=== PATIENT | female | born 1950 | race Caucasian/White ===

== ENCOUNTER 2018-11-26 14:43 | Inpatient (IN) | payer OTHER ==
[~2018-11-26] VITALS: Ht 162.6 cm; Wt 64.9 kg
[2018-11-26] MEDS ORDERED: DOCUSATE SODIUM 100 MG GELCAP PO PRN (16:45)
[2018-11-26] MEDS ORDERED: ONDANSETRON 4 MG/2 ML VIAL IM/IVP PRN (16:45)
[2018-11-26] MEDS ORDERED: ASCO500T45 PO (17:05)
[2018-11-26] MEDS ORDERED: DOXY100C59 PO (17:05)
[2018-11-26] MEDS ORDERED: ATOR40TA PO (17:05)
[2018-11-26] MEDS ORDERED: FERR-252 PO (17:05)
[2018-11-26] MEDS ORDERED: FURO-570 PO (17:05)
[2018-11-26 17:32] LABS: BASOPHILS % (AUTO) 0.7 % (0.0-2.0); EOSINOPHILS # (AUTO) 0.1 K/uL (0-0.4); HEMATOCRIT 21.1 % (36-48); HEMOGLOBIN 7.2 g/dL (12.0-16.0); LYMPHOCYTES # (AUTO) 1.9 K/uL (2.5-16.5); LYMPHOCYTES % (AUTO) 27.7 % (20.5-51.1); MEAN CORPUSCULAR HEMOGLOBIN 31 pg (27-31); MEAN CORPUSCULAR HGB CONC 34 g/dL (33-37); MEAN CORPUSCULAR VOLUME 89.6 fL (80-94); MONOCYTES # (AUTO) 0.6 K/uL (0.8-1.0); MONOCYTES % (AUTO) 8.3 % (1.7-9.3); NEUTROPHILS # (AUTO) 4.2 K/uL (1.8-7.7); NEUTROPHILS % (AUTO) 62.3 % (42.2-75.2); PLATELET COUNT (AUTO) 259 K/uL (140-450); RED BLOOD CELL COUNT(AUTO) 2.36 MIL/uL (4.20-5.40); RED CELL DISTRIBUTION WIDTH 14.3 % (11.6-13.7); WHITE BLOOD COUNT (AUTO) 6.8 K/uL (4.8-10.8)
[2018-11-26 17:48] LABS: PROTHROMBIN TIME 9.8 secs (10.8-13.4)
[2018-11-26] MEDS ORDERED: VANCOMYCIN PER PHARMACY MC PRN (18:05)
[2018-11-26 18:06] LABS: ALBUMIN 3.1 g/dL (3.4-5.0); ANION GAP 11.2 (8-16); CARBON DIOXIDE 32.4 mmol/L (21-32); CHOL/HDL RATIO 3.1 (1-4.5); CREATININE 1.9 mg/dL (0.6-1.3); FREE T4 (FREE THYROXINE) 1.05 ng/dL (0.76-1.46); PHOSPHORUS 4.6 mg/dL (2.5-4.9); POTASSIUM 4.6 mmol/L (3.5-5.1); THYROID STIMULATING HORMONE 1.51 uIU/mL (0.34-3.74); TOTAL BILIRUBIN 0.5 mg/dL (0.0-1.0)
[2018-11-26] MEDS ORDERED: DEXTROSE 50% 50 ML SYR IVP PRN (18:30)
[2018-11-26] MEDS: NACL 0.9% 1,000 ML IV SCH (18:54)
[2018-11-26 19:58] LABS: APPEARANCE,URINE HAZY (CLEAR); BILIRUBIN,URINE NEGATIVE (NEGATIVE); BLOOD, URINE TRACE-I (NEGATIVE); COLOR,URINE YELLOW (YELLOW); LEUKOCYTE ESTERASE ,URINE TRACE (NEGATIVE); NITRITE, URINE NEGATIVE (NEGATIVE); UGLUCOSE NEGATIVE (NEGATIVE)
[2018-11-26] MEDS: BLOOD GLUCOSE MONITORING 1 DEV DEV FS SCH (19:59)
[2018-11-26 20:00] VITALS: BP 193/59
[2018-11-26 20:01] LABS: RBC,URINE 0-5 /HPF (0-5)
[2018-11-26 20:04] LABS: BARBITURATE, URINE NEG. ng/ml (NEG <=200); BENZODIAZEPINE, URINE NEG. ng/mL (NEG <=200); CANNABINOID, URINE NEG. ng/mL (NEG <=50); COCAINE, URINE NEG. ng/mL (NEG <=300); OPIATE, URINE NEG. ng/mL (NEG <=2000); PHENCYCLIDINE SCREEN,URINE NEG. ng/mL (NEG <=25)
[2018-11-26] MEDS: FERROUS SULFATE 325 MG TABEC PO SCH (20:12)
[2018-11-26] MEDS ORDERED: FERROUS SULFATE 325 MG TABEC PO SCH (21:00)
[2018-11-26] MEDS ORDERED: VANCOMYCIN 1,000 MG in NACL 0.9% 250 ML IV SCH (21:00)
[2018-11-26] MEDS ORDERED: PIPERACILLIN/TAZOBACTAM 3.375 GM in DEXTROSE 5% 50 ML IV SCH (21:00)
[2018-11-26] MEDS ORDERED: ASCORBIC ACID 500 MG TAB PO SCH (21:00)
[2018-11-26] MEDS: hydrALAZINE 20 MG/ML VIAL IVP PRN (21:19)
[2018-11-26 23:43] VITALS: BP 135/71
[2018-11-27] MEDS: BLOOD GLUCOSE MONITORING 1 DEV DEV FS SCH ×4 (06:08→20:57)
[2018-11-27] MEDS: ACETAMINOPHEN 325 MG TAB PO PRN (06:37)
[2018-11-27 07:18] LABS: ANION GAP 12.5 (8-16); CARBON DIOXIDE 28.6 mmol/L (21-32); CREATININE 1.8 mg/dL (0.6-1.3); POTASSIUM 4.1 mmol/L (3.5-5.1)
[2018-11-27 07:23] LABS: BASOPHILS % (AUTO) 0.5 % (0.0-2.0); EOSINOPHILS # (AUTO) 0.1 K/uL (0-0.4); EOSINOPHILS % (AUTO) 0.7 % (0.0-4.0); HEMATOCRIT 24.1 % (36-48); HEMOGLOBIN 8.2 g/dL (12.0-16.0); LYMPHOCYTES # (AUTO) 2.1 K/uL (2.5-16.5); LYMPHOCYTES % (AUTO) 22.6 % (20.5-51.1); MEAN CORPUSCULAR HEMOGLOBIN 31 pg (27-31); MEAN CORPUSCULAR HGB CONC 34 g/dL (33-37); MEAN CORPUSCULAR VOLUME 89.3 fL (80-94); MONOCYTES # (AUTO) 0.8 K/uL (0.8-1.0); MONOCYTES % (AUTO) 8.1 % (1.7-9.3); NEUTROPHILS # (AUTO) 6.3 K/uL (1.8-7.7); NEUTROPHILS % (AUTO) 68.1 % (42.2-75.2); PLATELET COUNT (AUTO) 273 K/uL (140-450); RED BLOOD CELL COUNT(AUTO) 2.69 MIL/uL (4.20-5.40); RED CELL DISTRIBUTION WIDTH 14.2 % (11.6-13.7); WHITE BLOOD COUNT (AUTO) 9.3 K/uL (4.8-10.8)
[2018-11-27 07:28] LABS: PHOSPHORUS 5.1 mg/dL (2.5-4.9)
[2018-11-27 08:00] VITALS: BP 141/55
[2018-11-27 08:25] LABS: T4 (THYROXINE) 6.4 ug/dL (4.5-12.0)
[2018-11-27] MEDS: ATORVASTATIN 20 MG TAB PO SCH (08:37)
[2018-11-27] MEDS: FERROUS SULFATE 325 MG TABEC PO SCH ×2 (08:37→20:56)
[2018-11-27] MEDS: HYDROcodone/APAP 7.5/325 MG 1 TAB PO PRN (08:37)
[2018-11-27] MEDS: ASCORBIC ACID 500 MG TAB PO SCH (08:37)
[2018-11-27] MEDS: FUROSEMIDE 40 MG TAB PO SCH (08:38)
[2018-11-27] MEDS: ASPIRIN 81 MG TAB.CHEW PO SCH (10:11)
[2018-11-27] MEDS: INSULIN LISPRO SLIDING SCALE 100 UNITS/ML VIAL SUBQ PRN ×2 (12:30→20:59)
[2018-11-27] MEDS: NACL 0.9% 1,000 ML IV SCH (14:18)
[2018-11-27 15:08] LABS: FOLIC ACID 12.4 ng/mL (>3.0)
[2018-11-27 20:00] VITALS: BP 196/61
[2018-11-27] MEDS: hydrALAZINE 20 MG/ML VIAL IVP PRN (21:00)
[2018-11-28] VITALS: BP 156/60
[2018-11-28] MEDS: NACL 0.9% 1,000 ML IV SCH ×3 (00:15→17:22)
[2018-11-28] MEDS: ACETAMINOPHEN 325 MG TAB PO PRN (01:57)
[2018-11-28] MEDS: BLOOD GLUCOSE MONITORING 1 DEV DEV FS SCH ×4 (06:53→20:13)
[2018-11-28 07:23] LABS: ANION GAP 11.5 (8-16); CARBON DIOXIDE 28.6 mmol/L (21-32); CREATININE 1.7 mg/dL (0.6-1.3); POTASSIUM 4.1 mmol/L (3.5-5.1)
[2018-11-28 08:00] VITALS: BP 156/49
[2018-11-28] MEDS: VANCOMYCIN 1,000 MG in DEXTROSE 5% 250 ML IV SCH (09:10)
[2018-11-28] MEDS: LACTOBACILLUS RHAMNOSUS GG 1 EACH CAP PO SCH (09:11)
[2018-11-28] MEDS: FUROSEMIDE 40 MG TAB PO SCH (09:11)
[2018-11-28] MEDS: ATORVASTATIN 20 MG TAB PO SCH (09:11)
[2018-11-28] MEDS: ASCORBIC ACID 500 MG TAB PO SCH (09:12)
[2018-11-28] MEDS: ASPIRIN 81 MG TAB.CHEW PO SCH (09:12)
[2018-11-28] MEDS: FERROUS SULFATE 325 MG TABEC PO SCH ×2 (09:12→20:12)
[2018-11-28] MEDS: INSULIN LISPRO SLIDING SCALE 100 UNITS/ML VIAL SUBQ PRN ×3 (12:02→20:16)
[2018-11-28 13:35] LABS: BASOPHILS # (AUTO) 0.1 K/uL (0.00-0.22); BASOPHILS % (AUTO) 0.9 % (0.0-2.0); EOSINOPHILS # (AUTO) 0.1 K/uL (0-0.4); EOSINOPHILS % (AUTO) 1.3 % (0.0-4.0); HEMATOCRIT 23.3 % (36-48); HEMOGLOBIN 7.8 g/dL (12.0-16.0); LYMPHOCYTES # (AUTO) 2.2 K/uL (2.5-16.5); LYMPHOCYTES % (AUTO) 32.1 % (20.5-51.1); MEAN CORPUSCULAR HEMOGLOBIN 31 pg (27-31); MEAN CORPUSCULAR HGB CONC 34 g/dL (33-37); MEAN CORPUSCULAR VOLUME 91.1 fL (80-94); MONOCYTES # (AUTO) 0.6 K/uL (0.8-1.0); MONOCYTES % (AUTO) 7.9 % (1.7-9.3); NEUTROPHILS % (AUTO) 57.8 % (42.2-75.2); PLATELET COUNT (AUTO) 266 K/uL (140-450); RED BLOOD CELL COUNT(AUTO) 2.55 MIL/uL (4.20-5.40); RED CELL DISTRIBUTION WIDTH 14.4 % (11.6-13.7)
[2018-11-28 20:00] VITALS: BP 154/42
[2018-11-29] VITALS: BP 156/53
[2018-11-29] MEDS: NACL 0.9% 1,000 ML IV SCH ×2 (04:05→18:04)
[2018-11-29] MEDS: BLOOD GLUCOSE MONITORING 1 DEV DEV FS SCH ×4 (06:45→20:56)
[2018-11-29 07:42] LABS: BASOPHILS % (AUTO) 0.6 % (0.0-2.0); EOSINOPHILS # (AUTO) 0.1 K/uL (0-0.4); EOSINOPHILS % (AUTO) 1.1 % (0.0-4.0); HEMATOCRIT 21.1 % (36-48); HEMOGLOBIN 7.2 g/dL (12.0-16.0); LYMPHOCYTES # (AUTO) 2.1 K/uL (2.5-16.5); LYMPHOCYTES % (AUTO) 30.4 % (20.5-51.1); MEAN CORPUSCULAR HEMOGLOBIN 31 pg (27-31); MEAN CORPUSCULAR HGB CONC 34 g/dL (33-37); MONOCYTES # (AUTO) 0.6 K/uL (0.8-1.0); MONOCYTES % (AUTO) 9.2 % (1.7-9.3); NEUTROPHILS % (AUTO) 58.7 % (42.2-75.2); PLATELET COUNT (AUTO) 244 K/uL (140-450); RED BLOOD CELL COUNT(AUTO) 2.35 MIL/uL (4.20-5.40); WHITE BLOOD COUNT (AUTO) 6.8 K/uL (4.8-10.8)
[2018-11-29 08:00] VITALS: BP 141/49
[2018-11-29 08:07] LABS: ANION GAP 8.7 (8-16); CARBON DIOXIDE 28.8 mmol/L (21-32); CREATININE 1.5 mg/dL (0.6-1.3); MAGNESIUM 1.8 mg/dL (1.8-2.4); PHOSPHORUS 4.4 mg/dL (2.5-4.9); POTASSIUM 3.5 mmol/L (3.5-5.1)
[2018-11-29] MEDS: ASCORBIC ACID 500 MG TAB PO SCH (09:56)
[2018-11-29] MEDS: ATORVASTATIN 20 MG TAB PO SCH (09:56)
[2018-11-29] MEDS: ASPIRIN 81 MG TAB.CHEW PO SCH (09:56)
[2018-11-29] MEDS: FERROUS SULFATE 325 MG TABEC PO SCH ×2 (09:57→20:54)
[2018-11-29] MEDS: FUROSEMIDE 40 MG TAB PO SCH (09:57)
[2018-11-29] MEDS: LACTOBACILLUS RHAMNOSUS GG 1 EACH CAP PO SCH (09:57)
[2018-11-29] MEDS: INSULIN LANTUS 100 UNITS/ML 10 ML VIAL SUBQ SCH (09:58)
[2018-11-29] MEDS: INSULIN LISPRO SLIDING SCALE 100 UNITS/ML VIAL SUBQ PRN ×2 (12:22→20:58)
[2018-11-29 16:00] VITALS: BP 151/48
[2018-11-29 17:04] LABS: BASOPHILS # (AUTO) 0.1 K/uL (0.00-0.22); BASOPHILS % (AUTO) 0.9 % (0.0-2.0); EOSINOPHILS # (AUTO) 0.1 K/uL (0-0.4); EOSINOPHILS % (AUTO) 1.2 % (0.0-4.0); HEMATOCRIT 21.2 % (36-48); HEMOGLOBIN 7.3 g/dL (12.0-16.0); LYMPHOCYTES # (AUTO) 1.9 K/uL (2.5-16.5); LYMPHOCYTES % (AUTO) 29.8 % (20.5-51.1); MEAN CORPUSCULAR HEMOGLOBIN 31 pg (27-31); MEAN CORPUSCULAR HGB CONC 34 g/dL (33-37); MEAN CORPUSCULAR VOLUME 89.4 fL (80-94); MONOCYTES # (AUTO) 0.7 K/uL (0.8-1.0); MONOCYTES % (AUTO) 10.3 % (1.7-9.3); NEUTROPHILS # (AUTO) 3.7 K/uL (1.8-7.7); NEUTROPHILS % (AUTO) 57.8 % (42.2-75.2); PLATELET COUNT (AUTO) 252 K/uL (140-450); RED BLOOD CELL COUNT(AUTO) 2.37 MIL/uL (4.20-5.40); RED CELL DISTRIBUTION WIDTH 14.1 % (11.6-13.7); WHITE BLOOD COUNT (AUTO) 6.4 K/uL (4.8-10.8)
[2018-11-29] MEDS: VANCOMYCIN 1,000 MG in DEXTROSE 5% 250 ML IV SCH (21:39)
[2018-11-30] VITALS: BP 156/53
[2018-11-30] MEDS: NACL 0.9% 1,000 ML IV SCH ×4 (02:18→20:23)
[2018-11-30] MEDS: BLOOD GLUCOSE MONITORING 1 DEV DEV FS SCH ×4 (06:17→20:23)
[2018-11-30 08:00] VITALS: BP 175/40
[2018-11-30 08:27] LABS: BASOPHILS % (AUTO) 0.6 % (0.0-2.0); EOSINOPHILS # (AUTO) 0.1 K/uL (0-0.4); EOSINOPHILS % (AUTO) 1.4 % (0.0-4.0); LYMPHOCYTES % (AUTO) 29.5 % (20.5-51.1); MEAN CORPUSCULAR HEMOGLOBIN 31 pg (27-31); MEAN CORPUSCULAR HGB CONC 34 g/dL (33-37); MEAN CORPUSCULAR VOLUME 89.6 fL (80-94); MONOCYTES # (AUTO) 0.6 K/uL (0.8-1.0); MONOCYTES % (AUTO) 9.4 % (1.7-9.3); NEUTROPHILS # (AUTO) 4.1 K/uL (1.8-7.7); NEUTROPHILS % (AUTO) 59.1 % (42.2-75.2); PLATELET COUNT (AUTO) 223 K/uL (140-450); RED BLOOD CELL COUNT(AUTO) 2.12 MIL/uL (4.20-5.40); RED CELL DISTRIBUTION WIDTH 14.1 % (11.6-13.7); WHITE BLOOD COUNT (AUTO) 6.9 K/uL (4.8-10.8)
[2018-11-30 08:31] LABS: HEMOGLOBIN 6.5 g/dL (12.0-16.0)
[2018-11-30 08:41] LABS: ANION GAP 11.5 (8-16); CARBON DIOXIDE 25.6 mmol/L (21-32); CREATININE 1.3 mg/dL (0.6-1.3); POTASSIUM 3.1 mmol/L (3.5-5.1)
[2018-11-30 08:44] LABS: MAGNESIUM 1.6 mg/dL (1.8-2.4); PHOSPHORUS 4.1 mg/dL (2.5-4.9)
[2018-11-30] MEDS: ASPIRIN 81 MG TAB.CHEW PO SCH (09:23)
[2018-11-30] MEDS: FERROUS SULFATE 325 MG TABEC PO SCH ×2 (09:24→20:04)
[2018-11-30] MEDS: LACTOBACILLUS RHAMNOSUS GG 1 EACH CAP PO SCH (09:24)
[2018-11-30] MEDS: ASCORBIC ACID 500 MG TAB PO SCH (09:24)
[2018-11-30] MEDS: ATORVASTATIN 20 MG TAB PO SCH (09:24)
[2018-11-30] MEDS: FUROSEMIDE 40 MG TAB PO SCH (09:24)
[2018-11-30] MEDS: INSULIN LANTUS 100 UNITS/ML 10 ML VIAL SUBQ SCH (09:29)
[2018-11-30] MEDS ORDERED: POTASSIUM CHLORIDE 40 MEQ, LIDOCAINE MPF 1% 25 MG in NACL 0.9% 250 ML IV ONE (10:50)
[2018-11-30] MEDS ORDERED: LISINOPRIL 10 MG TAB PO SCH (11:00)
[2018-11-30] MEDS: INSULIN LISPRO SLIDING SCALE 100 UNITS/ML VIAL SUBQ PRN ×2 (11:55→20:26)
[2018-11-30] MEDS ORDERED: BISACODYL 10 MG SUPP RC SCH (12:00)
[2018-11-30] MEDS ORDERED: MAG SULF 2000 MG/WATER PREMIX 50 ML IV SCH (15:00)
[2018-11-30] MEDS ORDERED: MAG SULF 2000 MG/WATER PREMIX 50 ML IV PRN (15:50)
[2018-11-30 16:00] VITALS: BP 175/51
[2018-11-30] MEDS: VANCOMYCIN 750 MG in DEXTROSE 5% 250 ML IV SCH (20:08)
[2018-12-01] VITALS: BP 162/49
[2018-12-01] MEDS ORDERED: ACETAMINOPHEN 325 MG TAB PO SCH (01:00)
[2018-12-01] MEDS ORDERED: FUROSEMIDE 20 MG TAB PO SCH (01:00)
[2018-12-01] MEDS: KCL 20 MEQ/WATER INJ PREMIX 100 ML IV PRN ×2 (02:47→04:30)
[2018-12-01] MEDS: FUROSEMIDE 20 MG TAB PO SCH ×2 (04:21→10:08)
[2018-12-01] MEDS: ACETAMINOPHEN 325 MG TAB PO SCH ×2 (04:21→10:07)
[2018-12-01] MEDS: BLOOD GLUCOSE MONITORING 1 DEV DEV FS SCH ×4 (05:28→21:00)
[2018-12-01] MEDS: HYDROcodone/APAP 7.5/325 MG 1 TAB PO PRN (06:18)
[2018-12-01 08:00] VITALS: BP 172/61
[2018-12-01] MEDS: NACL 0.9% 1,000 ML IV SCH (08:25)
[2018-12-01] MEDS: INSULIN LANTUS 100 UNITS/ML 10 ML VIAL SUBQ SCH (09:00)
[2018-12-01] MEDS: FUROSEMIDE 40 MG TAB PO SCH (10:08)
[2018-12-01] MEDS: ASPIRIN 81 MG TAB.CHEW PO SCH (10:08)
[2018-12-01] MEDS: LACTOBACILLUS RHAMNOSUS GG 1 EACH CAP PO SCH (10:08)
[2018-12-01] MEDS: LISINOPRIL 10 MG TAB PO SCH (10:09)
[2018-12-01] MEDS: ATORVASTATIN 20 MG TAB PO SCH (10:09)
[2018-12-01] MEDS: FERROUS SULFATE 325 MG TABEC PO SCH ×2 (10:09→21:58)
[2018-12-01] MEDS: ASCORBIC ACID 500 MG TAB PO SCH (10:09)
[2018-12-01 10:20] LABS: BASOPHILS # (AUTO) 0.1 K/uL (0.00-0.22); BASOPHILS % (AUTO) 0.6 % (0.0-2.0); EOSINOPHILS # (AUTO) 0.1 K/uL (0-0.4); EOSINOPHILS % (AUTO) 1.4 % (0.0-4.0); HEMATOCRIT 23.5 % (36-48); LYMPHOCYTES # (AUTO) 2.4 K/uL (2.5-16.5); LYMPHOCYTES % (AUTO) 29.8 % (20.5-51.1); MEAN CORPUSCULAR HEMOGLOBIN 31 pg (27-31); MEAN CORPUSCULAR HGB CONC 34 g/dL (33-37); MEAN CORPUSCULAR VOLUME 90.4 fL (80-94); MONOCYTES # (AUTO) 0.8 K/uL (0.8-1.0); MONOCYTES % (AUTO) 9.9 % (1.7-9.3); NEUTROPHILS # (AUTO) 4.7 K/uL (1.8-7.7); NEUTROPHILS % (AUTO) 58.3 % (42.2-75.2); PLATELET COUNT (AUTO) 226 K/uL (140-450); RED CELL DISTRIBUTION WIDTH 14.2 % (11.6-13.7); WHITE BLOOD COUNT (AUTO) 8.1 K/uL (4.8-10.8)
[2018-12-01] MEDS ORDERED: VANCOMYCIN PER PHARMACY MC PRN (10:40)
[2018-12-01 10:43] LABS: ANION GAP 10.3 (8-16); CARBON DIOXIDE 28.3 mmol/L (21-32); CREATININE 1.5 mg/dL (0.6-1.3); POTASSIUM 3.6 mmol/L (3.5-5.1)
[2018-12-01 10:46] LABS: MAGNESIUM 1.9 mg/dL (1.8-2.4); PHOSPHORUS 4.6 mg/dL (2.5-4.9)
[2018-12-01] MEDS: INSULIN LISPRO SLIDING SCALE 100 UNITS/ML VIAL SUBQ PRN ×2 (11:51→22:09)
[2018-12-01 16:00] VITALS: BP 176/56
[2018-12-01] MEDS: hydrALAZINE 20 MG/ML VIAL IVP PRN ×2 (17:07→18:48)
[2018-12-01] MEDS: ACETAMINOPHEN 325 MG TAB PO PRN (21:58)
[2018-12-02] MEDS: VANCOMYCIN 750 MG in DEXTROSE 5% 250 ML IV SCH ×2 (01:00→21:00)
[2018-12-02] MEDS: NACL 0.9% 1,000 ML IV SCH (04:25)
[2018-12-02] MEDS: HYDROcodone/APAP 7.5/325 MG 1 TAB PO PRN ×2 (04:42→23:54)
[2018-12-02 06:19] LABS: ANION GAP 9.2 (8-16); CARBON DIOXIDE 29.3 mmol/L (21-32); CREATININE 1.6 mg/dL (0.6-1.3); POTASSIUM 3.5 mmol/L (3.5-5.1)
[2018-12-02 06:27] LABS: MAGNESIUM 1.9 mg/dL (1.8-2.4); PHOSPHORUS 5.2 mg/dL (2.5-4.9)
[2018-12-02 06:44] LABS: BASOPHILS % (AUTO) 0.6 % (0.0-2.0); EOSINOPHILS # (AUTO) 0.1 K/uL (0-0.4); EOSINOPHILS % (AUTO) 1.8 % (0.0-4.0); HEMOGLOBIN 8.2 g/dL (12.0-16.0); LYMPHOCYTES # (AUTO) 2.3 K/uL (2.5-16.5); LYMPHOCYTES % (AUTO) 32.6 % (20.5-51.1); MEAN CORPUSCULAR HEMOGLOBIN 31 pg (27-31); MEAN CORPUSCULAR HGB CONC 34 g/dL (33-37); MEAN CORPUSCULAR VOLUME 89.9 fL (80-94); MONOCYTES # (AUTO) 0.6 K/uL (0.8-1.0); MONOCYTES % (AUTO) 8.6 % (1.7-9.3); NEUTROPHILS % (AUTO) 56.4 % (42.2-75.2); PLATELET COUNT (AUTO) 221 K/uL (140-450); RED BLOOD CELL COUNT(AUTO) 2.66 MIL/uL (4.20-5.40); RED CELL DISTRIBUTION WIDTH 13.9 % (11.6-13.7); WHITE BLOOD COUNT (AUTO) 7.1 K/uL (4.8-10.8)
[2018-12-02 08:00] VITALS: BP 177/79
[2018-12-02] MEDS: BLOOD GLUCOSE MONITORING 1 DEV DEV FS SCH ×4 (08:03→21:00)
[2018-12-02] MEDS ORDERED: AMLO5TAB6 PO (08:23)
[2018-12-02] MEDS ORDERED: LISI10TA11 PO (08:23)
[2018-12-02] MEDS ORDERED: ASPI81CT95 PO (08:23)
[2018-12-02] MEDS ORDERED: FER325 PO (08:23)
[2018-12-02] MEDS: LACTOBACILLUS RHAMNOSUS GG 1 EACH CAP PO SCH (08:51)
[2018-12-02] MEDS: LISINOPRIL 10 MG TAB PO SCH (08:52)
[2018-12-02] MEDS: ASCORBIC ACID 500 MG TAB PO SCH (08:52)
[2018-12-02] MEDS: ASPIRIN 81 MG TAB.CHEW PO SCH (08:52)
[2018-12-02] MEDS: ATORVASTATIN 20 MG TAB PO SCH (08:53)
[2018-12-02] MEDS: FUROSEMIDE 40 MG TAB PO SCH (08:53)
[2018-12-02] MEDS: FERROUS SULFATE 325 MG TABEC PO SCH ×2 (08:53→21:00)
[2018-12-02] MEDS: INSULIN LANTUS 100 UNITS/ML 10 ML VIAL SUBQ SCH (08:55)
[2018-12-02] MEDS ORDERED: amLODIPine 5 MG TAB PO SCH (09:00)
[2018-12-02] MEDS ORDERED: LACT10CA1 PO (09:01)
[2018-12-02] MEDS ORDERED: VANC1PIG IV (09:01)
[2018-12-02 09:43] VITALS: BP 154/59
[2018-12-02] MEDS: INSULIN LISPRO SLIDING SCALE 100 UNITS/ML VIAL SUBQ PRN ×3 (12:16→23:41)
[2018-12-02 20:00] VITALS: BP 123/52
[2018-12-03] MEDS ORDERED: CALCIUM ACETATE 667 MG TAB PO SCH (08:00)
== END 2018-12-03 01:00 | DRG 73 ==
LOC: MTU 16:01
PROVIDERS: ADMIT Family Medicine; ATTEND Family Medicine
PROC: 30233N1 Transfusion of Nonautologous Red Blood Cells into Peripheral Vein, Percutaneous Approach (ICD-10-PCS; 2018-11-26)
PROC: 02HV33Z Insertion of Infusion Device into Superior Vena Cava, Percutaneous Approach (ICD-10-PCS; principal; 2018-11-27)
PROC: B548ZZA Ultrasonography of Superior Vena Cava, Guidance (ICD-10-PCS; 2018-11-27)
DX: E11.610 Type 2 diabetes mellitus with diabetic neuropathic arthropathy (principal); N17.0 Acute kidney failure with tubular necrosis; M86.8X7 Other osteomyelitis, ankle and foot; E44.1 Mild protein-calorie malnutrition; J90 Pleural effusion, not elsewhere classified; E11.69 Type 2 diabetes mellitus with other specified complication; L03.031 Cellulitis of right toe; E11.51 Type 2 diabetes mellitus with diabetic peripheral angiopathy without gangrene; E11.622 Type 2 diabetes mellitus with other skin ulcer; E78.5 Hyperlipidemia, unspecified; D64.9 Anemia, unspecified; E11.40 Type 2 diabetes mellitus with diabetic neuropathy, unspecified; E83.39 Other disorders of phosphorus metabolism; N18.9 Chronic kidney disease, unspecified; E87.6 Hypokalemia; I12.9 Hypertensive chronic kidney disease with stage 1 through stage 4 chronic kidney disease, or unspecified chronic kidney disease; D63.8 Anemia in other chronic diseases classified elsewhere; M85.80 Other specified disorders of bone density and structure, unspecified site; I70.0 Atherosclerosis of aorta; I36.1 Nonrheumatic tricuspid (valve) insufficiency; Z68.24 Body mass index [BMI] 24.0-24.9, adult; Z86.73 Personal history of transient ischemic attack (TIA), and cerebral infarction without residual deficits; Z88.0 Allergy status to penicillin; Z83.3 Family history of diabetes mellitus; Z82.49 Family history of ischemic heart disease and other diseases of the circulatory system; L97.514 Non-pressure chronic ulcer of other part of right foot with necrosis of bone
CPT/HCPCS: 36415; 70450; 71045; 73630; 80048; 80053; 80202; 80305; 81001; 82150; 82607; 82728; 82746; 82948; 83036; 83540; 83605; 83690; 83735; 84100; 84436; 84439; 84443; 84479; 84484; 85025; 85045; 85610; 85651; 85730; 86140; 86886; 86900; 86901; 86920; 87040; 87070; 87075; 87081; 87086; 87205; 93005; 93925; 97110; 97116; 97161-GP; 97530; C1751; J0360; J1644; J1815; J3370; J3475; J3480; J7030; J7060; P9016; Q0092; Q0163

== ENCOUNTER 2019-05-04 09:56 | Inpatient (IN) | payer OTHER ==
[~2019-05-04] VITALS: Ht 160 cm; Wt 64.9 kg
[~2019-05-04 09:56] MED LIST: AMLO5TAB6 PO; ASCO500T45 PO; ASPI81CT95 PO; ATOR40TA PO; FER325 PO; FURO-570 PO; LACT10CA1 PO; LISI10TA11 PO; VANC1PIG IV
--- NOTE | 2019-05-04 09:56 | NUR ---
Patient BIBA ALS, transferred to bed 5. RN evaluating patient at bedside.
[2019-05-04 10:01] VITALS: BP 147/65
[2019-05-04] MEDS ORDERED: LEVOFLOXACIN 500 MG/D5W PREMIX 100 ML IV ONE (10:05)
--- NOTE | 2019-05-04 10:14 | NUR ---
68 Y/O F C/C SOB AND CHEST PAIN X1 DAY. PT BIBA. PT A/OX4. BROUGHT IN WITH O2 MASK. SPO2 98%. A; PNC. HX; HTN,DM,HIGH CHOLESTEROL. RX; PT DOES NOT RECALL. NO N/V/D. SIDE RAILX1.
--- NOTE | 2019-05-04 10:19 | NUR ---
XRAY AT BEDSIDE
[2019-05-04] MEDS ORDERED: GABA300C PO (10:23)
[2019-05-04] MEDS ORDERED: MULT-1868 PO (10:23)
[2019-05-04] MEDS ORDERED: ASCO500T45 PO (10:23)
[2019-05-04] MEDS ORDERED: DOCU-299 PO (10:23)
[2019-05-04] MEDS ORDERED: AMLO5TAB PO (10:23)
[2019-05-04] MEDS ORDERED: SULF-59 PO (10:23)
[2019-05-04] MEDS ORDERED: [UNRECOGNIZED DRUG - CODE] SUBQ (10:23)
[2019-05-04] MEDS ORDERED: HYDR-5122 PO (10:23)
[2019-05-04] MEDS ORDERED: ATOR40TA PO (10:23)
[2019-05-04] MEDS ORDERED: ACET-2619 PO (10:23)
[2019-05-04] MEDS ORDERED: GLIP5TER PO (10:23)
[2019-05-04 10:52] LABS: BASOPHILS % (AUTO) 0.2 % (0.0-2.0); HEMATOCRIT 23.2 % (36-48); HEMOGLOBIN 7.1 g/dL (12.0-16.0); LYMPHOCYTES # (AUTO) 1.5 K/uL (2.5-16.5); LYMPHOCYTES % (AUTO) 9.3 % (20.5-51.1); MEAN CORPUSCULAR HEMOGLOBIN 30 pg (27-31); MEAN CORPUSCULAR HGB CONC 31 g/dL (33-37); MEAN CORPUSCULAR VOLUME 96.6 fL (80-94); MONOCYTES % (AUTO) 6.4 % (1.7-9.3); NEUTROPHILS # (AUTO) 13.6 K/uL (1.8-7.7); NEUTROPHILS % (AUTO) 84.1 % (42.2-75.2); PLATELET COUNT (AUTO) 321 K/uL (140-450); WHITE BLOOD COUNT (AUTO) 16.2 K/uL (4.8-10.8)
[2019-05-04 11:14] LABS: ANION GAP 17.9 (8-16); CARBON DIOXIDE 17.5 mmol/L (21-32); TOTAL BILIRUBIN 0.3 mg/dL (0.0-1.0)
[2019-05-04 11:22] LABS: POTASSIUM 7.4 mmol/L (3.5-5.1)
[2019-05-04 11:23] LABS: CREATININE 4.5 mg/dL (0.6-1.3)
--- NOTE | 2019-05-04 11:32 | NUR ---
RUDY SUPPLEMENTAL MANAGER CALLED FOR CRITICAL LAB REPORT
--- NOTE | 2019-05-04 13:00 | NUR ---
REPORT GIVEN TO HERIBERTO LOBATO FOR CONTINUITY OF CARE
--- NOTE | 2019-05-04 13:15 | NUR ---
SKINNY CATHERINE SISTER OF PATIENT CELL: [phone]
[2019-05-04] MEDS ORDERED: SODIUM POLYSTYRENE 15 GM/60 ML UDBTL PO ONE ×2 (13:20→15:25)
--- NOTE | 2019-05-04 13:31 | NUR ---
PT RESTING BED. LABS REVEAL ELEVATED K:7.4. KAYEXALATE GIVEN. PT IS TACHYPNEIC/ SLIGHTLY LABORED BREATHING. NC AT 6L, PT O2 SAT 91%. ALL NEEDS MET AT THIS TIME.
[2019-05-04] MEDS ORDERED: HYDROcodone/APAP 5/325 MG 1 TAB TAB PO PRN (14:05)
[2019-05-04] MEDS ORDERED: DOCUSATE SODIUM 100 MG GELCAP PO PRN (14:05)
[2019-05-04] MEDS ORDERED: ONDANSETRON 4 MG/2 ML VIAL IM/IVP PRN (14:05)
[2019-05-04] MEDS ORDERED: MORPHINE SULFATE 2 MG/ML SYR IVP PRN (14:05)
[2019-05-04] MEDS ORDERED: NITROGLYCERIN 0.4 MG TAB SL PRN (14:10)
--- NOTE | 2019-05-04 14:50 | NUR ---
PATIENT ARRIVED ON FLOOR VIA GURNEY, PT ON 4L O2 VIA NC, RESPIRATIONS EVEN AND UNLABORED. PT DENIES PAIN. DX: CHF. ORIENTED PATIENT TO FLOOR, CALL LIGHT, BATHROOM, TV. UPDATED BOARD. MRSA SCREENING DONE. SAFETY PRECAUTIONS IN PLACE, CALL LIGHT WITHIN REACH, WILL CONTINUE TO MONITOR PATIENT.
--- NOTE | 2019-05-04 14:55 | NUR ---
Patient will be admitted to care of DR FRAUSTO. Admited to TELE. Will go to room 128B. Belongings list completed. Report to RADHA LOBATO.
[2019-05-04 15:10] VITALS: BP 154/79
[2019-05-04 15:22] LABS: PROTHROMBIN TIME 9.9 secs (10.8-13.4)
[2019-05-04 15:25] LABS: MAGNESIUM 2.4 mg/dL (1.8-2.4); PHOSPHORUS 4.9 mg/dL (2.5-4.9); THYROID STIMULATING HORMONE 1.79 uIU/mL (0.34-3.74)
[2019-05-04] MEDS ORDERED: CALCIUM CHLORIDE 10% 100 MG/ML SYR IVP SCH (15:30)
[2019-05-04] MEDS: NACL 0.9% 1,000 ML IV SCH (15:30)
[2019-05-04] MEDS: FUROSEMIDE 40 MG/4 ML VIAL IVP SCH (16:18)
--- NOTE | 2019-05-04 16:18 | NUR ---
ORDERED IVP LASIX GIVEN. PATIENT TOLERATED IT. INFORM PATIENT TO CALL FOR REGIONAL TRAINING MANAGER IF SHE VOIDS AND NEED FOR URINE SAMPLE. NO COMPLAINTS AT THIS TIME. SAFETY PRECAUTIONS IN PLACE, CALL LIGHT WITHIN REACH, WILL CONTINUE TO MONITOR PATIENT.
[2019-05-04] MEDS ORDERED: DEXTROSE 50% 50 ML SYR IVP PRN (16:20)
[2019-05-04] MEDS: FERROUS SULFATE 325 MG TABEC PO SCH (16:59)
[2019-05-04] MEDS ORDERED: AZITHROMYCIN 500 MG in DEXTROSE 5% 250 ML IV SCH (17:00)
--- NOTE | 2019-05-04 17:00 | NUR ---
ORDERED MEDICATION GIVEN. PATIENT TOLERATED IT. NO COMPLAINTS AT THIS TIME. SAFETY PRECAUTIONS IN PLACE, CALL LIGHT WITHIN REACH, WILL CONTINUE TO MONITOR PATIENT. Addendum: 05/04/19 at 2004 by Guicho Galvez RN BLOOD SUGAR 72. GAVE PATIENT APPLE JUICE. DINNER WILL BE COMING SOON.
[2019-05-04] MEDS: BLOOD GLUCOSE MONITORING 1 DEV DEV FS SCH ×2 (17:01→21:22)
--- NOTE | 2019-05-04 17:20 | NUR ---
ORDERED MEDICATION GIVEN IVBP. PATIENT TOLERATED IT. NO COMPLAINTS AT THIS TIME. SAFETY PRECAUTIONS IN PLACE, CALL LIGHT WITHIN REACH, WILL CONTINUE TO MONITOR PATIENT.
--- NOTE | 2019-05-04 18:20 | NUR ---
1 UNIT OF PRBC STARTED. PATIENT TOLERATING IT WELL. SISTER LAURY AT BEDSIDE. PATIENT HAS NO COMPLAINTS AT THIS TIME. WILL CONTINUE TO MONITOR PATIENT.
--- NOTE | 2019-05-04 19:15 | NUR ---
REPORT GIVEN TO VASCULAR TECH NURSE AT BEDSIDE FOR CONTINUITY OF CARE. FAMILY AT BEDSIDE, PATIENT STABLE.
[2019-05-04 20:00] VITALS: BP 132/54
[2019-05-04 20:15] LABS: ANION GAP 16.6 (8-16); CARBON DIOXIDE 16.3 mmol/L (21-32); POTASSIUM 5.9 mmol/L (3.5-5.1)
[2019-05-04] MEDS ORDERED: SIMVASTATIN 20 MG TAB PO SCH (21:00)
[2019-05-04] MEDS: ATORVASTATIN 20 MG TAB PO SCH (21:11)
[2019-05-04] MEDS: ACETAMINOPHEN 325 MG TAB PO PRN (21:11)
[2019-05-04] MEDS: GABAPENTIN 100 MG CAP PO SCH (21:11)
[2019-05-04] MEDS ORDERED: ALBUTEROL SULFATE/IPRATROPIU 3 ML SOL IH ONE (21:21)
[2019-05-04] MEDS ORDERED: CLINDAMYCIN 600 MG/4 ML VIAL ONE (21:24)
--- NOTE | 2019-05-04 21:30 | NUR ---
BLOOD TRANSFUSION DONE, IVF RESUMED, MONITORED CLOSELY.
--- NOTE | 2019-05-04 21:30 | NUR ---
RECEIVED PATIENT ON NASAL CANNULA. TITRATED TO 3LPM, PULSE OX SAT 95%. NO SOB NOTED. WILL CONTINUE TO MONITOR.
[2019-05-04] MEDS: CLINDAMYCIN 600 MG in DEXTROSE 5% 50 ML IV SCH (21:44)
--- NOTE | 2019-05-04 22:10 | NUR ---
PT HAD LOOSE STOOL AND VOIDED AT THE SAME TIME, UNABLE TO COLLECT URINE SPECIMEN FOR TEST, CLEANED AND REPOSITIONED BY LISANDRA JONES, MONITORED CLOSELY.
[2019-05-05] VITALS: BP 120/50
--- NOTE | 2019-05-05 02:15 | NUR ---
PT REQUESTING FOR BEDPAN, VOIDED FREELY AND HAD LOOSE STOOL, UNABLE TO COLLECT URINE SPECIMEN, CLEANED AND REPOSITIONED, MONITORED CLOSELY.
[2019-05-05 03:44] LABS: ANION GAP 16.4 (8-16); CARBON DIOXIDE 16.5 mmol/L (21-32); CREATININE 3.8 mg/dL (0.6-1.3); POTASSIUM 4.9 mmol/L (3.5-5.1)
[2019-05-05 04:00] VITALS: BP 135/56
--- NOTE | 2019-05-05 04:00 | NUR ---
PT SLEEPING, OPEN EYES TO NAME, VITAL SIGNS STABLE, DENIES ANY PAIN, NO SOB NOTED, PT WENT BACK TO SLEEP, MONITORED CLOSELY.
[2019-05-05] MEDS ORDERED: CLINDAMYCIN 600 MG/4 ML VIAL ONE (04:21)
[2019-05-05] MEDS: CLINDAMYCIN 600 MG in DEXTROSE 5% 50 ML IV SCH ×3 (04:41→20:45)
--- NOTE | 2019-05-05 05:50 | NUR ---
BLOOD SUGAR CHECKED WITH 95 RESULT, NO COVERAGE NEEDED, MONITORED CLOSELY.
[2019-05-05] MEDS: NACL 0.9% 1,000 ML IV SCH (06:33)
[2019-05-05] MEDS: BLOOD GLUCOSE MONITORING 1 DEV DEV FS SCH ×4 (06:33→20:52)
[2019-05-05] MEDS: ALBUTEROL SULFATE/IPRATROPIU 3 ML SOL IH SCH ×3 (06:49→19:56)
--- NOTE | 2019-05-05 07:25 | NUR ---
PT AWAKE, NO SIGNS OF DISTRESS, REPORT GIVEN TO CHERYLE MURILLO FOR CONTINUITY OF CARE.
--- NOTE | 2019-05-05 07:26 | NUR ---
RECEIVED REPORT FROM FLANGE MACHINE OPERATOR NURSE. PT IS AWAKE AND ORIENTED. PT IS ON NC 3L O2. BREATHING LABORED. LUNG STILL COARSE AND DIMINISHED AT BASE. PT HAS IV ON L AC 22G NS AT 60ML. PT HAS DRESSING ON R FOOT. PER FLANGE MACHINE OPERATOR, PT HAS A DIABETIC ULCER ON THE PLANTAR. REQUESTED WOUND CONSULT. PLAN FOR TODAY: US DOPPLER OF BLE, CARDIO CONSULT, URINE SAMPLE TO BE COLLECTED AND SEND TO LAB; MONITOR LABS.
[2019-05-05 08:00] VITALS: BP 134/51
[2019-05-05 08:07] LABS: FOLIC ACID 13.4 ng/mL (>3.0); T4 (THYROXINE) 6.4 ug/dL (4.5-12.0)
--- NOTE | 2019-05-05 08:37 | NUR ---
PATIENT HAS BEEN SCREENED AND CATEGORIZED MODERATE NUTRITION RISK. PATIENT WILL BE SEEN WITHIN 3-5 DAYS OF ADMISSION. 05/07/19 05/09/[address]
[2019-05-05 09:08] LABS: BASOPHILS % (AUTO) 0.3 % (0.0-2.0); EOSINOPHILS # (AUTO) 0.3 K/uL (0-0.4); EOSINOPHILS % (AUTO) 1.9 % (0.0-4.0); HEMATOCRIT 25.2 % (36-48); HEMOGLOBIN 8.2 g/dL (12.0-16.0); LYMPHOCYTES # (AUTO) 0.8 K/uL (2.5-16.5); MEAN CORPUSCULAR HEMOGLOBIN 30 pg (27-31); MEAN CORPUSCULAR HGB CONC 32 g/dL (33-37); MEAN CORPUSCULAR VOLUME 93.6 fL (80-94); MONOCYTES # (AUTO) 0.9 K/uL (0.8-1.0); MONOCYTES % (AUTO) 6.7 % (1.7-9.3); NEUTROPHILS # (AUTO) 11.6 K/uL (1.8-7.7); NEUTROPHILS % (AUTO) 85.1 % (42.2-75.2); PLATELET COUNT (AUTO) 295 K/uL (140-450); RED BLOOD CELL COUNT(AUTO) 2.69 MIL/uL (4.20-5.40); WHITE BLOOD COUNT (AUTO) 13.7 K/uL (4.8-10.8)
[2019-05-05] MEDS: AZITHROMYCIN 250 MG TAB PO SCH (09:41)
[2019-05-05] MEDS: glipiZIDE ER 5 MG TABER PO SCH (09:41)
[2019-05-05] MEDS: ASPIRIN 81 MG TAB.CHEW PO SCH (09:41)
[2019-05-05] MEDS: ASCORBIC ACID 500 MG TAB PO SCH (09:41)
[2019-05-05] MEDS: amLODIPine 5 MG TAB PO SCH (09:42)
[2019-05-05] MEDS: FUROSEMIDE 40 MG/4 ML VIAL IVP SCH ×3 (09:42→17:00)
[2019-05-05] MEDS: FERROUS SULFATE 325 MG TABEC PO SCH ×2 (09:43→17:00)
--- NOTE | 2019-05-05 09:53 | NUR ---
ADMINISTERED MORNING MEDS. PT TOLERATED WELL. DR MENDEZ HERE TO ASSESS PT. PER MD, BREATHING IS BETTER, KIDNEY FUNCTION HAS IMPROVED AND EDEMA IN THE LEGS HAVE IMPROVED. WILL CONTINUE TO REMOVE FLUIDS WITH LASIX.
--- NOTE | 2019-05-05 10:34 | NUR ---
INSERTED PATINO CATH. CLEAR YELLOW URINE 1400 ML IN BAG. JUST FINISHED WITH BLE DOPPLER STUDY. PT SLEEPING, RESTING COMFORTABLE. STILL SOME LABORED BREATHING. LUNG SOUNDS BETTER.
[2019-05-05 11:30] LABS: APPEARANCE,URINE HAZY (CLEAR); BILIRUBIN,URINE NEGATIVE (NEGATIVE); BLOOD, URINE 2+ (NEGATIVE); COLOR,URINE YELLOW (YELLOW); LEUKOCYTE ESTERASE ,URINE NEGATIVE (NEGATIVE); NITRITE, URINE NEGATIVE (NEGATIVE); PH,URINE 5.5 (5.0-9.0); UGLUCOSE NEGATIVE (NEGATIVE)
[2019-05-05 11:33] LABS: PHOSPHORUS 5.4 mg/dL (2.5-4.9)
[2019-05-05 11:49] LABS: WBC,URINE 0-5 /HPF (0-5)
[2019-05-05 11:51] LABS: BARBITURATE, URINE NEG. ng/ml (NEG <=200); BENZODIAZEPINE, URINE NEG. ng/mL (NEG <=200); CANNABINOID, URINE NEG. ng/mL (NEG <=50); COARSE GRANULAR CASTS,URINE 0-3 /LPF (None Seen); COCAINE, URINE NEG. ng/mL (NEG <=300); OPIATE, URINE NEG. ng/mL (NEG <=2000); PHENCYCLIDINE SCREEN,URINE NEG. ng/mL (NEG <=25)
[2019-05-05 12:00] VITALS: BP 136/65
[2019-05-05 12:02] LABS: ANION GAP 18.5 (8-16); CARBON DIOXIDE 16.5 mmol/L (21-32); CREATININE 3.7 mg/dL (0.6-1.3)
[2019-05-05] MEDS: SODIUM FERRIC GLUCONATE 125 MG in NACL 0.9% 100 ML IV SCH (12:02)
[2019-05-05 12:05] LABS: CHOL/HDL RATIO 2.9 (1-4.5)
--- NOTE | 2019-05-05 13:02 | NUR ---
LAB CALLED WITH CRITICAL: 1.031. DR VIDES WAS ALREADY HERE. WILL PAGE WITH CRITICAL RESULTS.
--- NOTE | 2019-05-05 14:08 | NUR ---
STARTED AN ANOTHER IV ACCESS ON L HAND 22G. PT KEEPS BENDING HER ARM AND KEEPS THE IVS FROM CONTINUOUS INFUSION. PT TOLERATED WELL. WILL KEEP BOTH IV SITE. FINALLY FINISHED IRON, WILL SWITCH OUT TO CLINDAMYCIN.
[2019-05-05 16:00] VITALS: BP 126/51
--- NOTE | 2019-05-05 16:20 | NUR ---
SARAH assessment/discharge plan Name: Tati Hanna Relationship: sister Pre-Admission Living Arrangements: SNF Healthcare Decision Maker: Patient Advance Directive No Tentative Discharge Plan Summary: Patient is a 68 year old female admitted for pneumonia, hyperkalemia, and cute renal failure. 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 Jac stated patient does not have an existing Advance Directive and is self responsible with medical decisions. Clinical Research Management Associate and/or Spring Former Machine will follow up as needed. Signature: SARAH Lowe Date: May 05, 2019
[2019-05-05] MEDS: INSULIN LISPRO SLIDING SCALE 100 UNITS/ML VIAL SUBQ PRN ×2 (17:02→20:52)
[2019-05-05 17:38] LABS: ANION GAP 16.5 (8-16); CARBON DIOXIDE 18.4 mmol/L (21-32); CREATININE 3.4 mg/dL (0.6-1.3); POTASSIUM 4.9 mmol/L (3.5-5.1)
--- NOTE | 2019-05-05 19:19 | NUR ---
ENDORSED PT TO THE NET WEB DEVELOPER NURSE. PT IS VISITING WITH FAMILY. STILL VERY ITCHY. PER PT, ITS CHRONIC. NOTED THE SCRATCH DC AND SCABS ON THE EXTREMITIES. OFFERED HER BENADRYL. PER PT, ITS DOESN'T WORK. ENDORSED TO PT TO GET SOMETHING FOR HER TO HELP WITH THE ITCHING. PT IS DOING WELL. IN STABLE CONDITION.
--- NOTE | 2019-05-05 19:20 | NUR ---
RECEIVED PT SITTING ON BED TALKING TO FAMILY MEMBERS AT BEDSIDE, AAOX4, VITAL SIGNS STABLE, 96% SAT ON O2 3L NC, DENIES ANY PAIN, NO SOB NOTED, IVF INFUSING WELL AT TKO RATE, PATINO CATHETER TO GRAVITY WITH CLEAR YELLOW URINE, PLAN OF CARE DISCUSSED, SAFETY MEASURES IN PLACE, CALL LIGHT WITHIN REACH.
[2019-05-05 20:00] VITALS: BP 135/46
[2019-05-05 20:13] LABS: MAGNESIUM 2.2 mg/dL (1.8-2.4)
--- NOTE | 2019-05-05 20:30 | NUR ---
BLOOD SUGAR CHECKED WITH 188 RESULT, COVERAGE GIVEN, BEDTIME SNACK PROVIDED, DUE MEDS ADMINISTERED WITH EDUCATION PROVIDED, ALL NEEDS ATTENDED.
[2019-05-05] MEDS: ATORVASTATIN 20 MG TAB PO SCH (20:45)
[2019-05-05] MEDS: GABAPENTIN 100 MG CAP PO SCH (20:45)
--- NOTE | 2019-05-05 22:10 | NUR ---
ROUNDS MADE, SEEN PT SLEEPING, NO SIGNS OF DISTRESS, MONITORED CLOSELY.
[2019-05-06] VITALS: BP 141/59
--- NOTE | 2019-05-06 | NUR ---
SEEN PT SLEEPING, NASAL CANNULA NOT IN PLACE, VITAL SIGNS STABLE, SAT-91% ON ROOM AIR, PUT BACK O2 AT 3L NC, SAT WENT UP TO 95%, NO SOB NOTED, EDUCATE PT THE NEED FOR O2 AT THIS TIME, VERBALIZED UNDERSTANDING, CONTINUE TO MONITOR CLOSELY.
[2019-05-06 04:00] VITALS: BP 140/58
--- NOTE | 2019-05-06 04:00 | NUR ---
PT SLEEPING, AROUSABLE TO TOUCH, VITAL SIGNS STABLE, DENIES ANY PAIN, NO SOB NOTED, MONITORED CLOSELY.
[2019-05-06] MEDS: CLINDAMYCIN 600 MG in DEXTROSE 5% 50 ML IV SCH ×3 (04:37→22:01)
--- NOTE | 2019-05-06 05:50 | NUR ---
BLOOD SUGAR CHECKED WITH 109 RESULT, NO COVERAGE NEEDED, NO RESP DISTRESS NOTED, MONITORED CLOSELY.
[2019-05-06] MEDS: BLOOD GLUCOSE MONITORING 1 DEV DEV FS SCH ×4 (06:41→21:49)
--- NOTE | 2019-05-06 07:30 | NUR ---
RECEIVED ON BED AAOX4. NO SOB NOTED. NO C/O PAIN AT THIS TIME. IV TO LT AC AND LT HAND PATENT AND INTACT. CHEST, DIMINISHED AIR ENTRY TO THE BASES. ABDOMEN SOFT, BOWEL SOUNDS PRESENT. WITH PATINO DRAINING LARGE AMOUNTS OF CLEAR URINE. INSTRUCTED PT TO CALL FOR ASSISTANCE, CALL LIGHT WITHIN REACH, PT VERBALIZED UNDERSTANDING.
--- NOTE | 2019-05-06 07:35 | NUR ---
PT SLEEPING, EASILY AROUSABLE, NO DISTRESS NOTED, BEDSIDE REPORT GIVEN TO RN MADHAV FOR CONTINUITY OF CARE.
[2019-05-06 08:00] VITALS: BP 154/53
[2019-05-06] MEDS: ALBUTEROL SULFATE/IPRATROPIU 3 ML SOL IH SCH ×3 (08:07→19:55)
[2019-05-06] MEDS ORDERED: LEVOFLOXACIN 500 MG/D5W PREMIX 100 ML IV SCH (09:00)
[2019-05-06] MEDS: glipiZIDE ER 5 MG TABER PO SCH (09:53)
[2019-05-06] MEDS: ASCORBIC ACID 500 MG TAB PO SCH (09:53)
[2019-05-06] MEDS: AZITHROMYCIN 250 MG TAB PO SCH (09:53)
[2019-05-06] MEDS: ASPIRIN 81 MG TAB.CHEW PO SCH (09:53)
[2019-05-06] MEDS: FUROSEMIDE 40 MG/4 ML VIAL IVP SCH ×2 (09:54→21:53)
[2019-05-06] MEDS: amLODIPine 5 MG TAB PO SCH (09:54)
[2019-05-06] MEDS: FERROUS SULFATE 325 MG TABEC PO SCH ×2 (09:58→18:22)
[2019-05-06 12:00] VITALS: BP 152/64
--- NOTE | 2019-05-06 12:24 | NUR ---
WOUND CARE EVALUATION NOTE: WOUND CARE ASSESSMENT DONE WITH THIS 68 Y/O FEMALE ADMITTED TO [facility] WITH CHEST PAIN. 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 PT. SKIN IS WARM AND DRY MULTIPLE SCABS TO BLE FROM THIGHS TO FEET. DORSAL PEDAL PULSES PRESENT AND NORMAL. PER PT. SHE FOLLOW PODIATRY CARE AT [facility] AND LAST VISIT WAS LAST WEEK AND DEBRIDEMENT WAS DONE. PT. IS AAX4. POC DISCUSSED WITH PT. AND PRIMARY RN. PT. VERBALIZES UNDERSTANDING. INTEGUMENTARY: -DIABETIC ULCER TO RIGHT LATERAL PLANTAR , 1.5X2.5X0.2CM, 100% GRANULATING TISSUE TO WOUND BED , WOUND EDGE DRY WITH LIGHT BROWNISH COLOR HYPERKERATOTIC BORDER AND FRED WOUND SKIN DRY AND INTACT, NO S/S OF INFECTION AT THIS TIME RECOMMENDATIONS: -CLEANSE RIGHT FOOT ULCER WITH NS, PAT DRY APPLY HYDROGEL TO WOUND BED AND COVER WITH COMPOSITE (ISLAND) DRESSING QD AND PRN IF SOILING -KEEP BILATERAL FEET DRY AND CLEAN AT ALL TIMES. -DIABETIC FOOT CARE INCLUDING INSPECT FEET DAILY FOR ANY UNUSUAL FINDING AND REPORT TO PRIMARY PHYSICIAN -CONTINUE FOLLOW UP OUT PATIENT PODIATRY
[2019-05-06 12:43] LABS: BASOPHILS % (AUTO) 0.2 % (0.0-2.0); EOSINOPHILS # (AUTO) 0.3 K/uL (0-0.4); MEAN CORPUSCULAR HEMOGLOBIN 30 pg (27-31)
[2019-05-06 12:49] LABS: MEAN CORPUSCULAR HGB CONC 32 g/dL (33-37)
[2019-05-06 12:58] LABS: WHITE BLOOD COUNT (AUTO) 12.9 K/uL (4.8-10.8)
[2019-05-06 12:59] LABS: HEMATOCRIT 23.4 % (36-48); HEMOGLOBIN 7.6 g/dL (12.0-16.0); MEAN CORPUSCULAR VOLUME 91.9 fL (80-94); NEUTROPHILS % (AUTO) 85.6 % (42.2-75.2); PLATELET COUNT (AUTO) 288 K/uL (140-450); RED BLOOD CELL COUNT(AUTO) 2.55 MIL/uL (4.20-5.40); RED CELL DISTRIBUTION WIDTH 14.9 % (11.6-13.7)
[2019-05-06 13:00] LABS: EOSINOPHILS % (AUTO) 2.4 % (0.0-4.0); LYMPHOCYTES # (AUTO) 0.5 K/uL (2.5-16.5); LYMPHOCYTES % (AUTO) 3.5 % (20.5-51.1); MONOCYTES # (AUTO) 1.1 K/uL (0.8-1.0); MONOCYTES % (AUTO) 8.3 % (1.7-9.3); NEUTROPHILS # (AUTO) 11.1 K/uL (1.8-7.7)
[2019-05-06] MEDS: SODIUM FERRIC GLUCONATE 125 MG in NACL 0.9% 100 ML IV SCH (13:02)
[2019-05-06] MEDS: INSULIN LISPRO SLIDING SCALE 100 UNITS/ML VIAL SUBQ PRN ×2 (13:05→18:23)
[2019-05-06 13:10] LABS: ANION GAP 16.2 (8-16); CARBON DIOXIDE 20.1 mmol/L (21-32); POTASSIUM 4.3 mmol/L (3.5-5.1)
[2019-05-06 13:14] LABS: MAGNESIUM 1.9 mg/dL (1.8-2.4)
[2019-05-06] MEDS: SKINTEGRITY HYDROGEL TP SCH (14:55)
--- NOTE | 2019-05-06 15:50 | NUR ---
PT RESTING. NO SOB NOTED. NO SIGNS OF PAIN.
[2019-05-06 16:00] VITALS: BP 138/50
--- NOTE | 2019-05-06 19:28 | NUR ---
PT AWAKE. NO SOB NOTED. NO SIGNS OF PAIN. FAMILY AT THE BEDSIDE VISITING. ENDORSED TO NEXT SHIFT NURSE FOR CONTINUITY OF CARE.
--- NOTE | 2019-05-06 19:30 | NUR ---
RECEIVED REPORT AT BEDSIDE FROM MADHAV LOBATO DAYSHIFT NURSE FOR CONTINUITY OF CARE, PT IN STABLE CONDITION.
[2019-05-06 20:00] VITALS: BP 128/53
--- NOTE | 2019-05-06 20:00 | NUR ---
PT IS AOX4 ECUADOREAN AND WOLOF SPEAKING. SKIN INTACT EXCEPT FOR DIABETIC FOOT WOUND ON RIGHT FOOT. DRESSING INTACT. SHE HAS SUPPLEMENTAL 02 AT 2 LITERS VIA N/C AND LUNG SOUNDS DIMINISHED. V/S FOLLOWS; T 98.3 P 77 R 20 B/P 128/53 02 98% WITH 2 LITERS VIA N/C. PT 2 IV SITES ON LAC 20G AND LEFT HAND 22 GUAGE ARE BOTH INTACT AND FLUSHED PATENT. AL FALLS PROTOCOLS IN PLACE.
--- NOTE | 2019-05-06 21:00 | NUR ---
PT FINGERSTICK IS 124, NO HUMALOG COVERAGE NEEDED. PT RECEIVED ORDERED LIPITOR, LOPRESSOR , NEURONTIN WELL IVP LASIX AND ABT CLEOCIN HUNG AND RUNNING ORDERED. EDUCATION REGARDING MEDICATION PROVIDED AT BEDSIDE INCLUDING SIDE EFFECTS. PT DENIES PAIN AT THIS TIME. ALL REQUESTED NEEDS ATTENDED AND CALL TAO IN REACH. ALL FALL PRECAUTIONS IN PLACE.
[2019-05-06] MEDS: ATORVASTATIN 20 MG TAB PO SCH (21:42)
[2019-05-06] MEDS ORDERED: CRUSHER, PILL MC ONE (21:44)
[2019-05-06] MEDS: METOPROLOL 50 MG TAB PO SCH (21:46)
[2019-05-06] MEDS: GABAPENTIN 100 MG CAP PO SCH (21:47)
--- NOTE | 2019-05-06 22:30 | NUR ---
PT IN BED SLEEPING NO S/S OF PAIN OR DISTRESS NOTED. V/S FOLLOWS; T 98.2 P 66 R 20 B/P 146/51 02 98% WITH 3 LITERS VIA N/C . PT HAS PATINO CATHETER IN PLACE AND DRAINING LIGHT YELLOW URINE. IV SITES INTACT AND RUNNING NS TO KVO. FOOT DRESSING REINFORCED. ALL FALLS PRECAUTIONS IN PLACE.
[2019-05-07] VITALS: BP 139/52
--- NOTE | 2019-05-07 | NUR ---
PT IN BED SLEEPING, SHE CAN REPOSITION SELF IN BED SHE HAS NO SOB OR ANY S/S OF PAIN OR DISTRESS NOTED. SHE HAS 3 LITERS VIA N/C IN PLACE AND IV SITES INTACT AND ASYMPTOMATIC. V/S FOLLOWS: T 98.2 P 66 R 20 B/P 146/51 02 98% WITH 3 LITERS VIA N/C. ALL FALLS PRECAUTIONS IN PLACE AND CALL TAO IN REACH.
[2019-05-07 04:00] VITALS: BP 148/60
--- NOTE | 2019-05-07 04:00 | NUR ---
V/S FOLLOWS: T 99.7 P 75 R 18 B/P 148/60 02 96% ON ROOM AIR.
[2019-05-07] MEDS: CLINDAMYCIN 600 MG in DEXTROSE 5% 50 ML IV SCH ×2 (05:10→13:27)
--- NOTE | 2019-05-07 06:00 | NUR ---
PT FINGERSTICK IS 98 NO HUMALOG COVERAGE NEEDED.
[2019-05-07 06:20] LABS: BASOPHILS % (AUTO) 0.2 % (0.0-2.0); EOSINOPHILS # (AUTO) 0.8 K/uL (0-0.4); EOSINOPHILS % (AUTO) 6.5 % (0.0-4.0); HEMATOCRIT 23.7 % (36-48); HEMOGLOBIN 7.6 g/dL (12.0-16.0); LYMPHOCYTES # (AUTO) 0.7 K/uL (2.5-16.5); LYMPHOCYTES % (AUTO) 6.1 % (20.5-51.1); MEAN CORPUSCULAR HEMOGLOBIN 30 pg (27-31); MEAN CORPUSCULAR HGB CONC 32 g/dL (33-37); MEAN CORPUSCULAR VOLUME 92.4 fL (80-94); MONOCYTES % (AUTO) 8.8 % (1.7-9.3); NEUTROPHILS % (AUTO) 78.4 % (42.2-75.2); PLATELET COUNT (AUTO) 309 K/uL (140-450); RED BLOOD CELL COUNT(AUTO) 2.56 MIL/uL (4.20-5.40); RED CELL DISTRIBUTION WIDTH 15.1 % (11.6-13.7); WHITE BLOOD COUNT (AUTO) 11.5 K/uL (4.8-10.8)
[2019-05-07] MEDS: BLOOD GLUCOSE MONITORING 1 DEV DEV FS SCH ×2 (06:57→11:33)
[2019-05-07] MEDS: ACETAMINOPHEN 325 MG TAB PO PRN (06:57)
[2019-05-07 07:07] LABS: CREATININE 2.6 mg/dL (0.6-1.3); POTASSIUM 4.3 mmol/L (3.5-5.1)
[2019-05-07 07:11] LABS: MAGNESIUM 1.7 mg/dL (1.8-2.4); PHOSPHORUS 5.5 mg/dL (2.5-4.9)
[2019-05-07 07:23] LABS: ANION GAP 16.5 (8-16); CARBON DIOXIDE 19.8 mmol/L (21-32)
--- NOTE | 2019-05-07 07:30 | NUR ---
RECEIVED BEDSIDE REPORT FROM NIGHT NURSE JAKOB. PATIENT IN STABLE CONDITION. BED IN LOW POSITION. SAFETY MEASURES IN PLACE. PLANS OF CARE DISCUSSED. IV INTACT AND PATENT TO LEFT AC AND LEFT HAND. CALL LIGHT WITHIN REACH. Addendum: 05/07/19 at 1143 by Yris Luna RN ADDITION TO NOTE ABOVE: F/C INTACT AND PATENT.
[2019-05-07] MEDS: ALBUTEROL SULFATE/IPRATROPIU 3 ML SOL IH SCH ×2 (07:55→13:05)
[2019-05-07 08:00] VITALS: BP 164/61
[2019-05-07] MEDS: FERROUS SULFATE 325 MG TABEC PO SCH (08:48)
[2019-05-07] MEDS: amLODIPine 5 MG TAB PO SCH (09:13)
[2019-05-07] MEDS: ASCORBIC ACID 500 MG TAB PO SCH (09:13)
[2019-05-07] MEDS: ASPIRIN 81 MG TAB.CHEW PO SCH (09:13)
[2019-05-07] MEDS: FUROSEMIDE 40 MG/4 ML VIAL IVP SCH (09:13)
[2019-05-07] MEDS: AZITHROMYCIN 250 MG TAB PO SCH (09:13)
[2019-05-07] MEDS: glipiZIDE ER 5 MG TABER PO SCH (09:16)
[2019-05-07] MEDS: METOPROLOL 50 MG TAB PO SCH (09:17)
--- NOTE | 2019-05-07 09:30 | NUR ---
PATIENT IS AWAKE, ALERT AND VERBALLY RESPONSIVE. NO S/S OF DISTRESS NOTED. O2 ON @ 3L VIA NC. O2 SAT 98%. PATIENT IN BED, RESTING COMFORTABLY. CALL LIGHT WITHIN REACH.
[2019-05-07 10:30] VITALS: BP 157/64
[2019-05-07] MEDS ORDERED: FURO-570 PO (11:27)
--- NOTE | 2019-05-07 11:34 | NUR ---
Epic Cupid Analyst Note: I faxed patient's clinical information to [facility]. Addendum: 05/07/19 at 1236 by Lala Land SS Per Leatha from [facility] , patient can return to [facility] any time today, accepting MD is .
--- NOTE | 2019-05-07 11:37 | NUR ---
BG CHECKED 195, HUMALOG COVERAGE 2UNITS ORDERED. PATIENT IS ALERT, ORIENTED X4. PT TALKING ON HER CELLPHONE. NO S/S OF DISTRESS NOTED. CALL LIGHT WITHIN REACH.
[2019-05-07] MEDS: SODIUM FERRIC GLUCONATE 125 MG in NACL 0.9% 100 ML IV SCH (11:47)
[2019-05-07] MEDS: INSULIN LISPRO SLIDING SCALE 100 UNITS/ML VIAL SUBQ PRN (11:48)
[2019-05-07 12:00] VITALS: BP 132/54
[2019-05-07] MEDS: SKINTEGRITY HYDROGEL TP SCH (13:28)
--- NOTE | 2019-05-07 13:28 | NUR ---
IV ANTIBIOTIC ADMINISTERED ORDERED. PATIENT IS AAOX4. NO S/S OF DISTRESS NOTED. CALL LIGHT WITHIN REACH.
--- NOTE | 2019-05-07 14:09 | NUR ---
DISCHARGE PLANNING: PER ACACIA OF [facility] AUTH [id number]. PER JER OF [facility] [phone], [facility] FLOOR LAYER WILL BE AT 1500. PRIMARY RN WILFRED MADE AWARE.
--- NOTE | 2019-05-07 14:10 | NUR ---
RECEIVED PHONE CALL FROM CHOKER SETTER. PATIENT P/U AT 1500 VIA [facility]. PT IS DISCHARGING TO [facility].
[2019-05-07] MEDS ORDERED: AZIT250T11 PO (14:56)
--- NOTE | 2019-05-07 15:30 | NUR ---
PATIENT IS DISCHARGED TO [facility] VIA [facility] VEHICLE. 2 EMT STAFF WITH PATIENT. ALL DISCHARGED INSTRUCTIONS AND ALL BELONGINGS GIVEN TO PATIENT. IV REMOVED, CANNULA INTACT. NO BLEEDING. F/C REMOVED ORDERED TO DC. REPORT GIVEN TO REBECA HERMOSILLO. PATIENT IN STABLE CONDITION.
[2019-05-07] MEDS ORDERED: ASCO1CAP75 PO (15:58)
[2019-05-11] MEDS ORDERED: EPOETIN ALFA 10,000 UNITS/ML VIAL SUBQ SCH (09:00)
[2019-05-11] MEDS ORDERED: EPOETIN ALFA 10000 UNIT SUBQ SCH (09:00)
== END 2019-05-07 15:40 | DRG 871 ==
LOC: MED 09:56 → MMU 14:01
PROVIDERS: ADMIT Family Medicine; ATTEND Family Medicine
PROC: 30233N1 Transfusion of Nonautologous Red Blood Cells into Peripheral Vein, Percutaneous Approach (ICD-10-PCS; principal; 2019-05-04)
DX: A41.9 Sepsis, unspecified organism (principal); I21.A1 Myocardial infarction type 2; J18.9 Pneumonia, unspecified organism; N17.0 Acute kidney failure with tubular necrosis; I50.43 Acute on chronic combined systolic (congestive) and diastolic (congestive) heart failure; E44.0 Moderate protein-calorie malnutrition; N18.4 Chronic kidney disease, stage 4 (severe); I13.0 Hypertensive heart and chronic kidney disease with heart failure and stage 1 through stage 4 chronic kidney disease, or unspecified chronic kidney disease; E11.22 Type 2 diabetes mellitus with diabetic chronic kidney disease; E11.65 Type 2 diabetes mellitus with hyperglycemia; E78.5 Hyperlipidemia, unspecified; E87.5 Hyperkalemia; J45.909 Unspecified asthma, uncomplicated; E11.42 Type 2 diabetes mellitus with diabetic polyneuropathy; E11.51 Type 2 diabetes mellitus with diabetic peripheral angiopathy without gangrene; D63.1 Anemia in chronic kidney disease; I08.3 Combined rheumatic disorders of mitral, aortic and tricuspid valves; Z88.0 Allergy status to penicillin; Z79.82 Long term (current) use of aspirin; Z79.899 Other long term (current) drug therapy; Z90.49 Acquired absence of other specified parts of digestive tract; Z89.429 Acquired absence of other toe(s), unspecified side; Z68.25 Body mass index [BMI] 25.0-25.9, adult
CPT/HCPCS: 36415; 71045; 76770; 80048; 80053; 80305; 81001; 82607; 82728; 82746; 82948; 83036; 83540; 83605; 83735; 83880; 84100; 84436; 84443; 84484; 85025; 85045; 85610; 85730; 86886; 86900; 86901; 86920; 87040; 87081; 87086; 93005; 93970; 94640; 96365; 99285; A6248; J0456; J1815; J1940; J1956; J2916; J3490; J7030; J7060; J7620; P9016; Q0092

== ENCOUNTER 2019-06-29 08:34 | Inpatient (IN) | payer OTHER ==
[~2019-06-29] VITALS: Ht 162.6 cm; Wt 65.8 kg
[2019-06-29 08:34] VITALS: BP 121/42
[~2019-06-29 08:34] MED LIST changes: +ACET-2619 PO; +AMLO5TAB PO; -AMLO5TAB6 PO; +ASCO1CAP75 PO; +AZIT250T11 PO; +DOCU-299 PO; +GABA300C PO; +GLIP5TER PO; +HYDR-5122 PO; -LACT10CA1 PO; -LISI10TA11 PO; +MULT-1868 PO; -VANC1PIG IV; +[UNRECOGNIZED DRUG - CODE] SUBQ
--- NOTE | 2019-06-29 08:34 | NUR ---
Patient RUDIA ALS from [facility], transferred to bed 4. RN evaluating patient at bedside.
[2019-06-29] MEDS ORDERED: NACL 0.9% 1,000 ML IV SCH (08:36)
[2019-06-29] MEDS ORDERED: LEVOFLOXACIN 500 MG/D5W PREMIX 100 ML IV ONE (08:40)
--- NOTE | 2019-06-29 08:48 | NUR ---
68 Y/O F C/C OSMEL GRIJALVASada FROM [facility]. PER EMS PT NORMAL BEHAVIOR X 3 HOURS AGO. FACILITY NOTED ALTERED MENTATION WITH HYPERTHERMIA AND TACHYPNEA. PT CURRENTLY 80% RA, PLACED ON NON REBREATHER >98%, PLACED FULL FOWLERS, CURRENT TEMP 103.4F, BRUCE BS 112 DONE IN ER. HX,RX -- SEE CHART
--- NOTE | 2019-06-29 09:05 | NUR ---
LAB AT BEDSIDE
--- NOTE | 2019-06-29 09:05 | NUR ---
XRAY AT BEDSIDE
[2019-06-29 09:28] LABS: BASOPHILS % (AUTO) 0.1 % (0.0-2.0); HEMATOCRIT 29.4 % (36-48); HEMOGLOBIN 9.8 g/dL (12.0-16.0); LYMPHOCYTES # (AUTO) 0.9 K/uL (2.5-16.5); MEAN CORPUSCULAR HEMOGLOBIN 30 pg (27-31); MEAN CORPUSCULAR HGB CONC 33 g/dL (33-37); MEAN CORPUSCULAR VOLUME 90.9 fL (80-94); MONOCYTES # (AUTO) 0.4 K/uL (0.8-1.0); MONOCYTES % (AUTO) 2.7 % (1.7-9.3); NEUTROPHILS % (AUTO) 91.2 % (42.2-75.2); PLATELET COUNT (AUTO) 156 K/uL (140-450); RED BLOOD CELL COUNT(AUTO) 3.24 MIL/uL (4.20-5.40); RED CELL DISTRIBUTION WIDTH 15.3 % (11.6-13.7); WHITE BLOOD COUNT (AUTO) 15.4 K/uL (4.8-10.8)
--- NOTE | 2019-06-29 09:42 | NUR ---
PT RESTING IN BED, SIDE RAIL X2
[2019-06-29 09:43] LABS: ALBUMIN 1.9 g/dL (3.4-5.0); ANION GAP 15.3 (8-16); CARBON DIOXIDE 21.3 mmol/L (21-32); POTASSIUM 3.6 mmol/L (3.5-5.1); TOTAL BILIRUBIN 0.4 mg/dL (0.0-1.0)
[2019-06-29 09:51] LABS: CREATININE 5.7 mg/dL (0.6-1.3)
--- NOTE | 2019-06-29 09:55 | NUR ---
PT AWAKE/ALERT ; A/OX3 ; SUDANESE SPEAKING
[2019-06-29 10:05] LABS: APPEARANCE,URINE CLEAR (CLEAR); BILIRUBIN,URINE NEGATIVE (NEGATIVE); BLOOD, URINE 3+ (NEGATIVE); COLOR,URINE YELLOW (YELLOW); LEUKOCYTE ESTERASE ,URINE 3+ (NEGATIVE); NITRITE, URINE NEGATIVE (NEGATIVE); PH,URINE 5.5 (5.0-9.0); UGLUCOSE NEGATIVE (NEGATIVE)
[2019-06-29 10:14] LABS: HYALINE CASTS, URINE 0-10 /LPF (None Seen); RBC,URINE 11-20 (MOD) /HPF (0-5); WBC,URINE 80-100 /HPF (0-5)
[2019-06-29] MEDS ORDERED: NACL 0.9% 1,000 ML IV ONE (11:15)
--- NOTE | 2019-06-29 11:15 | NUR ---
ERMD NOTIFIED OF BLOOD PRESSURE PARAMETERS
--- NOTE | 2019-06-29 12:22 | NUR ---
FLU SWAP COLLECTED
[2019-06-29] MEDS ORDERED: LORazepam 2 MG/ML VIAL IM/IVP PRN (12:25)
--- NOTE | 2019-06-29 12:26 | NUR ---
PT RESTING IN BED, SIDE RAIL X2
--- NOTE | 2019-06-29 13:05 | NUR ---
Dr. Robertson is evaluating the patient at bedside.
[2019-06-29] MEDS ORDERED: DEXTROSE 50% 50 ML SYR IVP PRN (13:15)
[2019-06-29 13:20] LABS: THYROID STIMULATING HORMONE 1.2 uIU/mL (0.34-3.74)
--- NOTE | 2019-06-29 13:25 | NUR ---
PATIENT WHEELED ON FLOOR, REPORT RECEIVED FROM SHAPER SETTERCHERYLE ROJAS AT BEDSIDE FOR CONTINUITY OF CARE. PATIENT AWAKE AND ALERT, ON 15L NONREBREATHER MASK. PATINO CATHETER INSERTED IN ED, DRAINING TO GRAVITY WITH YELLOW CREAMY URINE. IV SITE INTACT, PATENT, ASYMPTOMATIC, SL. VS WNL. PATIENT DENIES PAIN. MRSA SCREENING DONE. UPDATED PATIENT WITH PLAN OF CARE, SHE VERBALIZED UNDERSTANDING. UPDATED BOARD. SAFETY PRECAUTION IN PLACE, CALL LIGHT WITHIN REACH, WILL CONTINUE TO MONITOR PATIENT.
--- NOTE | 2019-06-29 13:30 | NUR ---
Patient will be admitted to care of SHIKHA. Admited to TELEMETRY. Will go to room 125A. Belongings list completed. Report to RADHA LOBATO.
--- NOTE | 2019-06-29 13:40 | NUR ---
PATIENT POSITIVE FOR INFLUENZA A, INFORMED AND DR. TAVERA. PATIENT MOVED TO ROOM 116, TOOK ALL BELONGINGS WITH HER. PATIENT NOW RESTING COMFORTABLY IN BED, WILL CONTINUE TO MONITOR PATIENT.
--- NOTE | 2019-06-29 14:12 | NUR ---
PATIENT GIVEN TYLENOL PRN FOR FEVER, COOLING MEASURES IN PLACE, WILL CONTINUE TO MONITOR PATIENT.
[2019-06-29] MEDS: ACETAMINOPHEN 325 MG TAB PO PRN (14:18)
--- NOTE | 2019-06-29 14:40 | NUR ---
PATIENT FINISHED WITH US OF BILATERAL LOWER EXTREMITIES. NOW TAKEN OFF FLOOR TO GO TO RADIOLOGY FOR CT. WILL WAIT FOR PATIENT TO COME BACK AND RESULTS.
[2019-06-29 16:00] VITALS: BP 96/39
[2019-06-29] MEDS ORDERED: NACL 0.9% 500 ML IV SCH ×2 (17:00→20:25)
[2019-06-29] MEDS: BLOOD GLUCOSE MONITORING 1 DEV DEV FS SCH ×2 (17:07→20:37)
--- NOTE | 2019-06-29 17:20 | NUR ---
PATIENT GIVEN BOLUS OF 500 ML OF NS FOR DECREASED BP. BLOOD SUGAR 110. PATIENT TOLERATED IT. WILL MONITOR PATIENT.
--- NOTE | 2019-06-29 19:15 | NUR ---
INFORMED DR. BEST THAT NO ORDERS FOR WOUND CARE YET, SAID THAT SHE WILL DO IT LATER
--- NOTE | 2019-06-29 19:30 | NUR ---
REPORT GIVEN TO WAXER NURSE AT BEDSIDE FOR CONTINUITY OF CARE. PATIENT SITTING UP IN BED FINISHING UP DINNER. PATIENT IN STABLE CONDITION.
[2019-06-29 20:00] VITALS: BP 93/36
--- NOTE | 2019-06-29 20:00 | NUR ---
INFORMED DR. MCNEAL THAT BP IS 93/36 (55) SHE ORDERED THROUGH TELEEPHONE ORDER NS BOLUS 500ML NOW.
[2019-06-29] MEDS: INSULIN LISPRO SLIDING SCALE 100 UNITS/ML VIAL SUBQ PRN (20:39)
--- NOTE | 2019-06-29 20:46 | NUR ---
STILL AWAITING ORDERS FOR NS AT BOLUS, REMINDED DR. PRITCHARD TO PUT THE ORDERS
[2019-06-29] MEDS ORDERED: OSELTAMIVIR PHOSPHATE 30 MG CAP PO SCH (21:00)
--- NOTE | 2019-06-29 23:10 | NUR ---
REMINDED DR. PRITCHARD OF WOUND CARE ORDERS AND INFORMED ME TO PUT IN THE ORDERS FOR HER. CARRIED OUT DR. ABRAHAM.
[2019-06-29 23:18] VITALS: BP 108/46
--- NOTE | 2019-06-30 | NUR ---
INFORMED DR. WATSON BP AFTER 500 ML BOLUS 122/45; 76 HEART RATE
--- NOTE | 2019-06-30 00:52 | NUR ---
ELWIS RT INFORMED THAT 02 SAT 88%, PLACED PT PER RT ON OXYMIZER, STILL AT 88-90%;AT THIS TIME PLACED HER ON NON-REBREATHER. RT WILL COME BY AND CHECK ON PT Addendum: 06/30/19 at 0053 by Yumiko Simmons RN NON REBREATHER MASK- CHECKED O2 SAT AND IT WAS 90-92%. KEPT ON IT TILL RT COMES Addendum: 06/30/19 at 0105 by Yumiko Simmons RN ON -NON REBREATHER MASK, O2 SAT CHECKED 94%
[2019-06-30] MEDS: MORPHINE SULFATE 2 MG/ML SYR IVP PRN (01:58)
--- NOTE | 2019-06-30 03:50 | NUR ---
PAVAN CALLED AMINOTRIPTILLINE REQUESTED TO BE ADDED TO PRESENT MEDS.DR. PRITCHARD INFORMED
[2019-06-30 04:00] VITALS: BP 105/45
[2019-06-30] MEDS ORDERED: FUROSEMIDE 40 MG/5 ML ORAL SOL UDC ONE (04:21)
[2019-06-30] MEDS ORDERED: FUROSEMIDE 40 MG/4 ML VIAL IVP ONE (04:29)
[2019-06-30] MEDS: FUROSEMIDE 40 MG/4 ML VIAL IVP SCH ×3 (04:48→09:00)
[2019-06-30] MEDS ORDERED: AMLO5TAB PO (05:52)
[2019-06-30] MEDS ORDERED: DOCU-299 PO (05:52)
[2019-06-30] MEDS ORDERED: CLON0.1T15 PO (05:52)
[2019-06-30] MEDS ORDERED: GLIP5TER PO (05:52)
[2019-06-30] MEDS: BLOOD GLUCOSE MONITORING 1 DEV DEV FS SCH ×4 (06:26→21:54)
--- NOTE | 2019-06-30 06:26 | NUR ---
BS 78MG/DL PT WAS GIVEN ORANGE JUICE 120 ML AND AND ANOTHER CRANBERRY JUICE 120 ML
--- NOTE | 2019-06-30 06:45 | NUR ---
fever noted at 100.7, tylenol 650mg given
[2019-06-30] MEDS: ACETAMINOPHEN 325 MG TAB PO PRN ×3 (06:58→18:21)
--- NOTE | 2019-06-30 07:10 | NUR ---
RECEIVED PT FROM CORRECTIONAL COOK NURSEAARON, PT IS AWAKE AND SEATED ON THE BED WITH SIDE RAILS UP AND CALL LIGHT WITHIN REACH, IV LINE ON THE RT FA G.22 WITH NS INFUSING AT 10ML/HR, PT ON OXYMIZER AT 10L O2, PATINO CATHETER WITH 30ML DRAINED OF URINE IN BAG, NO SIGN OF DISTRESS NOTED AND WILL MONITOR PT.
[2019-06-30 07:31] LABS: BASOPHILS % (AUTO) 0.1 % (0.0-2.0); EOSINOPHILS % (AUTO) 0.1 % (0.0-4.0); HEMATOCRIT 27.3 % (36-48); HEMOGLOBIN 8.9 g/dL (12.0-16.0); LYMPHOCYTES # (AUTO) 0.7 K/uL (2.5-16.5); MEAN CORPUSCULAR HEMOGLOBIN 30 pg (27-31); MEAN CORPUSCULAR HGB CONC 33 g/dL (33-37); MEAN CORPUSCULAR VOLUME 91.3 fL (80-94); MONOCYTES # (AUTO) 0.5 K/uL (0.8-1.0); MONOCYTES % (AUTO) 2.8 % (1.7-9.3); NEUTROPHILS # (AUTO) 16.8 K/uL (1.8-7.7); PLATELET COUNT (AUTO) 173 K/uL (140-450); RED BLOOD CELL COUNT(AUTO) 2.99 MIL/uL (4.20-5.40); RED CELL DISTRIBUTION WIDTH 15.9 % (11.6-13.7); WHITE BLOOD COUNT (AUTO) 18.1 K/uL (4.8-10.8)
[2019-06-30 08:00] VITALS: BP 111/51
[2019-06-30 08:04] LABS: MAGNESIUM 1.9 mg/dL (1.8-2.4); PHOSPHORUS 6.9 mg/dL (2.5-4.9)
[2019-06-30 08:08] LABS: CHOL/HDL RATIO 3.7 (1-4.5)
--- NOTE | 2019-06-30 08:43 | NUR ---
CALLED DR. ALLEN AND INFORMED THAT PT'S BP 110/64, MD SAID TO HOLD LASIX, IV, BUT MEDICATION HAS BEEN ASPIRATED ALREADY PRIOR TO MD ORDER, WILL INFORM PHARMACY, CHECKED TEMP IS 98.3, HEPARIN SUBQ WAS GIVEN, WILL MONITOR PT.
--- NOTE | 2019-06-30 08:50 | NUR ---
PHARMACIST WAS INFORMED THAT PT'S LASIX WAS WASTED.
--- NOTE | 2019-06-30 09:00 | NUR ---
PATIENT HAS BEEN SCREENED AND CATEGORIZED HIGH NUTRITION RISK. PATIENT WILL BE SEEN WITHIN 1-2 DAYS OF ADMISSION. 06/30/19-07/01/[address]
[2019-06-30 09:39] LABS: ANION GAP 18.5 (8-16); CARBON DIOXIDE 17.5 mmol/L (21-32)
[2019-06-30] MEDS ORDERED: CALCIUM ACETATE 667 MG TAB PO SCH (10:00)
[2019-06-30 10:07] LABS: OPIATE, URINE POSITIVE ng/mL (NEG <=2000)
[2019-06-30 10:08] LABS: BARBITURATE, URINE NEGATIVE ng/ml (NEG <=200); BENZODIAZEPINE, URINE NEGATIVE ng/mL (NEG <=200); CANNABINOID, URINE NEGATIVE ng/mL (NEG <=50); COCAINE, URINE NEGATIVE ng/mL (NEG <=300); PHENCYCLIDINE SCREEN,URINE NEGATIVE ng/mL (NEG <=25)
[2019-06-30 10:24] LABS: CREATININE 6.2 mg/dL (0.6-1.3)
[2019-06-30] MEDS: NACL 0.9% 1,000 ML IV SCH ×2 (10:24→22:55)
[2019-06-30 12:00] VITALS: BP 113/35
--- NOTE | 2019-06-30 13:25 | NUR ---
TYLENOL 650MG GIVEN FOR FEVER OF 102.F. NO SIGNS OF DISTRESS. COOLING MEASURES INITIATED. WILL CONTINUE TO MONITOR.
--- NOTE | 2019-06-30 13:42 | NUR ---
Piercer Note: Basic Screen: Yes High Risk DC Screen Woodall: SKINNY Hanna Relationship: OTHER RELATIONSHIP Pre-Admission Living Arrangements: SNF Prior ADL Needs Assistance Current Home Health Name/Tel: N/A Current DME/02 Name/Tel: [employer] Current Hospice Name/Tel: N/A Current Dialysis Name/Tel: N/A Healthcare Decision Maker: Patient Advance Directive No Physician Orders for Life Sustaining Treatment Form No Patient/Family Have Educational Needs No Discipline: Case Mgt/Social Svcs Tentative Discharge Plan/Destination: SNF/ECF Will require assistance post discharge: No Referred to Analyst Geochemical Prospecting: No Tentative Discharge Plan Summary: Patient is a 68-year-old female admitted for ALOC and UTI. Patient has PMHX of HTN, DM Type 2 with neuropathy, CKD Stage 1, iron defiency anemia, and right foot ulcer. Patient was admitted from [facility]. SW contacted Mar from [facility] [phone]. Per Mar, patient is skilled, and is on a bed hold. Mar reported that patient is self-responsible and is alert/oriented at baseline. Mar stated that patient requires limited assistance for ADLs. Tentative discharge plan for patient is to return to [facility]. No further needs identified. Signature: SARAH Gibbons Date: Jun 30, 2019 Time: 13:41
--- NOTE | 2019-06-30 14:57 | NUR ---
DC PLANNIN YRS OLD FEMALE PATIENT WAS ADMITTED FROM [facility] WITH A DX OF UTI AND ALOC.. PT HAS A HX OF DM, CKD, HTN, HYPERLIPIDEMIA RT FOOT ULCER S/P DEBRIDEMENT. CXR SHOWED RT SIDE PULMONARY INFILTRATE VS PULMONARY EDEMA. INFLUENZA A+ STARTED ON TAMIFLU , IVF AND IV LEVAQUIN , PATIENT CARE ASSISTANT ,ID DR VILLAFANA AND NEPHRO CONSULTED , BLOOD AND URINE CULTURE PENDING . DC PLAN TO GO BACK TO [facility] WHEN STABLE. CM TO FOLLOW Addendum: 07/01/19 at 1411 by Vicky Gunderson CM DC PLANNING: SEEN BY DIRECTOR OF SALES SUPPORT INCREASED IV LASIX TO 40MG Q8HRS IF NO IMPROVEMENT IN RENAL FUNCTION IN NEXT 24 HRS WILL LIKELY HEMODIALYSIS. CM TO FOLLOW. Addendum: 07/02/19 at 1540 by Vicky Gunderson CM DC PLANNING: SEEN BY NEPHRO DR PLUMMER CR 6.6 GOOD URINE OUTPUT WILL HOLD DIALYSIS INITIATION , ID DR VILLAFANA CONTINUE CURRENT ABX AND ORDERED BONE SCAN OF RT FOOT TO R/O OSTEOMYELITIS. DC PLAN TO GO BACK TO [facility] WHEN STABLE CM TO FOLLOW. Addendum: 07/06/19 at 1424 by Aleyda Morales CM RECEIVED AN ORDER FOR OUT PATIENT DIALYSIS. CONTACTED [facility], SPOKE TO ACACIA. SHE STATED TO JUST GO AHEAD AND FAX REFERRAL OVER TO THE DIALYSIS CENTER. CONTACTED [facility] AT [phone], ABLE TO SPEAK TO ANGELICA. SHE PROVIDED ME WITH FAX NUMBER [phone] TO SEND REFERRAL. REFERRAL SENT TO THE PROVIDED NUMBER. Addendum: 07/06/19 at 1446 by Lala Sims CM Pt has RT IJ cath for HD, on IV abx per ID, breathing treatments and IV lasix; temp 97.8, BP 128/75, Hgb 8.1 and WBC 8.1. ROBSON/RODNEY will continue following up as needed. ROYA Braxton Addendum: 07/07/19 at 1337 by Lala Sims CM Pt to received outpatient dialysis at [facility] on Saturday, Saturday, Saturday at 2pm. [facility] [address], [place] [id number] Addendum: 07/07/19 at 1339 by Lala Sims CM Received CM order to Dc patient back to [facility]. Records faxed to facility. ROYA Braxton Addendum: 07/08/19 at 1200 by Aleyda Morales CM MAXIMO FROM [facility] CAME AND REEVALUATED THE PATIENT. SHE STATED THEY ARE ABLE TO TAKE THE PATIENT AND PATIENT WILL GO TO ROOM 12C UNDER DR. TRIVEDI. I MADE MAXIMO MADE AWARE OF THE PATIENT'S CHAIR TIME WITH [facility]. ACACIA OF [facility] PROVIDED THE AUTH [id number]. MET WITH THE PATIENT AT THE BEDSIDE AND DISCUSSED DC PLANNING. PATIENT IS VERY UNCOOPERATIVE AT THIS TIME. SHE STATED TO CALL THE SISTER. CONTACTED PATIENT'S SISTER SKINNY CATHERINE AT [phone] REGARDING DC PLAN AND IS IN AGREEMENT. IMM LETTER DISCUSSED WITH HER WELL, SHE STATED SHE WILL COME TO THE HOSPITAL AND WILL SIGN IT. WILL FOLLOW UP. PER [facility] OF [employer] CERTIFIED TECHNICIAN WILL BE AT 1500. Addendum: 07/08/19 at 1434 by Aleyda Morales CM RECEIVED A CALL FROM THE RN, THAT PATIENT'S SISTER SKINNY IS AT THE BEDSIDE. MET WITH HER AT THE BEDSIDE, IMM LETTER DISCUSSED, SIGNED AND PLACED IN THE CHART.
--- NOTE | 2019-06-30 15:55 | NUR ---
REASSESSMENT OF TEMPERATURE AFTER ADMINISTRATION OF TYLENOL AND COOLING MEASURES WITH RESULT OF 101.0 F. PT. IS ASLEEP AND IN BED. WILL MAKE AWARE.
[2019-06-30 16:00] VITALS: BP 126/54
--- NOTE | 2019-06-30 16:00 | NUR ---
CALLED DR. ALLEN ABOUT PT'S TEMPERATURE OF 101F. WILL CONTINUE TO MONITOR.
[2019-06-30 17:24] LABS: BASOPHILS % (AUTO) 0.2 % (0.0-2.0); HEMATOCRIT 26.8 % (36-48); HEMOGLOBIN 8.8 g/dL (12.0-16.0); LYMPHOCYTES # (AUTO) 0.7 K/uL (2.5-16.5); LYMPHOCYTES % (AUTO) 4.8 % (20.5-51.1); MEAN CORPUSCULAR HEMOGLOBIN 30 pg (27-31); MEAN CORPUSCULAR HGB CONC 33 g/dL (33-37); MEAN CORPUSCULAR VOLUME 91.2 fL (80-94); MONOCYTES # (AUTO) 0.5 K/uL (0.8-1.0); MONOCYTES % (AUTO) 3.4 % (1.7-9.3); NEUTROPHILS # (AUTO) 13.8 K/uL (1.8-7.7); NEUTROPHILS % (AUTO) 91.6 % (42.2-75.2); PLATELET COUNT (AUTO) 156 K/uL (140-450); RED BLOOD CELL COUNT(AUTO) 2.94 MIL/uL (4.20-5.40); RED CELL DISTRIBUTION WIDTH 16.2 % (11.6-13.7)
--- NOTE | 2019-06-30 18:15 | NUR ---
INFORMED MD ABOUT INCREASED TEMP OF 102.4. COOLING MEASURES IN PLACE. WILL CONTINUE TO MONITOR.
--- NOTE | 2019-06-30 18:21 | NUR ---
TYLENOL PO 650MG GIVEN TO PT. FOR TEMP OF 102.4F. PT. TOLERATED WELL. WILL CONTINUE TO MONITOR.
[2019-06-30] MEDS: MEROPENEM 500 MG in NACL 0.9% 50 ML IV SCH (18:51)
--- NOTE | 2019-06-30 18:51 | NUR ---
MERREM IVPB IS GIVEN TO PATIENT NOW. WILL CONTINUE TO MONITOR.
--- NOTE | 2019-06-30 19:00 | NUR ---
ENDORSED PT. TO SCALE EXPERT NURSE FOR CONTINUITY OF CARE.
[2019-06-30] MEDS ORDERED: VANCOMYCIN PER PHARMACY MC PRN (19:15)
[2019-06-30 20:00] VITALS: BP 106/71
[2019-06-30] MEDS ORDERED: VANCOMYCIN HCL 1,250 MG in NACL 0.9% 250 ML IV SCH (20:50)
--- NOTE | 2019-06-30 20:50 | NUR ---
CALLED BY PHARMACIST THAT PATIENT'S CANNOT BE GIVEN TAMIFLU BECAUSE OF RENAL CLEARANCE, DR. PRETTY INFORMED AND THAT IT WAS DR. VILLAFANA THE INFECTION CONTROL WAS THE ONE WHO ORDERED IT. SHE SAID NOT TO CALL DR. VILLAFANA ANYMORE BUT TO GO AHEAD AND GIVE IT (EVEN W/ THE RENAL FUNCTION NOT GOOD)
[2019-06-30] MEDS ORDERED: VANCOMYCIN 1,000 MG VIAL ONE (22:13)
[2019-06-30] MEDS ORDERED: VANCOMYCIN 500 MG VIAL ONE (22:14)
--- NOTE | 2019-06-30 22:44 | NUR ---
GOT FROM OMNICELL 1500 MG, DISCARDED THE 250 MG ( BECAUSE THE DOSAGE IS 1250 MG) MIXED THE VANCOMYCIN W/ NS 250ML IVF, WILL RUN AT 167ML/HR
[2019-07-01] VITALS: BP 103/59
--- NOTE | 2019-07-01 04:45 | NUR ---
INFORMED RT TO TAKE A LOOK A PATIENT, WITH O2 SAT AT 88% W/ 10 L OXYMIZER; RT INCREASED AT BEDSIDE TO 11 OXYMIZER STILL SAME OW SAT LEVEL.WILL INFORM DR. ZHOU
[2019-07-01 05:00] VITALS: BP 139/58
--- NOTE | 2019-07-01 05:09 | NUR ---
DR. ZHOU INFORMED BY ME AND RT PT LOOKING BLOWING OFF THE O2, W/ OXYMIZER AT 11 FIO2; STILL AT 89-9O%, DR. PRETTY WENT TO BEDSIDE
--- NOTE | 2019-07-01 05:30 | NUR ---
ABG RESULTS IN AND PT IS HYPOXIC, RT STARTED BIPAP ON THE PATIENT
--- NOTE | 2019-07-01 05:51 | NUR ---
CHARGE NURSE TALKED TO DR. MAGUIRE FOR ORDER TO TRANSFER RE: [place] ISSUES. PER THEIR CONVERSATION WILL PUT HER ON BIPAP 1ST IN THE FLOOR AND WILL TRANSFER SOON POSSIBLE PER [place] ISSUES. Addendum: 07/01/19 at 0553 by Yumiko Simmons RN DR. ZHOU
--- NOTE | 2019-07-01 06:07 | NUR ---
INFORMED DR. NAVARRO ON THE NS+BICARBONATE THAT HAS NO RATE PER PHARMACY ORDERED BY DR. ZHOU
[2019-07-01] MEDS: BLOOD GLUCOSE MONITORING 1 DEV DEV FS SCH ×4 (06:30→20:29)
--- NOTE | 2019-07-01 07:00 | NUR ---
PT ON BIPAP,A, A O X 4, WILL ENDORSE TO NEXT SHIFT THAT THE NS + BICARBONATE ORDER HAS STILL NO RATE FROM DOCTOR, AND PHARMACY NEEDS TO KNOW, SO THEY COULD VERIFY IT.
--- NOTE | 2019-07-01 07:15 | NUR ---
RECEIVED REPORT FROM SPRAY MAKER NURSE. PATIENT LYING DOWN IN BED, ON BIPAP. RESPIRATIONS EVEN, UNLABORED. NO DISTRESS NOTED. DENIES ANY PAIN. AAOX3, CALM, COOPERATIVE, SKIN COLOR APPROPRIATE TO ETHNICITY, WARM TO TOUCH. SKIN INTACT. IV SITE INTACT, PATENT, AND INFUSING IVF PER MD ORDERS. REVIEWED PLAN OF CARE WITH PATIENT. PATIENT VERBALIZED UNDERSTANDING. SAFETY MEASURES IN PLACE, CALL LIGHT WITHIN REACH. WILL CONTINUE TO MONITOR.
[2019-07-01 07:43] LABS: BASOPHILS % (AUTO) 0.1 % (0.0-2.0); HEMATOCRIT 25.9 % (36-48); HEMOGLOBIN 8.8 g/dL (12.0-16.0); LYMPHOCYTES # (AUTO) 0.6 K/uL (2.5-16.5); LYMPHOCYTES % (AUTO) 5.5 % (20.5-51.1); MEAN CORPUSCULAR HEMOGLOBIN 31 pg (27-31); MEAN CORPUSCULAR HGB CONC 34 g/dL (33-37); MEAN CORPUSCULAR VOLUME 90.2 fL (80-94); MONOCYTES # (AUTO) 0.6 K/uL (0.8-1.0); MONOCYTES % (AUTO) 5.2 % (1.7-9.3); NEUTROPHILS # (AUTO) 9.7 K/uL (1.8-7.7); NEUTROPHILS % (AUTO) 89.2 % (42.2-75.2); PLATELET COUNT (AUTO) 158 K/uL (140-450); RED BLOOD CELL COUNT(AUTO) 2.88 MIL/uL (4.20-5.40); RED CELL DISTRIBUTION WIDTH 15.8 % (11.6-13.7); WHITE BLOOD COUNT (AUTO) 10.8 K/uL (4.8-10.8)
--- NOTE | 2019-07-01 07:49 | NUR ---
REVIEWED [facility] SAMPLE REPORT WITH DR. MORGAN TRIVEDI MD STATES "OK TO WEAN OFF BIPAP TO MASK" TRES NOTIFIED Addendum: 07/01/19 at 0842 by Son Chadwick RT PLACED ON SUPPLEMENTAL OXYGEN AT 9 LPM VIA OXYMIZER TRES NOTIFIED AIR EXPORT LOGISTICS MANAGER TO MONITOR Addendum: 07/01/19 at 0844 by Son Chadwick RT SUPPLEMENTAL OXYGEN AT 0840
[2019-07-01 08:00] VITALS: BP 149/40
--- NOTE | 2019-07-01 08:40 | NUR ---
REMOVED PATIENT FROM BIPAP TO MASK PLACED ON SUPPLEMENTAL OXYGEN AT 9 LPM VIA OXYMIZER ANDIE/RN NOTIFIED PUPPET MAKER TO MONITOR
[2019-07-01] MEDS ORDERED: LEVOFLOXACIN 250 MG/D5 PREMIX 50 ML IV SCH (09:00)
[2019-07-01 09:06] LABS: PHOSPHORUS 6.6 mg/dL (2.5-4.9)
[2019-07-01] MEDS ORDERED: SODIUM BICARBONATE 8.4% 50 MEQ in NACL 0.9% 1,000 ML IV SCH (09:30)
[2019-07-01] MEDS ORDERED: CALCIUM ACETATE 667 MG TAB PO SCH (09:30)
[2019-07-01 09:46] LABS: ANION GAP 18.1 (8-16); CARBON DIOXIDE 16.6 mmol/L (21-32); POTASSIUM 3.7 mmol/L (3.5-5.1)
[2019-07-01] MEDS: FUROSEMIDE 40 MG/4 ML VIAL IVP SCH ×3 (09:47→20:31)
[2019-07-01] MEDS: OSELTAMIVIR PHOSPHATE 30 MG CAP PO SCH (09:47)
[2019-07-01 09:48] LABS: CREATININE 6.5 mg/dL (0.6-1.3)
--- NOTE | 2019-07-01 09:59 | NUR ---
PATIENT LYING DOWN IN BED SLEEPING, AROUSABLE BY VOICE. CURRENTLY ON 9L VIA OXIMIZER WITH O2 SAT AT 93%. SCHEDULED MEDICATIONS DUE GIVEN. WILL CONTINUE TO MONITOR.
[2019-07-01 12:00] VITALS: BP 139/52
[2019-07-01] MEDS: NACL 0.9% 1,000 ML IV SCH (12:15)
--- NOTE | 2019-07-01 12:38 | NUR ---
WOUND ASSESSMENT TO RIGHT PLANTAR FOOT S/P DEBRIDEMENT DIABETIC ULCER, 1.5X1.5 X0.2CM, WOUND SOG253% PALE PINK, MOIST NO ODOR, WOUND EDGE HYPERKERATOTIC BORDER, FERD WOUND SKIN INTACT. NO PAIN. PT. ADMITTED WITH LOW KIMBERLY SCALE AT RISK,CONTINUE TO FOLLOW PRESSURE ULCER PREVENTION INTERVENTIONS. RECOMMENDATIONS: -CLEANSE RIGHT FOOT WOUND CLEANSING SOLUTION AND APPLY HYDROGEL COVER WITH DRY DRESSING QD AND PRN IF SOILING. OFFLOADING RIGHT FOOT -TURN AND REPOSITION PATIENT Q 2H -ASSESS AND MONITOR SKIN CONDITION DURING POSITION CHANGE -OFFLOAD BILATERAL HEELS BY PLACING PILLOWS UNDER CALVES AT ALL TIMES, UNLESS OTHERWISE CONTRAINDICATED -PRESSURE REDISTRIBUTION BY PLACING PILLOWS AND OFFLOADING SACRALCOCCYX -KEEP SKIN CLEAN AND DRY AT ALL TIMES.
--- NOTE | 2019-07-01 12:41 | NUR ---
PATIENT SITTING DOWN IN BED WITH LUNCH TRAY IN FRONT. NO DISTRESS NOTED. DENIES ANY PAIN. WILL CONTINUE TO MONITOR.
[2019-07-01] MEDS: SKINTEGRITY HYDROGEL TP SCH (13:00)
[2019-07-01 13:41] LABS: ALBUMIN 1.8 g/dL (3.4-5.0); BILIRUBIN,DIRECT 0.1 mg/dL (0.0-0.3); TOTAL BILIRUBIN 0.4 mg/dL (0.0-1.0)
--- NOTE | 2019-07-01 14:03 | NUR ---
07/01/19 RD INITIAL ASSESSMENT COMPLETED PLEASE REFER TO NUTRITION ASSESSMENT UNDER CARE ACTIVITY FOR ESTIMATED NUTRITIONAL NEEDS. 1. RECOMMEND RENAL, CCHO 60GM, 60GM PROTEIN DIET TOLERATED 2. RECOMMEND NEPRO BID AND BARRINGTON BID 3. RECOMMEND FEEDING ASSISTANCE WITH MEALS 4. ENCOURAGE INCREASING PO INTAKE 5. RD TO FOLLOW-UP 2-3 DAYS, HIGH RISK OLMAN QUINONES, RD
--- NOTE | 2019-07-01 14:39 | NUR ---
PATIENT SLEEPING IN BED, AROUSBLE BY VOICE. SISTER AT BEDSIDE. SCHEDULED MEDICATIONS DUE GIVEN. WILL CONTINUE TO MONITOR.
[2019-07-01 16:00] VITALS: BP 141/60
[2019-07-01] MEDS: FERROUS SULFATE 325 MG TABEC PO SCH (17:38)
[2019-07-01] MEDS: MEROPENEM 500 MG in NACL 0.9% 50 ML IV SCH (17:39)
[2019-07-01] MEDS: INSULIN LISPRO SLIDING SCALE 100 UNITS/ML VIAL SUBQ PRN ×2 (17:45→20:29)
[2019-07-01] MEDS: HYDROcodone/APAP 5/325 MG 1 TAB TAB PO PRN (18:11)
--- NOTE | 2019-07-01 18:12 | NUR ---
PATIENT COMPLAINS OF PAIN, NORCO GIVEN AT THIS TIME. OTHER SCHEDULED MEDICATIONS DUE GIVEN. WILL CONTINUE TO MONITOR.
--- NOTE | 2019-07-01 19:25 | NUR ---
GAVE REPORT TO BABY NURSE NURSE FOR CONTINUITY OF CARE. PATIENT IN STABLE CONDITION.
--- NOTE | 2019-07-01 19:26 | NUR ---
RECEIVED REPORT FROM DAY SHIFT NURSE. PATIENT LYING DOWN IN BED. RESPIRATIONS EVEN, UNLABORED. NO DISTRESS NOTED. DENIES ANY PAIN. SKIN COLOR APPROPRIATE TO ETHNICITY, WARM TO TOUCH. SKIN INTACT. IV SITE INTACT, PATENT, AND ASYMPTOMATIC. REVIEWED PLAN OF CARE WITH PATIENT. PATIENT VERBALIZED UNDERSTANDING. SAFETY MEASURES IN PLACE, BED IN LOW POSITION, CALL LIGHT WITHIN REACH. WILL CONTINUE TO MONITOR.
--- NOTE | 2019-07-01 19:40 | NUR ---
PLACED PT ON BIPAP PER MD ORDERS. PT IS QUIET. BIPAP CONNECTED TO RED OUTLET. ALARMS AUDIBLE. SETTINGS CHARTED. AMBU BAG AT BEDSIDE. RN AWARE. WILL CONTINUE TO MONITOR.
--- NOTE | 2019-07-01 20:37 | NUR ---
GIVEN LASIX, HEPARIN MD ORDERED, BS CHECKED, 166, GIVEN INSULIN SLIDING SCALE. PT TOLERATED WELL.
[2019-07-01 21:26] VITALS: BP 113/62
--- NOTE | 2019-07-01 22:28 | NUR ---
PT SLEEPING IN BED COMFORTABLY. NO ACUTE DISTRESS NOTED. WILL CONTINUE TO MONITOR.
--- NOTE | 2019-07-01 23:32 | NUR ---
PT ASLEEP. TOLERATING BIPAP WELL. WILL CONTINUE TO MONITOR.
[2019-07-02] VITALS: BP 152/63
[2019-07-02] MEDS: NACL 0.9% 1,000 ML IV SCH (00:52)
[2019-07-02] MEDS: ACETAMINOPHEN 325 MG TAB PO PRN (01:11)
--- NOTE | 2019-07-02 01:11 | NUR ---
BT, 100.4, APPLIED ICE PACKS AND GIVEN TYLENOL MD ORDERED. PT TOLERATED WELL.
--- NOTE | 2019-07-02 02:04 | NUR ---
BT CHECKED, 97.9 NOTED. WILL CONTINUE TO MONITOR.
[2019-07-02 04:00] VITALS: BP 119/46
[2019-07-02] MEDS: FUROSEMIDE 40 MG/4 ML VIAL IVP SCH ×3 (05:05→20:27)
--- NOTE | 2019-07-02 05:05 | NUR ---
GIVEN LASIX MD ORDERED. PT TOLERATED WELL.
[2019-07-02] MEDS: BLOOD GLUCOSE MONITORING 1 DEV DEV FS SCH ×4 (06:26→20:34)
--- NOTE | 2019-07-02 06:26 | NUR ---
BS CHECKED, 105. NO INSULIN COVERAGE NEEDED.
[2019-07-02 07:04] LABS: BASOPHILS % (AUTO) 0.1 % (0.0-2.0); HEMATOCRIT 24.9 % (36-48); HEMOGLOBIN 8.3 g/dL (12.0-16.0); LYMPHOCYTES # (AUTO) 0.9 K/uL (2.5-16.5); LYMPHOCYTES % (AUTO) 7.6 % (20.5-51.1); MEAN CORPUSCULAR HEMOGLOBIN 30 pg (27-31); MEAN CORPUSCULAR HGB CONC 33 g/dL (33-37); MEAN CORPUSCULAR VOLUME 90.7 fL (80-94); MONOCYTES # (AUTO) 0.7 K/uL (0.8-1.0); MONOCYTES % (AUTO) 5.8 % (1.7-9.3); NEUTROPHILS # (AUTO) 10.4 K/uL (1.8-7.7); NEUTROPHILS % (AUTO) 86.5 % (42.2-75.2); PLATELET COUNT (AUTO) 155 K/uL (140-450); RED BLOOD CELL COUNT(AUTO) 2.74 MIL/uL (4.20-5.40); RED CELL DISTRIBUTION WIDTH 15.6 % (11.6-13.7)
--- NOTE | 2019-07-02 07:15 | NUR ---
RECEIVED PT FROM NIGHT NURSE IN STABLE CONDITION. PT IN BED, AWAKE AAOX2, NO DISTRESS NOTED, DENIES PAIN AT THIS TIME. RESPIRATIONS EVEN AND UNLABORED ON BIPAP. IV IN PLACE PATENT AND ASYMPTOMATIC INFUSING PER ORDER IN R WRIST 18G. R FOOT DIABETIC WOUND PRESENT, WILL FOLLOW WOUND CARE PLAN. PATINO IN PLACE. SAFETY MEASURES IN PLACE CALL LIGHT WITHIN REACH, BED IN LOW POSITION. WILL CONTINUE TO MONITOR.
[2019-07-02 07:23] LABS: ANION GAP 17.6 (8-16); CARBON DIOXIDE 17.9 mmol/L (21-32); MAGNESIUM 1.8 mg/dL (1.8-2.4); PHOSPHORUS 6.8 mg/dL (2.5-4.9); POTASSIUM 3.5 mmol/L (3.5-5.1)
[2019-07-02 08:00] VITALS: BP 131/62
[2019-07-02 08:10] LABS: CREATININE 6.6 mg/dL (0.6-1.3)
--- NOTE | 2019-07-02 08:20 | NUR ---
RECD PT ON BIPAP, PLACED PT ON 9L OXY, PT URIAH WELL, SPO2 100%, WILL CONTINUE TO MONITOR, RN AWARE
[2019-07-02] MEDS ORDERED: VANCOMYCIN 1,000 MG in DEXTROSE 5% 250 ML IV SCH (09:00)
--- NOTE | 2019-07-02 09:55 | NUR ---
MEDICATIONS ADMINISTERED PER ORDER. PT TOLERATED WELL, NO DISTRESS NOTED, DENIES PAIN AT THIS TIME. SAFETY MEASURES IN PLACE. CALL LIGHT WITHIN REACH, WILL CONTINUE TO MONITOR.
[2019-07-02] MEDS: FERROUS SULFATE 325 MG TABEC PO SCH ×2 (10:02→16:30)
[2019-07-02] MEDS: OSELTAMIVIR PHOSPHATE 30 MG CAP PO SCH (10:02)
[2019-07-02 11:06] LABS: ALBUMIN 1.4 g/dL (3.4-5.0); BILIRUBIN,DIRECT 0.2 mg/dL (0.0-0.3); TOTAL BILIRUBIN 0.4 mg/dL (0.0-1.0)
[2019-07-02 12:00] VITALS: BP 136/71
--- NOTE | 2019-07-02 12:21 | NUR ---
SCHEDULED MEDICATION GIVEN ORDERED. PATIENT DENIES PAIN AT THIS TIME. KEPT COMFORTABLE, SAFETY MEASURES IN PLACE. BED IN LOW POSITION, CALL LIGHT WITHIN REACH. WILL CONTINUE TO MONITOR.
[2019-07-02] MEDS: SKINTEGRITY HYDROGEL TP SCH (13:00)
--- NOTE | 2019-07-02 14:23 | NUR ---
PT IN BED, ASLEEP. NO DISTRESS NOTED, SAFETY MEASURES IN PLACE. CALL LIGHT WITHIN REACH. FAMILY MEMBER AT THE BEDSIDE. WILL CONTINUE TO MONITOR.
[2019-07-02 16:00] VITALS: BP 141/56
--- NOTE | 2019-07-02 16:04 | NUR ---
WOUND CARE DONE AT THIS TIME. WOUND CLEANSED, HYRDOGEL APPLIED AND DRY DRESSING COVERING WOUND. PT DENIES PAIN ASSOCIATED TO WOUND. WILL CONTINUE TO MONITOR.
--- NOTE | 2019-07-02 16:34 | NUR ---
DUE MEDS GIVEN AT THIS TIME. PATIENT DENIES ANY PAIN. EDUCATION ON BONE SCAN GIVEN, PATIENT VERBALIZED UNDERSTANDING TO PROCEDURE. SAFETY MEASURES OBSERVED. BED IN LOW POSITION, CALL LIGHT WITHIN REACH. KEPT COMFORTABLE, WILL CONTINUE TO MONITOR.
[2019-07-02] MEDS: MEROPENEM 500 MG in NACL 0.9% 50 ML IV SCH (18:35)
--- NOTE | 2019-07-02 18:36 | NUR ---
MEDICATIONS ADMINISTERED PER ORDER. PT TOLERATED WELL AND IS EATING DINNER. NO DISTRESS NOTED, DENIES PAIN. SAFETY MEASURES IN PLACE, CALL LIGHT WITHIN REACH. WILL ENDORSE TO NIGHT NURSE FOR CONTINUITY OF CARE.
--- NOTE | 2019-07-02 19:20 | NUR ---
RECEIVED BEDSIDE REPORT FROM AM SHIFT CHERYLE CHAU, FOR PT'S CONTINUITY OF CARE. PT IS AWAKE, RESTING IN BED, EATING DINNER, CITIZEN OF [place] SPEAKING, DENIES ANY PAIN AT THIS TIME. PT IS ON MERCHANDISE STOCKER, IS ON 3L O2 VIA OXYMIZER, HAS RIGHT WRIST 18G, AND PATINO CATH IN PLACE. EXPLAINED TO PT THE SOCIAL WORK SUPERVISOR ROUTINE, PT VERBALIZED UNDERSTANDING. SAFETY MEASURES IN PLACE, AND CALL LIGHT IS WITHIN REACH. WILL MONITOR PT THROUGHOUT SHIFT.
[2019-07-02 20:00] VITALS: BP 150/67
[2019-07-02] MEDS: INSULIN LISPRO SLIDING SCALE 100 UNITS/ML VIAL SUBQ PRN (20:22)
--- NOTE | 2019-07-02 20:30 | NUR ---
BLOOD GLUCOSE CHECKED AND CHARTED. PT LYING DOWN ASLEEP WITH NO SIGNS OF DISTRESS. WOKE UP PT FOR MEDICATION ADMINISTRATION. ADMINISTERED SCHEDULED MEDICATIONS ORDERED. SUBQ INSULIN ADMINISTERED PER SLIDING SCALE PROTOCOL. PT TEACHING GIVEN, PT VERBALIZED UNDERSTANDING. WILL CONTINUE TO MONITOR PT.
--- NOTE | 2019-07-02 21:05 | NUR ---
PT OFF THE UNIT FOR LAST BONE SCAN SERIES. TAKEN BY JAMES FROM NUCLEAR MED. PT IS ASLEEP, AROUSABLE TO NAME AND SHAKING.
--- NOTE | 2019-07-02 21:09 | NUR ---
CHECKED ON PATIENT. PT IS AWAKE AND ALERT. FOLLOWS COMMANDS. PT ON 3 L OXIMIZER WITH SPO2 OF 96%. PT SAID SHE IS NOT SOB AND DOES NOT WANT TO USE BIPAP NOW. RN AWARE. RT AND RN SEE NO SIGNS OR SOB OR DISTRESS. BIPAP AT BEDSIDE STANDBY. WILL CONTINUE TO MONITOR.
--- NOTE | 2019-07-02 22:30 | NUR ---
PT CAME BACK TO UNIT. PT PUT BACK ON OXYMIZER 3L, PT ASLEEP WITH NO SIGNS OF DISTRESS. WILL CONTINUE TO MONITOR PT.
[2019-07-03] VITALS: BP 138/72
--- NOTE | 2019-07-03 | NUR ---
PT ASLEEP WITH NO SIGNS OF DISTRESS. WILL CONTINUE TO MONITOR PT.
--- NOTE | 2019-07-03 02:50 | NUR ---
MADE ROUNDS. PT ASLEEP WITH NO SIGNS OF DISTRESS. REPOSITIONED PT AND MADE PT COMFORTABLE. WILL CONTINUE TO MONITOR PT.
[2019-07-03 04:00] VITALS: BP 138/47
--- NOTE | 2019-07-03 04:00 | NUR ---
VS CHECKED AND CHARTED. PT ASLEEP, WOKE UP FOR VS CHECK, PT DENIES ANY PAIN AT THIS TIME. WILL CONTINUE TO MONITOR PT.
[2019-07-03] MEDS: FUROSEMIDE 40 MG/4 ML VIAL IVP SCH (05:43)
--- NOTE | 2019-07-03 05:44 | NUR ---
BLOOD GLUCOSE CHECKED AND CHARTED. NO INSULIN COVERAGE NEEDED. ADMINISTERED SCHEDULED IVP MEDICATION ORDERED. PT WOKE UP AND ACKNOWLEDGE THE GLUCOSE CHECK AND MEDICATION ADMINISTRATION. WILL CONTINUE TO MONITOR PT.
[2019-07-03] MEDS: BLOOD GLUCOSE MONITORING 1 DEV DEV FS SCH ×4 (05:47→22:05)
--- NOTE | 2019-07-03 06:56 | NUR ---
PT LYING DOWN, RESTING, WITH NO SIGNS OF DISTRESS. LAB PERSONNEL AT BEDSIDE. WILL ENDORSE TO AM SHIFT RN FOR PT'S CONTINUITY OF CARE.
--- NOTE | 2019-07-03 07:10 | NUR ---
PATIENT IS IN STABLE CONDITION, AWAKE LAYING IN BED. RESPIRATION EVEN AND UNLABORED ON 3L OXIMIZER. PATIENT DENIES PAIN, NO DISTRESS NOTED. 18G RIGHT WRIST PATENT AND INFUSING PER ORDER. RIGHT FOOT DIABETIC ULCER PRESENT AND DRESSING IS DRY INTACT. PATIENT IS ON CCHO 60G DIET. SAFETY MEASURES IN PLACE, CALL LIGHT WITHIN REACH, AND WILL CONTINUE TO MONITOR.
[2019-07-03 07:25] LABS: BASOPHILS % (AUTO) 0.2 % (0.0-2.0); EOSINOPHILS % (AUTO) 0.1 % (0.0-4.0); HEMATOCRIT 27.1 % (36-48); HEMOGLOBIN 8.7 g/dL (12.0-16.0); LYMPHOCYTES # (AUTO) 0.8 K/uL (2.5-16.5); LYMPHOCYTES % (AUTO) 6.3 % (20.5-51.1); MEAN CORPUSCULAR HEMOGLOBIN 30 pg (27-31); MEAN CORPUSCULAR HGB CONC 32 g/dL (33-37); MEAN CORPUSCULAR VOLUME 93.7 fL (80-94); MONOCYTES # (AUTO) 0.9 K/uL (0.8-1.0); MONOCYTES % (AUTO) 7.2 % (1.7-9.3); NEUTROPHILS # (AUTO) 10.5 K/uL (1.8-7.7); NEUTROPHILS % (AUTO) 86.2 % (42.2-75.2); PLATELET COUNT (AUTO) 184 K/uL (140-450); RED BLOOD CELL COUNT(AUTO) 2.89 MIL/uL (4.20-5.40); WHITE BLOOD COUNT (AUTO) 12.1 K/uL (4.8-10.8)
[2019-07-03 07:48] LABS: MAGNESIUM 1.9 mg/dL (1.8-2.4); PHOSPHORUS 6.5 mg/dL (2.5-4.9)
[2019-07-03 07:52] LABS: ANION GAP 16.1 (8-16); CARBON DIOXIDE 18.5 mmol/L (21-32); POTASSIUM 3.6 mmol/L (3.5-5.1)
[2019-07-03 08:00] VITALS: BP 154/62
[2019-07-03 09:10] LABS: CREATININE 6.3 mg/dL (0.6-1.3)
[2019-07-03] MEDS: FERROUS SULFATE 325 MG TABEC PO SCH ×2 (09:33→17:08)
[2019-07-03] MEDS: OSELTAMIVIR PHOSPHATE 30 MG CAP PO SCH (09:34)
[2019-07-03] MEDS ORDERED: CALCIUM ACETATE 667 MG TAB PO SCH (09:40)
--- NOTE | 2019-07-03 09:42 | NUR ---
MEDICATIONS ADMINISTERED PER ORDER. TOLERATED WELL NO COMPLAINTS OF PAIN. SAFETY MEASURE IN PLACE AND CALL LIGHT IS IN PLACE, WILL CONTINUE TO MONITOR PT.
[2019-07-03 12:00] VITALS: BP 144/58
--- NOTE | 2019-07-03 12:07 | NUR ---
MEDICATIONS ADMINISTERED PER ORDER AND TOLERATED WELL. PT WAS ASLEEP IN BED WITH NO SIGNS OF DISTRESS NOTED. DR. MENDEZ CONSULTED WITH THE PT AND ENCOURAGES PT TO DRINK WATER. SAFETY MEASURES IN PLACE, CALL LIGHT WITHIN REACH, AND WILL CONTINUE TO MONITOR.
[2019-07-03] MEDS: SKINTEGRITY HYDROGEL TP SCH (13:00)
--- NOTE | 2019-07-03 15:00 | NUR ---
PT IS IN BED ASLEEP. NO REPORTS OF PAIN AND NO DISTRESS NOTED. WOUND CLEANSED AND DRESSING CHANGED WAS PREFORMED, PT TOLERATED WELL. SAFETY MEASURES IN PLACE, CALL LIGHT WITHIN REACH, AND WILL CONTINUE TO MONITOR PATIENT.
[2019-07-03 16:00] VITALS: BP 121/46
--- NOTE | 2019-07-03 16:30 | NUR ---
MEDICATION ADMINISTERED PER PARAMETER. MEDICATION WAS TOLERATED WELL. PT IS AWAKE AND ALERT WITH FAMILY MEMBER AT BEDSIDE. PT REPORTS NO PAIN WITH NO SIGNS OF DISTRESS. SAFETY MEASURES IN PLACE, CALL LIGHT WITHIN REACH AND WILL CONTINUE PLAN OF CARE.
[2019-07-03] MEDS: INSULIN LISPRO SLIDING SCALE 100 UNITS/ML VIAL SUBQ PRN (17:10)
[2019-07-03] MEDS: MEROPENEM 500 MG in NACL 0.9% 50 ML IV SCH (17:57)
--- NOTE | 2019-07-03 18:19 | NUR ---
PT IS ASLEEP IN BED WITH NO SIGNS OF DISTRESS NOTED. MEDICATION WAS ADMINISTERED PER PARAMETERS. IV IS PATENT AND FLUSHED. SAFETY MEASURE IN PLACE, CALL LIGHT IS WITHIN REACH, AND WILL CONTINUE TO MONITOR PT.
--- NOTE | 2019-07-03 19:10 | NUR ---
PT ENDOROSED TO NIGHT NURSE OR CONTINUITY OF CARE.
--- NOTE | 2019-07-03 19:26 | NUR ---
PT IS A LITTLE AGITATED. SATURATION IS GOOD. DROPPED PT TO 2 LNC. B/S WERE CLEAR
--- NOTE | 2019-07-03 19:30 | NUR ---
RECEIVED BEDSIDE REPORT FROM AM SHIFT RN FOR PT'S CONTINUITY OF CARE. PT IS LYING DOWN ASLEEP WITH NO SIGNS OF DISTRESS. PT IS ON TAXI DANCER, IS ON 3L OXYMIZER, HAS RIGHT WRIST 18G TKO. SAFETY MEASURES IN PLACE, AND CALL LIGHT IS WITHIN REACH. WILL MONITOR PT THROUGHOUT SHIFT.
[2019-07-03 20:00] VITALS: BP_SYST 128; BP_SYST 145; BP_DIAS 52; BP_DIAS 54
--- NOTE | 2019-07-03 22:05 | NUR ---
ADMINISTERED SCHEDULED MEDICATIONS ORDERED. PT TOLERATED THEM WELL. PT DENIES ANY PAIN AT THIS TIME, PT WENT BACK TO SLEEP RIGHT AWAY. WILL CONTINUE TO MONITOR PT.
[2019-07-04] VITALS: BP 128/52
--- NOTE | 2019-07-04 | NUR ---
MADE ROUNDS. PT ASLEEP WITH NO SIGNS OF RESPIRATORY DISTRESS. SAFETY MEASURES IN PLACE. WILL CONTINUE TO MONITOR.
--- NOTE | 2019-07-04 02:15 | NUR ---
MADE ROUNDS. PT ASLEEP WITH NO SIGNS OF RESP DISTRESS. WILL CONTINUE TO MONITOR.
[2019-07-04 04:00] VITALS: BP 140/49
--- NOTE | 2019-07-04 04:00 | NUR ---
VS CHECKED AND CHARTED. PT WOKE UP FOR VS CHECK. DENIES ANY PAIN AT THIS TIME. WILL CONTINUE TO MONITOR.
--- NOTE | 2019-07-04 06:00 | NUR ---
BLOOD GLUCOSE CHECKED AND CHARTED. NO COVERAGE NEEDED. PT ASLEEP, WOKE UP AND DENIES PAIN. NO RESPIRATORY DISTRESS NOTED. WILL ENDORSE PT TO AM SHIFT RN FOR PT'S CONTINUITY OF CARE.
[2019-07-04] MEDS: BLOOD GLUCOSE MONITORING 1 DEV DEV FS SCH ×4 (06:32→21:04)
--- NOTE | 2019-07-04 07:15 | NUR ---
RECEIVED BEDSIDE REPORT FROM NIGHTSHIFT NURSE. PT RESTING IN BED. ABLE TO MAKE NEEDS KNOWN. IV SITE IN RIGHT WRIST 18G IS CLEAN, DRY, AND INTACT. RESPIRATIONS EVEN AND UNLABORED WITH NO SOB OR RESPIRATORY DISTRESS. SKIN WARM AND DRY TO TOUCH. SAFETY MEASURES IN PLACE. WILL CONTINUE TO MONITOR
[2019-07-04 07:20] LABS: BASOPHILS % (AUTO) 0.3 % (0.0-2.0); EOSINOPHILS # (AUTO) 0.1 K/uL (0-0.4); EOSINOPHILS % (AUTO) 0.5 % (0.0-4.0); HEMATOCRIT 26.2 % (36-48); HEMOGLOBIN 8.6 g/dL (12.0-16.0); LYMPHOCYTES # (AUTO) 0.9 K/uL (2.5-16.5); LYMPHOCYTES % (AUTO) 7.8 % (20.5-51.1); MEAN CORPUSCULAR HEMOGLOBIN 30 pg (27-31); MEAN CORPUSCULAR HGB CONC 33 g/dL (33-37); MEAN CORPUSCULAR VOLUME 92.6 fL (80-94); MONOCYTES # (AUTO) 0.9 K/uL (0.8-1.0); MONOCYTES % (AUTO) 7.7 % (1.7-9.3); NEUTROPHILS # (AUTO) 9.5 K/uL (1.8-7.7); NEUTROPHILS % (AUTO) 83.7 % (42.2-75.2); PLATELET COUNT (AUTO) 232 K/uL (140-450); RED BLOOD CELL COUNT(AUTO) 2.83 MIL/uL (4.20-5.40); RED CELL DISTRIBUTION WIDTH 15.7 % (11.6-13.7); WHITE BLOOD COUNT (AUTO) 11.4 K/uL (4.8-10.8)
[2019-07-04 07:28] LABS: MAGNESIUM 1.9 mg/dL (1.8-2.4); PHOSPHORUS 6.3 mg/dL (2.5-4.9)
[2019-07-04 07:29] LABS: ANION GAP 18.2 (8-16); CARBON DIOXIDE 18.1 mmol/L (21-32); POTASSIUM 3.3 mmol/L (3.5-5.1)
--- NOTE | 2019-07-04 07:51 | NUR ---
RECEIVED CRITICAL LAB FROM CHEMISTRY. BUN IS 103 AND CREATININE IS 6.2. SAFETY MEASURES IN PLACE. WILL CONTINUE TO MONITOR.
[2019-07-04 07:54] LABS: CREATININE 6.2 mg/dL (0.6-1.3)
[2019-07-04 08:00] VITALS: BP 145/84
[2019-07-04] MEDS: FERROUS SULFATE 325 MG TABEC PO SCH ×2 (09:05→17:00)
[2019-07-04] MEDS: OSELTAMIVIR PHOSPHATE 30 MG CAP PO SCH (09:06)
--- NOTE | 2019-07-04 09:08 | NUR ---
ADMINISTERED SCHED MED PRESCRIBED PER MD ORDER. PT TOLERATED WELL. MEDICATION EDUCATION PERFORMED. PT VERBALIZED UNDERSTANDING. SAFETY MEASURES IN PLACE. WILL CONTINUE TO MONITOR
--- NOTE | 2019-07-04 09:11 | NUR ---
07/04/19 RD FOLLOW UP COMPLETED PLEASE REFER TO NUTRITION PROGRESS NOTE UNDER CARE ACTIVITY FOR ESTIMATED NUTRITION NEEDS. RD RECOMMENDATIONS: 1. RECOMMEND CONTINUE CCHO 60 GM TOLERATED. 2. CONTINUE BARRINGTON BID FOR WOUND HEALING/SKIN INTEGRITY. THIS WILL PROVIDE ADDITIONAL 160 GM PROTEIN. 3. CONTINUE NEPRO TOLERATED. 4. ENCOURAGE INCREASING PO INTAKE 5. RD TO FOLLOW-UP 2-3 DAYS, HIGH RISK ARACELI JUDD MS, RDN
[2019-07-04] MEDS ORDERED: VANCOMYCIN 1,000 MG in DEXTROSE 5% 250 ML IV SCH (11:00)
--- NOTE | 2019-07-04 11:09 | NUR ---
ADMINISTERED SCHED MED PRESCRIBED PER MD ORDER. PT TOLERATED WELL. MEDICATION EDUCATION PERFORMED. PT VERBALIZED UNDERSTANDING. SAFETY MEASURES IN PLACE. WILL CONTINUE TO MONITOR.
[2019-07-04 12:00] VITALS: BP 132/59
--- NOTE | 2019-07-04 12:45 | NUR ---
PT RESTING IN BED. ABLE TO MAKE NEEDS KNOWN. RESPIRATIONS EVEN AND UNLABORED WITH NO SOB OR RESPIRATORY DISTRESS. SKIN WARM AND DRY TO TOUCH. SAFETY MEASURES IN PLACE. WILL CONTINUE TO MONITOR.
[2019-07-04] MEDS: SKINTEGRITY HYDROGEL TP SCH (13:48)
[2019-07-04] MEDS ORDERED: POTASSIUM CHLORIDE 10 MEQ TABER PO SCH (14:15)
--- NOTE | 2019-07-04 14:36 | NUR ---
ADMINISTERED SCHED MED PRESCRIBED PER MD ORDER. PT TOLERATED WELL. MEDICATION EDUCATION PERFORMED. PT VERBALIZED UNDERSTANDING. SAFETY MEASURES IN PLACE. WILL CONTINUE TO MONITOR.
--- NOTE | 2019-07-04 15:51 | NUR ---
HOURLY ROUNDING. PT SLEEPING IN BED. RESPONSIVE TO VERBAL AND TACTILE STIMULI. ABLE TO MAKE NEEDS KNOWN. RESPIRATIONS EVEN AND UNLABORED WITH NO SOB OR RESPIRATORY DISTRESS. SKIN WARM AND DRY TO TOUCH. SAFETY MEASURES IN PLACE. WILL CONTINUE TO MONITOR.
[2019-07-04] MEDS ORDERED: ALBUTEROL SULFATE/IPRATROPIU 3 ML SOL IH PRN (16:10)
[2019-07-04 16:13] VITALS: BP 149/62
--- NOTE | 2019-07-04 16:30 | NUR ---
PT BLOOD SUGAR IS 146. NO INSULIN COVERAGE IS NEEDED AT THIS TIME. SAFETY MEASURES IN PLACE. WILL CONTINUE TO MONITOR
--- NOTE | 2019-07-04 17:45 | NUR ---
HOURLY ROUNDING. FAMILY AT BEDSIDE. PT RESTING IN BED. ABLE TO MAKE NEEDS KNOWN. RESPIRATIONS EVEN AND UNLABORED WITH NO SOB OR RESPIRATORY DISTRESS. SKIN WARM AND DRY TO TOUCH. SAFETY MEASURES IN PLACE. WILL CONTINUE TO MONITOR.
[2019-07-04] MEDS: FUROSEMIDE 20 MG/2 ML VIAL IVP SCH ×2 (18:06→21:13)
[2019-07-04] MEDS: MEROPENEM 500 MG in NACL 0.9% 50 ML IV SCH (18:06)
--- NOTE | 2019-07-04 18:45 | NUR ---
PT SEMICONDUCTOR WAFERS SAW OPERATOR SIGNED CONSENT FOR KRISTINA CATH AND HEMODIALYSIS. SAFETY MEASURES IN PLACE. WILL CONTINUE TO MONITOR.
--- NOTE | 2019-07-04 19:20 | NUR ---
ENDORSED AT BEDSIDE TO NIGHTSHIFT NURSE. PT RESTING IN BED. RESPIRATIONS EVEN AND UNLABORED WITH NO SOB OR RESPIRATORY DISTRESS. PT IS STABLE
--- NOTE | 2019-07-04 19:30 | NUR ---
RECEIVED BEDSIDE REPORT FROM AM SHIFT RN FOR PT'S CONTINUITY OF CARE. PT IS ASLEEP WITH NO SIGNS OF DISTRESS. PT IS ON DROPLET ISOLATION, IS ON PRODUCTION BROACHING MACHINE OPERATOR, ON O2 2L NC, HAS RIGHT WRIST 18G TKO. PT HAS RIGHT FOOT DRESSING, DRY AND INTACT. SAFETY MEASURES AND ISOLATION PRECAUTION IN PLACE. WILL MONITOR PT THROUGHOUT SHIFT.
[2019-07-04 20:00] VITALS: BP 130/52
[2019-07-04] MEDS: ALBUTEROL SULFATE/IPRATROPIU 3 ML SOL IH SCH (20:16)
[2019-07-04] MEDS: INSULIN LISPRO SLIDING SCALE 100 UNITS/ML VIAL SUBQ PRN (21:09)
[2019-07-04] MEDS: HYDROcodone/APAP 5/325 MG 1 TAB TAB PO PRN (21:13)
--- NOTE | 2019-07-04 21:15 | NUR ---
BLOOD GLUCOSE CHECKED AND CHARTED. ADMINISTERED INSULIN SUBQ PER SLIDING SCALE, ADMINISTERED SCHEDULED MEDICATIONS ORDERED. PT TOLERATED THEM WELL. PT DENIES ANY PAIN AT THIS TIME. WILL CONTINUE TO MONITOR PT.
--- NOTE | 2019-07-04 22:00 | NUR ---
PT ASLEEP WITH NO SIGNS OF DISTRESS. O2 NC STILL IN PLACE. WILL CONTINUE TO MONITOR PT.
[2019-07-05] VITALS: BP 118/54
--- NOTE | 2019-07-05 | NUR ---
VS CHECKED AND CHARTED. PT REPOSITIONED. ASSESSED WOUND DRESSING, DRY AND INTACT. WILL CONTINUE TO MONITOR.
--- NOTE | 2019-07-05 02:30 | NUR ---
MADE ROUNDS. PT ASLEEP WITH NO SIGNS OF DISTRESS OR DISCOMFORT. WILL CONTINUE TO MONITOR.
[2019-07-05 04:00] VITALS: BP 124/85
--- NOTE | 2019-07-05 04:00 | NUR ---
VS CHECKED AND CHARTED. PT ASLEEP WITH NO SIGNS OF DISTRESS. OXYGEN NC STILL IN PLACE. WILL CONTINUE TO MONITOR.
[2019-07-05] MEDS: BLOOD GLUCOSE MONITORING 1 DEV DEV FS SCH ×4 (06:15→20:51)
--- NOTE | 2019-07-05 06:15 | NUR ---
BLOOD GLUCOSE CHECKED AND CHARTED. PT WOKE UP AND DENIES ANY PAIN. NO INSULIN COVERAGE NEEDED. REORIENTED PT TO THE HOSPITAL SETTINGS, PT VERBALIZED UNDERSTANDING. WILL ENDORSE TO AM SHIFT RN FOR PT'S CONTINUITY OF CARE.
--- NOTE | 2019-07-05 07:21 | NUR ---
RECEIVED BEDSIDE SHIFT REPORT FROM TYPING CHECKER NURSE FOR CONTINUATION OF CARE.
[2019-07-05] MEDS: ALBUTEROL SULFATE/IPRATROPIU 3 ML SOL IH SCH ×3 (07:43→19:38)
[2019-07-05 07:52] LABS: ANION GAP 17.4 (8-16); CARBON DIOXIDE 19.5 mmol/L (21-32); POTASSIUM 3.9 mmol/L (3.5-5.1)
[2019-07-05 07:53] LABS: BASOPHILS % (AUTO) 0.5 % (0.0-2.0); EOSINOPHILS # (AUTO) 0.2 K/uL (0-0.4); EOSINOPHILS % (AUTO) 2.4 % (0.0-4.0); HEMATOCRIT 27.3 % (36-48); HEMOGLOBIN 8.9 g/dL (12.0-16.0); LYMPHOCYTES % (AUTO) 11.9 % (20.5-51.1); MEAN CORPUSCULAR HEMOGLOBIN 30 pg (27-31); MEAN CORPUSCULAR HGB CONC 33 g/dL (33-37); MEAN CORPUSCULAR VOLUME 92.8 fL (80-94); MONOCYTES # (AUTO) 0.8 K/uL (0.8-1.0); MONOCYTES % (AUTO) 9.8 % (1.7-9.3); NEUTROPHILS # (AUTO) 6.1 K/uL (1.8-7.7); NEUTROPHILS % (AUTO) 75.4 % (42.2-75.2); PLATELET COUNT (AUTO) 288 K/uL (140-450); RED BLOOD CELL COUNT(AUTO) 2.94 MIL/uL (4.20-5.40); RED CELL DISTRIBUTION WIDTH 15.9 % (11.6-13.7); WHITE BLOOD COUNT (AUTO) 8.1 K/uL (4.8-10.8)
[2019-07-05 07:54] LABS: CREATININE 5.8 mg/dL (0.6-1.3)
[2019-07-05 08:00] VITALS: BP 158/67
[2019-07-05 08:11] LABS: PHOSPHORUS 6.3 mg/dL (2.5-4.9)
[2019-07-05] MEDS: FERROUS SULFATE 325 MG TABEC PO SCH ×2 (08:28→16:44)
[2019-07-05] MEDS: OSELTAMIVIR PHOSPHATE 30 MG CAP PO SCH (08:28)
[2019-07-05] MEDS: FUROSEMIDE 20 MG/2 ML VIAL IVP SCH ×2 (08:29→20:26)
--- NOTE | 2019-07-05 11:10 | NUR ---
MEDICATIONS TOLERATED WELL, REPORTS DISCOMFORT IN RIGHT FOOT DUE TO DIABETIC FOOT ULCER. ASSISTED WITH BREAKFAST. CALL LIGHT ON AND WITHIN REACH, BED IS IN LOW POSITION. WILL CONTINUE TO MONITOR.
[2019-07-05 12:00] VITALS: BP 149/67
[2019-07-05] MEDS: SKINTEGRITY HYDROGEL TP SCH (13:34)
--- NOTE | 2019-07-05 13:42 | NUR ---
WOUND CARE ADMINISTERED ON RIGHT FOOT PER MD'S ORDERS, CLEANSED WITH WOUND SPRAY, PAT DRY WITH 4X4 GAUZE, AND WOUND FILLED WITH HYDRAGEL AND COVERED WITH DRY ADHESIVE DRESSING. PATIENT TOLERATED WOUND CARE WELL, NO SIGNS OF DISTRESS. DENIES PAIN. BED IN LOW POSITION, CALL LIGHT ON AND WITHIN REACH. WILL CONTINUE TO MONITOR.
--- NOTE | 2019-07-05 14:58 | NUR ---
VIRIHITe HANGING PER MD'S ORDERS TO TREAT INFECTION. PATIENT TOLERATING WELL, NO SIGNS OF DISTRESS AT THIS TIME. EDUCATED ON THE IMPORTANCE OF REPORTING SIGNS AND SYMPTOMS OF INFECTION. BED IS IN LOW POSITION, CALL LIGHT ON AND WITHIN REACH WILL CONTINUE TO MONITOR.
[2019-07-05 15:09] LABS: HEPATITIS A ANTIBODY IGM Negative (Negative); HEPATITIS B CORE AB TOTAL Negative (Negative); HEPATITIS B SURFACE ANTIBODY Non Reactive (.); HEPATITIS B SURFACE ANTIGEN Negative (Negative)
[2019-07-05 16:00] VITALS: BP 151/71
[2019-07-05] MEDS: INSULIN LISPRO SLIDING SCALE 100 UNITS/ML VIAL SUBQ PRN (17:21)
--- NOTE | 2019-07-05 19:25 | NUR ---
BEDSIDE SHIFT REPORT GIVEN TO SHOVEL OILER NURSE FOR CONTINUATION OF CARE.
--- NOTE | 2019-07-05 19:27 | NUR ---
RECEIVED BEDSIDE REPORT FROM AM SHIFT RN FOR PT'S CONTINUITY OF CARE. PT IS AWAKE, ALERT O X 3, W/ SOME FORGETFULNESS. WITH NO SIGNS OF DISTRESS. PT IS ON DROPLET ISOLATION, IS ON LUNCHROOM AIDE, ON O2 2L NC, HAS RIGHT WRIST 18G TKO. PT HAS RIGHT FOOT DIABETIC ULCER W/ DRESSING IN PLACE,DRY AND INTACT. PLACED IN FALL RISK PRECAUTION.SAFETY MEASURES AND ISOLATION PRECAUTION IN PLACE. WILL MONITOR PT THROUGHOUT SHIFT.
--- NOTE | 2019-07-05 19:48 | NUR ---
RECEIVED PATIENT ON 2L NASAL CANNULA, PULSE OX SAT 99%. FAMILY AT BEDSIDE. SCHEDULED BREATHING TREATMENT ADMINISTERED. TOLERATED TX WELL WITHOUT ADVERSE SIDE EFFECTS. PT AND FAMILY MADE AWARE OF ORDERED MEDICATION FREQUENCY AND INSTRUCTED TO CALL NEEDED FOR SOB. NO ACUTE RESPIRATORY DISTRESS NOTED AT THIS TIME. WILL CONTINUE TO MONITOR.
[2019-07-05 20:00] VITALS: BP 145/97
[2019-07-06] VITALS: BP 160/68
--- NOTE | 2019-07-06 | NUR ---
INFORMED DR. GIBBONS THAT BP IS 160/68; 78 HR SAID HE WILL PUT IN ORDER. WILL CARRY OUT
[2019-07-06] MEDS ORDERED: cloNIDine 0.1 MG TAB ONE (00:38)
[2019-07-06] MEDS: cloNIDine 0.1 MG TAB PO PRN (01:22)
--- NOTE | 2019-07-06 02:52 | NUR ---
PT'S BP= 142/60; HR 72 AFTER ADMINISTERING CLONIDINE. WILL CONTINUE TO MONITOR
[2019-07-06 04:00] VITALS: BP 142/60
--- NOTE | 2019-07-06 04:30 | NUR ---
PATIENT CLEANED,. BM NOTED CHECKED ON BUTTOCKS FOR SKIN ASSESSMENT; W/ OLD SKIN ABRASION INTACT (CLOSED)ON THE RIGHT BUTTOCKS, CLEANED W/ NS AND JULIETA. Addendum: 07/06/19 at 0556 by Yumiko Simmons RN LEFT BUTTOCKS Addendum: 07/06/19 at 0606 by Yumiko Simmons RN RIGHT BUTTOCKS
[2019-07-06] MEDS: BLOOD GLUCOSE MONITORING 1 DEV DEV FS SCH ×4 (06:41→20:59)
--- NOTE | 2019-07-06 06:47 | NUR ---
PT ASLEEP, BUT EASILY AROUSABLE,PT IN STABLE CONDITION. WILL ENDORSE TO NEXT SHIFT
--- NOTE | 2019-07-06 07:10 | NUR ---
RECEIVED REPORT FROM QUALITY HEAD NURSE. PT IS SLEEPING, NO SIGNS OF DISTRESS. PT HAS IV G18 AT RIGHT WRIST SALINE LOCK. PT [place] O2 AT 2LPM VIA NC. PT HAS PATINO. PT IS FROM HOME, FULL CODE, AND HAS ALLERGY ON PENICILLIN. CALL LIGHT WITHIN PT'S REACH, BED ON LOW, SIDE RAILS UP. WILL CONTINUE TO MONITOR
[2019-07-06 08:00] VITALS: BP 134/66
[2019-07-06] MEDS: ALBUTEROL SULFATE/IPRATROPIU 3 ML SOL IH SCH ×3 (08:11→20:40)
--- NOTE | 2019-07-06 09:30 | NUR ---
KRISTINA CATHETER PLACEMENT DONE BY DR. DOMINGUEZ. PT IS STABLE. STAT CXR DONE RIGHT AFTER.
--- NOTE | 2019-07-06 10:00 | NUR ---
CENTRAL LINE DRESSING WAS APPLIED TO THE KRISTINA PLACEMENT
[2019-07-06] MEDS: FERROUS SULFATE 325 MG TABEC PO SCH ×2 (11:15→18:43)
[2019-07-06] MEDS: FUROSEMIDE 20 MG/2 ML VIAL IVP SCH ×2 (11:15→20:58)
[2019-07-06] MEDS: MORPHINE SULFATE 2 MG/ML SYR IVP PRN (11:15)
--- NOTE | 2019-07-06 11:15 | NUR ---
PT COMPLAINED OF PAIN 12/06, MORPHINE GIVEN IVP. WILL CONTINUE TO MONITOR
[2019-07-06 12:00] VITALS: BP 128/75
--- NOTE | 2019-07-06 12:41 | NUR ---
P.T. NOTES Pt SLEEPY IN BED, DECLINED TO PARTICIPATE W/ P.T., IRRITABLE, FACING AWAY FROM P.T. STAFF, STATES WANTS TO REST, LUNCH TRAY IN ROOM & Pt STATES SHE DOES NOT WANT TO EAT; NURSE AWARE; EXPLAINED RISKS OF BEDBOUND, FF UP WHEN PARTICIPATIVE; CONTACT/DROPLET PREC (INFL A, E COLI); ALL LINES INTACT, BED ALARM ON, CALL TAO, PHONE, TABLE IN REACH. 07/06/19 XR CHEST:R IJ CENTRAL VENOUS CATH INTACT, IMPROVING PULM EDEMA; Hgb=8.9; POC [id number]
[2019-07-06 14:47] LABS: BASOPHILS % (AUTO) 0.5 % (0.0-2.0); EOSINOPHILS # (AUTO) 0.1 K/uL (0-0.4); EOSINOPHILS % (AUTO) 1.4 % (0.0-4.0); HEMATOCRIT 25.1 % (36-48); HEMOGLOBIN 8.2 g/dL (12.0-16.0); LYMPHOCYTES # (AUTO) 0.6 K/uL (2.5-16.5); LYMPHOCYTES % (AUTO) 7.6 % (20.5-51.1); MEAN CORPUSCULAR HEMOGLOBIN 30 pg (27-31); MEAN CORPUSCULAR HGB CONC 33 g/dL (33-37); MEAN CORPUSCULAR VOLUME 92.2 fL (80-94); MONOCYTES # (AUTO) 0.5 K/uL (0.8-1.0); MONOCYTES % (AUTO) 6.3 % (1.7-9.3); NEUTROPHILS # (AUTO) 6.7 K/uL (1.8-7.7); NEUTROPHILS % (AUTO) 84.2 % (42.2-75.2); PLATELET COUNT (AUTO) 361 K/uL (140-450); RED BLOOD CELL COUNT(AUTO) 2.72 MIL/uL (4.20-5.40); RED CELL DISTRIBUTION WIDTH 15.3 % (11.6-13.7)
[2019-07-06 15:09] LABS: MAGNESIUM 2.1 mg/dL (1.8-2.4); PHOSPHORUS 6.5 mg/dL (2.5-4.9)
[2019-07-06 15:11] LABS: ANION GAP 17.3 (8-16); CARBON DIOXIDE 18.7 mmol/L (21-32)
[2019-07-06 15:36] LABS: CREATININE 5.5 mg/dL (0.6-1.3)
--- NOTE | 2019-07-06 15:45 | NUR ---
OFELIA FROM LAB CALLED [facility] 109 AND CREATININE 5.5. INFORMED THE DOCTOR.
[2019-07-06 16:00] VITALS: BP 127/65
--- NOTE | 2019-07-06 16:20 | NUR ---
DIALYSIS STARTED BY BERRY. PT IS STABLE.
--- NOTE | 2019-07-06 16:30 | NUR ---
GLUCOSE CHECK DONE 161, HUMALOG 2UNITS GIVEN.
--- NOTE | 2019-07-06 17:00 | NUR ---
SCHEDULED MEDS GIVEN. PT TOLERATED WELL. WILL CONTINUE TO MONITOR
--- NOTE | 2019-07-06 18:30 | NUR ---
2 VIALS OF HEPARIN 5000 IS GIVEN TO BERRY FOR DIALYSIS.
[2019-07-06] MEDS: INSULIN LISPRO SLIDING SCALE 100 UNITS/ML VIAL SUBQ PRN (18:41)
[2019-07-06] MEDS: SKINTEGRITY HYDROGEL TP SCH (18:42)
--- NOTE | 2019-07-06 19:05 | NUR ---
REPORT GIVEN TO [employer] SALESMAN NURSE FOR CONTINUITY OF CARE. FAMILY IS AT BEDSIDE. PT IS STABLE. CALL LIGHT WITHIN PT'S REACH. BED ON LOW, SIDE RAILS UP.
--- NOTE | 2019-07-06 19:06 | NUR ---
RECEIVED BEDSIDE REPORT FROM DAY SHIFT NURSE, FAMILY AT BEDSIDE, JUST FINISHED HD, NO S/S OF DISTRESS, BREATHING EVEN AND UNLABORED ON O2 AT 2L VIA NC, PATINO CATHETER IN PLACE. SKIN IS WARM AND DRY TO TOUCH, RK[place]INA CATH ON R IJ. DROPLET PRECAUTION IN PLACE. SAFETY MEASURES IN PLACE, BED IN LOW POSITION, WILL CONTINUE TO MONITOR.
[2019-07-06 20:00] VITALS: BP 160/77
--- NOTE | 2019-07-06 21:03 | NUR ---
GIVEN LASIX AND HEPARIN MD ORDERED. PT TOLERATED WELL. BS CHECKED, 139. NO INSULIN COVERAGE NEEDED.
--- NOTE | 2019-07-06 23:50 | NUR ---
PT SLEEPING IN BED COMFORTABLY. NO ACUTE DISTRESS NOTED.
[2019-07-07] VITALS: BP 160/75
--- NOTE | 2019-07-07 02:31 | NUR ---
PT SLEEPING IN BED. NO ACUTE DISTRESS NOTED. WILL CONTINUE TO MONITOR.
[2019-07-07 04:00] VITALS: BP 167/65
[2019-07-07] MEDS: cloNIDine 0.1 MG TAB PO PRN ×3 (04:26→17:05)
--- NOTE | 2019-07-07 04:27 | NUR ---
VS CHECKED, BP 167/65, GIVEN CLONIDINE MD ORDERED. PT TOLERATED WELL. WILL CONTINUE TO MONITOR.
--- NOTE | 2019-07-07 05:56 | NUR ---
REASSESSED BP, 156/77. PT IN STABLE CONDITION.
[2019-07-07] MEDS: BLOOD GLUCOSE MONITORING 1 DEV DEV FS SCH ×4 (06:31→21:58)
--- NOTE | 2019-07-07 06:32 | NUR ---
BS CHECKED, 114 NO INSULIN COVERAGE NEEDED.
[2019-07-07] MEDS: ALBUTEROL SULFATE/IPRATROPIU 3 ML SOL IH SCH ×3 (07:00→19:21)
--- NOTE | 2019-07-07 07:10 | NUR ---
RECEIVED REPORT FROM GEOINT ANALYST NURSE. PT IS SLEEPING. NO SIGNS OF DISTRESS. PT HAS IV ON LEFT HAND G24 W/ NS RUNNING AT 60. CALL LIGHT WITHIN PT'S REACH. BED ON LOW, SIDE RAILS UP. WILL CONTINUE TO MONITOR
[2019-07-07 07:26] LABS: MAGNESIUM 1.9 mg/dL (1.8-2.4); PHOSPHORUS 4.4 mg/dL (2.5-4.9)
[2019-07-07 07:28] LABS: BASOPHILS % (AUTO) 0.3 % (0.0-2.0); EOSINOPHILS # (AUTO) 0.3 K/uL (0-0.4); EOSINOPHILS % (AUTO) 2.8 % (0.0-4.0); HEMATOCRIT 24.9 % (36-48); HEMOGLOBIN 8.3 g/dL (12.0-16.0); LYMPHOCYTES # (AUTO) 1.1 K/uL (2.5-16.5); LYMPHOCYTES % (AUTO) 11.5 % (20.5-51.1); MEAN CORPUSCULAR HEMOGLOBIN 31 pg (27-31); MEAN CORPUSCULAR HGB CONC 34 g/dL (33-37); MEAN CORPUSCULAR VOLUME 91.3 fL (80-94); MONOCYTES # (AUTO) 0.7 K/uL (0.8-1.0); MONOCYTES % (AUTO) 7.2 % (1.7-9.3); NEUTROPHILS # (AUTO) 7.5 K/uL (1.8-7.7); NEUTROPHILS % (AUTO) 78.2 % (42.2-75.2); PLATELET COUNT (AUTO) 384 K/uL (140-450); RED BLOOD CELL COUNT(AUTO) 2.73 MIL/uL (4.20-5.40); RED CELL DISTRIBUTION WIDTH 15.3 % (11.6-13.7); WHITE BLOOD COUNT (AUTO) 9.6 K/uL (4.8-10.8)
[2019-07-07 07:30] LABS: ANION GAP 14.5 (8-16); CARBON DIOXIDE 24.7 mmol/L (21-32); CREATININE 3.6 mg/dL (0.6-1.3); POTASSIUM 3.2 mmol/L (3.5-5.1)
[2019-07-07 08:00] VITALS: BP 149/59
[2019-07-07] MEDS: FERROUS SULFATE 325 MG TABEC PO SCH ×2 (09:28→17:05)
[2019-07-07] MEDS: FUROSEMIDE 20 MG/2 ML VIAL IVP SCH ×2 (09:28→21:00)
[2019-07-07] MEDS: ONDANSETRON 4 MG/2 ML VIAL IM/IVP PRN ×2 (09:28→14:23)
--- NOTE | 2019-07-07 09:37 | NUR ---
SCHEDULED MEDS GIVEN EXCEPT HEPARIN. PT REFUSED HEPARIN. ZOFRAN GIVEN IVP BECAUSE PATIENT COMPLAINED OF NAUSEA . WILL CONTINUE TO MONITOR
[2019-07-07] MEDS ORDERED: POTASSIUM CHLORIDE 10 MEQ TABER PO SCH (11:00)
[2019-07-07 12:00] VITALS: BP 165/53
--- NOTE | 2019-07-07 12:26 | NUR ---
P.T. NOTES Pt REFUSING CONSISTENTLY W/ P.T.; DISCUSSED RISKS OF BEDBOUND, Pt STILL DECLINED, FACING AWAY FROM P.T. STAFF, WINDOW SHADE CLOSED; REVIEWED HEP, FALL PREVENTION, USE OF CALL LT FOR NURSE ASSIST, BED ALARM ON; D/C FROM P.T. DUE TO NON-COMPLIANCE W/ P.T.; ENDORSED TO NURSING. Hgb=8.3
[2019-07-07] MEDS: INSULIN LISPRO SLIDING SCALE 100 UNITS/ML VIAL SUBQ PRN ×2 (12:27→17:08)
--- NOTE | 2019-07-07 12:41 | NUR ---
SCHEDULED MEDS GIVEN. PT WAS NAUSEOUS. WILL CONTINUE TO MONITOR
[2019-07-07] MEDS: SKINTEGRITY HYDROGEL TP SCH (13:00)
--- NOTE | 2019-07-07 14:30 | NUR ---
SCHEDULED MEDS GIVEN. ZOFRAN GIVEN IVP FOR NAUSEA AND VOMITING.PT. TOLERATED WELL. WILL CONTINUE TO MONITOR
--- NOTE | 2019-07-07 15:45 | NUR ---
07/07/19 RD FOLLOW UP COMPLETED PLEASE REFER TO NUTRITION ASSESSMENT UNDER CARE ACTIVITY FOR ESTIMATED NUTRITIONAL NEEDS. 1. CONTINUE CCHO 60 GM RENAL PROTEIN 60GM TOLERATED. 2. CONTINUE [place] BID FOR WOUND HEALING/SKIN INTEGRITY 3. CONTINUE NEPRO TOLERATED. 4. ENCOURAGE INCREASING PO INTAKE 5. RD TO FOLLOW-UP 2-3 DAYS, HIGH RISK OLMAN QUINONES, RD
[2019-07-07 16:00] VITALS: BP 170/72
--- NOTE | 2019-07-07 16:40 | NUR ---
GLUCOSE CHECKED 185, WITH COVERAGE. 2 UNITS HUMALOG GIVEN SUBQ
--- NOTE | 2019-07-07 17:35 | NUR ---
SCHEDULED MEDS GIVEN. PT TOLERATED WELL. CLONIDINE GIVEN QL=667/72.
--- NOTE | 2019-07-07 18:35 | NUR ---
REASSESSMENT FOR CLONIDINE BP= 113/ 53, P 66
--- NOTE | 2019-07-07 19:15 | NUR ---
REPORT GIVEN TO PIZZA DELIVERY NURSE AT BEDSIDE FOR CONTINUITY OF CARE. PT IS STABLE. CALL LIGHT WITHIN PT'S REACH.
--- NOTE | 2019-07-07 19:16 | NUR ---
RECD. RESTING IN BED, AWAKE, A/OX3. RESPIRATION EVEN AND UNLABORED. IV OF NS AT 10 ML/HR INFUSING RIGHT WRIST G22. RIGHT IJ KRISTINA CATH WITH DRESSING DRY AND INTACT. PATINO CATHETER DRAINING CLEAR YELLOW URINE. SAFETY MEASURES ENFORCED. BED IN THE LOWEST POSITION. SIDE RAILS UP, BED ON ALARM. PLAN OF CARE FOR THE SHIFT DISCUSSED. NEEDS REINFORCEMENT. DENIES PAIN 0/10.
--- NOTE | 2019-07-07 19:31 | NUR ---
RECEIVED PATIENT ON ROOM AIR, PULSE OX SAT 98%. SCHEDULED BREATHING TREATMENT ADMINISTERED. TOLERATED TX WELL WITHOUT ADVERSE SIDE EFFECTS. PT MADE AWARE OF ORDERED MEDICATION FREQUENCY AND INSTRUCTED TO CALL NEEDED FOR SOB. NO ACUTE RESPIRATORY DISTRESS NOTED AT THIS TIME. WILL CONTINUE TO MONITOR.
[2019-07-07 20:00] VITALS: BP 102/42
--- NOTE | 2019-07-07 21:58 | NUR ---
SNACK GIVEN FOR THE NIGHT.
--- NOTE | 2019-07-07 22:10 | NUR ---
MS BERRY, DIALYSIS NURSE FOLLOW UP ORDER FOR DIALYSIS TODAY.
--- NOTE | 2019-07-07 22:30 | NUR ---
NURSE ELECTRICAL CONSTRUCTION PROJECT MANAGER MAY CALLED, MS BERRY SAID THAT DR. ODELL, PSYCHOLOGIST CHIEF SAID PATIENT MY HAVE DIALYSIS TOMORROW MORNING.
[2019-07-08] VITALS: BP 154/63
[2019-07-08] MEDS: HYDROcodone/APAP 5/325 MG 1 TAB TAB PO PRN ×2 (00:30→10:40)
--- NOTE | 2019-07-08 00:30 | NUR ---
SLEEPING COMFORTABLY IN BED.
--- NOTE | 2019-07-08 03:00 | NUR ---
STILL SLEEPING COMFORTABLY IN BED.
[2019-07-08 04:00] VITALS: BP 147/39
--- NOTE | 2019-07-08 05:18 | NUR ---
Patient's Plan of Care was discussed and reviewed with MOLECULAR BIOLOGY DIRECTOR: LULU DOS SANTOS
[2019-07-08] MEDS: BLOOD GLUCOSE MONITORING 1 DEV DEV FS SCH ×2 (05:48→11:45)
--- NOTE | 2019-07-08 05:48 | NUR ---
BS CHECKED - 108. NO INSULIN COVERAGE.
[2019-07-08 06:28] LABS: ANION GAP 14.3 (8-16); CREATININE 3.8 mg/dL (0.6-1.3); POTASSIUM 3.3 mmol/L (3.5-5.1)
[2019-07-08 06:29] LABS: HEMATOCRIT 23.6 % (36-48); HEMOGLOBIN 7.7 g/dL (12.0-16.0); MEAN CORPUSCULAR HEMOGLOBIN 31 pg (27-31); MEAN CORPUSCULAR HGB CONC 33 g/dL (33-37); MEAN CORPUSCULAR VOLUME 92.9 fL (80-94); PLATELET COUNT (AUTO) 380 K/uL (140-450); RED BLOOD CELL COUNT(AUTO) 2.54 MIL/uL (4.20-5.40); RED CELL DISTRIBUTION WIDTH 15.4 % (11.6-13.7); WHITE BLOOD COUNT (AUTO) 8.7 K/uL (4.8-10.8)
[2019-07-08] MEDS: ALBUTEROL SULFATE/IPRATROPIU 3 ML SOL IH SCH ×2 (06:47→13:00)
--- NOTE | 2019-07-08 07:20 | NUR ---
CONDITION REMAIN STABLE. ENDORSED TO AM SHIFT NURSE FOR CONTINUITY OF CARE.
[2019-07-08 07:21] LABS: BASOPHILS % (MANUAL) 0 % (0-2); EOSINOPHILS % (MANUAL) 6 % (0-4); LYMPHOCYTES % (MANUAL) 21 % (20-46); MONOCYTES % (MANUAL) 5 % (5-12)
--- NOTE | 2019-07-08 07:21 | NUR ---
SHIFT REPORT RECEIVED FROM ORDER SCHEDULE CLERK NURSE. PT IS IN BED MOANING. NO DISTRESS NOTED. PER ORDER SCHEDULE CLERK NURSE. THERE WAS NO DIALYSIS ORDER FOR TODAY AND PER REFUSED BLOOD GLUCOSE CHECK. WILL CONTINUE TO MONITOR. CALL LIGHT IN REACH.
[2019-07-08 08:00] VITALS: BP 130/67
[2019-07-08] MEDS: FERROUS SULFATE 325 MG TABEC PO SCH ×2 (08:00→08:56)
[2019-07-08] MEDS: PANTOPRAZOLE 40 MG TABEC PO SCH ×3 (08:53→11:20)
[2019-07-08] MEDS: FUROSEMIDE 20 MG/2 ML VIAL IVP SCH (08:54)
--- NOTE | 2019-07-08 09:00 | NUR ---
DIALYSIS STARTED IN UNIT.
[2019-07-08] MEDS: ONDANSETRON 4 MG/2 ML VIAL IM/IVP PRN (09:35)
--- NOTE | 2019-07-08 10:00 | NUR ---
DIALYSIS NURSE REPORTED THAT THE DIALYSIS CATHETER IS NOT WORKING PROPERLY. PER DIALYSIS NURSE THERE IS NO PROPER BLOOD RETURN OCCASIONALLY. WILL CONTINUE TO MONITOR.
--- NOTE | 2019-07-08 10:42 | NUR ---
PT WAS FEELING COMFORTABLE. WITH A HELP OF A MEDICAL STAFF TO TRANSLATE PT INDICATED THAT SHE WANTS TO STOP THE DIALYSIS. NOTIFIED DIALYSIS NURSE.PT IS ALSO COMPLAINING OF STOMACH PAIN. PT DID REFUSE HER PANTOPRAZOLE MEDS THIS MORNING. PT ASKED FOR PAIN MEDS. NORCO WAS GIVEN. WILL CONTINUE TO MONITOR. CALL LIGHT IN REACH.
--- NOTE | 2019-07-08 11:20 | NUR ---
PT MOR COMPLAINS OF STOMACH PAIN. NOTIFIED DR CONTRERAS. REMOVED PROTONIX AND GAVE HER PO. WILL CONTINUE TO MONITOR. CALL LIGHT IN REACH.
[2019-07-08 12:00] VITALS: BP 122/66
[2019-07-08] MEDS: INSULIN LISPRO SLIDING SCALE 100 UNITS/ML VIAL SUBQ PRN (12:33)
--- NOTE | 2019-07-08 13:00 | NUR ---
PT IS IN BED. NO COMPLAINS OF PAIN AT THIS TIME. WILL CONTINUE TO MONITOR. CALL LIGHT IN REACH.
--- NOTE | 2019-07-08 15:00 | NUR ---
PT WAS DISCHARGED TODAY. DISCHARGE INSTRUCTIONS GIVEN TO PATIENT. PHOTOGRAPHS TAKEN OF THE WOUND ON HER LEGS. IV REMOVED. ID BAND REMOVED. DISCHARGE INSTRUCTIONS GIVEN TO PATIENTS DAUGHTER DORENE AT DISCHARGE. PT WAS TAKEN IN [facility] TRANSPORT TO [facility]. REPORT GIVEN TO CHERYLE PEREIRA UNDER THE CARE OF DR. TRIVEDI. PT AWAKE AND WAS ABLE TO COMMUNICATE AT DISCHARGE TIME. VITAL SIGNS WITHIN NORMAL LEVELS.
== END 2019-07-08 14:50 | DRG 871 ==
LOC: MED 08:34 → MMU 12:22 → MTU 14:14
PROVIDERS: ADMIT Family Medicine; ATTEND Family Medicine
PROC: 5A09357 Assistance with Respiratory Ventilation, Less than 24 Consecutive Hours, Continuous Positive Airway Pressure (ICD-10-PCS; 2019-07-01)
PROC: 5A09357 Assistance with Respiratory Ventilation, Less than 24 Consecutive Hours, Continuous Positive Airway Pressure (ICD-10-PCS; 2019-07-02)
PROC: 05HY33Z Insertion of Infusion Device into Upper Vein, Percutaneous Approach (ICD-10-PCS; principal; 2019-07-06)
PROC: B543ZZA Ultrasonography of Right Jugular Veins, Guidance (ICD-10-PCS; 2019-07-06)
PROC: 5A1D70Z Performance of Urinary Filtration, Intermittent, Less than 6 Hours Per Day (ICD-10-PCS; 2019-07-06)
PROC: 5A1D70Z Performance of Urinary Filtration, Intermittent, Less than 6 Hours Per Day (ICD-10-PCS; 2019-07-08)
DX: A41.51 Sepsis due to Escherichia coli [E. coli] (principal); N17.0 Acute kidney failure with tubular necrosis; I50.43 Acute on chronic combined systolic (congestive) and diastolic (congestive) heart failure; I21.A1 Myocardial infarction type 2; J10.00 Influenza due to other identified influenza virus with unspecified type of pneumonia; J69.0 Pneumonitis due to inhalation of food and vomit; J96.01 Acute respiratory failure with hypoxia; N39.0 Urinary tract infection, site not specified; N18.4 Chronic kidney disease, stage 4 (severe); E46 Unspecified protein-calorie malnutrition; E11.22 Type 2 diabetes mellitus with diabetic chronic kidney disease; E11.42 Type 2 diabetes mellitus with diabetic polyneuropathy; E11.51 Type 2 diabetes mellitus with diabetic peripheral angiopathy without gangrene; E11.621 Type 2 diabetes mellitus with foot ulcer; E78.5 Hyperlipidemia, unspecified; E83.39 Other disorders of phosphorus metabolism; I25.10 Atherosclerotic heart disease of native coronary artery without angina pectoris; I12.9 Hypertensive chronic kidney disease with stage 1 through stage 4 chronic kidney disease, or unspecified chronic kidney disease; J45.909 Unspecified asthma, uncomplicated; E83.51 Hypocalcemia; D64.9 Anemia, unspecified; L97.519 Non-pressure chronic ulcer of other part of right foot with unspecified severity; Z89.421 Acquired absence of other right toe(s); Z88.0 Allergy status to penicillin; Z79.82 Long term (current) use of aspirin; Z79.899 Other long term (current) drug therapy; Z68.24 Body mass index [BMI] 24.0-24.9, adult
CPT/HCPCS: 36415; 36600; 51702; 70450; 71045; 73630; 76700; 78315; 80048; 80053; 80076; 80202; 80305; 81001; 82607; 82728; 82746; 82803; 82948; 83036; 83540; 83605; 83690; 83735; 83880; 84100; 84300; 84443; 84484; 85025; 85045; 85610; 85730; 86704; 86706; 86708; 86709; 86803; 87040; 87081; 87086; 87186; 87340; 87804; 93005; 93925; 93970; 94640; 94660; 96361; 96365; 97110; 97112; 97161-GP; 97530; 99285; A6248; A9503; J0696; J1644; J1815; J1940; J1956; J2185; J2270; J2405; J3370; J3490; J7030; J7042; J7060; Q0092

== ENCOUNTER 2019-07-24 10:14 | Inpatient (IN) | payer OTHER ==
[~2019-07-24] VITALS: Ht 167.6 cm; Wt 78.5 kg
--- NOTE | 2019-07-24 09:31 | NUR ---
RECEIVED ENDORSEMENT AT BED SIDE FROM AM SHIFT RN. PATIENT IS RESTING IN BED. RESPIRATION EVEN AND UNLABORED. IV SITE TO LAC G 20. INTACT. R NECK KRISTINA CATH FOR DIALYSIS ACCESS Q M-W-F. DENIES ANY PAIN. PLAN OF CARE WAS DISCUSSED. CALL LIGHT WITHIN REACH.
[~2019-07-24 10:14] MED LIST changes: -ASCO1CAP75 PO; -AZIT250T11 PO; +CLON0.1T15 PO
--- NOTE | 2019-07-24 10:16 | NUR ---
PT. BIBA TAKEN TO BED 4
--- NOTE | 2019-07-24 10:25 | NUR ---
GREGORIA FROM [facility] FOR GEN WEAKNESS X 2 WKS. PER [facility] PT NORMALLY AMBULATES AND ALERT. PT RESPOND APPROPRIATELY, GEN WEAKNESS UPPER AND LOWER EXTREMITY. HX: DM, CHF, HTN, DIALYSYS MWF, CKD, MISSED TODAY, CT
[2019-07-24 10:29] VITALS: BP 124/53
[2019-07-24] MEDS ORDERED: NACL 0.9% 500 ML IV ONE (10:40)
--- NOTE | 2019-07-24 11:06 | NUR ---
PT TAKEN TO CT VIA DEZ
--- NOTE | 2019-07-24 11:19 | NUR ---
PT RETURNED FROM CT
[2019-07-24 11:22] LABS: CHLORIDE 103 mmol/L (98-107); POTASSIUM 3.5 mmol/L (3.5-5.1); SODIUM SERUM 143 mmol/L (136-145)
[2019-07-24 11:40] LABS: HEMATOCRIT 26.3 % (36-48); HEMOGLOBIN 8.2 g/dL (12.0-16.0); MEAN CORPUSCULAR HEMOGLOBIN 30 pg (27-31); MEAN CORPUSCULAR HGB CONC 31 g/dL (33-37); MEAN CORPUSCULAR VOLUME 94.2 fL (80-94); PLATELET COUNT (AUTO) 320 K/uL (140-450); RED BLOOD CELL COUNT(AUTO) 2.79 MIL/uL (4.20-5.40); RED CELL DISTRIBUTION WIDTH 16.4 % (11.6-13.7); WHITE BLOOD COUNT (AUTO) 23.1 K/uL (4.8-10.8)
[2019-07-24 11:50] LABS: LYMPHOCYTES % (MANUAL) 3 % (20-46); MONOCYTES % (MANUAL) 4 % (5-12)
[2019-07-24] MEDS ORDERED: CEFEPIME 1,000 MG in DEXTROSE 5% 50 ML IV ONE (12:30)
[2019-07-24] MEDS ORDERED: VANCOMYCIN 1,000 MG in DEXTROSE 5% 250 ML IV ONE (12:30)
[2019-07-24 12:37] LABS: ALBUMIN 2.3 g/dL (3.4-5.0); ANION GAP 13.8 (8-16); ASPARTATE AMINOTRANSFERASE 16 U/L (15-37); CARBON DIOXIDE 29.7 mmol/L (21-32); GFR ARICAN-AMERICAN 13 mL/min (>90); GLUCOSE 196 mg/dL (74-106); TOTAL BILIRUBIN 0.4 mg/dL (0.0-1.0); UREA NITROGEN, BLOOD 26 mg/dL (7-18)
[2019-07-24 12:39] LABS: ACETAMINOPHEN < 0.5 ug/ml (10-30); CREATININE 4.3 mg/dL (0.6-1.3); SALICYLATE < 2.8 mg/dL (2.8-20.0)
[2019-07-24 12:39] LABS: APPEARANCE,URINE CLEAR (CLEAR); BILIRUBIN,URINE NEGATIVE (NEGATIVE); BLOOD, URINE TRACE-I (NEGATIVE); COLOR,URINE YELLOW (YELLOW); LEUKOCYTE ESTERASE ,URINE TRACE (NEGATIVE); NITRITE, URINE NEGATIVE (NEGATIVE); UGLUCOSE 1+ (NEGATIVE)
[2019-07-24] MEDS ORDERED: CEFEPIME 1,000 MG VIAL ONE (12:42)
[2019-07-24 12:45] LABS: RBC,URINE 0-5 /HPF (0-5)
[2019-07-24 12:52] LABS: BARBITURATE, URINE NEG. ng/ml (NEG <=200); BENZODIAZEPINE, URINE NEG. ng/mL (NEG <=200); CANNABINOID, URINE NEG. ng/mL (NEG <=50); COCAINE, URINE NEG. ng/mL (NEG <=300); OPIATE, URINE NEG. ng/mL (NEG <=2000); PHENCYCLIDINE SCREEN,URINE NEG. ng/mL (NEG <=25)
[2019-07-24] MEDS ORDERED: NACL 0.9% 1,000 ML IV SCH (13:05)
[2019-07-24] MEDS ORDERED: MORPHINE SULFATE 2 MG/ML SYR IVP PRN (13:05)
[2019-07-24] MEDS ORDERED: DOCUSATE SODIUM 100 MG GELCAP PO PRN (13:05)
[2019-07-24] MEDS ORDERED: LORazepam 2 MG/ML VIAL IM/IVP PRN (13:05)
[2019-07-24] MEDS ORDERED: ONDANSETRON 4 MG/2 ML VIAL IM/IVP PRN (13:05)
[2019-07-24] MEDS ORDERED: HYDROcodone/APAP 5/325 MG 1 TAB TAB PO PRN ×3 (13:05→13:35)
[2019-07-24] MEDS ORDERED: ZOLPIDEM 5 MG TAB PO PRN (13:05)
[2019-07-24] MEDS ORDERED: ALBUTEROL SULFATE/IPRATROPIU 3 ML SOL IH PRN (13:15)
[2019-07-24] MEDS ORDERED: DEXTROSE 50% 50 ML SYR IVP PRN (13:15)
[2019-07-24] MEDS ORDERED: ACETAMINOPHEN 325 MG TAB PO PRN (13:35)
[2019-07-24] MEDS ORDERED: VANCOMYCIN 1,000 MG VIAL ONE (13:39)
--- NOTE | 2019-07-24 14:00 | NUR ---
RECEIVED PATIENT FROM NIGHT ED NURSE VIA DEZ. PATIENT IS AWAKE. DIAGNOSED WITH ALOC. RESPIRATIONS EVEN AND UNLABORED, ON 2L O2 VIA NC. VISIBLE CHEST RISE NOTED. ON TELE MONITORING. ABDOMEN SOFT, FLAT, AND NONTENDER. IV WARM, DRY, ELASTIC. RIGHT PLANTAR WOUND NOTED. PICTURE TAKEN BY ED NURSE. IV IN THE LEFT AC GAUGE 20, SALINE LOCK. IV FLUSHED WELL. PATIENT HAS NECK BRANDON CATHETER FOR DIALYSIS. PATIENT IS SCHEDULED FOR DIALYSIS TODAY. PATIENT IS DIAGNOSED WITH GENERALIZED WEAKNESS. BEDBOUND. FALL PRECAUTION IN PLACE. MRSA NARES SWAB COLLECTED. BED IN LOW POSITION. CALL LIGHT IS WITHIN REACH. WILL CONTINUE TO MONITOR
--- NOTE | 2019-07-24 14:21 | NUR ---
Patient will be admitted to care of Dr Stratton. Admited to tele room 113. Belongings list completed. Report to CHERYLE Larios.
[2019-07-24 14:49] LABS: CHOL/HDL RATIO 3.2 (1-4.5); MAGNESIUM 2.2 mg/dL (1.8-2.4); PHOSPHORUS 3.7 mg/dL (2.5-4.9); THYROID STIMULATING HORMONE 1.39 uIU/mL (0.34-3.74)
--- NOTE | 2019-07-24 15:23 | NUR ---
PATIENT IS CURRENTLY SLEEPING AT THIS TIME. BED ALARM ACTIVATED. BED IN LOW POSITION. CALL LIGHT IS WITHIN REACH. DIET IS NOW NPO EXCEPT MEDS. WILL CONTINUE TO MONITOR
[2019-07-24 16:00] VITALS: BP 133/52
[2019-07-24] MEDS: BLOOD GLUCOSE MONITORING 1 DEV DEV FS SCH ×2 (16:39→21:00)
--- NOTE | 2019-07-24 16:39 | NUR ---
BLOOD SUGAR CHECK: 161. WILL NOT GIVE INSULIN COVERAGE BECAUSE PATIENT IS NPO EXCEPT MEDS
[2019-07-24] MEDS: FUROSEMIDE 40 MG TAB PO SCH (17:00)
--- NOTE | 2019-07-24 17:10 | NUR ---
PATIENT IS BEING CHANGED AND REPOSITIONED AT THIS TIME.
--- NOTE | 2019-07-24 17:19 | NUR ---
PT REFUSED MEDICATION AND STATED THAT SHE WILL TAKE IT LATER. NO SIGNS OF DISTRESS NOTED.
--- NOTE | 2019-07-24 18:20 | NUR ---
PATIENT IS RESTING AT THIS TIME. NO SIGNS OF DISTRESS NOTED. BED IN LOW POSITION. CALL LIGHT IS WITHIN REACH. WILL CONTINUE TO MONITOR
[2019-07-24] MEDS: ALBUTEROL SULFATE/IPRATROPIU 3 ML SOL IH SCH (19:00)
--- NOTE | 2019-07-24 19:30 | NUR ---
ENDORSED PATIENT TO THE LEARNING SUPPORT SERVICES DIRECTOR NURSE FOR CONTINUITY OF CARE. PATIENT IS IN STABLE CONDITION
--- NOTE | 2019-07-24 19:31 | NUR ---
RECEIVED ENDORSEMENT FROM AM SHIFT RN. PATIENT IS RESTING ON BED. ASLEEP. AROUSABLE TO NAME. YORUBA SPEAKING. RESPIRATION EVEN AND UNLABORED. DENIES PAIN. IV SITE TO LAC 20G. INTACT. R NECK KRISTINA CATH FOR DIALYSIS ACCESS Q M-W-F. R PLANTAR WOUND NOTED. PLAN OF CARE WAS DISCUSSED. PATIENT WILL HAVE DIALYSIS LATER.
[2019-07-24 20:00] VITALS: BP 116/42
[2019-07-24] MEDS: cloNIDine 0.1 MG TAB PO SCH (21:00)
[2019-07-24] MEDS: ATORVASTATIN 20 MG TAB PO SCH (21:00)
[2019-07-24] MEDS: FERROUS SULFATE 325 MG TABEC PO SCH (21:00)
[2019-07-24] MEDS ORDERED: CEFEPIME 1,000 MG in DEXTROSE 5% 50 ML IV SCH (21:00)
[2019-07-24] MEDS: DOCUSATE SODIUM 100 MG GELCAP PO SCH (21:00)
--- NOTE | 2019-07-24 21:00 | NUR ---
PATIENT STARTED ON DIALYSIS. NO SOB. DENIES PAIN. WILL CONTINUE TO MONITOR.
[2019-07-25] VITALS: BP 131/51
--- NOTE | 2019-07-25 00:17 | NUR ---
DIALYSIS WAS DONE. BP 94/56 OUTPUT IS 1.5 L.
--- NOTE | 2019-07-25 00:37 | NUR ---
PATIENT RESTING. AROUSABLE TO NAME. PATIENT REFUSED TO TAKE THE 9PM MEDS. EXPLAINED RISK AND BENEFITS. STILL REFUSED.
--- NOTE | 2019-07-25 03:10 | NUR ---
PATIENT IS ASLEEP. NO SOB NOTED.
[2019-07-25 04:00] VITALS: BP 116/46
--- NOTE | 2019-07-25 06:30 | NUR ---
CHECKED BLOOD SUGAR. PATIENT IS NOT IN ANY DISTRESS. DENIES PAIN/DISCOMFORT. NAIL FEEDER ROSS BLOOD SAMPLE. KEPT WARM, CLEAN AND DRY. CALL LIGHT WITHIN REACH. WILL ENDORSE TO AM SHIFT NURSE FOR CONTINUITY OF CARE.
[2019-07-25] MEDS: ALBUTEROL SULFATE/IPRATROPIU 3 ML SOL IH SCH ×3 (07:00→19:44)
--- NOTE | 2019-07-25 07:15 | NUR ---
RECEIVED REPORT FROM WOOD CARVING LATHE OPERATOR NURSE FOR CONTINUITY OF CARE. PT IS LYING IN BED. AA&OX1. RESPIRATIONS ARE EVEN AND UNLABORED, BREATHING TO 2L NC. SKIN COLOR IS APPROPRIATE FOR ETHNICITY. SKIN IS INTACT. LAC IV IS PATENT AND INTACT. RT KRISTINA CATH INTACT. REVIEWED PLAN OF CARE WITH PATIENT. SAFETY MEASURES IN PLACE; SIGN POSTED, CALL LIGHT WITHIN REACH, BED IN LOW POSITION. NO DISTRESS NOTED. TELE MONITOR ATTACHED. WILL CONTINUE TO MONITOR.
[2019-07-25 07:20] LABS: HEMATOCRIT 26.2 % (36-48); HEMOGLOBIN 8.3 g/dL (12.0-16.0); MEAN CORPUSCULAR HEMOGLOBIN 30 pg (27-31); MEAN CORPUSCULAR HGB CONC 32 g/dL (33-37); MEAN CORPUSCULAR VOLUME 94.5 fL (80-94); PLATELET COUNT (AUTO) 322 K/uL (140-450); RED BLOOD CELL COUNT(AUTO) 2.78 MIL/uL (4.20-5.40); RED CELL DISTRIBUTION WIDTH 16.5 % (11.6-13.7)
[2019-07-25 07:37] LABS: WHITE BLOOD COUNT (AUTO) 26.9 K/uL (4.8-10.8)
[2019-07-25 07:41] LABS: MAGNESIUM 1.9 mg/dL (1.8-2.4); PHOSPHORUS 3.1 mg/dL (2.5-4.9)
[2019-07-25] MEDS: BLOOD GLUCOSE MONITORING 1 DEV DEV FS SCH ×4 (07:47→20:09)
[2019-07-25 07:48] LABS: LYMPHOCYTES % (MANUAL) 4 % (20-46); MONOCYTES % (MANUAL) 5 % (5-12)
[2019-07-25 07:58] LABS: ANION GAP 11.6 (8-16); CARBON DIOXIDE 30.3 mmol/L (21-32); CREATININE 3.3 mg/dL (0.6-1.3); POTASSIUM 3.9 mmol/L (3.5-5.1)
[2019-07-25 08:00] VITALS: BP 127/51
[2019-07-25] MEDS: cloNIDine 0.1 MG TAB PO SCH ×2 (09:00→20:07)
[2019-07-25] MEDS: LACTOBACILLUS RHAMNOSUS GG 1 EACH CAP PO SCH (10:02)
[2019-07-25] MEDS: ASPIRIN 81 MG TAB.CHEW PO SCH (10:03)
[2019-07-25] MEDS: DOCUSATE SODIUM 100 MG GELCAP PO SCH ×2 (10:04→20:06)
[2019-07-25] MEDS: glipiZIDE 5 MG TAB PO SCH (10:04)
[2019-07-25] MEDS: FUROSEMIDE 40 MG TAB PO SCH ×2 (10:05→17:47)
[2019-07-25] MEDS: GABAPENTIN 300 MG CAP PO SCH (10:06)
[2019-07-25] MEDS: amLODIPine 5 MG TAB PO SCH (10:06)
[2019-07-25] MEDS: ASCORBIC ACID 500 MG TAB PO SCH (10:06)
[2019-07-25] MEDS: FERROUS SULFATE 325 MG TABEC PO SCH ×2 (10:06→20:07)
[2019-07-25] MEDS: CEFEPIME 500 MG in DEXTROSE 5% 50 ML IV SCH (10:07)
[2019-07-25] MEDS: EPOETIN ALFA 10,000 UNITS/ML VIAL IV SCH (10:23)
--- NOTE | 2019-07-25 11:16 | NUR ---
PATIENT HAS BEEN SCREENED AND CATEGORIZED HIGH NUTRITION RISK. PATIENT WILL BE SEEN WITHIN 1-2 DAYS OF ADMISSION. 07/25/2019-07/26/[address]
[2019-07-25 12:00] VITALS: BP 117/46
--- NOTE | 2019-07-25 12:14 | NUR ---
07/25/2019 RD INITIAL ASSESSMENT COMPLETED PLEASE REFER TO NUTRITION ASSESSMENT UNDER CARE ACTIVITY FOR ESTIMATED NUTRITIONAL NEEDS. RD RECOMMENDATIONS: 1.CONTINUE RENAL, CCHO 60 GM DIET TOLERATED. 2.IF PT HAS POOR PO INTAKE, CONSIDER NEPRO BID TO OPTIMIZE NUTRITION INTAKE. 3. RD WILL F/U 3-5 DAYS; MODERATE RISK. AMARILIS SPENCER, RD
[2019-07-25 16:00] VITALS: BP 107/49
--- NOTE | 2019-07-25 19:05 | NUR ---
REPORT WAS GIVEN TO ELEVATOR REPAIRER APPRENTICE NURSE, FOR CONTINUITY OF CARE. PT IS IN STABLE CONDITION.
--- NOTE | 2019-07-25 19:19 | NUR ---
RECEIVED PATIENT IN STABLE CONDITION FROM AM SHIFT NURSE FOR CONTINUITY OF CARE. RESPIRATIONS EVEN, UNLABORED. CONTINUES ON O2 2L VIA NC. RIGHT IJ HEMODIALYSIS ACCESS NOTED. SALINE LOCK TO LEFT AC PATENT/INTACT. NO C/O PAIN. NO S/SX ACUTE DISTRESS. SAFETY PRECAUTIONS IN PLACE. CALL LIGHT WITHIN REACH. WILL CONTINUE TO MONITOR.
[2019-07-25 20:00] VITALS: BP 111/61
[2019-07-25] MEDS: ATORVASTATIN 20 MG TAB PO SCH (20:06)
[2019-07-25] MEDS: INSULIN LISPRO SLIDING SCALE 100 UNITS/ML VIAL SUBQ PRN (20:27)
--- NOTE | 2019-07-25 21:20 | NUR ---
MADE ROUNDS. PATIENT IS ON THE PHONE TALKING TO HER NIECE. NO C/O PAIN. NO S/SX ACUTE DISTRESS. CALL LIGHT WITHIN REACH. WILL CONTINUE TO MONITOR.
--- NOTE | 2019-07-25 23:43 | NUR ---
PATIENT IS ASLEEP AND IN STABLE CONDITION. NO C/O PAIN. NO S/SX ACUTE DISTRESS. CALL LIGHT WITHIN REACH. WILL CONTINUE TO MONITOR.
[2019-07-26] VITALS: BP 103/65
--- NOTE | 2019-07-26 01:47 | NUR ---
ASLEEP AND IN STABLE CONDITION. NO C/O PAIN. NO S/SX ACUTE DISTRESS. CALL LIGHT WITHIN REACH. WILL CONTINUE TO MONITOR.
--- NOTE | 2019-07-26 03:28 | NUR ---
PATIENT IS ASLEEP AND CONTINUES IN STABLE CONDITION. NO C/O PAIN. NO S/SX ACUTE DISTRESS. CALL LIGHT WITHIN REACH. WILL CONTINUE TO MONITOR.
[2019-07-26 04:00] VITALS: BP 120/47
--- NOTE | 2019-07-26 05:20 | NUR ---
PATIENT AWAKE IN BED. CONTINUES IN STABLE CONDITION. NO C/O PAIN. NO S/SX ACUTE DISTRESS. CALL LIGHT WITHIN REACH. WILL CONTINUE TO MONITOR.
[2019-07-26] MEDS: BLOOD GLUCOSE MONITORING 1 DEV DEV FS SCH ×4 (06:33→20:37)
--- NOTE | 2019-07-26 07:18 | NUR ---
WILL ENDORSE PATIENT IN STABLE CONDITION TO AM SHIFT NURSE FOR CONTINUITY OF CARE.
--- NOTE | 2019-07-26 07:20 | NUR ---
RECEIVED BEDSIDE SHIFT REPORT FROM ANIMAL ASSISTANT NURSE FOR CONTINUATION OF CARE.
[2019-07-26] MEDS: ALBUTEROL SULFATE/IPRATROPIU 3 ML SOL IH SCH ×3 (07:43→19:47)
[2019-07-26 08:00] VITALS: BP 114/55
[2019-07-26 08:26] LABS: BASOPHILS # (AUTO) 0.1 K/uL (0.00-0.22); BASOPHILS % (AUTO) 0.3 % (0.0-2.0); EOSINOPHILS # (AUTO) 0.6 K/uL (0-0.4); EOSINOPHILS % (AUTO) 2.1 % (0.0-4.0); HEMATOCRIT 26.3 % (36-48); HEMOGLOBIN 8.4 g/dL (12.0-16.0); MEAN CORPUSCULAR HEMOGLOBIN 30 pg (27-31); MEAN CORPUSCULAR HGB CONC 32 g/dL (33-37); MEAN CORPUSCULAR VOLUME 94.4 fL (80-94); MONOCYTES # (AUTO) 2.1 K/uL (0.8-1.0); MONOCYTES % (AUTO) 7.5 % (1.7-9.3); NEUTROPHILS # (AUTO) 22.9 K/uL (1.8-7.7); PLATELET COUNT (AUTO) 367 K/uL (140-450); RED BLOOD CELL COUNT(AUTO) 2.79 MIL/uL (4.20-5.40); RED CELL DISTRIBUTION WIDTH 15.8 % (11.6-13.7)
[2019-07-26 08:39] LABS: CARBON DIOXIDE 31.2 mmol/L (21-32); POTASSIUM 4.2 mmol/L (3.5-5.1)
[2019-07-26 08:42] LABS: WHITE BLOOD COUNT (AUTO) 27.7 K/uL (4.8-10.8)
[2019-07-26 08:45] LABS: MAGNESIUM 2.1 mg/dL (1.8-2.4); PHOSPHORUS 3.8 mg/dL (2.5-4.9)
[2019-07-26] MEDS: GABAPENTIN 300 MG CAP PO SCH (08:58)
[2019-07-26] MEDS: ASCORBIC ACID 500 MG TAB PO SCH (08:58)
[2019-07-26] MEDS: FERROUS SULFATE 325 MG TABEC PO SCH ×2 (08:58→20:32)
[2019-07-26] MEDS: LACTOBACILLUS RHAMNOSUS GG 1 EACH CAP PO SCH (08:58)
[2019-07-26] MEDS: ASPIRIN 81 MG TAB.CHEW PO SCH (08:58)
[2019-07-26] MEDS: glipiZIDE 5 MG TAB PO SCH (08:59)
[2019-07-26] MEDS: DOCUSATE SODIUM 100 MG GELCAP PO SCH ×2 (08:59→20:36)
[2019-07-26] MEDS: amLODIPine 5 MG TAB PO SCH (09:00)
[2019-07-26] MEDS: CEFEPIME 500 MG in DEXTROSE 5% 50 ML IV SCH (09:00)
[2019-07-26] MEDS: FUROSEMIDE 40 MG TAB PO SCH ×2 (09:00→17:00)
[2019-07-26] MEDS: cloNIDine 0.1 MG TAB PO SCH ×2 (09:00→20:34)
[2019-07-26 09:14] LABS: LYMPHOCYTES % (AUTO) 7.3 % (20.5-51.1); NEUTROPHILS % (AUTO) 82.8 % (42.2-75.2)
--- NOTE | 2019-07-26 10:00 | NUR ---
PATIENT IS AAOX2/3. MEDICATIONS TOLERATED WELL, PATIENT IS RESTING, ARGENTINE AND MONEGASQUE SPEAKING. WILL CONTINUE TO MONITOR.
--- NOTE | 2019-07-26 11:23 | NUR ---
DISCHARGE PLANNING: THIS IS A 68 Y/O FEMALE PATIENT FROM [facility], WHO WAS BROUGHT IN DUE TO GENERALIZED WEAKNESS AND ALOC X1 DAY. PAST MEDICAL HISTORY INCLUDE HTN, DM WITH NEUROPATHY, ESRD, IRON DEFICIENCY ANEMIA AND RIGHT FOOT ULCER S/P DEBRIDEMENT JUN 24, 2019. INITIAL DIAGNOSIS OF GENERALIZED WEAKNESS, RENAL FAILURE AND ALOC. CURRENT LABS INCLUDE WBC 27.7, H/H 8.4/26.3, NA/K 139/4.2, BUN/CREA 31/5.0. NEGATIVE FOR INF A AND B. ON CEFEPIME. MRSA NARES PENDING. URINE C/S NEGATIVE. BLOOD C/S NO GROWTH AFTER 48 HOURS. CARDIO, PULMO, ID AND NEPHRO CONSULTS IN PLACE. FOR HD TODAY. DC PLAN BACK TO [facility] WHEN STABLE. Addendum: 07/27/19 at 1507 by Vicky Gunderson CM DC PLANNING: SEEN BY DR VILLAFANA RECOMMENDED TO CONTINUE WITH IV ABX , CARDIO DR [facility] [employer] [facility] PER DIALYSIS , DC PLANING WAITING FOR DR FRANK SALAZAR RECOMMENDATIONS. CM TO FOLLOW. Addendum: 07/28/19 at 1356 by Vicky Gunderson CM DC PLANNING: SEEN BY MARIE AMRIE AWAIT THE RESULT OF C-DIFF .CONSIDER SIGMOIDOSCOPY WHEN ABSOLUTELY NECESSARY , SEEN BY PULMO, NEPHRO AND CARDIO, CONTINUE WITH VANCO PO AND CEFEPIME AND VANCOMYCIN IV. DC PLAN AWAITING FOR C-DIFF RESULT. CM TO FOLLOW Addendum: 07/29/19 at 1244 by Aleyda Morales CM SEEN BY CARDIO, ECHO SHOWING EF PRESERVED EF MOD AORTIC STENOSIS RECOMMENDS OUT PATIENT WORK UP. SEEN BY SURGEON-HELD TUNNELLED CATH PLACEMENT UNTIL LEUKOCYTOSIS AND ACTIVE INFECTION IS CLEARED. POSITIVE FOR C DIFF. ON VANCOMYCIN AND CEFEPIME. ON LASIX PO. DC PLAN BACK TO [facility] ONCE STABLE. Addendum: 07/30/19 at 1155 by Vicky Gunderson CM DC PLANNING: WBC 20.0 , CONTINUE VANCO PO FOR C-DIFF, VANCOMYCIN AND CEFEPIME IV , HOLD OFF FOR THE TUNNEL CATH BECAUSE OF THE HIGH WBC. LTAC EVAL ORDERED FAXED TO [facility] AT [facility] [place] CM TO FOLLOW Addendum: 07/30/19 at 1611 by Vicky Gunderson CM DC PLANNING: RECEIVED A CALL FROM [facility] CHRISTIE,STATED THEY REVIEWED THE CASE AND STATED ON ADMIT WAS SCREENED FOR COVID BUT SINCE THAT TIME POSSIBLE PNEUMONIA AND INFLUENZA TEST PENDING WITH CTA OPACITIES SEEN , REQUESTED THE ID TO RESCREEN FOR COVID CRITERIA AND DOCUMENT IF HE STILL CONSIDERS LOW RISK FOR COVID. NOTIFIED DR OCHOA AND FAXED TO [facility]. [place] TO FOLLOW Addendum: 07/31/19 at 1437 by Aleyda Morales CM PER DR. CANDELARIA, FOR POSSIBLE DC BACK TO [facility] TOMORROW 08/01/2019. CLINICALS AND ORDER SENT TO [facility] AND [facility] FOR TRANSPORT AUTH. MARSH OF [facility] MADE AWARE. AWAITING FOR CALL BACK. WILL FOLLOW UP. Addendum: 07/31/19 at 1605 by Aleyda Morales CM RECEIVED A CALL FROM QUAN OF [facility], STATING THAT THEY RECEIVED THE CLINICALS. UPDATED HER OF THE PATIENT'S CONDITION. SHE STATED TO CALL THE RN IN CHARGE TOMORROW FOR THE ROOM NUMBER. Addendum: 07/31/19 at 1624 by Aleyda Morales CM QUAN ADMISSIONS AT [facility] MADE AWARE THAT PATIENT IS ON ISO FOR C DIFF. CONTACTED MONICA OF [facility] [phone] TO FOLLOW UP ON TRANSPORT AUTH, SHE STATED IF ORDER IS UP FOR TOMORROW TO FAX THE ORDER AGAIN AND CONTACT THE PRIMARY HE[employer] ORGANISATION MANAGER GRACE AT [phone]. Addendum: 08/01/19 at 1040 by Vicky Gunderson CM DC PLANNING: CALLED [facility] SPOKE WITH LUIS , RECEIVED THE LATEST CHEST XRAY . PER LUIS THEY ACCEPTED PATIENT AND CAN GO TO ROOM 1A. #TO GIVE REPORT [phone]. CALLED [facility] LEFT A MESSAGE FOR AUTHORIZATION FOR TRANSPORT. PT WILL HAVE DIALYSIS TODAY AND DC AFTER DIALYSIS. ARRANGED TRANSPORT WITH [facility] [phone] [employer] EDITOR TIME 5 PM. NOTIFIED GEOVANNY CHARGE NURSE.
[2019-07-26 12:00] VITALS: BP 115/62
--- NOTE | 2019-07-26 12:00 | NUR ---
BLOOD SUGAR 188, REQUIRES 2 UNITS OF HUMALOG INSULIN. RESTING IN BED, NO CONCERNS AT THIS TIME. DIALYSIS DUE TODAY, DIALYSIS NURSE STATED SHE WILL BE IN LATER TODAY.
[2019-07-26] MEDS: INSULIN LISPRO SLIDING SCALE 100 UNITS/ML VIAL SUBQ PRN (12:51)
--- NOTE | 2019-07-26 14:09 | NUR ---
TOLERATED LUNCH, NO CONCERNS AT THIS TIME.
--- NOTE | 2019-07-26 15:22 | NUR ---
CHEST XRAY COMPLETED. TOLERATED WELL.
[2019-07-26 16:00] VITALS: BP 114/49
[2019-07-26] MEDS: VANCOMYCIN 500 MG VIAL PO SCH ×2 (17:32→23:31)
--- NOTE | 2019-07-26 17:55 | NUR ---
PER DIALYSIS NURSE, HEMODIALYSIS CATHETER IS POORLY FUNCTIONING.
[2019-07-26] MEDS ORDERED: ALTEPLASE 2 MG VIAL MC STA (18:06)
[2019-07-26] MEDS ORDERED: ALTEPLASE 2 MG VIAL MC ONE (18:26)
--- NOTE | 2019-07-26 19:20 | NUR ---
BEDSIDE SHIFT REPORT GIVEN TO FUND ACCOUNTING MANAGER NURSE FOR CONTINUATION OF CARE.
--- NOTE | 2019-07-26 19:21 | NUR ---
RECEIVED BEDSIDE REPORT FROM DAY SHIFT NURSEGHADA. PT HAVING HEMO DIALYSIS. RESPIRATIONS EVEN, UNLABORED. RIGHT IJ HEMODIALYSIS ACCESS NOTED. SALINE LOCK TO LEFT AC, 20G, PATENT,INTACT AND ASYMPTOMATIC. NO C/O PAIN. NO S/SX ACUTE DISTRESS. SAFETY PRECAUTIONS IN PLACE. CALL LIGHT WITHIN REACH. WILL CONTINUE TO MONITOR.
--- NOTE | 2019-07-26 19:54 | NUR ---
RECEIVED REPORT FROM AM SHIFT. PATIENT WAS RESTING IN BED WITH HOB > 30 DEGREES. PATIENT IN NO APPARENT RESPIRATORY DISTRESS AT THIS TIME: RR 16, HR 80, SPO2 100% ON 4L NASAL CANNULA, AND CLEAR BILATERALLY BREATH SOUNDS. O2 TITRATED TO 2L NASAL CANNULA WITH SPO2 OF 97%. HHN TX GIVEN ORDERED, AND PATIENT TOLERATED TX WELL WITH NO ADVERSE REACTION. PATIENT WAS INFORMED TO CALL RN OR METER INSTALLER FOR PRN TX WHEN EXPERIENCING SOB. WILL CONTINUE TO MONITOR PATIENT.
[2019-07-26 20:00] VITALS: BP 115/56
[2019-07-26] MEDS: ATORVASTATIN 20 MG TAB PO SCH (20:33)
--- NOTE | 2019-07-26 20:38 | NUR ---
GIVEN FERROUS AND LIPITOR MD ORDERED. PT TOLERATED WELL. HELD COLACE D/T DIARRHEA, HELD CLONIDINE D/T DECREASED BP, 115/56. Addendum: 07/26/19 at 2038 by Aleksandar Dee RN BS CHECKED, 149. NO INSULIN COVERAGE NEEDED.
--- NOTE | 2019-07-26 22:02 | NUR ---
PT SLEEPING IN BED COMFORTABLY. NO ACUTE DISTRESS NOTED.
--- NOTE | 2019-07-26 23:32 | NUR ---
GIVEN VANCOMYCIN MD ORDERED. PT TOLERATED WELL.
[2019-07-27] VITALS: BP 121/52
--- NOTE | 2019-07-27 00:05 | NUR ---
VS CHECKED, WITHIN PT'S BASELINE. WILL CONTINUE TO MONITOR.
--- NOTE | 2019-07-27 02:25 | NUR ---
PT SLEEPING IN BED COMFORTABLY. NO ACUTE DISTRESS NOTED.
[2019-07-27 04:00] VITALS: BP 116/51
--- NOTE | 2019-07-27 04:00 | NUR ---
VS CHECKED, WITHIN PT'S BASELINE. WILL CONTINUE TO MONITOR.
--- NOTE | 2019-07-27 05:20 | NUR ---
PT PULLED OUT IV LINE, NEW IV LINE STARTED ON LH, 24. PATENT, INTACT. AND ASYMPTOMATIC.
[2019-07-27] MEDS: VANCOMYCIN 500 MG VIAL PO SCH ×4 (05:36→23:56)
--- NOTE | 2019-07-27 05:36 | NUR ---
GIVEN VANCOMYCIN MD ORDERED. PT TOLERATED WELL. BS CHECKED, 112 NO INSULIN COVERAGE NEEDED.
[2019-07-27] MEDS: BLOOD GLUCOSE MONITORING 1 DEV DEV FS SCH ×4 (06:30→20:50)
[2019-07-27] MEDS: ALBUTEROL SULFATE/IPRATROPIU 3 ML SOL IH SCH ×3 (06:49→19:32)
[2019-07-27 06:54] LABS: BASOPHILS % (AUTO) 0.2 % (0.0-2.0); EOSINOPHILS # (AUTO) 0.7 K/uL (0-0.4); EOSINOPHILS % (AUTO) 3.3 % (0.0-4.0); HEMATOCRIT 26.2 % (36-48); HEMOGLOBIN 8.3 g/dL (12.0-16.0); LYMPHOCYTES # (AUTO) 1.4 K/uL (2.5-16.5); LYMPHOCYTES % (AUTO) 6.7 % (20.5-51.1); MEAN CORPUSCULAR HEMOGLOBIN 30 pg (27-31); MEAN CORPUSCULAR HGB CONC 32 g/dL (33-37); MEAN CORPUSCULAR VOLUME 93.2 fL (80-94); MONOCYTES # (AUTO) 1.5 K/uL (0.8-1.0); NEUTROPHILS # (AUTO) 17.4 K/uL (1.8-7.7); NEUTROPHILS % (AUTO) 82.8 % (42.2-75.2); PLATELET COUNT (AUTO) 357 K/uL (140-450); RED BLOOD CELL COUNT(AUTO) 2.81 MIL/uL (4.20-5.40)
--- NOTE | 2019-07-27 06:54 | NUR ---
PT IN STABLE CONDITION. WILL ENDORSE PT TO DAY SHIFT NURSE FOR CONTINUOUS CARE.
--- NOTE | 2019-07-27 07:40 | NUR ---
RECEIVED BEDSIDE REPORT FROM NIGHTSHIFT NURSE. PT RESTING IN BED. ABLE TO MAKE NEEDS KNOWN. RESPIRATIONS EVEN AND UNLABORED WITH NO SOB OR RESPIRATORY DISTRESS. SKIN WARM AND DRY TO TOUCH. IV SITE IN LEFT HAND 24G IS CLEAN, DRY, AND INTACT. SAFETY MEASURES IN PLACE. WILL CONTINUE TO MONITOR Addendum: 07/27/19 at 0740 by Mariela Roque RN TIME OF ENTRY 0720, NOT 0740
[2019-07-27 07:41] LABS: ANION GAP 10.5 (8-16); CARBON DIOXIDE 29.1 mmol/L (21-32); POTASSIUM 3.6 mmol/L (3.5-5.1)
[2019-07-27 07:47] LABS: MAGNESIUM 1.9 mg/dL (1.8-2.4); PHOSPHORUS 3.8 mg/dL (2.5-4.9)
[2019-07-27 08:00] VITALS: BP 154/70
[2019-07-27 08:14] LABS: CREATININE 4.3 mg/dL (0.6-1.3)
--- NOTE | 2019-07-27 08:16 | NUR ---
RECEIVED CRITICAL LAB FROM CHEMISTRY. CREATININE 4.3. RESIDENT MADE AWARE. SAFETY MEASURES IN PLACE. WILL CONTINUE TO MONITOR
[2019-07-27] MEDS: DOCUSATE SODIUM 100 MG GELCAP PO SCH (08:42)
[2019-07-27] MEDS: cloNIDine 0.1 MG TAB PO SCH ×2 (08:50→20:53)
[2019-07-27] MEDS: ASCORBIC ACID 500 MG TAB PO SCH (08:51)
[2019-07-27] MEDS: FERROUS SULFATE 325 MG TABEC PO SCH (08:51)
[2019-07-27] MEDS: amLODIPine 5 MG TAB PO SCH (08:52)
[2019-07-27] MEDS: ASPIRIN 81 MG TAB.CHEW PO SCH (08:52)
[2019-07-27] MEDS: GABAPENTIN 300 MG CAP PO SCH (08:53)
[2019-07-27] MEDS: glipiZIDE 5 MG TAB PO SCH (08:54)
[2019-07-27] MEDS: FUROSEMIDE 40 MG TAB PO SCH ×2 (08:54→17:44)
[2019-07-27] MEDS: LACTOBACILLUS RHAMNOSUS GG 1 EACH CAP PO SCH (08:55)
[2019-07-27] MEDS: PHARMACY COMMENTS MC SCH (08:56)
--- NOTE | 2019-07-27 08:57 | NUR ---
ADMINISTERED SCHED MED PRESCRIBED PER MD ORDER. PT TOLERATED WELL. MEDICATION EDUCATION PERFORMED. PT VERBALIZED UNDERSTANDING. SAFETY MEASURES IN PLACE. WILL CONTINUE TO MONITOR
[2019-07-27] MEDS: CEFEPIME 500 MG in DEXTROSE 5% 50 ML IV SCH (09:59)
--- NOTE | 2019-07-27 11:15 | NUR ---
HOURLY ROUNDING. PT RESTING IN BED. ABLE TO MAKE NEEDS KNOWN. RESPIRATIONS EVEN AND UNLABORED WITH NO SOB OR RESPIRATORY DISTRESS. SKIN WARM AND DRY TO TOUCH. SAFETY MEASURES IN PLACE. WILL CONTINUE TO MONITOR
[2019-07-27 12:00] VITALS: BP 130/71
[2019-07-27] MEDS: INSULIN LISPRO SLIDING SCALE 100 UNITS/ML VIAL SUBQ PRN ×3 (12:43→21:28)
--- NOTE | 2019-07-27 12:50 | NUR ---
ADMINISTERED SCHED MED PRESCRIBED PER MD ORDER. PT TOLERATED WELL. MEDICATION EDUCATION PERFORMED. PT VERBALIZED UNDERSTANDING. SAFETY MEASURES IN PLACE. WILL CONTINUE TO MONITOR
--- NOTE | 2019-07-27 14:30 | NUR ---
INSERTED PATINO CATH PRESCRIBED PER MD ORDER. PT TOLERATED WELL. EDUCATED PT ON PURPOSE OF FC. PT VERBALIZED UNDERSTANDING. SAFETY MEASURES IN PLACE. WILL CONTINUE TO MONITOR
[2019-07-27] MEDS ORDERED: BISACODYL 5 MG TABEC PO SCH (15:00)
--- NOTE | 2019-07-27 15:08 | NUR ---
ADMINISTERED SCHED MED PRESCRIBED PER MD ORDER. PT TOLERATED WELL. MEDICATION EDUCATION PERFORMED. PT VERBALIZED UNDERSTANDING. SAFETY MEASURES IN PLACE. WILL CONTINUE TO MONITOR
[2019-07-27 16:00] VITALS: BP 115/50
--- NOTE | 2019-07-27 17:50 | NUR ---
ADMINISTERED SCHED MED PRESCRIBED PER MD ORDER. PT TOLERATED WELL. MEDICATION EDUCATION PERFORMED. PT VERBALIZED UNDERSTANDING. SAFETY MEASURES IN PLACE. WILL CONTINUE TO MONITOR
--- NOTE | 2019-07-27 19:22 | NUR ---
ENDORSED AT BEDSIDE TO NIGHTSHIFT NURSE. PT IS STABLE.
--- NOTE | 2019-07-27 19:23 | NUR ---
RECEIVED BEDSIDE SHIFT REPORT FROM [facility] NURSE CASILLAS. PATIENT AWAKE AND ALERT. PATINO CATHETER ASSESSED. IV SITE ASSESSED. SAFETY MEASURES IN PLACE. TELE MONITOR ATTACHED. CALL LIGHT WITHIN REACH. NO SIGNS OF DISTRESS NOTED RESPIRATIONS EVEN AND UNLABORED ON RA
--- NOTE | 2019-07-27 19:32 | NUR ---
RECEIVED PATIENT ON 2L NASAL CANNULA, PULSE OX SAT 100%. SCHEDULED BREATHING TREATMENT ADMINISTERED. TOLERATED TX WELL WITHOUT ADVERSE SIDE EFFECTS. PT MADE AWARE OF ORDERED MEDICATION FREQUENCY AND INSTRUCTED TO CALL NEEDED FOR SOB. NO ACUTE RESPIRATORY DISTRESS NOTED AT THIS TIME. WILL CONTINUE TO MONITOR.
[2019-07-27 20:00] VITALS: BP 122/57
[2019-07-27] MEDS: ATORVASTATIN 20 MG TAB PO SCH (20:52)
--- NOTE | 2019-07-27 20:53 | NUR ---
ADMINISTERED 2100 MEDICATIONS AND BS CHECK. PT TOLERATED WELL NO SIGNS OF DISTRESS NOTED. WILL REASSES PT PULSE AND BP AT 2223
--- NOTE | 2019-07-27 21:28 | NUR ---
ADMINISTERED 2 UNITS OF INSULIN COVERAGE PER MD SLIDING SCALE. PROVIDED PATIENT A NUTRITIONAL SNACK. PT TOLERATED WELL WILL CONTINUE TO MONITOR
--- NOTE | 2019-07-27 22:23 | NUR ---
REASSESSED BY AND PULSE: 110/51 PULSE: 74. NO SIGNS OF DISTRESS NOTED. TELE MONITOR ATTACHED. CALL LIGHT WITHIN REACH
[2019-07-28] VITALS: BP 117/54
--- NOTE | 2019-07-28 00:30 | NUR ---
MADE ROUNDS. PT ASLEEP. NO S/S OF ANY DISCOMFORT NOTED.
--- NOTE | 2019-07-28 03:00 | NUR ---
PT HAD A MODERATE LIQUID MUCOID STOOL WITH SMALL BLOOD STREAKS . CLEANED AND KEPT DRY.
[2019-07-28 04:20] VITALS: BP 122/60
[2019-07-28] MEDS: ACETAMINOPHEN 325 MG TAB PO PRN (04:56)
[2019-07-28] MEDS: BLOOD GLUCOSE MONITORING 1 DEV DEV FS SCH ×4 (05:40→20:53)
[2019-07-28] MEDS: VANCOMYCIN 500 MG VIAL PO SCH ×5 (05:48→23:35)
[2019-07-28] MEDS: ALBUTEROL SULFATE/IPRATROPIU 3 ML SOL IH SCH ×3 (06:36→19:38)
--- NOTE | 2019-07-28 06:43 | NUR ---
FRANTZ BERRY ,MADE AWARE OF THE SCHEDULE HD TODAY.
--- NOTE | 2019-07-28 07:05 | NUR ---
ENDORSED PATIENT TO DAYSMSFT NURSE VINNY. BESIDE REPORT PROVIDED FOR CONTINUITY OF CARE. PT IN STABLE CONDITION
--- NOTE | 2019-07-28 07:10 | NUR ---
RECEIVED BEDSIDE REPORT FROM NIGHTSHIFT NURSE. PT RESTING IN BED. ABLE TO MAKE NEEDS KNOWN. RESPIRATIONS EVEN AND UNLABORED WITH NO SOB OR RESPIRATORY DISTRESS. SKIN WARM AND DRY TO TOUCH. IV SITE IN LEFT HAND 24G IS CLEAN, DRY, AND INTACT. SAFETY MEASURES IN PLACE. WILL CONTINUE TO MONITOR
[2019-07-28 07:23] LABS: BASOPHILS # (AUTO) 0.1 K/uL (0.00-0.22); BASOPHILS % (AUTO) 0.5 % (0.0-2.0); EOSINOPHILS # (AUTO) 0.7 K/uL (0-0.4); EOSINOPHILS % (AUTO) 3.4 % (0.0-4.0); HEMATOCRIT 26.6 % (36-48); HEMOGLOBIN 8.4 g/dL (12.0-16.0); LYMPHOCYTES # (AUTO) 1.6 K/uL (2.5-16.5); LYMPHOCYTES % (AUTO) 7.6 % (20.5-51.1); MEAN CORPUSCULAR HEMOGLOBIN 29 pg (27-31); MEAN CORPUSCULAR HGB CONC 32 g/dL (33-37); MEAN CORPUSCULAR VOLUME 93.3 fL (80-94); MONOCYTES # (AUTO) 1.2 K/uL (0.8-1.0); MONOCYTES % (AUTO) 5.9 % (1.7-9.3); NEUTROPHILS # (AUTO) 17.4 K/uL (1.8-7.7); NEUTROPHILS % (AUTO) 82.6 % (42.2-75.2); PLATELET COUNT (AUTO) 415 K/uL (140-450); RED BLOOD CELL COUNT(AUTO) 2.85 MIL/uL (4.20-5.40); RED CELL DISTRIBUTION WIDTH 15.8 % (11.6-13.7); WHITE BLOOD COUNT (AUTO) 21.1 K/uL (4.8-10.8)
[2019-07-28 07:36] LABS: ANION GAP 13.4 (8-16); CARBON DIOXIDE 27.3 mmol/L (21-32); POTASSIUM 3.7 mmol/L (3.5-5.1)
[2019-07-28 07:46] LABS: PHOSPHORUS 4.7 mg/dL (2.5-4.9)
--- NOTE | 2019-07-28 07:57 | NUR ---
RECEIVED CRITICAL LAB FROM CHEMISTRY. CREATININE IS 5.3. RESIDENT AWARE. SAFETY MEASURES IN PLACE.
[2019-07-28 08:00] VITALS: BP 126/57
[2019-07-28 08:01] LABS: CREATININE 5.3 mg/dL (0.6-1.3)
[2019-07-28] MEDS: FUROSEMIDE 40 MG TAB PO SCH ×2 (09:00→17:04)
[2019-07-28] MEDS: cloNIDine 0.1 MG TAB PO SCH ×2 (09:00→20:54)
[2019-07-28] MEDS: amLODIPine 5 MG TAB PO SCH (09:00)
[2019-07-28] MEDS: PHARMACY COMMENTS MC SCH (09:00)
[2019-07-28] MEDS: EPOETIN ALFA 10,000 UNITS/ML VIAL IV SCH (09:12)
[2019-07-28] MEDS: POLYETHYLENE GLYCOL 17 GM/PKT PO SCH (09:13)
[2019-07-28] MEDS: GABAPENTIN 300 MG CAP PO SCH (09:13)
[2019-07-28] MEDS: ASCORBIC ACID 500 MG TAB PO SCH (09:13)
[2019-07-28] MEDS: ASPIRIN 81 MG TAB.CHEW PO SCH (09:14)
[2019-07-28] MEDS: LACTOBACILLUS RHAMNOSUS GG 1 EACH CAP PO SCH (09:14)
[2019-07-28] MEDS: glipiZIDE 5 MG TAB PO SCH (09:15)
--- NOTE | 2019-07-28 09:15 | NUR ---
ADMINISTERED SCHED MED PRESCRIBED PER MD ORDER. PT TOLERATED WELL. MEDICATION EDUCATION PERFORMED. PT VERBALIZED UNDERSTANDING. SAFETY MEASURES IN PLACE. WILL CONTINUE TO MONITOR
--- NOTE | 2019-07-28 11:15 | NUR ---
DIALYSIS NURSE ARRIVED AND REPORT WAS GIVEN. SAFETY MEASURES IN PLACE. WILL CONTINUE TO MONITOR
[2019-07-28] MEDS: INSULIN LISPRO SLIDING SCALE 100 UNITS/ML VIAL SUBQ PRN ×3 (11:37→20:57)
--- NOTE | 2019-07-28 11:48 | NUR ---
ADMINISTERED SLIDING SCALE INSULIN PRESCRIBED PER MD ORDER. PT TOLERATED WELL. PT REFUSED ATB BECAUSE SHE STATED, "MY STOMACH FEELS FULL SO I DO NOT WANT IT." AFTER EXPLAINING THE IMPORTANCE OF TAKING THE ATB, THE PATIENT STILL DID NOT WANT IT.PT VERBALIZED UNDERSTANDING. SAFETY MEASURES IN PLACE. WILL CONTINUE TO MONITOR
[2019-07-28 12:00] VITALS: BP 98/52
[2019-07-28] MEDS ORDERED: MORPHINE SULFATE 2 MG/ML SYR IVP PRN (12:55)
--- NOTE | 2019-07-28 14:04 | NUR ---
DIALYSIS NURSE ENDORSED AT BEDSIDE. 1.4L WERE REMOVED. S/P HD VITALS: 121/56 BP, 79 HR, 97.7 TEMP, 99% SPO2 ON 2L NC, 18 RR. PATINO CATHETER REMOVED PRESCRIBED PER MD ORDER. PT TOLERATED WELL. SAFETY MEASURES IN PLACE. WILL CONTINUE TO MONITOR
[2019-07-28 16:00] VITALS: BP 119/55
--- NOTE | 2019-07-28 16:00 | NUR ---
PT STOOL SAMPLE CAME BACK POSITIVE FOR C-DIFF. RESIDENT AND CHARGE NURSE MADE AWARE. SAFETY MEASURES IN PLACE. WILL CONTINUE TO MONITOR
[2019-07-28] MEDS: CEFEPIME 500 MG in DEXTROSE 5% 50 ML IV SCH (16:11)
--- NOTE | 2019-07-28 16:11 | NUR ---
ADMINISTERED SCHED MED PRESCRIBED PER MD ORDER. ORDER SAID TO WAIT TO GIVE ATB 2HR AFTER HD. ORDER FOLLOWED DESCRIBED. PT TOLERATED WELL. MEDICATION EDUCATION PERFORMED. PT VERBALIZED UNDERSTANDING. SAFETY MEASURES IN PLACE. WILL CONTINUE TO MONITOR
--- NOTE | 2019-07-28 17:13 | NUR ---
ADMINISTERED SCHED MED PRESCRIBED PER MD ORDER. PT TOLERATED WELL. MEDICATION EDUCATION PERFORMED. PT VERBALIZED UNDERSTANDING. SAFETY MEASURES IN PLACE. WILL CONTINUE TO MONITOR
--- NOTE | 2019-07-28 19:15 | NUR ---
ENDORSED AT BEDSIDE TO NIGHTSHIFT NURSE. PT IS STABLE
--- NOTE | 2019-07-28 19:30 | NUR ---
ASSUMED CARE OF PATIENT, AWAKE, ALERT AND ORIENTED. SLEEPING WELL, EASILY AROUSABLE. NO COMPLAINS. CARE BOARD UPDATED. CALL LIGHT WITHIN REACH.
--- NOTE | 2019-07-28 19:55 | NUR ---
RECEIVED PATIENT ON 2L NASAL CANNULA, PULSE OX SAT 100%. SCHEDULED BREATHING TREATMENT ADMINISTERED. TOLERATED TX WELL WITHOUT ADVERSE SIDE EFFECTS. PLACED PATIENT ON ROOM AIR, PULSE OX 98%. PT MADE AWARE OF ORDERED MEDICATION FREQUENCY AND INSTRUCTED TO CALL NEEDED FOR SOB. NO ACUTE RESPIRATORY DISTRESS NOTED AT THIS TIME. WILL CONTINUE TO MONITOR.
[2019-07-28 20:00] VITALS: BP 122/59
[2019-07-28] MEDS: ATORVASTATIN 20 MG TAB PO SCH (20:54)
--- NOTE | 2019-07-28 21:00 | NUR ---
BS-186, REFUSED INSULIN SLIDING SCALE COVERAGE. HS SNACK REFUSED WELL. DUE MEDS GIVEN. CALL LIGHT WITHIN REACH. PLAN OF CARE DISCUSSED WITH PATIENT, VERBALIZED UNDERSTANDING WELL.
--- NOTE | 2019-07-28 23:00 | NUR ---
POST HOLE DIGGER AT BEDSIDE. REPOSITIONED. COMPLETE BED CHANGE PER REQUEST. CALL LIGHT WITHIN REACH. VITAL SIGNS STABLE.
[2019-07-29 00:03] VITALS: BP 120/68
--- NOTE | 2019-07-29 01:24 | NUR ---
ASLEEP. EASILY AROUSABLE. NO COMPLAINS. CALL LIGHT WITHIN REACH.
--- NOTE | 2019-07-29 03:00 | NUR ---
ASLEEP. NO DISTRESS. CALL LIGHT WITHIN REACH.
[2019-07-29 05:02] VITALS: BP 117/72
--- NOTE | 2019-07-29 05:10 | NUR ---
REPOSITIONED BY FIRE PREVENTION ENGINEER. NO COMPLAINS. VITAL SIGNS STABLE. CALL LIGHT WITHIN REACH.
[2019-07-29] MEDS: VANCOMYCIN 500 MG VIAL PO SCH ×4 (05:36→23:35)
[2019-07-29] MEDS: BLOOD GLUCOSE MONITORING 1 DEV DEV FS SCH ×4 (05:36→20:24)
[2019-07-29] MEDS: ALBUTEROL SULFATE/IPRATROPIU 3 ML SOL IH SCH ×3 (07:15→19:08)
--- NOTE | 2019-07-29 07:29 | NUR ---
ENDORSED CARE AT BEDSIDE WITH RICKS RN, PATIENT IN STABLE CONDITION.
--- NOTE | 2019-07-29 07:30 | NUR ---
RECEIVED PATIENT FROM WATER AND SEWER SYSTEMS SUPERINTENDENT NURSE. AOX4, NO C/O PAIN, RESPIRATIONS EVEN AND UNLABORED. ON TELE MONITORING. IV IN THE LEFT HAND GAUGE 24. WITH RIGHT SUBCLAVIAN KRISTINA CATH. BED IN LOW POSITION. CALL LIGHT IS WITHIN REACH. WILL CONTINUE TO MONITOR
[2019-07-29 08:00] VITALS: BP 131/56
[2019-07-29] MEDS: POLYETHYLENE GLYCOL 17 GM/PKT PO SCH (08:17)
[2019-07-29] MEDS: ASPIRIN 81 MG TAB.CHEW PO SCH (08:17)
[2019-07-29] MEDS: glipiZIDE 5 MG TAB PO SCH (08:18)
[2019-07-29] MEDS: amLODIPine 5 MG TAB PO SCH (08:18)
[2019-07-29] MEDS: ASCORBIC ACID 500 MG TAB PO SCH (08:19)
[2019-07-29] MEDS: LACTOBACILLUS RHAMNOSUS GG 1 EACH CAP PO SCH (08:19)
[2019-07-29] MEDS: FUROSEMIDE 40 MG TAB PO SCH ×2 (08:19→17:20)
[2019-07-29] MEDS: GABAPENTIN 300 MG CAP PO SCH (08:20)
[2019-07-29] MEDS: cloNIDine 0.1 MG TAB PO SCH ×2 (08:20→20:30)
--- NOTE | 2019-07-29 08:20 | NUR ---
DUE MEDS GIVEN TOLERATED WELL
[2019-07-29] MEDS: PHARMACY COMMENTS MC SCH (09:00)
[2019-07-29] MEDS: CEFEPIME 500 MG in DEXTROSE 5% 50 ML IV SCH (09:07)
--- NOTE | 2019-07-29 10:00 | NUR ---
LARD RENDERER AT BEDSIDE CHANGING PT
[2019-07-29 10:04] LABS: HEMATOCRIT 25.2 % (36-48); MEAN CORPUSCULAR HEMOGLOBIN 30 pg (27-31); MEAN CORPUSCULAR HGB CONC 32 g/dL (33-37); MEAN CORPUSCULAR VOLUME 93.1 fL (80-94); PLATELET COUNT (AUTO) 367 K/uL (140-450); RED BLOOD CELL COUNT(AUTO) 2.71 MIL/uL (4.20-5.40); RED CELL DISTRIBUTION WIDTH 15.9 % (11.6-13.7); WHITE BLOOD COUNT (AUTO) 19.6 K/uL (4.8-10.8)
[2019-07-29 10:19] LABS: ANION GAP 12.3 (8-16); CARBON DIOXIDE 29.6 mmol/L (21-32); POTASSIUM 3.9 mmol/L (3.5-5.1)
--- NOTE | 2019-07-29 10:27 | NUR ---
RECEIVED CRITICAL LAB VALUE REPORT FROM STEPHANIE. BUN 28. DR. CANDELARIA NOTIFIED NO NEW ORDERS. ON DIALYSIS TTHS
[2019-07-29 11:12] LABS: EOSINOPHILS % (MANUAL) 2 % (0-4); LYMPHOCYTES % (MANUAL) 10 % (20-46); MONOCYTES % (MANUAL) 9 % (5-12)
--- NOTE | 2019-07-29 11:25 | NUR ---
DUE VANCOCIN PO GIVEN ORDERED. BLOOD SUGAR CHECKED 147, NO COVERAGE
[2019-07-29 12:00] VITALS: BP 115/49
--- NOTE | 2019-07-29 13:40 | NUR ---
PT IS SLEEPING AT THIS TIME, NO SIGNS OF DISTRESS NOTED, WILL MONITOR PT.
[2019-07-29 16:00] VITALS: BP 121/58
--- NOTE | 2019-07-29 17:00 | NUR ---
BLOOD SUGAR CHECKED: 189. 2 UNITS HUMALOG GIVEN PER SLIDING SCALE. VANCOMYCIN PO GIVEN ORDERED.
[2019-07-29] MEDS: INSULIN LISPRO SLIDING SCALE 100 UNITS/ML VIAL SUBQ PRN ×2 (17:27→20:26)
--- NOTE | 2019-07-29 19:23 | NUR ---
ENDORSED TO AIR VALVE REPAIRER NURSE FOR CONTINUITY OF CARE. PT IN STABLE CONDITION
--- NOTE | 2019-07-29 19:30 | NUR ---
RECEIVED PT FROM MELISA RN PT ESTONIAN SPEAKER AAOX4 ON TELEMETRY SR, RT IJ CATHETER FOR DIALYSIS, IV ON LEFT HAND INFUSING WELL TKO NOT SIGNS OF PAIN NOTED, RESP THERAY AT BED SIDE GIVEN BREATHING TRESAMENT INITIAL ASSESSMENT DONE
[2019-07-29 20:00] VITALS: BP 121/66
[2019-07-29] MEDS: ATORVASTATIN 20 MG TAB PO SCH (20:31)
--- NOTE | 2019-07-29 21:30 | NUR ---
BLOOD SUGAR TEST 228 COVERAGE WITH 4 UNITS SUBQ HUMALOG FOLLOW PROTOCOL AND SNACK HS IS PROVIDER
[2019-07-30] VITALS: BP 131/60
--- NOTE | 2019-07-30 | NUR ---
PT AWAKE WATCHING TV DENIES ANY PAIN OR DISCOMFORT , ON TELE SR REPOSITIONED Q2H
--- NOTE | 2019-07-30 02:00 | NUR ---
MADE ROUNDS , NO S/S OF ACUTE DISTRESS NOTED AT THIS TIME .
[2019-07-30 04:00] VITALS: BP 114/63
--- NOTE | 2019-07-30 04:00 | NUR ---
PT ON CLOSE MONITORING ONLY ONE BM , ON TELEMETRY SR, SPONGE BATH GIVEN LINEN CHANGED
[2019-07-30] MEDS: BLOOD GLUCOSE MONITORING 1 DEV DEV FS SCH ×4 (05:57→21:32)
[2019-07-30] MEDS: VANCOMYCIN 500 MG VIAL PO SCH ×3 (05:58→18:34)
--- NOTE | 2019-07-30 06:00 | NUR ---
BLOOD SUGAR TEST 111 NOT COVERAGE PT REMAINSTABLE DENIES ANY PAIN OR DIARRHEA ON TELE SR
[2019-07-30 06:21] LABS: BASOPHILS # (AUTO) 0.1 K/uL (0.00-0.22); BASOPHILS % (AUTO) 0.4 % (0.0-2.0); EOSINOPHILS # (AUTO) 0.4 K/uL (0-0.4); EOSINOPHILS % (AUTO) 2.1 % (0.0-4.0); HEMATOCRIT 24.5 % (36-48); HEMOGLOBIN 7.9 g/dL (12.0-16.0); LYMPHOCYTES # (AUTO) 1.9 K/uL (2.5-16.5); LYMPHOCYTES % (AUTO) 9.5 % (20.5-51.1); MEAN CORPUSCULAR HEMOGLOBIN 30 pg (27-31); MEAN CORPUSCULAR HGB CONC 32 g/dL (33-37); MEAN CORPUSCULAR VOLUME 92.5 fL (80-94); MONOCYTES # (AUTO) 1.3 K/uL (0.8-1.0); MONOCYTES % (AUTO) 6.6 % (1.7-9.3); NEUTROPHILS # (AUTO) 16.3 K/uL (1.8-7.7); NEUTROPHILS % (AUTO) 81.4 % (42.2-75.2); PLATELET COUNT (AUTO) 399 K/uL (140-450); RED BLOOD CELL COUNT(AUTO) 2.65 MIL/uL (4.20-5.40); RED CELL DISTRIBUTION WIDTH 15.7 % (11.6-13.7)
[2019-07-30 07:02] LABS: ANION GAP 15.1 (8-16); CARBON DIOXIDE 25.6 mmol/L (21-32); POTASSIUM 3.7 mmol/L (3.5-5.1)
[2019-07-30 07:09] LABS: MAGNESIUM 1.9 mg/dL (1.8-2.4); PHOSPHORUS 5.1 mg/dL (2.5-4.9)
--- NOTE | 2019-07-30 07:16 | NUR ---
RECEIVED REPORT FROM ALUMINUM SIDING APPLICATOR NURSE, ZABRINA, FOR CONTINUITY OF CARE. PT IS LYING IN BED RESTING, AROUSABLE TO VOICE. A&OX4. BREATHING IS EVEN AND UNLABORED, BREATHING TO RA. SKIN COLOR IS APPROPRIATE FOR ETHNICITY. PT'S L HAND IV IS PATENT AND INTACT, RUNNING, PER ORDERS. RT IJ KRISTINA CATHETER INTACT. PT IS SCHEDULED FOR DIALYSIS TODAY. R PLANTAR FOOT SCAB NOTED. SAFETY MEASURES IN PLACE, CALL LIGHT WITHIN REACH, BED IN LOW POSITION, SIGN POSTED BY DOOR. NO DISTRESS NOTED. WILL CONTINUE TO MONITOR.
[2019-07-30 08:00] VITALS: BP 114/66
[2019-07-30 08:07] LABS: CREATININE 5.6 mg/dL (0.6-1.3)
[2019-07-30] MEDS: glipiZIDE 5 MG TAB PO SCH (08:13)
--- NOTE | 2019-07-30 08:13 | NUR ---
PT'S SCHEDULED PO MED WAS GIVEN. PT TOLERATED PO MED WELL. NO DISTRESS NOTED SAFETY MEASURES IN PLACE. WILL CONTINUE TO MONITOR.
--- NOTE | 2019-07-30 08:19 | NUR ---
RECEIVED CRITICAL LAB RESULT OF CREAT 5.6. CRITICAL RESULT WAS REPORTED TO DR. CANDELARIA. DIALYSIS IS SCHEDULED FOR TODAY. NO OTHER INTERVENTION IS NEEDED AT THIS TIME.
[2019-07-30] MEDS: amLODIPine 5 MG TAB PO SCH (09:00)
[2019-07-30] MEDS: cloNIDine 0.1 MG TAB PO SCH ×2 (09:00→21:00)
[2019-07-30] MEDS: POLYETHYLENE GLYCOL 17 GM/PKT PO SCH (09:00)
--- NOTE | 2019-07-30 09:02 | NUR ---
SPOKE WITH DIALYSIS NURSE, KRISTI, TO ASK WHEN SCHEDULED DIALYSIS FOR TODAY WILL BE STARTED. WAS INFORMED THAT DIALYSIS WILL BE STARTED AT 1100.
[2019-07-30] MEDS: ASPIRIN 81 MG TAB.CHEW PO SCH (09:40)
[2019-07-30] MEDS: GABAPENTIN 300 MG CAP PO SCH (09:41)
[2019-07-30] MEDS: LACTOBACILLUS RHAMNOSUS GG 1 EACH CAP PO SCH (09:41)
[2019-07-30] MEDS: ASCORBIC ACID 500 MG TAB PO SCH (09:42)
[2019-07-30] MEDS: FUROSEMIDE 40 MG TAB PO SCH ×2 (09:46→17:08)
--- NOTE | 2019-07-30 09:50 | NUR ---
PT'S SCHEDULED PO MEDS WERE GIVEN. BP MEDS WERE HELD DUE TO PENDING DIALYSIS. PT REFUSED SCHEDULED MIRALAX DUE TO PT STATING THAT SHE HAS DIARRHEA. SPOKE WITH KEVIN FROM PHARMACY, PER KEVIN, SCHEDULED PROCRIT AND IVPB ANTIBIOTIC SHOULD BE HELD UNTIL AFTER DIALYSIS, BOTH MEDICATIONS WERE HELD. PT TOLERATED OTHER PO MEDS WELL. NO DISTRESS NOTED. SAFETY MEASURES IN PLACE. TELE MONITOR ATTACHED. WILL CONTINUE TO MONITOR.
--- NOTE | 2019-07-30 11:12 | NUR ---
PT IS AWAKE, RESTING IN BED, AWAITING DIALYSIS. NO DISTRESS NOTED. TELE MONITOR ATTACHED. SAFETY MEASURES IN PLACE; CALL LIGHT WITHIN REACH, BED IN LOW POSITION. WILL CONTINUE TO MONITOR.
[2019-07-30 12:00] VITALS: BP 109/55
--- NOTE | 2019-07-30 13:57 | NUR ---
PT'S SCHEDULED VANCO WAS GIVEN. PT IS HAVING DIALYSIS DONE, DIALYSIS NURSE AT BEDSIDE. PROVIDED BERRY, THE DIALYSIS NURSE, WITH TWO VIALS OF HEPARIN. PT IS IN STABLE CONDITION. NO DISTRESS NOTED. PT HAS A RT PLANTAR FOOT SCAB THAT IS OPEN TO AIR. PT'S. KUSH CATHERINE CALLED ON BEHALF OF SKINNY CHAKRABORTY, THE PT'S SISTER INQUIRING ABOUT THE PT'S CONDITION. SHE REQUESTED THAT SHE BE CALLED FOR UPDATES OR UPON A TRANSFER ORDER AT; [phone]. PT WAS INFORMED THAT SHE CALLED TO CHECK IN ON HER. SAFETY MEASURES IN PLACE. WILL CONTINUE TO MONITOR.
--- NOTE | 2019-07-30 13:58 | NUR ---
07/30/19 RD FOLLOW UP COMPLETED PLEASE REFER TO NUTRITION ASSESSMENT UNDER CARE ACTIVITY FOR ESTIMATED NUTRITIONAL NEEDS. 1. RECOMMEND MECHANICAL SOFT, RENAL AND CCHO 60GM DIET TOLERATED 2. RECOMMEND NEPRO BID 3. PROVIDE ASSISTANCE WITH MEALS 4. RD TO FOLLOW-UP 3-5 DAYS, MODERATE RISK OLMAN QUINONES, FAUSTINO
--- NOTE | 2019-07-30 15:07 | NUR ---
PT IS RESTING IN BED. NO DISTRESS NOTED. SAFETY MEASURES IN PLACE. TELE MONITOR ATTACHED. WILL CONTINUE TO MONITOR.
[2019-07-30] MEDS: PHARMACY COMMENTS MC SCH (15:56)
[2019-07-30 16:00] VITALS: BP 108/47
[2019-07-30] MEDS: EPOETIN ALFA 10,000 UNITS/ML VIAL IV SCH (16:04)
[2019-07-30] MEDS: CEFEPIME 500 MG in DEXTROSE 5% 50 ML IV SCH (16:04)
--- NOTE | 2019-07-30 16:18 | NUR ---
PT'S ORDERED MAXIPIME WAS HUNG, AND IS RUNNING PER ORDERS. PROCRIT IVP WAS ALSO ADMINISTED. PT'S BLOOD SUGAR WAS CHECKED WITH A RESULT OF 182. WILL ADMINISTER COVERAGE.
[2019-07-30] MEDS: INSULIN LISPRO SLIDING SCALE 100 UNITS/ML VIAL SUBQ PRN ×2 (17:05→22:20)
--- NOTE | 2019-07-30 17:08 | NUR ---
ADMINISTERED HUMALOG 2 UNIT FOR BLOOD GLUCOSE 182 AND LASIX PO, MEDS ED PROVIDED AND PT SAID OK. PT TOLERATED WELL. NO SIGNS OF DISTRESS NOTED. TELE MONITOR ATTACHED. SAFETY MEASURES IN PLACE.
--- NOTE | 2019-07-30 18:39 | NUR ---
PT'S PO VANCOMYCIN WAS GIVEN, ORDERED. PT TOLERATED MED WELL. SAFETY MEASURES IN PLACE. TELE MONITOR ATTACHED. NO ACUTE DISTRESS NOTED.
--- NOTE | 2019-07-30 19:26 | NUR ---
GAVE REPORT TO KNOT SAW OPERATOR NURSE, ALEE, FOR CONTINUITY OF CARE. PT IS IN STABLE CONDITION.
--- NOTE | 2019-07-30 19:26 | NUR ---
RECIEVED PT AAOX4 , NID , W/ AV ACESS ON THE NECK , IV SITE INTACT AND PATENT . DENIES PAIN AT THIS TIME . POC DISCUSSED AND VERBALIZE UNDERSTANDING - CALL LIGHT WITHIN REACH . SAFETY MEASURE IN PLACE - BED ALARM ON . WILL CONT. TO MONITOR.
[2019-07-30 20:00] VITALS: BP 133/67
--- NOTE | 2019-07-30 20:24 | NUR ---
RECEIVED REPORT FROM AM SHIFT. PATIENT SEEN AND ASSESSED. PATIENT APPEARS TO BE IN NO RESPIRATOR DISTRESS AT THIS TIME: RR 16, HR 78, SPO2 99 ON ROOM AIR, AND A CLEAR BILATERAL BREATH SOUNDS. PATIENT WAS INFORMED TO CALL RN OR UTILITY MANAGER FOR PRN TX WHEN EXPERIENCING SOB. WILL CONTINUE TO MONITOR PT.
[2019-07-30] MEDS: ATORVASTATIN 20 MG TAB PO SCH (21:30)
--- NOTE | 2019-07-30 22:00 | NUR ---
MADE ROUNDS . NO S/S OF ACUTE DISTRESS NOTED AT THIS TIME . CALL LIGHT WITHIN REACH.
[2019-07-31] VITALS: BP 133/54
--- NOTE | 2019-07-31 | NUR ---
MADE ROUNDS , RESP. EVEN AND UNLABORED . WILL CONT. TO MONITOR. OFFER MIDNIGHT SNACK .
[2019-07-31] MEDS: VANCOMYCIN 500 MG VIAL PO SCH ×5 (00:33→18:26)
--- NOTE | 2019-07-31 02:00 | NUR ---
SLEEPING - CHEST RISE AND FALL EQUALLY - ON AGENT PRODUCER . CALL LIGHT WITHIN REACH.
[2019-07-31 04:00] VITALS: BP 126/70
--- NOTE | 2019-07-31 04:05 | NUR ---
MADE ROUNDS , NO COMPLAIN MADE AT THIS TIME , WILL CONT. TO MONITOR.
[2019-07-31] MEDS: BLOOD GLUCOSE MONITORING 1 DEV DEV FS SCH ×6 (06:00→20:35)
[2019-07-31 06:30] LABS: BASOPHILS # (AUTO) 0.1 K/uL (0.00-0.22); BASOPHILS % (AUTO) 0.8 % (0.0-2.0); EOSINOPHILS # (AUTO) 0.5 K/uL (0-0.4); EOSINOPHILS % (AUTO) 2.6 % (0.0-4.0); HEMATOCRIT 24.9 % (36-48); HEMOGLOBIN 7.9 g/dL (12.0-16.0); LYMPHOCYTES # (AUTO) 2.1 K/uL (2.5-16.5); LYMPHOCYTES % (AUTO) 12.4 % (20.5-51.1); MEAN CORPUSCULAR HEMOGLOBIN 30 pg (27-31); MEAN CORPUSCULAR HGB CONC 32 g/dL (33-37); MEAN CORPUSCULAR VOLUME 93.7 fL (80-94); MONOCYTES # (AUTO) 1.4 K/uL (0.8-1.0); MONOCYTES % (AUTO) 8.2 % (1.7-9.3); NEUTROPHILS # (AUTO) 13.1 K/uL (1.8-7.7); PLATELET COUNT (AUTO) 414 K/uL (140-450); RED BLOOD CELL COUNT(AUTO) 2.66 MIL/uL (4.20-5.40); RED CELL DISTRIBUTION WIDTH 16.1 % (11.6-13.7); WHITE BLOOD COUNT (AUTO) 17.2 K/uL (4.8-10.8)
[2019-07-31 06:43] LABS: ANION GAP 10.3 (8-16); CARBON DIOXIDE 29.2 mmol/L (21-32); CREATININE 3.8 mg/dL (0.6-1.3); POTASSIUM 3.5 mmol/L (3.5-5.1)
[2019-07-31 06:46] LABS: MAGNESIUM 1.8 mg/dL (1.8-2.4); PHOSPHORUS 3.8 mg/dL (2.5-4.9)
--- NOTE | 2019-07-31 07:15 | NUR ---
RECEIVED REPORT FROM NIGHT NURSE, PT IS STABLE, AAOX4, RESPIRATION EVEN AND UNLABORED ON ROOM AIR. NO DISTRESS NOTED AND PT DENIES PAIN. SAFETY MEASURES IN PLACE, CALL LIGHT WITHIN REACH. WILL CONTINUE TO MONITOR.
[2019-07-31 08:00] VITALS: BP 138/59
[2019-07-31] MEDS: glipiZIDE 5 MG TAB PO SCH (08:00)
[2019-07-31] MEDS: POLYETHYLENE GLYCOL 17 GM/PKT PO SCH (09:00)
[2019-07-31] MEDS: LACTOBACILLUS RHAMNOSUS GG 1 EACH CAP PO SCH (09:11)
[2019-07-31] MEDS: amLODIPine 5 MG TAB PO SCH (09:12)
[2019-07-31] MEDS: cloNIDine 0.1 MG TAB PO SCH ×2 (09:13→20:35)
[2019-07-31] MEDS: ASCORBIC ACID 500 MG TAB PO SCH (09:13)
[2019-07-31] MEDS: GABAPENTIN 300 MG CAP PO SCH (09:13)
[2019-07-31] MEDS: FUROSEMIDE 40 MG TAB PO SCH ×2 (09:14→18:26)
[2019-07-31] MEDS: ASPIRIN 81 MG TAB.CHEW PO SCH (09:14)
--- NOTE | 2019-07-31 10:47 | NUR ---
NOTIFIED KRISTI FROM DIALYSIS REGARDING PT'S HD ORDER FOR TOMORROW. GENEVIEVE ASSIGNED MADE AWARE.
[2019-07-31] MEDS: CEFEPIME 500 MG in DEXTROSE 5% 50 ML IV SCH (12:13)
--- NOTE | 2019-07-31 12:42 | NUR ---
OR NURSES AT BEDSIDE TO TAKE PATIENT FOR TUNNELED HEMODIALYSIS CATHETER PLACEMENT, PER OR NURSE TO HOLD OFF ON ORAL VANCO FOR NOW. WILL CONTINUE TO MONITOR WHEN PATIENT RETURNS ON UNIT.
[2019-07-31] MEDS ORDERED: fentaNYL 0.05 MG/ML VIAL ONE (12:45)
[2019-07-31] MEDS ORDERED: MIDAZOLAM 2 MG/2 ML VIAL ONE (12:45)
[2019-07-31] MEDS ORDERED: LIDOCAINE 1% 500 MG/50 ML VIAL ONE (12:49)
[2019-07-31] MEDS ORDERED: BUPIVACAINE-MPF 0.25% 30 ML VIAL INJ ONE (12:49)
--- NOTE | 2019-07-31 13:00 | NUR ---
OR NURSES AT BEDSIDE TO TAKE PATIENT FOR HEMODIALYSIS TUNNELED CATHETER PLACEMENT. WILL CONTINUE TO MONITOR.
[2019-07-31] MEDS ORDERED: NACL 0.9% 1,000 ML IV SCH (13:36)
[2019-07-31] MEDS ORDERED: diphenhydrAMINE 50 MG/ML VIAL IVP PRN (13:40)
[2019-07-31] MEDS ORDERED: HYDROmorphone 1 MG/ML AMP IVP PRN (13:40)
[2019-07-31] MEDS ORDERED: BLOOD GLUCOSE MONITORING 1 DEV DEV FS SCH (13:40)
[2019-07-31] MEDS ORDERED: ONDANSETRON 4 MG/2 ML VIAL IVP PRN (13:40)
[2019-07-31 14:35] VITALS: BP 111/56
--- NOTE | 2019-07-31 14:35 | NUR ---
PATIENT BACK ON UNIT FROM OR, NO DISTRESS NOTED. PAIN WITHIN TOLERABLE. VITAL SIGNS STABLE. SCHEDULED MEDICATIONS DUE GIVEN. WILL CONTINUE TO MONITOR.
--- NOTE | 2019-07-31 16:38 | NUR ---
BLOOD GLUCOSE MONITORING DONE. 146MG/DL, NO INSULIN COVERAGE. PT IS STABLE WILL CONTINUE TO MONITOR.
--- NOTE | 2019-07-31 18:29 | NUR ---
PATIENT SITTING DOWN IN BED WATCHING TV. NO DISTRESS NOTED. DENIES ANY PAIN. SCHEDULED MEDICATIONS DUE GIVEN. WILL CONTINUE TO MONITOR.
--- NOTE | 2019-07-31 19:22 | NUR ---
ENDORSED PT TO NIGHT NURSE PT IS STABLE
[2019-07-31 20:00] VITALS: BP 133/57
[2019-07-31] MEDS: ATORVASTATIN 20 MG TAB PO SCH (20:37)
[2019-07-31] MEDS: INSULIN LISPRO SLIDING SCALE 100 UNITS/ML VIAL SUBQ PRN (20:45)
[2019-07-31] MEDS: ACETAMINOPHEN 325 MG TAB PO PRN (20:58)
--- NOTE | 2019-07-31 21:45 | NUR ---
REMINDS Josh ACUTE DIALYSIS - PT FOR SCHEDULED HD MIGUEL ANGEL.
[2019-08-01] VITALS: BP 130/60
--- NOTE | 2019-08-01 | NUR ---
MADE ROUNDS , NO S/S OF ACUTE DISTRESS NOTED AT THIS TIME.
[2019-08-01] MEDS: VANCOMYCIN 500 MG VIAL PO SCH ×3 (00:59→11:38)
[2019-08-01 04:00] VITALS: BP 122/83
--- NOTE | 2019-08-01 06:00 | NUR ---
LATEST HGT 129 - NO INSULIN COVERAGE
[2019-08-01 07:24] LABS: BASOPHILS # (AUTO) 0.1 K/uL (0.00-0.22); BASOPHILS % (AUTO) 0.7 % (0.0-2.0); EOSINOPHILS # (AUTO) 0.4 K/uL (0-0.4); EOSINOPHILS % (AUTO) 2.8 % (0.0-4.0); HEMATOCRIT 25.1 % (36-48); LYMPHOCYTES # (AUTO) 1.7 K/uL (2.5-16.5); LYMPHOCYTES % (AUTO) 11.7 % (20.5-51.1); MEAN CORPUSCULAR HEMOGLOBIN 30 pg (27-31); MEAN CORPUSCULAR HGB CONC 32 g/dL (33-37); MEAN CORPUSCULAR VOLUME 93.9 fL (80-94); MONOCYTES # (AUTO) 1.1 K/uL (0.8-1.0); MONOCYTES % (AUTO) 7.3 % (1.7-9.3); NEUTROPHILS # (AUTO) 11.3 K/uL (1.8-7.7); NEUTROPHILS % (AUTO) 77.5 % (42.2-75.2); PLATELET COUNT (AUTO) 443 K/uL (140-450); RED BLOOD CELL COUNT(AUTO) 2.68 MIL/uL (4.20-5.40); RED CELL DISTRIBUTION WIDTH 16.3 % (11.6-13.7); WHITE BLOOD COUNT (AUTO) 14.6 K/uL (4.8-10.8)
--- NOTE | 2019-08-01 07:25 | NUR ---
RECEIVED BEDSIDE SHIFT REPORT FROM KOSHER DIETARY SERVICE SUPERVISOR NURSE FOR CONTINUATION OF CARE.
[2019-08-01 08:00] VITALS: BP 125/77
[2019-08-01] MEDS: EPOETIN ALFA 10,000 UNITS/ML VIAL IV SCH (08:27)
[2019-08-01] MEDS: cloNIDine 0.1 MG TAB PO SCH (08:28)
[2019-08-01] MEDS: amLODIPine 5 MG TAB PO SCH (08:28)
[2019-08-01] MEDS: ASPIRIN 81 MG TAB.CHEW PO SCH (08:28)
[2019-08-01] MEDS: ASCORBIC ACID 500 MG TAB PO SCH (08:29)
[2019-08-01] MEDS: LACTOBACILLUS RHAMNOSUS GG 1 EACH CAP PO SCH (08:29)
[2019-08-01] MEDS: GABAPENTIN 300 MG CAP PO SCH (08:29)
[2019-08-01] MEDS: glipiZIDE 5 MG TAB PO SCH (08:30)
[2019-08-01] MEDS: FUROSEMIDE 40 MG TAB PO SCH ×2 (08:30→17:12)
[2019-08-01] MEDS: POLYETHYLENE GLYCOL 17 GM/PKT PO SCH (08:31)
[2019-08-01] MEDS: CEFEPIME 500 MG in DEXTROSE 5% 50 ML IV SCH (09:00)
[2019-08-01] MEDS ORDERED: PHARMACY COMMENTS MC SCH (09:00)
--- NOTE | 2019-08-01 09:13 | NUR ---
TO ADMINISTER CEFEPIME AFTER HEMODIALYSIS TODAY, PER PHARMACY.
[2019-08-01 10:04] LABS: PHOSPHORUS 5.1 mg/dL (2.5-4.9)
[2019-08-01] MEDS ORDERED: VAN500I PO (10:41)
[2019-08-01 10:52] LABS: ANION GAP 15.3 (8-16); CARBON DIOXIDE 25.1 mmol/L (21-32); POTASSIUM 3.4 mmol/L (3.5-5.1)
[2019-08-01 11:04] LABS: CREATININE 4.6 mg/dL (0.6-1.3)
--- NOTE | 2019-08-01 11:30 | NUR ---
BLOOD SUGAR IS HIGH REQUIRING 2 UNITS OF INSULIN. AAOX4. DISCHARGE ORDER IN.
[2019-08-01] MEDS: BLOOD GLUCOSE MONITORING 1 DEV DEV FS SCH ×2 (11:31→17:10)
[2019-08-01] MEDS: INSULIN LISPRO SLIDING SCALE 100 UNITS/ML VIAL SUBQ PRN (11:39)
--- NOTE | 2019-08-01 13:00 | NUR ---
RESTING IN BED, TOLERATED LUNCH. DIALYSIS CURRENTLY RUNNING.
--- NOTE | 2019-08-01 15:00 | NUR ---
REPORT GIVEN TO CHERYLE SPARROW AT [facility] FOR CONTINUATION OF CARE. [facility] ETA AROUND 1700.
[2019-08-01 16:00] VITALS: BP 132/69
--- NOTE | 2019-08-01 18:00 | NUR ---
PATIENT WAS DISCHARGED FROM [facility], ALL PATIENT IDENTIFIERS REMOVED FROM PERSON, IV LINES REMOVED. DISCHARGE PAPERWORK SIGNED. BELONGINGS ACCOUNTED FOR. ALL CONCERNS ADDRESSED.
== END 2019-08-01 18:00 | DRG 871 ==
LOC: MED 10:14 → MTU 13:09
PROVIDERS: ADMIT Family Medicine; ATTEND Family Medicine
PROC: 5A1D70Z Performance of Urinary Filtration, Intermittent, Less than 6 Hours Per Day (ICD-10-PCS; principal; 2019-07-24)
PROC: 5A1D70Z Performance of Urinary Filtration, Intermittent, Less than 6 Hours Per Day (ICD-10-PCS; 2019-07-26)
PROC: 5A1D70Z Performance of Urinary Filtration, Intermittent, Less than 6 Hours Per Day (ICD-10-PCS; 2019-07-28)
PROC: 5A1D70Z Performance of Urinary Filtration, Intermittent, Less than 6 Hours Per Day (ICD-10-PCS; 2019-07-30)
PROC: 02PY33Z Removal of Infusion Device from Great Vessel, Percutaneous Approach (ICD-10-PCS; 2019-07-31)
PROC: 02H633Z Insertion of Infusion Device into Right Atrium, Percutaneous Approach (ICD-10-PCS; 2019-07-31)
PROC: B5181ZA Fluoroscopy of Superior Vena Cava using Low Osmolar Contrast, Guidance (ICD-10-PCS; 2019-07-31)
PROC: 0JH63XZ Insertion of Tunneled Vascular Access Device into Chest Subcutaneous Tissue and Fascia, Percutaneous Approach (ICD-10-PCS; 2019-07-31)
PROC: 5A1D70Z Performance of Urinary Filtration, Intermittent, Less than 6 Hours Per Day (ICD-10-PCS; 2019-08-01)
DX: A41.9 Sepsis, unspecified organism (principal); J69.0 Pneumonitis due to inhalation of food and vomit; N18.6 End stage renal disease; N17.0 Acute kidney failure with tubular necrosis; G93.41 Metabolic encephalopathy; E43 Unspecified severe protein-calorie malnutrition; I50.43 Acute on chronic combined systolic (congestive) and diastolic (congestive) heart failure; A04.72 Enterocolitis due to Clostridium difficile, not specified as recurrent; I13.2 Hypertensive heart and chronic kidney disease with heart failure and with stage 5 chronic kidney disease, or end stage renal disease; N39.0 Urinary tract infection, site not specified; Z99.2 Dependence on renal dialysis; Z68.27 Body mass index [BMI] 27.0-27.9, adult; E87.6 Hypokalemia; E83.39 Other disorders of phosphorus metabolism; D63.8 Anemia in other chronic diseases classified elsewhere; E11.22 Type 2 diabetes mellitus with diabetic chronic kidney disease; E11.51 Type 2 diabetes mellitus with diabetic peripheral angiopathy without gangrene; E78.5 Hyperlipidemia, unspecified; R65.20 Severe sepsis without septic shock; I25.10 Atherosclerotic heart disease of native coronary artery without angina pectoris; E87.8 Other disorders of electrolyte and fluid balance, not elsewhere classified; E11.42 Type 2 diabetes mellitus with diabetic polyneuropathy; L97.519 Non-pressure chronic ulcer of other part of right foot with unspecified severity; Z89.421 Acquired absence of other right toe(s); Z88.0 Allergy status to penicillin; Z89.429 Acquired absence of other toe(s), unspecified side; Z79.899 Other long term (current) drug therapy; Z79.82 Long term (current) use of aspirin
CPT/HCPCS: 20605; 36415; 70450; 71045; 71250; 80048; 80053; 80305; 81001; 82550; 82948; 83036; 83605; 83690; 83735; 83880; 84100; 84134; 84443; 84484; 85025; 85610; 85730; 87040; 87070; 87081; 87086; 87804; 90935; 93005; 94640; 96361; 96365; 96368; 97110; 97112; 97161-GP; 97530; 99285; C1750; G0480; G0482; J0692; J0885; J1644; J1815; J2001; J2250; J2997; J3010; J3370; J3490; J7030; J7060; Q0092

== ENCOUNTER 2019-10-22 10:47 | Inpatient (IN) | payer OTHER, SELFPAY ==
[~2019-10-22] VITALS: Ht 162.6 cm; Wt 68.0 kg
[~2019-10-22 10:47] MED LIST changes: -ASCO500T45 PO; +ASCO500T95 PO; +VAN500I PO
[2019-10-22 10:51] VITALS: BP 109/54
--- NOTE | 2019-10-22 10:52 | NUR ---
PT GREGORIA ALS TO ER BED 10. RN EVALUATING AT BEDSIDE.
--- NOTE | 2019-10-22 11:00 | NUR ---
GREGORIA FROM [facility] C/O SOB, AMS & FEVER. PT ARRIVED ON 10LMP NRB O2 SAT 100%. PER EMS - FACILITY REPORTED PT IS COVID +. PT APPEARS LETHARGIC AND IS VERY WARM TO TOUCH. RECTAL TEMP 103.5. NO REPSIRATORY DISTRESS NOTED AT THIS TIME. DECREASED PT TO NC 2LMP AND O2 SAT MAINTAINS 99%. NO ACCESORY MUSCLE USE NOTED. RR 20 PER MIN. PT DENIES PAIN. A&O X4. BED IN LOW POSITION, SIDE RAIL UP X1. PT PLACED ON BEDSIDE INSTRUCTOR WASTEWATER TREATMENT PLANT AT THIS TIME.
[2019-10-22] MEDS ORDERED: ACETAMINOPHEN 650 MG SUPP RC ONE ×2 (11:09→11:10)
[2019-10-22] MEDS ORDERED: NUTR887L9 PO (11:25)
[2019-10-22] MEDS ORDERED: VITA1TAB44 PO (11:25)
[2019-10-22 11:27] LABS: BASOPHILS # (AUTO) 0.1 K/uL (0.00-0.22); BASOPHILS % (AUTO) 1.1 % (0.0-2.0); EOSINOPHILS % (AUTO) 0.1 % (0.0-4.0); HEMATOCRIT 41.3 % (36-48); HEMOGLOBIN 13.4 g/dL (12.0-16.0); LYMPHOCYTES # (AUTO) 1.2 K/uL (2.5-16.5); LYMPHOCYTES % (AUTO) 16.6 % (20.5-51.1); MEAN CORPUSCULAR HEMOGLOBIN 30 pg (27-31); MEAN CORPUSCULAR HGB CONC 33 g/dL (33-37); MEAN CORPUSCULAR VOLUME 91.2 fL (80-94); MONOCYTES # (AUTO) 0.6 K/uL (0.8-1.0); MONOCYTES % (AUTO) 8.1 % (1.7-9.3); NEUTROPHILS # (AUTO) 5.3 K/uL (1.8-7.7); NEUTROPHILS % (AUTO) 74.1 % (42.2-75.2); PLATELET COUNT (AUTO) 190 K/uL (140-450); RED BLOOD CELL COUNT(AUTO) 4.52 MIL/uL (4.20-5.40); RED CELL DISTRIBUTION WIDTH 16.1 % (11.6-13.7); WHITE BLOOD COUNT (AUTO) 7.2 K/uL (4.8-10.8)
--- NOTE | 2019-10-22 11:30 | NUR ---
PT BEING EVALUATED BY DR. DELVALLE
[2019-10-22] MEDS ORDERED: LEVOFLOXACIN 750 MG/D5W PREMIX 150 ML IV ONE (11:35)
[2019-10-22] MEDS ORDERED: NACL 0.9% 1,000 ML IV ONE (11:40)
[2019-10-22 12:03] LABS: PROTHROMBIN TIME 9.6 secs (10.8-13.4)
[2019-10-22 12:11] LABS: ALBUMIN 3.1 g/dL (3.4-5.0); ANION GAP 15.2 (8-16); CARBON DIOXIDE 28.2 mmol/L (21-32); POTASSIUM 4.4 mmol/L (3.5-5.1); TOTAL BILIRUBIN 0.4 mg/dL (0.0-1.0)
[2019-10-22 12:23] LABS: C-REACTIVE PROTEIN QUANT 2.6 mg/dL (0.0-0.9)
[2019-10-22 12:28] LABS: LACTATE DEHYDROGENASE 200 U/L (81-234)
[2019-10-22] MEDS ORDERED: HYDROcodone/APAP 7.5/325 MG 1 TAB PO PRN (12:40)
[2019-10-22] MEDS ORDERED: ONDANSETRON 4 MG/2 ML VIAL IM/IVP PRN (12:40)
[2019-10-22] MEDS ORDERED: DOCUSATE SODIUM 100 MG GELCAP PO PRN (12:40)
--- NOTE | 2019-10-22 13:00 | NUR ---
PT ASLEEP IN BED, AROUSABLE TO VERBAL STIMULI. VSS. NO NEW NEEDS AT THIS TIME
[2019-10-22 13:11] LABS: APPEARANCE,URINE HAZY (CLEAR); BILIRUBIN,URINE NEGATIVE (NEGATIVE); BLOOD, URINE 3+ (NEGATIVE); COLOR,URINE YELLOW (YELLOW); LEUKOCYTE ESTERASE ,URINE NEGATIVE (NEGATIVE); NITRITE, URINE NEGATIVE (NEGATIVE); UGLUCOSE 2+ (NEGATIVE)
[2019-10-22 13:24] LABS: BARBITURATE, URINE NEGATIVE ng/ml (NEG <=200); BENZODIAZEPINE, URINE NEGATIVE ng/mL (NEG <=200); CANNABINOID, URINE NEGATIVE ng/mL (NEG <=50); COCAINE, URINE NEGATIVE ng/mL (NEG <=300); OPIATE, URINE POSITIVE ng/mL (NEG <=2000); PHENCYCLIDINE SCREEN,URINE NEGATIVE ng/mL (NEG <=25)
[2019-10-22] MEDS ORDERED: ALBUTEROL HFA MDI 90 MCG/ACTUATION 8 GM INH PRN (14:10)
[2019-10-22] MEDS: NACL 0.9% 1,000 ML IV SCH (14:10)
--- NOTE | 2019-10-22 14:15 | NUR ---
PT ASLEEP, AROUSABLE TO VERBAL STIMULI, DENIES PAIN.
[2019-10-22 14:17] LABS: RBC,URINE 20-50 /HPF (0-5); WBC,URINE 0-5 /HPF (0-5)
[2019-10-22 14:22] LABS: CHOL/HDL RATIO 3.9 (1-4.5); FREE T4 (FREE THYROXINE) 1.07 ng/dL (0.76-1.46); THYROID STIMULATING HORMONE 0.74 uIU/mL (0.34-3.74)
[2019-10-22 14:26] LABS: MAGNESIUM 2.5 mg/dL (1.8-2.4); PHOSPHORUS 4.4 mg/dL (2.5-4.9)
[2019-10-22] MEDS ORDERED: DEXTROSE 50% 50 ML SYR IVP PRN (14:50)
--- NOTE | 2019-10-22 16:20 | NUR ---
PT RESTING IN BED, NO NEW NEEDS AT THIS TIME.
[2019-10-22] MEDS: BLOOD GLUCOSE MONITORING 1 DEV DEV FS SCH ×2 (16:30→21:00)
--- NOTE | 2019-10-22 17:20 | NUR ---
MRSA SWAB COLLECTED AND HANDED TO LAB
--- NOTE | 2019-10-22 17:40 | NUR ---
RECEIVED PATIENT FROM ER NURSE VIA DEZ. PATIENT ADMITTED ON DROPLET PRECAUTIONPATIENT IS AWAKE AND ALERT. RESP EVEN AND UNLABORED ON 2L NC. PATIENT IS BAHRAINI SPEAKING ONLY. PATIENT AOX4. DENIES OF PAIN AT THIS TIME. INITIAL VITAL 99.1 84 20 100/54 95%. PATIENT HAS A RFA 20 WITH NS 60ML/HR, ALSO A RIGHT UPPER CHEST TUNNELED CATHETER FOR DIALYSIS. RECEIVED ORDER FOR HD. WILL OBTAIN CONSENT. SKIN IS INTACT. CALL LIGHT WITHIN REACH. WILL CONTINUE WITH CARE.
--- NOTE | 2019-10-22 17:42 | NUR ---
APatient will be admitted to care of DR. FRAUSTO. Admited to TELEMETRY. Will go to room . Belongings list completed. Report to CHERYLE HERNANDEZ.
--- NOTE | 2019-10-22 18:00 | NUR ---
CONSENT OBTAINED VIA TELEPHONE BY SKINNY CATHERINE. VERIFIED WITH 2 RNS. HD STARTED.
--- NOTE | 2019-10-22 19:20 | NUR ---
RECEIVED ENDORSEMENT FROM AM SHIFT RN. PATIENT IS CURRENTLY ON DIALYSIS. ABLE TO MAKE NEEDS KNOWN. ON 02 AT 2LPM VIA NASAL CANNULA. WITH SAT OF 95%. NO SOB. DENIES PAIN. WITH RFA 20G. INTACT. ASSESSMENT DONE. RIGHT TUNNELLED CATH FOR HD ACCESS NOTED. DROPLET ISOLATION PRECAUTION OBSERVED AT ALL TIMES. TELE MONITOR ATTACHED. PLAN OF CARE WAS DISCUSSED. CALL LIGHT WITHIN REACH. WILL CONTINUE TO MONITOR.
--- NOTE | 2019-10-22 19:25 | NUR ---
ENDORSED PATIENT TO NIGHT NURSE. PATIENT IN STABLE CONDITION.
[2019-10-22] MEDS: ACETAMINOPHEN 325 MG TAB PO PRN (19:37)
--- NOTE | 2019-10-22 19:37 | NUR ---
PATIENT TEMP 102.1. PATIENT SHIVERING. ADDED BLANKET. TYLENOL 650MG PO GIVEN ORDERED. CON'T. ON HEMODIALYSIS.
[2019-10-22 20:00] VITALS: BP 102/50
[2019-10-22] MEDS: cloNIDine 0.1 MG TAB PO SCH (21:00)
--- NOTE | 2019-10-22 21:00 | NUR ---
DIALYSIS WAS FINISHED. DUE MEDS GIVEN ORDERED. CATAPRES 0.1MG NOT GIVEN DUE TO LOW DIASTOLIC. BP IS 132/56. HR 86. TEMP 99.9. BLOOD SUGAR IS 176. INSULIN NOT GIVEN. PATIENT REFUSED INSULIN WELL. PATIENT DID NOT EAT DINNER. WILL CONTINUE TO MONITOR.
--- NOTE | 2019-10-22 21:10 | NUR ---
HEMODIALYSIS OUTPUT IS 1200ML.
[2019-10-22] MEDS: FERROUS SULFATE 325 MG TABEC PO SCH (21:27)
[2019-10-22] MEDS: FUROSEMIDE 40 MG TAB PO SCH (21:32)
[2019-10-22] MEDS: ATORVASTATIN 20 MG TAB PO SCH (21:39)
[2019-10-23] VITALS: BP 147/54
--- NOTE | 2019-10-23 00:02 | NUR ---
VITAL SIGNS TAKEN AND RECORDED. PATIENT IS AFEBRILE 98.5. NO SOB. CALL LIGHT WITHIN REACH. WILL CONTINUE TO MONITOR.
--- NOTE | 2019-10-23 02:00 | NUR ---
RECEIVED A CALL FROM [employer] [facility]. INFORMED THAT PATIENT IS COVID 19 (+). INFORMED RESIDENT DR. LEGER. CON'T ON DROPLET ISOLATION.
[2019-10-23 04:00] VITALS: BP 141/64
[2019-10-23] MEDS: NACL 0.9% 1,000 ML IV SCH ×2 (05:18→21:58)
[2019-10-23] MEDS: BLOOD GLUCOSE MONITORING 1 DEV DEV FS SCH ×4 (06:18→21:33)
[2019-10-23] MEDS: glipiZIDE 5 MG TAB PO SCH (06:51)
--- NOTE | 2019-10-23 07:15 | NUR ---
ENDORSED PATIENT TO AM SHIFT RN FOR CONTINUITY OF CARE.
--- NOTE | 2019-10-23 07:20 | NUR ---
RECEIVED PATIENT FROM BUSINESS INTELLIGENCE DIRECTOR NURSE. PT IS CURRENTLY LAYING IN BED AT THIS TIME. RESPIRATIONS ARE EVEN AND UNLABORED ON 2L WITH NO SIGNS OF DISTRESS NOTED. SKIN IS INTACT WITH IV PATENT ASYMPTOMATIC AND INFUSING PER ORDER. BED IS IN LOW, SEMI FOWLERS POSITION, SAFETY MEASURES IN PLACE AND WILL CONTINUE TO MONITOR.
[2019-10-23 08:00] VITALS: BP 146/62
[2019-10-23 08:07] LABS: ALBUMIN 2.7 g/dL (3.4-5.0); ANION GAP 13.4 (8-16); CREATININE 3.5 mg/dL (0.6-1.3); POTASSIUM 3.4 mmol/L (3.5-5.1); TOTAL BILIRUBIN 0.3 mg/dL (0.0-1.0)
[2019-10-23 08:08] LABS: BASOPHILS % (AUTO) 0.3 % (0.0-2.0); HEMATOCRIT 39.3 % (36-48); HEMOGLOBIN 12.6 g/dL (12.0-16.0); LYMPHOCYTES # (AUTO) 1.5 K/uL (2.5-16.5); LYMPHOCYTES % (AUTO) 15.5 % (20.5-51.1); MEAN CORPUSCULAR HEMOGLOBIN 30 pg (27-31); MEAN CORPUSCULAR HGB CONC 32 g/dL (33-37); MEAN CORPUSCULAR VOLUME 91.6 fL (80-94); MONOCYTES # (AUTO) 0.5 K/uL (0.8-1.0); MONOCYTES % (AUTO) 5.5 % (1.7-9.3); NEUTROPHILS # (AUTO) 7.7 K/uL (1.8-7.7); NEUTROPHILS % (AUTO) 78.7 % (42.2-75.2); PLATELET COUNT (AUTO) 152 K/uL (140-450); RED BLOOD CELL COUNT(AUTO) 4.29 MIL/uL (4.20-5.40); RED CELL DISTRIBUTION WIDTH 16.2 % (11.6-13.7); WHITE BLOOD COUNT (AUTO) 9.8 K/uL (4.8-10.8)
[2019-10-23 08:18] LABS: T4 (THYROXINE) 6.4 ug/dL (4.5-12.0)
[2019-10-23] MEDS: ASPIRIN 81 MG TAB.CHEW PO SCH (08:49)
[2019-10-23] MEDS: FERROUS SULFATE 325 MG TABEC PO SCH ×2 (08:50→21:34)
[2019-10-23] MEDS: amLODIPine 5 MG TAB PO SCH (08:50)
[2019-10-23] MEDS: FUROSEMIDE 40 MG TAB PO SCH ×2 (08:51→17:13)
[2019-10-23] MEDS: ZINC SULF 220 MG CAP PO SCH (08:51)
[2019-10-23] MEDS: ASCORBIC ACID 500 MG TAB PO SCH (08:51)
[2019-10-23] MEDS: GABAPENTIN 300 MG CAP PO SCH (08:52)
[2019-10-23] MEDS: DEXAMETHASONE 4 MG TAB PO SCH (08:52)
[2019-10-23] MEDS ORDERED: DEXAMETHASONE 4 MG/ML VIAL IVP SCH (09:00)
[2019-10-23] MEDS ORDERED: AZITHROMYCIN 250 MG TAB PO SCH (09:00)
[2019-10-23] MEDS: cloNIDine 0.1 MG TAB PO SCH ×2 (09:11→21:34)
--- NOTE | 2019-10-23 09:20 | NUR ---
ADMINISTERED MEDICATIONS PER ORDER AND TOLERATED WELL. PT STATED THAT SHE IS IN NO PAIN AT THIS TIME. SAFETY MEASURES IN PLACE AND WILL CONTINUE TO MONITOR.
--- NOTE | 2019-10-23 09:26 | NUR ---
PATIENT HAS BEEN SCREENED AND CATEGORIZED HIGH NUTRITION RISK. PATIENT WILL BE SEEN WITHIN 1-2 DAYS OF ADMISSION. 10/23/19-10/24/[address]
--- NOTE | 2019-10-23 09:40 | NUR ---
PTS FAMILY MEMBER CALLED FOR STATUS UPDATE ON PATIENT. WILL ATTEMPT TO CALL FROM PTS ROOM.
--- NOTE | 2019-10-23 11:10 | NUR ---
PT BLOOD GLUCOSE IS CURRENTLY 275 THEREFORE INSULIN COVERAGE IS NEEDED. PT REFUSED INSULIN SHE STATED THAT SHE IS ALLERGIC AND MAKES HER BODY ITCHY. NO OTHER CONCERNS AT THIS TIME. SAFETY MEASURES IN PLACE AND WILL CONTINUE TO MONITOR. Addendum: 10/23/19 at 1153 by Ella Yeh RN BLOOD GLUCOSE IS 249
[2019-10-23 12:00] VITALS: BP 158/56
--- NOTE | 2019-10-23 13:10 | NUR ---
10/23/19 RD INITIAL ASSESSMENT COMPLETED PLEASE REFER TO NUTRITION ASSESSMENT UNDER CARE ACTIVITY FOR ESTIMATED NUTRITIONAL NEEDS. 1. RECOMMEND RENAL, CCHO 60GM MECHANICAL SOFT DIET 2. RECOMMEND NEPRO BID 3. CONTINUE VITAMIN C AND ZINC FOR WOUND HEALING 4. RD TO FOLLOW-UP 3-5 DAYS, MODERATE RISK OLMAN QUINONES, FAUSTINO
--- NOTE | 2019-10-23 13:50 | NUR ---
PT IS CURRENTLY SITTING UP IN BED WITH NO SIGNS OF DISTRESS OR COMPLAINTS OF PAIN AT THIS TIME. SAFETY MEASURES IN PLACE AND WILL CONTINUE TO MONITOR.
--- NOTE | 2019-10-23 15:31 | NUR ---
PT IS CURRENTLY BEING CHANGED BY TEAM PSYCHOLOGIST WITH NO SIGNS OF DISTRESS AT THIS TIME. PT DOES NOT COMPLAIN OF ANY PAIN AND IS TOLERATING WELL. SAFETY MEASURES IN PLACE AND WILL CONTINUE TO MONITOR.
--- NOTE | 2019-10-23 15:50 | NUR ---
DC [age] YRS OLD FEMALE PATIENT WAS ADMITTED FROM [facility] WITH A DX OF SOB, FEVER AND COVID-19 . PT HAS A HX OF ESRD ON HD W-F AND SAT , HTN, HLD AND RIGHT FOOT ULCER S/P DEBRIDEMENT. CXR SHOWED LOW LUNG VOLUMES WITH LEFT BASILAR SUBSEGMENTAL ATELECTASIS . STARTED IVF, IV ABX ROCEPHIN AND AZITHROMYCIN, DECADRON ,AND RT PROTOCOL. COVID TEST POSITIVE, BLOOD AND URINE CULTURE PENDING. CONSULTED WITH CARDIO, NEPHRO, PULMO AND ID. DC PLAN TO GO BACK TO [facility] WHEN STABLE . Addendum: 10/27/19 at 1103 by Tanya Mendez CM FAXED PATIENTS CLINICALS TO [facility] WILL FOLLOW UP Addendum: 10/27/19 at 1127 by Tanya Mendez CM FOLLOWED UP WITH MAXIMO AT [facility] SHE IS REVIEWING THE PACKET AND WILL CONTACT ME BACK WITH A ROOM NUMBER. Addendum: 10/27/19 at 1225 by Tanya Mendez CM MAXIMO CALLED BACK AND PROVIDED ROOM NUMER [address] CYNDI TRIVEDI. MAXIMO STATED THAT WE CAN BILL [facility] FOR TRANSPORTATION Addendum: 10/27/19 at 1235 by Tanya Mendez CM SPOKE TO SADI WITH [facility]SP[facility]. TRANSPORTATION WILL BE SET FOR 4:30-4:45 CASE FOLDER TIME. Addendum: 10/27/19 at 1239 by Tanya Mendez CM NOTIFIED MAXIMO AT [facility] OF CASE FOLDER TIME AND CHERYLE HARKINS. CALLED FAMILY TO DISCUSS DISCHARGE AND RIGHTS OF MEDICARE SPOKE WITH SKINNY CATHERINE [phone].
[2019-10-23 16:00] VITALS: BP 151/65
[2019-10-23] MEDS: INSULIN LISPRO SLIDING SCALE 100 UNITS/ML VIAL SUBQ PRN ×2 (17:51→21:36)
--- NOTE | 2019-10-23 17:55 | NUR ---
ADMINISTERED MEDICATIONS PER ORDER AND TOLERATED WELL. BLOOD GLUCOSE IS 343 THEREFORE 8 UNITS OF INSULIN IS NEEDED. PT AGREED TO RECEIVE INSULIN. CALLED PTS SISTER USING PTS PHONE IN ROOM. PT IS CURRENTLY SPEAKING TO HER AND IN NO SIGNS OF DISTRESS. SAFETY MEASURES IN PLACE AND WILL CONTINUE TO MONITOR.
--- NOTE | 2019-10-23 18:38 | NUR ---
PT IS CURRENTLY EATING DINNER AT BEDSIDE WITH NO DIFFICULTIES. SAFETY MEASURES IN PLACE AND WILL ENDORSE TO OPTICAL FABRICATOR NURSE FOR CONTINUITY OF CARE.
--- NOTE | 2019-10-23 19:15 | NUR ---
RECEIVED PATIENT IN STABLE CONDITION FROM AM SHIFT NURSE FOR CONTINUITY OF CARE. RESPIRATIONS EVEN, UNLABORED. CONTINUES ON O2 2L VIA NC, O2SAT 99%. SKIN WARM, DRY. IV SITE TO RIGHT FOREARM 20G PATENT/INTACT, INFUSING FLUIDS WELL. NO C/O PAIN. NO S/S ACUTE DISTRESS. ISOLATION PRECAUTIONS IN PLACE. CALL LIGHT WITHIN REACH.
[2019-10-23 20:00] VITALS: BP 119/58
[2019-10-23] MEDS ORDERED: hePARIN / DEXT 5% PREMIX 250 ML IV SCH (20:00)
[2019-10-23] MEDS ORDERED: HEPARIN PER PHARMACY MC PRN (20:00)
--- NOTE | 2019-10-23 21:00 | NUR ---
PATIENT ACCIDENTLY PULLED OUT IV. RESTARTED IV TO RIGHT HAND 22G USING ASEPTIC TECHNIQUE. GOOD BLOOD RETURN. NO S/S DISCOMFORT TO PATIENT. IV FLUIDS RESTARTED AND INFUSING WELL.
[2019-10-23] MEDS: ATORVASTATIN 20 MG TAB PO SCH (21:34)
--- NOTE | 2019-10-23 23:15 | NUR ---
PATIENT RESTING COMFORTABLY IN BED. NO C/O PAIN. NO S/S ACUTE DISTRESS. CALL LIGHT WITHIN REACH. ISOLATION PRECAUTIONS OBSERVED.
[2019-10-24] VITALS: BP 122/55
--- NOTE | 2019-10-24 02:56 | NUR ---
PATIENT ASLEEP. NO S/S ACUTE DISTRESS. CALL LIGHT WITHIN REACH. SAFETY PRECAUTIONS IN PLACE. ISOLATION PRECAUTIONS OBSERVED.
[2019-10-24 04:00] VITALS: BP 136/57
[2019-10-24] MEDS: NACL 0.9% 1,000 ML IV SCH ×2 (04:31→21:54)
[2019-10-24] MEDS: BLOOD GLUCOSE MONITORING 1 DEV DEV FS SCH ×4 (06:37→21:48)
[2019-10-24] MEDS: INSULIN LISPRO SLIDING SCALE 100 UNITS/ML VIAL SUBQ PRN ×3 (06:38→21:57)
--- NOTE | 2019-10-24 06:51 | NUR ---
MADE ROUND, PATIENT IN STABLE CONDITION. NO COMPLIANT OF PAIN. NO S/S OF DISTRESS. CALL LIGHT WITHIN REACH. SAFETY PRECAUTIONS INITIATED.
--- NOTE | 2019-10-24 07:27 | NUR ---
RECEIVED BEDSIDE SHIFT REPORT FROM TRIAGE LICENSED PRACTICAL NURSE NURSE FOR CONTINUATION OF CARE.
[2019-10-24 08:00] VITALS: BP 124/62
[2019-10-24 08:00] LABS: BASOPHILS % (AUTO) 0.2 % (0.0-2.0); HEMATOCRIT 40.2 % (36-48); HEMOGLOBIN 13.2 g/dL (12.0-16.0); LYMPHOCYTES # (AUTO) 0.7 K/uL (2.5-16.5); LYMPHOCYTES % (AUTO) 8.3 % (20.5-51.1); MEAN CORPUSCULAR HEMOGLOBIN 30 pg (27-31); MEAN CORPUSCULAR HGB CONC 33 g/dL (33-37); MEAN CORPUSCULAR VOLUME 90.9 fL (80-94); MONOCYTES # (AUTO) 0.3 K/uL (0.8-1.0); MONOCYTES % (AUTO) 3.3 % (1.7-9.3); NEUTROPHILS # (AUTO) 6.9 K/uL (1.8-7.7); NEUTROPHILS % (AUTO) 88.2 % (42.2-75.2); PLATELET COUNT (AUTO) 175 K/uL (140-450); RED BLOOD CELL COUNT(AUTO) 4.43 MIL/uL (4.20-5.40); RED CELL DISTRIBUTION WIDTH 15.8 % (11.6-13.7); WHITE BLOOD COUNT (AUTO) 7.8 K/uL (4.8-10.8)
[2019-10-24 08:10] LABS: ALBUMIN 2.7 g/dL (3.4-5.0); ANION GAP 16.7 (8-16); CARBON DIOXIDE 22.8 mmol/L (21-32); CREATININE 3.7 mg/dL (0.6-1.3); POTASSIUM 3.5 mmol/L (3.5-5.1); TOTAL BILIRUBIN 0.2 mg/dL (0.0-1.0)
[2019-10-24] MEDS: glipiZIDE 5 MG TAB PO SCH (08:23)
[2019-10-24] MEDS: ASPIRIN 81 MG TAB.CHEW PO SCH (08:24)
[2019-10-24] MEDS: FERROUS SULFATE 325 MG TABEC PO SCH ×2 (08:25→21:32)
[2019-10-24] MEDS: cloNIDine 0.1 MG TAB PO SCH ×2 (08:25→21:31)
[2019-10-24] MEDS: DEXAMETHASONE 4 MG TAB PO SCH (08:25)
[2019-10-24] MEDS: amLODIPine 5 MG TAB PO SCH (08:27)
[2019-10-24] MEDS: FUROSEMIDE 40 MG TAB PO SCH ×2 (08:27→16:56)
[2019-10-24] MEDS: GABAPENTIN 300 MG CAP PO SCH (08:27)
[2019-10-24] MEDS: ZINC SULF 220 MG CAP PO SCH (08:27)
[2019-10-24] MEDS: ASCORBIC ACID 500 MG TAB PO SCH (08:27)
--- NOTE | 2019-10-24 09:15 | NUR ---
BREAKFAST TOLERATED WELL, MEDICATION ADMINISTERED, DENIES PAIN, AFEBRILE. EDUCATED ON THE CALL LIGHT, VERBALIZED UNDERSTANDING. WILL CONTINUE TO MONITOR.
--- NOTE | 2019-10-24 11:07 | NUR ---
SLEEPING IN BED, SPO2 99% ON 2L O2 NC. OBSERVED CHEST RISE AND FALL
[2019-10-24 12:00] VITALS: BP 143/60
[2019-10-24 16:00] VITALS: BP 118/49
--- NOTE | 2019-10-24 16:22 | NUR ---
1.6 L REMOVED DURING DIALYSIS. TOLERATED WELL.
--- NOTE | 2019-10-24 19:24 | NUR ---
BEDSIDE SHIFT REPORT GIVEN TO EMPLOYMENT SERVICES DIRECTOR NURSE FOR CONTINUATION OF CARE.
--- NOTE | 2019-10-24 19:25 | NUR ---
RECEIVED PATIENT IN STABLE CONDITION FROM AM SHIFT NURSE FOR CONTINUITY OF CARE. RESPIRATIONS EVEN, UNLABORED O2SAT 98%. WITH 2LPM O2 VIA NASAL CANNULA. SKIN WARM, DRY. IV SITE TO RIGHT FOREARM 20G PATENT/INTACT, INFUSING NS AT 60 ML/ HR . PATENT. NO C/O PAIN. NO S/S ACUTE DISTRESS. ISOLATION PRECAUTIONS IN PLACE. CALL LIGHT WITHIN REACH.
[2019-10-24 20:00] VITALS: BP 156/69
[2019-10-24] MEDS ORDERED: VANCOMYCIN PER PHARMACY MC PRN (21:00)
[2019-10-24] MEDS ORDERED: VANCOMYCIN HCL 1,250 MG in NACL 0.9% 250 ML IV SCH (21:10)
[2019-10-24] MEDS: ATORVASTATIN 20 MG TAB PO SCH (21:32)
--- NOTE | 2019-10-24 21:49 | NUR ---
INFORMED DR. CANDELARIA THAT BS IS 419, HE ORDERED TO GIVE 12 UNITS OF HUMALOG
[2019-10-25] VITALS: BP 143/72
--- NOTE | 2019-10-25 01:00 | NUR ---
CONSENT FOR PLASMA SIGNED BY PATIENT AND COUNTERSIGNED BY DR. CANDELARIA. AND BEDSIDE NURSE EXPLAINED THE RISKS AND BENEFITS. PLASMA CONVALESCENCE FROM [facility] FORM SIGNED BY PATIENT. ATTACHED TO CHART
--- NOTE | 2019-10-25 02:00 | NUR ---
INSERTED A NEW SITE ON THE R G 22, APETENT AND INTACT, WILL USE FOR THE CONVALESCENCE PLASMA TRANSFUSION
--- NOTE | 2019-10-25 02:51 | NUR ---
W/ LEFT TUNNELED CATHETER FOR DIALYSIS, INTACT W/ DRESSING IN PLACE
--- NOTE | 2019-10-25 03:45 | NUR ---
PRE-VITAL SIGNS TAKEN- WITHIN NORMAL LIMITS
--- NOTE | 2019-10-25 04:00 | NUR ---
STARTED THE PLASMA NOW AT 0400 AM, BEFORE GIVING 2 NURSES TO VERIFY THE PLASMA UNIT AND THE PATIENT IDENTIFIERS AND THE INFO OF THE BAG.
--- NOTE | 2019-10-25 04:15 | NUR ---
STAYED WITH PATIENT AND OBSERVED FOR BLOOD REACTION, NONE NOTED
--- NOTE | 2019-10-25 04:30 | NUR ---
FINISHED BLOOD AT 0430 AM, VITAL SIGNS ARE WNL, NO REACTIONS NOTED
--- NOTE | 2019-10-25 04:45 | NUR ---
POST TRANSFUSION AT THIS TIME, NO REACTIONS NOTED
[2019-10-25] MEDS: BLOOD GLUCOSE MONITORING 1 DEV DEV FS SCH ×4 (05:49→21:43)
[2019-10-25] MEDS: INSULIN LISPRO SLIDING SCALE 100 UNITS/ML VIAL SUBQ PRN ×3 (05:57→22:54)
[2019-10-25 06:00] VITALS: BP 130/60
[2019-10-25] MEDS: glipiZIDE 5 MG TAB PO SCH (06:29)
[2019-10-25 07:11] LABS: ALBUMIN 2.5 g/dL (3.4-5.0); ANION GAP 16.6 (8-16); CARBON DIOXIDE 25.5 mmol/L (21-32); CREATININE 3.1 mg/dL (0.6-1.3); POTASSIUM 4.1 mmol/L (3.5-5.1); TOTAL BILIRUBIN 0.3 mg/dL (0.0-1.0)
[2019-10-25 07:17] LABS: BASOPHILS % (AUTO) 0.4 % (0.0-2.0); HEMATOCRIT 39.5 % (36-48); HEMOGLOBIN 12.9 g/dL (12.0-16.0); LYMPHOCYTES # (AUTO) 0.8 K/uL (2.5-16.5); LYMPHOCYTES % (AUTO) 6.3 % (20.5-51.1); MEAN CORPUSCULAR HEMOGLOBIN 29 pg (27-31); MEAN CORPUSCULAR HGB CONC 33 g/dL (33-37); MEAN CORPUSCULAR VOLUME 89.8 fL (80-94); MONOCYTES # (AUTO) 0.5 K/uL (0.8-1.0); MONOCYTES % (AUTO) 4.1 % (1.7-9.3); NEUTROPHILS % (AUTO) 89.2 % (42.2-75.2); PLATELET COUNT (AUTO) 186 K/uL (140-450); RED CELL DISTRIBUTION WIDTH 15.9 % (11.6-13.7); WHITE BLOOD COUNT (AUTO) 12.3 K/uL (4.8-10.8)
--- NOTE | 2019-10-25 07:20 | NUR ---
RECEIVED PATIENT FROM HAIRSPRING FABRICATION SUPERVISOR NURSE. PT IS CURRENTLY SLEEPING IN BED. RESPIRATIONS ARE EVEN AND UNLABORED ON 2L NASAL CANNULA WITH NO SIGNS OF DISTRESS. SKIN IS INTACT WITH IV ASYMPTOMATIC PATENT AND INFUSING PER ORDER. BED IS IN LOW SEMI-FOWLERS POSITION, SAFETY MEASURES IN PLACE AND WILL CONTINUE TO MONITOR.
[2019-10-25 08:00] VITALS: BP 145/79
[2019-10-25] MEDS: GABAPENTIN 300 MG CAP PO SCH (09:06)
[2019-10-25] MEDS: FUROSEMIDE 40 MG TAB PO SCH ×2 (09:06→16:49)
[2019-10-25] MEDS: FERROUS SULFATE 325 MG TABEC PO SCH ×2 (09:07→21:25)
[2019-10-25] MEDS: ASCORBIC ACID 500 MG TAB PO SCH (09:07)
[2019-10-25] MEDS: amLODIPine 5 MG TAB PO SCH (09:07)
[2019-10-25] MEDS: ASPIRIN 81 MG TAB.CHEW PO SCH (09:07)
[2019-10-25] MEDS: ZINC SULF 220 MG CAP PO SCH (09:07)
[2019-10-25] MEDS: DEXAMETHASONE 4 MG TAB PO SCH (09:08)
--- NOTE | 2019-10-25 09:18 | NUR ---
ADMINISTERED MEDICATIONS PER ORDER AND TOLERATED WELL. PT IS CURRENTLY SITTING I BED WITH NO SIGNS OF DISTRESS. TV WAS TURNED ON AND BREAKFAST IS AT BEDSIDE.
[2019-10-25] MEDS: cloNIDine 0.1 MG TAB PO SCH ×2 (09:22→21:25)
[2019-10-25] MEDS ORDERED: VANCOMYCIN HCL 1.25 GM in NACL 0.9% 250 ML IV SCH (11:00)
--- NOTE | 2019-10-25 11:00 | NUR ---
BP IS WITHIN NORMAL RANGE. PT IS CURRENTLY BEING CHANGED BY [employer] MILLER. SAFETY MEASURES IN PLACE AND WILL CONTINUE TO MONITOR.
[2019-10-25 12:00] VITALS: BP 116/44
--- NOTE | 2019-10-25 12:20 | NUR ---
ADMINISTERED MEDICATIONS PER ORDER AND TOLERATED WELL. PT IS CURRENTLY SLEEPING AND WOKE UP TO VITAL SIGNS. PT DOES NOT COMPLAIN OF PAIN AT THIS TIME. SAFETY MEASURES IN PLACE AND WILL CONTINUE TO MONITOR.
--- NOTE | 2019-10-25 13:27 | NUR ---
PT LUNCH IS AT BEDSIDE. PT DOES NOT COMPLAIN OF ANY PAIN AT THIS TIME. SAFETY MEASURES IN PLACE AND WILL CONTINUE TO MONITOR.
--- NOTE | 2019-10-25 15:19 | NUR ---
PT IS CURRENTLY SLEEPING WITH NO SIGNS OF DISTRESS AT THIS TIME. SAFETY MEASURES IN PLACE AND WILL CONTINUE TO MONITOR.
[2019-10-25] MEDS ORDERED: AZITHROMYCIN 250 MG TAB PO SCH (15:50)
[2019-10-25 16:00] VITALS: BP 132/74
--- NOTE | 2019-10-25 16:50 | NUR ---
PT BLOOD SUGAR IS 576. DR. TREVIÑO STATED TO GIVE PT 15 UNITS OF HUMALOG. WILL RECHECK BLOOD SUGAR IN ONR HOUR. SAFETY MEASURES IN PLACE AND WILL CONTINUE TO MONITOR.
--- NOTE | 2019-10-25 17:40 | NUR ---
PT IS CURRENTLY LAYING IN BED WITH NO SIGNS OF DISTRESS AT THIS TIME. RN PROGRESSIVE CARE UNIT IS CHANGING PATIENT AND PATIENT IS TOLERATING WELL. SAFETY MEASURES IN PLACE AND WILL CONTINUE TO MONITOR.
--- NOTE | 2019-10-25 18:43 | NUR ---
PT IS CURRENTLY SITTING UP IN BED AWAKE WITH DINNER AT BEDSIDE. SAFETY MEASURES IN PLACE AND WILL CONTINUE TO MONITOR. WILL ENDORSE TO PLUMBER'S ASSISTANT NURSE FOR CONTINUITY OF CARE.
--- NOTE | 2019-10-25 19:10 | NUR ---
RECEIVED BEDSIDE SHIFT REPORT FROM DAYSHIFT NURSE FOR CONTINUITY OF CARE. PATIENT AWAKE IN BED WATCHING TV. NO SIGNS OF DISTRESS NOTED. RESPIRATIONS EVEN AND UNLABORED ON 2L O2 VIA NC. IV INTACT AND INFUSING WITHOUT DIFFICULTY, ALL MONITORS ATTACHED WILL CONTINUE TO MONITOR
[2019-10-25 20:00] VITALS: BP 129/61
--- NOTE | 2019-10-25 21:23 | NUR ---
ADMINISTERED 2100 MEDICATION WITH THE EXCEPTION OF CHECKING BLOOD GLUCOSE BECAUSE A GLUCOMETER IS NOT CURRENTLY AVAILABLE. WILL ASSESS IT SHORTLY
[2019-10-25] MEDS: ATORVASTATIN 20 MG TAB PO SCH (21:25)
--- NOTE | 2019-10-25 21:47 | NUR ---
OBTAINED BEDSIDE BLOOD GLUCOSE READING OF [address] CANDELARIA. I GAVE HIM THE CURRENT BS READING OF 564 I EXPLAINED THE PRIOR BS AT 1400 WAS 576 AND 15 UNITS OF INSULIN WERE ADMINISTERED. PER MD ADMINISTER 20 UNITS OF HUMULOG TO PATIENT AND REASSESS BS 1HR AFTER ADMINISTRATION
--- NOTE | 2019-10-25 22:55 | NUR ---
REASSESSED BP AND HR FOR CLONIDINE. AND ADMINISTERED 20 UNITS OF HUMOLOG PER MD REQUEST. WILL REASSESS BS IN 1HOUR
[2019-10-25] MEDS: NACL 0.9% 1,000 ML IV SCH (23:58)
[2019-10-26] VITALS: BP 134/57
--- NOTE | 2019-10-26 | NUR ---
REASSESSED PATIENTS BEDSIDE BLOOD GLUCOSE. OBTAINED A NEW READING OF 497 AFTER 20 UNITS OF INSULIN ADMINISTERED. WILL RELAY UPDATED VALUE TO MD.
--- NOTE | 2019-10-26 00:30 | NUR ---
SPOKE WITH RESIDENT MD. CANDELARIA. HE REASSESSED THE PATIENT AND INFORMED HER THAT ADDITIONAL INSULIN COVERAGE WILL BE REQUIRED TO DECREASE BLOOD SUGAR. HE ALSO EXPLAINED TO PATIENT THAT SHE IS UNABLE TO CONTINUE WITH NORMAL HOME MEDICATION AT THIS TIME DUE TO ELEVATED CREATININE. HE EXPLAINED INSULIN MANAGEMENT IS CRUCIAL. PATIENT AGREED. WILL ADMINISTER 15 UNITS PER MD REQUEST
[2019-10-26] MEDS: INSULIN LISPRO SLIDING SCALE 100 UNITS/ML VIAL SUBQ PRN ×4 (00:50→22:44)
--- NOTE | 2019-10-26 01:15 | NUR ---
AFTER BOTH MYSELF AND MD DISCUSSING INSULIN WITH PATIENT. PATIENT AGREED TO HAVE INSULIN ADMINISTERED. PATIENT TOLERATED WELL WILL CONTINUE TO MONITOR
--- NOTE | 2019-10-26 02:15 | NUR ---
REASSESSED BS. CURRENT READING 300. EXPLAINED I WILL REASSESS IN AM
[2019-10-26 04:00] VITALS: BP 126/67
--- NOTE | 2019-10-26 04:52 | NUR ---
OBTAINED AM VITALS AND AM BS. BLOOD SUGAR READING WAS 132 NO COVERAGE REQUIRED WILL CONTINUE TO MONITOR
[2019-10-26] MEDS: BLOOD GLUCOSE MONITORING 1 DEV DEV FS SCH ×4 (06:14→21:00)
[2019-10-26 07:22] LABS: BASOPHILS % (AUTO) 0.1 % (0.0-2.0); HEMATOCRIT 39.9 % (36-48); LYMPHOCYTES # (AUTO) 0.7 K/uL (2.5-16.5); LYMPHOCYTES % (AUTO) 7.3 % (20.5-51.1); MEAN CORPUSCULAR HEMOGLOBIN 29 pg (27-31); MEAN CORPUSCULAR HGB CONC 33 g/dL (33-37); MEAN CORPUSCULAR VOLUME 90.2 fL (80-94); MONOCYTES # (AUTO) 0.5 K/uL (0.8-1.0); MONOCYTES % (AUTO) 5.7 % (1.7-9.3); NEUTROPHILS # (AUTO) 8.1 K/uL (1.8-7.7); NEUTROPHILS % (AUTO) 86.9 % (42.2-75.2); PLATELET COUNT (AUTO) 180 K/uL (140-450); RED BLOOD CELL COUNT(AUTO) 4.42 MIL/uL (4.20-5.40); RED CELL DISTRIBUTION WIDTH 15.9 % (11.6-13.7); WHITE BLOOD COUNT (AUTO) 9.3 K/uL (4.8-10.8)
--- NOTE | 2019-10-26 07:25 | NUR ---
WILL ENDORSE PATIENT TO DAYSHIFT NURSE FOR CONTINUITY OF CARE. PATIENT IN STABLE CONDITION
--- NOTE | 2019-10-26 07:35 | NUR ---
RECEIVED PT FROM HIGH SCHOOL MUSIC TEACHER NURSE, SHWETHA, PT IS AWAKE AND LYING ON THE BED WITH IV LINE ON THE RT FA. G.20 WITH NS INFUSING AT 60ML/HR, ON DROPLET ISOLATION AND ON O2 2L NC, NO SIGN OF DISTRESS NOTED AND WILL MONITOR PT.
[2019-10-26 07:59] LABS: ANION GAP 15.3 (8-16); CREATININE 3.1 mg/dL (0.6-1.3); POTASSIUM 3.3 mmol/L (3.5-5.1)
[2019-10-26 08:00] VITALS: BP 157/82
[2019-10-26 08:43] LABS: MAGNESIUM 1.7 mg/dL (1.8-2.4); PHOSPHORUS 3.4 mg/dL (2.5-4.9)
[2019-10-26] MEDS ORDERED: AZITHROMYCIN 250 MG TAB PO SCH (09:00)
[2019-10-26] MEDS: glipiZIDE 5 MG TAB PO SCH (09:51)
[2019-10-26] MEDS: GABAPENTIN 300 MG CAP PO SCH (09:52)
[2019-10-26] MEDS: DEXAMETHASONE 4 MG TAB PO SCH (09:52)
[2019-10-26] MEDS: ZINC SULF 220 MG CAP PO SCH (09:52)
[2019-10-26] MEDS: FERROUS SULFATE 325 MG TABEC PO SCH ×2 (09:53→21:52)
[2019-10-26] MEDS: ASPIRIN 81 MG TAB.CHEW PO SCH (09:53)
[2019-10-26] MEDS: VITAMIN D 400 IU TAB PO SCH (09:53)
--- NOTE | 2019-10-26 09:53 | NUR ---
PT WAS GIVEN THE SCHEDULED AM MEDICATIONS. WILL MONITOR PT.
[2019-10-26] MEDS: ASCORBIC ACID 500 MG TAB PO SCH (09:54)
[2019-10-26] MEDS: amLODIPine 5 MG TAB PO SCH (09:55)
[2019-10-26] MEDS: FUROSEMIDE 40 MG TAB PO SCH ×2 (09:55→17:57)
[2019-10-26] MEDS: INSULIN LANTUS 100 UNITS/ML 10 ML VIAL SUBQ SCH (09:59)
[2019-10-26] MEDS ORDERED: MAGNESIUM OXIDE 400 MG TAB PO SCH ×2 (10:00→22:35)
[2019-10-26] MEDS: cloNIDine 0.1 MG TAB PO SCH ×2 (10:07→21:58)
[2019-10-26 12:00] VITALS: BP 125/66
--- NOTE | 2019-10-26 12:11 | NUR ---
PT'S BLOOD GLUCOSE WAS CHECKED AND IS 242 AND INSULIN 4 UNITS WAS GIVEN
[2019-10-26 16:00] VITALS: BP 141/66
[2019-10-26] MEDS: NACL 0.9% 1,000 ML IV SCH (16:38)
--- NOTE | 2019-10-26 18:03 | NUR ---
PT'S BLOOD GLUCOSE WAS CHECKED AND IS 3410, INSULIN 10 UNITS WAS GIVEN ON THE LEFT ARM AND SCHEDULED PM MEDICATION WAS GIVEN WELL PARAMETER CHECKED.
--- NOTE | 2019-10-26 19:10 | NUR ---
ENDORSED PT TO LABORER PIPELINES NURSE RAND FOR CONTINUITY OF CARE.
--- NOTE | 2019-10-26 19:11 | NUR ---
RECEIVED PATIENT FROM DAY SHIFT NURSE MELISA FOR CONTINUITY OF CARE. PATIENT IN STABLE CONDITION. RESPIRATIONS EVEN AND UNLABORED, O2 2L VIA NC. IV INTACT AND PATENT. BED IN LOW POSITION. BED ALARM ON. CALL LIGHT WITHIN REACH. WILL CONTINUE TO MONITOR.
[2019-10-26 20:00] VITALS: BP 133/65
[2019-10-26] MEDS: ATORVASTATIN 20 MG TAB PO SCH (21:52)
--- NOTE | 2019-10-26 21:52 | NUR ---
GAVE ORDERED DUE MEDICATIONS AT THIS TIME. PATIENT TOLERATED WELL. BED IN LOW POSITION. BED ALARM ON. CALL LIGHT WITHIN REACH. WILL CONTINUE TO MONITOR.
[2019-10-26] MEDS ORDERED: POTASSIUM CHLORIDE 10 MEQ TABER PO SCH (22:35)
--- NOTE | 2019-10-26 22:54 | NUR ---
SPOKE TO KRISTI CONFIRMED DIALYSIS IN AM 10/27/2019.
[2019-10-27] VITALS: BP 141/68
--- NOTE | 2019-10-27 02:27 | NUR ---
PATIENT SLEEPING AT THIS TIME. RESPIRATIONS EVEN AND UNLABORED. BED IN LOW POSITION. BED ALARM ON. CALL LIGHT WITHIN REACH. WILL CONTINUE TO MONITOR.
[2019-10-27 04:00] VITALS: BP 128/64
[2019-10-27] MEDS: glipiZIDE 5 MG TAB PO SCH (06:24)
[2019-10-27] MEDS: BLOOD GLUCOSE MONITORING 1 DEV DEV FS SCH ×2 (06:46→12:01)
[2019-10-27] MEDS: INSULIN LISPRO SLIDING SCALE 100 UNITS/ML VIAL SUBQ PRN ×2 (06:46→12:06)
--- NOTE | 2019-10-27 07:15 | NUR ---
GAVE REPORT TO DAY SHIFT NURSE FOR CONTINUITY OF CARE. PATIENT IN STABLE CONDITION.
--- NOTE | 2019-10-27 07:30 | NUR ---
RECEIVED BEDSIDE SHIFT REPORT FROM DIRECTOR OF GLOBAL MARKETING RN, RAND, FOR CONTINUITY OF CARE. PATIENT AWAKE IN BED WATCHING TV. NO SIGNS OF DISTRESS NOTED. RESPIRATIONS EVEN AND UNLABORED ON 2L O2 VIA NC. IV ON THE RIGHT FOREARM 20G WITH NS RUNNING AT 60ML/HR, INTACT AND INFUSING WELL. ALL MONITORS ATTACHED, SAFETY PRECAUTIONS IN PLACE, POC DISCUSSED, WILL CONTINUE TO MONITOR.
[2019-10-27 07:39] LABS: BASOPHILS % (AUTO) 0.1 % (0.0-2.0); HEMATOCRIT 38.6 % (36-48); HEMOGLOBIN 12.7 g/dL (12.0-16.0); LYMPHOCYTES # (AUTO) 0.5 K/uL (2.5-16.5); LYMPHOCYTES % (AUTO) 4.7 % (20.5-51.1); MEAN CORPUSCULAR HEMOGLOBIN 29 pg (27-31); MEAN CORPUSCULAR HGB CONC 33 g/dL (33-37); MEAN CORPUSCULAR VOLUME 89.2 fL (80-94); MONOCYTES # (AUTO) 0.3 K/uL (0.8-1.0); MONOCYTES % (AUTO) 2.6 % (1.7-9.3); NEUTROPHILS # (AUTO) 10.4 K/uL (1.8-7.7); NEUTROPHILS % (AUTO) 92.6 % (42.2-75.2); PLATELET COUNT (AUTO) 189 K/uL (140-450); RED BLOOD CELL COUNT(AUTO) 4.32 MIL/uL (4.20-5.40); RED CELL DISTRIBUTION WIDTH 15.5 % (11.6-13.7); WHITE BLOOD COUNT (AUTO) 11.3 K/uL (4.8-10.8)
[2019-10-27 07:55] LABS: ANION GAP 16.2 (8-16); CARBON DIOXIDE 21.1 mmol/L (21-32); CREATININE 3.1 mg/dL (0.6-1.3); POTASSIUM 3.3 mmol/L (3.5-5.1)
[2019-10-27 08:00] VITALS: BP 134/65
[2019-10-27] MEDS: cloNIDine 0.1 MG TAB PO SCH (09:00)
[2019-10-27] MEDS: amLODIPine 5 MG TAB PO SCH (09:00)
[2019-10-27] MEDS: DEXAMETHASONE 4 MG TAB PO SCH (09:00)
[2019-10-27] MEDS: ASPIRIN 81 MG TAB.CHEW PO SCH (09:00)
[2019-10-27] MEDS: FUROSEMIDE 40 MG TAB PO SCH (09:00)
[2019-10-27] MEDS ORDERED: DEC4 PO (09:12)
[2019-10-27] MEDS: NACL 0.9% 1,000 ML IV SCH (09:18)
[2019-10-27] MEDS: FERROUS SULFATE 325 MG TABEC PO SCH (09:45)
[2019-10-27] MEDS: ZINC SULF 220 MG CAP PO SCH (09:45)
[2019-10-27] MEDS: VITAMIN D 400 IU TAB PO SCH (09:45)
[2019-10-27] MEDS: ASCORBIC ACID 500 MG TAB PO SCH (09:45)
[2019-10-27] MEDS: GABAPENTIN 300 MG CAP PO SCH (09:45)
[2019-10-27] MEDS: INSULIN LANTUS 100 UNITS/ML 10 ML VIAL SUBQ SCH (10:01)
[2019-10-27 12:00] VITALS: BP 140/43
--- NOTE | 2019-10-27 14:20 | NUR ---
PATIENT'S SISTER, SKINNY, CALLED FOR UPDATES. INFORMED THAT PATIENT WILL RETURN TO [facility], FAMILY VERBALIZES UNDERSTANDING. WILL CONTINUE TO MONITOR.
--- NOTE | 2019-10-27 14:26 | NUR ---
GAVE DIALYSIS NURSE 2 5000U HEPARIN. PHARMACY IS AWARE. WILL CONTINUE TO MONITOR.
[2019-10-27] MEDS ORDERED: APIX2.5 PO (15:15)
[2019-10-27 15:39] VITALS: BP 134/65
--- NOTE | 2019-10-27 15:40 | NUR ---
CONTACTED JENNY HAAS RN, PEEWEE, FOR REPORT. WILL CONTINUE TO MONITOR.
--- NOTE | 2019-10-27 16:15 | NUR ---
V/S TAKEN BP 123/66, HR 65, SAO2 93%, TEMP 100.1, RR 18. NO SIGNS OF DISTRESS NOTED. WILL MEDICATE FOR HIGH TEMP. WILL CONTINUE TO MONITOR.
[2019-10-27] MEDS: ACETAMINOPHEN 325 MG TAB PO PRN (16:27)
--- NOTE | 2019-10-27 16:28 | NUR ---
TYLENOL GIVEN FOR TEMPERATURE OF 100.1. NO SIGNS OF DISTRESS NOTED. WILL CONTINUE TO MONITOR.
--- NOTE | 2019-10-27 17:00 | NUR ---
REMOVED IV SITE AND GAVE DISCHARGE INSTRUCTIONS, REINFORCEMENT NEEDED. V/S TAKEN AND IS WNL. NO SIGNS OF DISTRESS NOTED. FAMILY IS AWARE OF DISCHARGE. WILL CONTINUE TO MONITOR.
--- NOTE | 2019-10-27 17:35 | NUR ---
PATIENT TRANSFERRED TO [facility]. PATIENT IS AWARE AND VERBALIZES UNDERSTANDING. DISCHARGE INSTRUCTIONS AND HANDOUTS GIVEN. NO SIGNS OF DISTRESS NOTED.
== END 2019-10-27 17:35 | DRG 177 ==
LOC: MED 10:47 → EEVIPCON 10:47 → MTU 12:38
PROVIDERS: ADMIT Family Medicine; ATTEND Family Medicine
PROC: 5A1D70Z Performance of Urinary Filtration, Intermittent, Less than 6 Hours Per Day (ICD-10-PCS; 2019-10-22)
PROC: 5A1D70Z Performance of Urinary Filtration, Intermittent, Less than 6 Hours Per Day (ICD-10-PCS; 2019-10-24)
PROC: 30233K1 Transfusion of Nonautologous Frozen Plasma into Peripheral Vein, Percutaneous Approach (ICD-10-PCS; principal; 2019-10-25)
DX: U07.1 COVID-19 (principal); N17.0 Acute kidney failure with tubular necrosis; J96.01 Acute respiratory failure with hypoxia; N18.6 End stage renal disease; J12.89 Other viral pneumonia; I21.A1 Myocardial infarction type 2; E43 Unspecified severe protein-calorie malnutrition; I50.43 Acute on chronic combined systolic (congestive) and diastolic (congestive) heart failure; I13.2 Hypertensive heart and chronic kidney disease with heart failure and with stage 5 chronic kidney disease, or end stage renal disease; N17.9 Acute kidney failure, unspecified; Z99.2 Dependence on renal dialysis; D63.8 Anemia in other chronic diseases classified elsewhere; D89.9 Disorder involving the immune mechanism, unspecified; E11.22 Type 2 diabetes mellitus with diabetic chronic kidney disease; E11.40 Type 2 diabetes mellitus with diabetic neuropathy, unspecified; E11.65 Type 2 diabetes mellitus with hyperglycemia; E78.5 Hyperlipidemia, unspecified; I08.0 Rheumatic disorders of both mitral and aortic valves; I25.10 Atherosclerotic heart disease of native coronary artery without angina pectoris; R31.9 Hematuria, unspecified; D50.9 Iron deficiency anemia, unspecified; E83.42 Hypomagnesemia; E87.6 Hypokalemia; Z88.0 Allergy status to penicillin; Z68.25 Body mass index [BMI] 25.0-25.9, adult
CPT/HCPCS: 36415; 36600; 71045; 80048; 80053; 80305; 81001; 82150; 82550; 82728; 82803; 82948; 83036; 83605; 83615; 83690; 83735; 83880; 84100; 84436; 84439; 84443; 84479; 84484; 85025; 85379; 85384; 85610; 85651; 85730; 86140; 86886; 86900; 86901; 87040; 87081; 87086; 87804; 90935; 93005; 96365; 96366; 99291; J0696; J1644; J1815; J1956; J3370; J7030; J7060; P9017; Q0092; U0003-CS

== ENCOUNTER 2022-04-29 10:11 | Inpatient (IN) | payer OTHER ==
[~2022-04-29] VITALS: Ht 167.6 cm; Wt 95.3 kg
[~2022-04-29 10:11] MED LIST changes: +APIX2.5 PO; +DEC4 PO; -DOCU-299 PO; -MULT-1868 PO; +NUTR887L9 PO; -VAN500I PO; +VITA1TAB44 PO
[2022-04-29 10:18] VITALS: BP 144/64
[2022-04-29] MEDS ORDERED: MORPHINE SULFATE 4 MG/ML SYR IVP ONE ×2 (10:20→12:25)
[2022-04-29] MEDS ORDERED: ONDANSETRON 4 MG/2 ML VIAL IVP ONE (10:20)
--- NOTE | 2022-04-29 10:50 | NUR ---
multiple iv sticks attempted, unable to place, pt refusing further iv placements, ermd made aware
--- NOTE | 2022-04-29 10:54 | NUR ---
ERMD STATED TO CANCEL MED ORDERS
--- NOTE | 2022-04-29 10:55 | NUR ---
71 Y/O FEMALE BIBA FROM [facility] C/O COUGH, FEVER, CHILLS, GEN BODY [id number]. TEMP IN TRIAGE 97.8 ORAL. DENIES ANY NAUSEA,DIARRHEA, NOTED SWELLING ON THE UPPER EYELIDS ALLERGY: PCN PMH: HTN, DM, ESRD DIALYSIS LEFT FISTULA (MWF) NO MISSED DAYS, CHF, BASAL CELL CARCINOMA OF SKIN ON NOSE
[2022-04-29 10:57] LABS: HEMATOCRIT 25.4 % (36-48); HEMOGLOBIN 8.1 g/dL (12.0-16.0); MEAN CORPUSCULAR HEMOGLOBIN 31 pg (27-31); MEAN CORPUSCULAR HGB CONC 32 g/dL (33-37); MEAN CORPUSCULAR VOLUME 96.4 fL (80-94); PLATELET COUNT (AUTO) 284 K/uL (140-450); RED BLOOD CELL COUNT(AUTO) 2.64 MIL/uL (4.20-5.40); RED CELL DISTRIBUTION WIDTH 15.8 % (11.6-13.7); WHITE BLOOD COUNT (AUTO) 20.4 K/uL (4.8-10.8)
--- NOTE | 2022-04-29 11:03 | NUR ---
X-Ray at bedside.
[2022-04-29 11:27] LABS: LYMPHOCYTES % (MANUAL) 11 % (20-46); MONOCYTES % (MANUAL) 4 % (5-12)
--- NOTE | 2022-04-29 11:32 | NUR ---
DR BUSTILLOS AT BEDSIDE
[2022-04-29] MEDS ORDERED: MORPHINE SULFATE 4 MG/ML SYR IM ONE (11:40)
[2022-04-29 11:42] LABS: MAGNESIUM 2.2 mg/dL (1.8-2.4)
[2022-04-29] MEDS ORDERED: CEFEPIME 1,000 MG in DEXTROSE 5% 50 ML IV ONE (11:45)
[2022-04-29] MEDS ORDERED: VANCOMYCIN 1,000 MG in DEXTROSE 5% 250 ML IV ONE (11:45)
--- NOTE | 2022-04-29 11:45 | NUR ---
JIG BUILDER HELPER SLOAN AT BEDSIDE FOR US GUIDED IV
[2022-04-29] MEDS ORDERED: CEFEPIME 1,000 MG VIAL ONE (11:48)
[2022-04-29] MEDS ORDERED: VANCOMYCIN 1,000 MG VIAL ONE (11:48)
[2022-04-29 12:06] LABS: ALBUMIN 3.2 g/dL (3.4-5.0); ANION GAP 14.6 (8-16); CARBON DIOXIDE 29.2 mmol/L (21-32); POTASSIUM 5.8 mmol/L (3.5-5.1); TOTAL BILIRUBIN 0.5 mg/dL (0.0-1.0)
[2022-04-29 12:08] LABS: CREATININE 8.5 mg/dL (0.6-1.3)
[2022-04-29] MEDS ORDERED: CALCIUM GLUCONATE 10% 1,000 MG in NACL 0.9% 50 ML IV ONE (12:15)
[2022-04-29] MEDS ORDERED: CALCIUM GLUC 1 GM/50 mL NS BAG 50 ML IV ONE (12:30)
[2022-04-29] MEDS ORDERED: ALBUTEROL 0.083% 2.5 MG/3 ML NEBU INH PRN (12:35)
[2022-04-29] MEDS ORDERED: DOCUSATE SODIUM 100 MG GELCAP PO PRN (12:35)
[2022-04-29] MEDS ORDERED: ONDANSETRON 4 MG/2 ML VIAL IVP PRN (12:35)
[2022-04-29] MEDS ORDERED: ZOLPIDEM 10 MG TAB PO PRN (12:35)
[2022-04-29] MEDS ORDERED: MAG SULF 2000 MG/WATER PREMIX 50 ML IV PRN (12:35)
[2022-04-29] MEDS ORDERED: ACETAMINOPHEN 325 MG TAB PO PRN (12:35)
[2022-04-29] MEDS ORDERED: POTASSIUM CHLORIDE 10 MEQ TABER PO PRN (12:35)
[2022-04-29] MEDS ORDERED: MORPHINE SULFATE 2 MG/ML SYR IVP PRN (12:35)
[2022-04-29] MEDS ORDERED: LORazepam 2 MG/ML VIAL IVP PRN (12:35)
[2022-04-29] MEDS ORDERED: VANCOMYCIN PER PHARMACY MC PRN (12:40)
[2022-04-29] MEDS ORDERED: DEXTROSE 50% 50 ML SYR IVP PRN (12:40)
[2022-04-29] MEDS ORDERED: GABAPENTIN 300 MG CAP PO SCH (13:00)
[2022-04-29] MEDS ORDERED: SODIUM ZIRCONIUM CYCLOSILICATE 10 GM POWD.PACK PO SCH (13:05)
--- NOTE | 2022-04-29 14:14 | NUR ---
LAB AT BEDSIDE FOR TROPONIN REDRAW, PT REFUSED REDRAW, RISKS AND BENEFITS EXPLAINED, PT STATES THAT SHE DOESNT WANT TO GET POKED AGAIN, DR PRICE MADE AWARE
--- NOTE | 2022-04-29 14:20 | NUR ---
REVIEWED PMHX; PATIENT C/O SOB AND LEFT SHOULDER/ARM PAIN; HHN PRN THERAPY GIVEN AT THIS TIME; ADVISED PRODUCT ARCHITECT'S OF FOREMENTIONED LEFT SHOULDER/ARM PAIN
--- NOTE | 2022-04-29 16:20 | NUR ---
Patient will be admitted to care of DR PRICE. Admited to TELEMETRY. Will go to room 117. Belongings list completed. Report to RAMONE LOBATO.
[2022-04-29 16:30] VITALS: BP 136/77
[2022-04-29] MEDS: BLOOD GLUCOSE MONITORING 1 DEV DEV FS SCH ×2 (16:30→20:26)
--- NOTE | 2022-04-29 16:30 | NUR ---
RECEIVED REPORT FROM ER NURSE RITA WOMACK FOR CONTINUITY OF CARE/ PT WAS STABLE ON ADMISSION. PT IS NSR ON THE INSOLE BOTTOM FILLER, ON ROOM AIR STATING AT 95%, HAS SOME ROHCI IN HER R LUNG, IS ON A CARDIAC DIET. PT SPEAKS URDU BUT UNDERSTANDS SOME YI. PT HAS NO WOUNDS. IV IS LOCATED ON HER R FOREARM 20G THAT IS PATENT AND INTACT. PT ALSO HAS A DIALYSIS FISTULA IN THE L UPPER ARM; HER HD SCHEDULE IS MWF. PT IS ON BED REST AND TOLD TO RING THE CALL TAO IF IN NEED OF ANYTHING. ALL SAFETY MEASURES ARE IN PLACE. WILL CONTINUE TO MONITOR.
--- NOTE | 2022-04-29 19:10 | NUR ---
ENDORSED PT TO APPELLATE LAW CLERK NURSE CLAU FOR CONTINUITY OF CARE. PT IS STABLE AND RESTING IN BED.
[2022-04-29] MEDS ORDERED: CEFEPIME 1,000 MG in DEXTROSE 5% 50 ML IV SCH (21:00)
[2022-04-29 21:28] VITALS: BP 140/73
[2022-04-29] MEDS: ATORVASTATIN 20 MG TAB PO SCH (21:32)
[2022-04-29] MEDS: FUROSEMIDE 40 MG TAB PO SCH (21:32)
[2022-04-29] MEDS: APIXABAN 2.5 MG TAB PO SCH (21:34)
[2022-04-30] MEDS: BLOOD GLUCOSE MONITORING 1 DEV DEV FS SCH ×4 (06:02→20:33)
--- NOTE | 2022-04-30 06:22 | NUR ---
rn notes patient remaisn on room air, no sob noted. VSS all shift. independent and walks to the restroom. Patient BS WNL. refused last BS checks.
--- NOTE | 2022-04-30 07:10 | NUR ---
RECEIVED REPORT FROM CHROME WORKER NURSE CLAU FOR CONTINUITY OF CARE. PT SI STABLE AND RESTING IN BED. NO SIGNS OF DISTRESS OR LABORED BREATHING. ALL SAFETY MEASURES IN PLACE. WILL CONTINUE TO MONITOR.
[2022-04-30 07:24] LABS: BASOPHILS % (AUTO) 0.3 % (0.0-2.0); EOSINOPHILS # (AUTO) 0.1 K/uL (0-0.4); HEMATOCRIT 22.7 % (36-48); HEMOGLOBIN 7.3 g/dL (12.0-16.0); LYMPHOCYTES # (AUTO) 1.9 K/uL (2.5-16.5); MEAN CORPUSCULAR HEMOGLOBIN 31 pg (27-31); MEAN CORPUSCULAR HGB CONC 32 g/dL (33-37); MEAN CORPUSCULAR VOLUME 97.4 fL (80-94); MONOCYTES # (AUTO) 1.1 K/uL (0.8-1.0); MONOCYTES % (AUTO) 9.2 % (1.7-9.3); NEUTROPHILS # (AUTO) 8.8 K/uL (1.8-7.7); NEUTROPHILS % (AUTO) 73.5 % (42.2-75.2); PLATELET COUNT (AUTO) 257 K/uL (140-450); RED BLOOD CELL COUNT(AUTO) 2.33 MIL/uL (4.20-5.40); RED CELL DISTRIBUTION WIDTH 15.9 % (11.6-13.7)
[2022-04-30 07:42] LABS: ANION GAP 15.2 (8-16); POTASSIUM 5.2 mmol/L (3.5-5.1)
[2022-04-30 07:50] LABS: CREATININE 9.8 mg/dL (0.6-1.3)
[2022-04-30 08:00] VITALS: BP 112/68
[2022-04-30] MEDS: amLODIPine 5 MG TAB PO SCH (09:00)
[2022-04-30] MEDS: FUROSEMIDE 40 MG TAB PO SCH ×2 (09:00→17:53)
[2022-04-30] MEDS: ASPIRIN 81 MG TAB.CHEW PO SCH (09:22)
[2022-04-30] MEDS: APIXABAN 2.5 MG TAB PO SCH ×2 (09:24→20:33)
--- NOTE | 2022-04-30 10:10 | NUR ---
PATIENT HAS BEEN SCREENED AND CATEGORIZED MODERATE NUTRITION RISK. PATIENT WILL BE SEEN WITHIN 3-5 DAYS OF ADMISSION. 04/29/22-05/04/[address]
[2022-04-30 12:00] VITALS: BP 127/49
[2022-04-30] MEDS: CEFEPIME 500 MG in DEXTROSE 5% 50 ML IV SCH (12:11)
[2022-04-30 16:00] VITALS: BP 159/55
[2022-04-30] MEDS ORDERED: VANCOMYCIN 750 MG in DEXTROSE 5% 250 ML IV SCH (16:00)
[2022-04-30] MEDS: INSULIN LISPRO SLIDING SCALE 100 UNITS/ML VIAL SUBQ PRN (17:28)
--- NOTE | 2022-04-30 19:10 | NUR ---
ENDORSED PT TO AUTOMOTIVE PROJECT ENGINEER NURSE MIKI FOR CONTINUITY OF CARE. PT IS STABLE AND RESTING IN BED.
--- NOTE | 2022-04-30 19:15 | NUR ---
RECEIVED PT SLEEPING, OPEN EYES TO TOUCH, AAOX4, ABLE TO MAKE NEEDS KNOWN, DENIES ANY PAIN, NO SOB NOTED, WITH LEFT UA AV SHUNT IN PLACE, SAFETY MEASURES IN PLACE, CALL LIGHT WITHIN REACH.
[2022-04-30 20:00] VITALS: BP 134/49
[2022-04-30] MEDS: ATORVASTATIN 20 MG TAB PO SCH (20:18)
--- NOTE | 2022-04-30 20:35 | NUR ---
BLOOD SUGAR CHECKED WITH 141 RESULT, NO COVERAGE NEEDED, DUE MEDS TAKEN, BEDTIME SNACK PROVIDED, TOLERATED WELL, ALL NEEDS ATTENDED.
[2022-05-01 04:00] VITALS: BP 106/51
--- NOTE | 2022-05-01 06:15 | NUR ---
BLOOD SUGAR CHECKED WITH 112 RESULT, NO COVERAGE NEEDED, MONITORED CLOSELY.
[2022-05-01] MEDS: BLOOD GLUCOSE MONITORING 1 DEV DEV FS SCH ×4 (06:41→21:45)
--- NOTE | 2022-05-01 07:10 | NUR ---
ASSUMED CONTINUITY OF CARE. NO SIGNS AND SYMPTOMS OF ACUTE DISTRESS NOTED. INITIAL ASSESSMENT DONE. FALL PRECAUTION APPLIED. CALL LIGHT WITHIN REACH.
--- NOTE | 2022-05-01 07:10 | NUR ---
PT SLEEPING, NO SIGNS OF DISTRESS, REPORT GIVEN TO HOA FOR CONTINUITY OF CARE.
[2022-05-01 07:16] LABS: ANION GAP 13.5 (8-16); CARBON DIOXIDE 30.1 mmol/L (21-32); POTASSIUM 4.6 mmol/L (3.5-5.1)
[2022-05-01 07:18] LABS: CREATININE 6.5 mg/dL (0.6-1.3)
[2022-05-01 07:30] LABS: BASOPHILS # (AUTO) 0.1 K/uL (0.00-0.22); BASOPHILS % (AUTO) 0.6 % (0.0-2.0); EOSINOPHILS # (AUTO) 0.1 K/uL (0-0.4); EOSINOPHILS % (AUTO) 0.6 % (0.0-4.0); HEMATOCRIT 23.1 % (36-48); HEMOGLOBIN 7.6 g/dL (12.0-16.0); LYMPHOCYTES # (AUTO) 1.8 K/uL (2.5-16.5); LYMPHOCYTES % (AUTO) 17.6 % (20.5-51.1); MEAN CORPUSCULAR HEMOGLOBIN 32 pg (27-31); MEAN CORPUSCULAR HGB CONC 33 g/dL (33-37); MEAN CORPUSCULAR VOLUME 96.5 fL (80-94); MONOCYTES # (AUTO) 1.3 K/uL (0.8-1.0); MONOCYTES % (AUTO) 12.6 % (1.7-9.3); NEUTROPHILS # (AUTO) 7.1 K/uL (1.8-7.7); NEUTROPHILS % (AUTO) 68.6 % (42.2-75.2); PLATELET COUNT (AUTO) 261 K/uL (140-450); WHITE BLOOD COUNT (AUTO) 10.3 K/uL (4.8-10.8)
[2022-05-01 08:00] VITALS: BP 146/51
[2022-05-01] MEDS: FUROSEMIDE 40 MG TAB PO SCH ×2 (09:00→16:57)
[2022-05-01] MEDS: amLODIPine 5 MG TAB PO SCH (09:00)
[2022-05-01] MEDS: ASPIRIN 81 MG TAB.CHEW PO SCH (09:00)
[2022-05-01] MEDS: APIXABAN 2.5 MG TAB PO SCH ×2 (09:03→22:06)
--- NOTE | 2022-05-01 09:15 | NUR ---
DR. DRIVER CAME AND SPOKE TO PT. AT BEDSIDE.
[2022-05-01] MEDS: INSULIN LISPRO SLIDING SCALE 100 UNITS/ML VIAL SUBQ PRN ×2 (11:49→16:54)
[2022-05-01] MEDS: CEFEPIME 500 MG in DEXTROSE 5% 50 ML IV SCH (12:00)
--- NOTE | 2022-05-01 13:00 | NUR ---
DISCHARGE PLANNING PATIENT IS A 71 YEAR OLD FEMALE ADMITTED TO THE [facility]/ED ON 04/29/2022 DUE TO SEPSIS. SW MEET WITH PATIENT TO COLLECT AND GATHER HER COLLATERAL INFORMATION PATIENT WAS AWAKE AND ALERT. PATIENT REPORTED THAT SHE HAS BEEN IN THE [facility] FOR ABOUT 2 YEAR AND A HALF ON A PRISON BED AND THAT SHE HAS NO A.D. AND SHE MAKES HER OWN MEDICAL DECISIONS. PATIENT REPORTED HAVING A POLTS AND NO ISSUES WITH HER CARE AT THE FACILITY. PER PATIENT SHE HAS NO ISSUES GETTING HER MEDICATIONS. PER PATIENT SHE HAS A WALKER AND A WHEELCHAIR AT THE FACILITY BUT SHE NEEDS SOME P. T. TO GET STRONGER TO USE HER WALKER MORE. PATIENT REPORTED WANTING TO GO BACK TO SAME FACILITY WHEN SHE IS READY AND STABLE TO DISCHARGE. PATIENT REPORTED THAT SHE HAS FAMILY SUPPORT FROM HER NIECE LARS ESPARZA . SW THANKED PATIENT FOR HER INFORMATION AND LEFT THE ROOM. SW CALL [facility] AT [phone] SPOKE TO [facility] ADMIN TO DISCUSS PATIENT'S INFORMATION; PATIENT COMES FROM HOME WITH SISTER HOWEVER; SISTER IS NO LONGER ABLE TO CARE FOR PATIENT AT HOME. PATIENT IS UNDER A PRISON BED HOLD AND HAS A NIECE LARS ESPARZA WHO IS PATIENT'S SUPPORT SYSTEM. PER [facility] STAFF PATIENT'S DISCHARGE PLAN IS TO GO BACK TO [facility] WHEN SHE IS READY AND STABLE TO DISCHARGE. SW/CM WILL FOLLOW UP NEEDED.
--- NOTE | 2022-05-01 15:55 | NUR ---
DC PLANN[age] YRS OLD FEMALE PATIENT WAS ADMITTED FROM [facility] WITH A DX OF SEPSIS. PT HAS A HX OF ESRD ON HD W-F AND SAT , HTN, HLD AND RIGHT FOOT ULCER S/P DEBRIDEMENT. CXR SHOWED MODERATE RIGHT LUNG PATCHY HAZY INFILTRATES RAPID COVID TEST NEGATIVE. STARTED IV ABX CEFEPIME, BLOOD AND URINE CULTURE PENDING. CONSULTED WITH CARDIO, NEPHRO AND PULMO. DC PLAN TO RETURN TO [facility] WHEN STABLE . CM TO FOLLOW Addendum: 05/02/22 at 1553 by Vicky Gunderson RN DC PLANNING PT HERMOSILLO A DC ORDER TO RETURN TO [facility]. FAXED ALL PAPERWORK. PT CAN GO TO ROOM ARRANGED TRANSPORT WITH [facility] [place] [facility] WILL AUTO MECHANIC APPRENTICE PATIENT AT 7 PM NOTIFIED HOA JOSE. CM TO FOLLOW
[2022-05-01 16:00] VITALS: BP 141/57
--- NOTE | 2022-05-01 19:20 | NUR ---
RECEIVED PT ENDORSEMENT FROM DAY SHIFT NURSE FOR CONTINUITY OF CARE. PT IS AWAKE, ALERT AND ABLE TO VERBALIZED NEEDS. PT IS ON RENAL DIET. SALINE LOCK ON RIGHT FOREARM 20G INTACT. SKIN INTACT.
--- NOTE | 2022-05-01 19:21 | NUR ---
BEDSIDE REPORT GIVEN TO RADHA -CHERYLE. WATCHING TV AT THIS TIME. IN STABLE CONDITION.
--- NOTE | 2022-05-01 21:45 | NUR ---
PT BLOOD SUGAR = 173. SLIDING SCALE = 2 UNITS. PT REFUSED TO HAVE INSULIN INJECTION PER SLIDING SCALE.
--- NOTE | 2022-05-01 22:00 | NUR ---
PT IS AWAKE AND WATCHING TV.
[2022-05-01] MEDS: ATORVASTATIN 20 MG TAB PO SCH (22:04)
--- NOTE | 2022-05-02 00:30 | NUR ---
PT ASLEEP WELL. NO SOB OR DISTRESS. CHEST RISE AND FALL EVENLY.
--- NOTE | 2022-05-02 02:00 | NUR ---
PT IS ASLEEP.
[2022-05-02 04:00] VITALS: BP 126/51
--- NOTE | 2022-05-02 06:44 | NUR ---
BLOOD SUGAR CHECKED = 129, NO SLIDING SCALE COVERAGE.
--- NOTE | 2022-05-02 07:20 | NUR ---
ASSUMED CONTINUITY OF CARE. INITIAL ASSESSMENT DONE. EXPLAINED DIAGNOSIS, PLAN OF CARE, PAIN MANAGEMENT TEACHING, USE OF CALL LIGHT/BED/TV/BATHROOM. VERBALIZED UNDERSTANDING. FALL PRECAUTION APPLIED. CALL LIGHT WITHIN REACH.
--- NOTE | 2022-05-02 07:20 | NUR ---
PT IS ON STABLE CONDITION. ALL SAFETY MEASURES ARE IN PLACE. ENDORSED TO DAY SHIFT NURSE FOR CONTINUITY OF CARE.
[2022-05-02] MEDS: BLOOD GLUCOSE MONITORING 1 DEV DEV FS SCH ×3 (07:33→17:01)
[2022-05-02 07:40] LABS: ANION GAP 18.1 (8-16); CARBON DIOXIDE 25.8 mmol/L (21-32); POTASSIUM 4.9 mmol/L (3.5-5.1)
[2022-05-02 08:00] VITALS: BP 129/49
[2022-05-02 08:07] LABS: CREATININE 7.8 mg/dL (0.6-1.3)
[2022-05-02 08:32] LABS: BASOPHILS # (AUTO) 0.1 K/uL (0.00-0.22); BASOPHILS % (AUTO) 0.6 % (0.0-2.0); EOSINOPHILS # (AUTO) 0.2 K/uL (0-0.4); EOSINOPHILS % (AUTO) 1.6 % (0.0-4.0); HEMATOCRIT 24.1 % (36-48); HEMOGLOBIN 7.8 g/dL (12.0-16.0); LYMPHOCYTES # (AUTO) 1.7 K/uL (2.5-16.5); LYMPHOCYTES % (AUTO) 15.6 % (20.5-51.1); MEAN CORPUSCULAR HEMOGLOBIN 32 pg (27-31); MEAN CORPUSCULAR HGB CONC 33 g/dL (33-37); MEAN CORPUSCULAR VOLUME 97.6 fL (80-94); MONOCYTES % (AUTO) 8.9 % (1.7-9.3); NEUTROPHILS # (AUTO) 7.9 K/uL (1.8-7.7); NEUTROPHILS % (AUTO) 73.3 % (42.2-75.2); PLATELET COUNT (AUTO) 277 K/uL (140-450); RED BLOOD CELL COUNT(AUTO) 2.47 MIL/uL (4.20-5.40); RED CELL DISTRIBUTION WIDTH 15.2 % (11.6-13.7); WHITE BLOOD COUNT (AUTO) 10.8 K/uL (4.8-10.8)
[2022-05-02] MEDS: ASPIRIN 81 MG TAB.CHEW PO SCH (08:59)
[2022-05-02] MEDS: amLODIPine 5 MG TAB PO SCH (09:00)
[2022-05-02] MEDS: FUROSEMIDE 40 MG TAB PO SCH ×2 (09:00→17:20)
[2022-05-02] MEDS: APIXABAN 2.5 MG TAB PO SCH (09:02)
[2022-05-02] MEDS: INSULIN LISPRO SLIDING SCALE 100 UNITS/ML VIAL SUBQ PRN ×2 (11:24→17:01)
[2022-05-02] MEDS ORDERED: CEFEPIME IV ×2 (11:25→13:42)
[2022-05-02] MEDS: CEFEPIME 500 MG in DEXTROSE 5% 50 ML IV SCH (12:13)
--- NOTE | 2022-05-02 15:51 | NUR ---
05/02/22 RD INITIAL ASSESSMENT COMPLETED PLEASE REFER TO NUTRITION ASSESSMENT UNDER CARE ACTIVITY FOR ESTIMATED NUTRITIONAL NEEDS. 1. CONTINUE RENAL DIET, TOLERATED. 2. MONITOR PO INTAKE, GI, AND LAB VALUES. 3. RD TO FOLLOW-UP 7 DAYS, LOW RISK REVIEWED BY XU CABALLERO RD
[2022-05-02 16:00] VITALS: BP 139/52
[2022-05-02] MEDS ORDERED: VANCOMYCIN 750 MG in NACL 0.9% 250 ML IV SCH (16:00)
--- NOTE | 2022-05-02 19:30 | NUR ---
REPORT GIVEN TO ALMA ROSA REMY CHARGE NURSE REGARDING PT. D/C TO [facility]. IN STABLE CONDITION.
--- NOTE | 2022-05-02 20:30 | NUR ---
PT IS SUPPOSED TO BE LITERATURE PROFESSOR BY [facility] TO GO TO [facility] AT 1900 PER REPORT FROM REBECA CAMARA. CALLED [facility] AND SPOKE TO SMITH STATED THAT THEY WILL BE HERE TO LITERATURE PROFESSOR THE PATIENT @ 2100. PATIENT MADE AWARE OF THE TIME OF LITERATURE PROFESSOR AND VERBALIZED UNDERSTANDING.
== END 2022-05-02 21:15 | disposition home or self-care (01) | DRG 871 ==
LOC: MED 10:11 → MTU 12:35
PROVIDERS: ADMIT Family Medicine; ATTEND Family Medicine
PROC: 5A1D70Z Performance of Urinary Filtration, Intermittent, Less than 6 Hours Per Day (ICD-10-PCS; 2022-04-29)
PROC: 5A1D70Z Performance of Urinary Filtration, Intermittent, Less than 6 Hours Per Day (ICD-10-PCS; principal; 2022-05-02)
DX: A41.9 Sepsis, unspecified organism (principal); J69.0 Pneumonitis due to inhalation of food and vomit; J96.00 Acute respiratory failure, unspecified whether with hypoxia or hypercapnia; N18.6 End stage renal disease; E44.1 Mild protein-calorie malnutrition; I13.2 Hypertensive heart and chronic kidney disease with heart failure and with stage 5 chronic kidney disease, or end stage renal disease; I50.32 Chronic diastolic (congestive) heart failure; E87.5 Hyperkalemia; E11.22 Type 2 diabetes mellitus with diabetic chronic kidney disease; E78.5 Hyperlipidemia, unspecified; Z68.33 Body mass index [BMI] 33.0-33.9, adult; E87.8 Other disorders of electrolyte and fluid balance, not elsewhere classified; I35.0 Nonrheumatic aortic (valve) stenosis; Z20.822 Contact with and (suspected) exposure to COVID-19; E11.21 Type 2 diabetes mellitus with diabetic nephropathy; D63.1 Anemia in chronic kidney disease; Z90.49 Acquired absence of other specified parts of digestive tract; Z88.0 Allergy status to penicillin; Z79.82 Long term (current) use of aspirin
CPT/HCPCS: 36415; 71045; 80048; 80053; 80202; 82948; 83605; 83735; 83880; 84484; 85025; 87040; 87081; 93005; 94640; 96365; 96367; 96375; 97116; 97163-GP; 99291; 99292; J0610; J0692; J2270; J3370; J7030; J7060; J7613; Q0092

== ENCOUNTER 2022-12-27 18:48 | Inpatient (IN) | payer OTHER ==
[~2022-12-27] VITALS: Ht 162.6 cm; Wt 89.8 kg
[~2022-12-27 18:48] MED LIST changes: +CEFEPIME IV
[2022-12-27 18:53] VITALS: BP 161/99; PULSE 104; RESP 22; TEMP 100.6; O2SAT 97
[2022-12-27 19:07] VITALS: BP 132/71; PULSE 87; RESP 17; O2SAT 100; O2SAT 99
[2022-12-27] MEDS ORDERED: LEVOFLOXACIN 750 MG/D5W PREMIX 150 ML IV ONE (19:10)
[2022-12-27 19:42] LABS: BASOPHILS # (AUTO) 0.1 K/uL (0.00-0.22); BASOPHILS % (AUTO) 0.4 % (0.0-2.0); HEMATOCRIT 26.5 % (36-48); HEMOGLOBIN 8.8 g/dL (12.0-16.0); LYMPHOCYTES # (AUTO) 1.4 K/uL (2.5-16.5); LYMPHOCYTES % (AUTO) 11.9 % (20.5-51.1); MEAN CORPUSCULAR HEMOGLOBIN 31 pg (27-31); MEAN CORPUSCULAR HGB CONC 33 g/dL (33-37); MEAN CORPUSCULAR VOLUME 93.2 fL (80-94); MONOCYTES # (AUTO) 0.9 K/uL (0.8-1.0); MONOCYTES % (AUTO) 7.8 % (1.7-9.3); NEUTROPHILS # (AUTO) 9.7 K/uL (1.8-7.7); NEUTROPHILS % (AUTO) 79.9 % (42.2-75.2); PLATELET COUNT (AUTO) 251 K/uL (140-450); RED BLOOD CELL COUNT(AUTO) 2.84 MIL/uL (4.20-5.40); WHITE BLOOD COUNT (AUTO) 12.2 K/uL (4.8-10.8)
[2022-12-27 20:10] LABS: ALBUMIN 3.3 g/dL (3.4-5.0); ANION GAP 17.9 (8-16); CALCIUM 8.3 mg/dL (8.5-10.1); CARBON DIOXIDE 24.9 mmol/L (21-32); POTASSIUM 4.8 mmol/L (3.5-5.1); TOTAL BILIRUBIN 0.6 mg/dL (0.0-1.0); TOTAL PROTEIN, SERUM 7.6 g/dL (6.4-8.2)
[2022-12-27 20:13] LABS: CREATININE 10.9 mg/dL (0.6-1.3)
[2022-12-27 20:15] LABS: LACTIC ACID 0.7 mmol/L (0.4-2.0)
[2022-12-27] MEDS ORDERED: ONDANSETRON 4 MG/2 ML VIAL IM/IVP PRN (21:10)
[2022-12-27] MEDS ORDERED: HYDROcodone/APAP 7.5/325 MG 1 TAB PO PRN (21:10)
[2022-12-27] MEDS ORDERED: ZOLPIDEM 5 MG TAB PO PRN (21:10)
[2022-12-27] MEDS ORDERED: POTASSIUM CHLORIDE 10 MEQ TABER PO PRN (21:10)
[2022-12-27] MEDS ORDERED: DOCUSATE SODIUM 100 MG GELCAP PO PRN (21:10)
[2022-12-27] MEDS ORDERED: ACETAMINOPHEN 325 MG TAB PO PRN (21:10)
[2022-12-27] MEDS ORDERED: guaiFENesin DM 200/20 MG-10 ML 10 ML UDC PO PRN (21:10)
[2022-12-27] MEDS ORDERED: ALBUTEROL SULFATE/IPRATROPIU 3 ML SOL IH PRN (21:15)
[2022-12-27] MEDS ORDERED: DEXTROSE 50% 50 ML SYR IVP PRN (21:20)
[2022-12-27 21:22] VITALS: PULSE 84; O2SAT 100
[2022-12-27 21:43] LABS: BLOOD GAS BASE EXCESS -1.3 mmol/L (-2.0-2.0); BLOOD GAS HCO3 23.1 mmol/L (22-26); BLOOD GAS O2 SAT% 99.5 % (92.0-98.5); BLOOD GAS PCO2 37.3 mmHg (35-45); BLOOD GAS PH 7.409 (7.35-7.45); BLOOD GAS PO2 228.7 mmHg (75-100)
[2022-12-27 22:30] VITALS: BP 122/60; PULSE 84; RESP 20; TEMP 98.5; O2SAT 96
[2022-12-27 22:33] VITALS: PULSE 84
[2022-12-28] VITALS (12 sets, daily range): BP systolic 124–154; BP diastolic 28–65; PULSE 59–84; RESP 17–20; TEMP 97.5–98.9; O2SAT 95–100
[2022-12-28 05:41] LABS: BASOPHILS % (AUTO) 0.3 % (0.0-2.0); HEMATOCRIT 25.3 % (36-48); HEMOGLOBIN 8.4 g/dL (12.0-16.0); LYMPHOCYTES # (AUTO) 1.3 K/uL (2.5-16.5); LYMPHOCYTES % (AUTO) 10.8 % (20.5-51.1); MEAN CORPUSCULAR HEMOGLOBIN 31 pg (27-31); MEAN CORPUSCULAR HGB CONC 33 g/dL (33-37); MEAN CORPUSCULAR VOLUME 93.7 fL (80-94); MONOCYTES # (AUTO) 0.9 K/uL (0.8-1.0); MONOCYTES % (AUTO) 7.7 % (1.7-9.3); NEUTROPHILS # (AUTO) 9.4 K/uL (1.8-7.7); NEUTROPHILS % (AUTO) 81.2 % (42.2-75.2); PLATELET COUNT (AUTO) 228 K/uL (140-450); RED CELL DISTRIBUTION WIDTH 16.2 % (11.6-13.7); WHITE BLOOD COUNT (AUTO) 11.6 K/uL (4.8-10.8)
[2022-12-28 06:05] LABS: ALBUMIN 2.9 g/dL (3.4-5.0); ANION GAP 14.7 (8-16); CALCIUM 8.2 mg/dL (8.5-10.1); CARBON DIOXIDE 29.1 mmol/L (21-32); POTASSIUM 3.8 mmol/L (3.5-5.1); TOTAL BILIRUBIN 0.6 mg/dL (0.0-1.0); TOTAL PROTEIN, SERUM 7.3 g/dL (6.4-8.2)
[2022-12-28 06:20] LABS: CREATININE 6.5 mg/dL (0.6-1.3)
[2022-12-28] MEDS: BLOOD GLUCOSE MONITORING 1 DEV DEV FS SCH ×4 (07:15→20:50)
[2022-12-28] MEDS ORDERED: ACETAMINOPHEN 325 MG TAB PO PRN (11:15)
[2022-12-28] MEDS ORDERED: FOAM DRESSING TP PRN (11:45)
[2022-12-28] MEDS: GAUZE TP SCH (13:00)
[2022-12-28] MEDS: FOAM DRESSING TP SCH (13:00)
[2022-12-28] MEDS: ASPIRIN 81 MG TAB.CHEW PO SCH (14:41)
[2022-12-28] MEDS: amLODIPine 5 MG TAB PO SCH (14:41)
[2022-12-28] MEDS: PANTOPRAZOLE 40 MG TABEC PO SCH (14:41)
[2022-12-28] MEDS ORDERED: LEVOFLOXACIN 750 MG/D5W PREMIX 150 ML IV SCH (20:00)
[2022-12-28] MEDS: LEVOFLOXACIN 500 MG/D5W PREMIX 100 ML IV SCH (20:11)
[2022-12-28] MEDS: ATORVASTATIN 20 MG TAB PO SCH (20:12)
[2022-12-28] MEDS: FERROUS SULFATE 325 MG TABEC PO SCH (20:12)
[2022-12-28] MEDS: FUROSEMIDE 40 MG TAB PO SCH (20:13)
[2022-12-28] MEDS: APIXABAN 2.5 MG TAB PO SCH (20:14)
[2022-12-28] MEDS: methylPREDNISolone SS 40 MG/ML VIAL IVP SCH (20:51)
[2022-12-28] MEDS: CLONIDINE HYDROCHLORIDE 0.1 MG TAB PO SCH (21:00)
[2022-12-29] VITALS (9 sets, daily range): BP systolic 116–151; BP diastolic 34–62; PULSE 62–79; RESP 17–20; TEMP 96–98.4; O2SAT 92–99
[2022-12-29] MEDS: GAUZE TP SCH ×2 (01:00→13:00)
[2022-12-29 06:22] LABS: BASOPHILS % (AUTO) 0.1 % (0.0-2.0); HEMATOCRIT 27.3 % (36-48); HEMOGLOBIN 9.2 g/dL (12.0-16.0); LYMPHOCYTES # (AUTO) 0.5 K/uL (2.5-16.5); LYMPHOCYTES % (AUTO) 6.2 % (20.5-51.1); MEAN CORPUSCULAR HEMOGLOBIN 32 pg (27-31); MEAN CORPUSCULAR HGB CONC 34 g/dL (33-37); MEAN CORPUSCULAR VOLUME 94.1 fL (80-94); MONOCYTES # (AUTO) 0.1 K/uL (0.8-1.0); MONOCYTES % (AUTO) 1.7 % (1.7-9.3); NEUTROPHILS # (AUTO) 7.6 K/uL (1.8-7.7); PLATELET COUNT (AUTO) 239 K/uL (140-450); RED CELL DISTRIBUTION WIDTH 16.1 % (11.6-13.7); WHITE BLOOD COUNT (AUTO) 8.3 K/uL (4.8-10.8)
[2022-12-29 06:30] LABS: ANION GAP 17.3 (8-16); CALCIUM 8.6 mg/dL (8.5-10.1); CARBON DIOXIDE 28.6 mmol/L (21-32); POTASSIUM 4.9 mmol/L (3.5-5.1); TOTAL BILIRUBIN 0.7 mg/dL (0.0-1.0); TOTAL PROTEIN, SERUM 7.6 g/dL (6.4-8.2)
[2022-12-29 06:40] LABS: MAGNESIUM 2.2 mg/dL (1.8-2.4); PHOSPHORUS 6.6 mg/dL (2.5-4.9)
[2022-12-29] MEDS: BLOOD GLUCOSE MONITORING 1 DEV DEV FS SCH ×4 (07:13→20:08)
[2022-12-29] MEDS: methylPREDNISolone SS 40 MG/ML VIAL IVP SCH ×2 (09:00→21:00)
[2022-12-29] MEDS: CLONIDINE HYDROCHLORIDE 0.1 MG TAB PO SCH ×2 (09:00→20:10)
[2022-12-29] MEDS: APIXABAN 2.5 MG TAB PO SCH ×2 (09:00→20:12)
[2022-12-29] MEDS: glipiZIDE ER 5 MG TABER PO SCH (09:00)
[2022-12-29] MEDS: PANTOPRAZOLE 40 MG TABEC PO SCH (09:00)
[2022-12-29] MEDS: VIT-B COMP/VIT-C/FOLIC ACID 1 TAB PO SCH (09:00)
[2022-12-29] MEDS: FOAM DRESSING TP SCH (13:00)
[2022-12-29] MEDS: FUROSEMIDE 40 MG TAB PO SCH ×2 (17:49→20:09)
[2022-12-29] MEDS: GABAPENTIN 300 MG CAP PO SCH (17:49)
[2022-12-29] MEDS: ASCORBIC ACID 500 MG TAB PO SCH (17:50)
[2022-12-29] MEDS: FERROUS SULFATE 325 MG TABEC PO SCH ×2 (17:50→20:10)
[2022-12-29] MEDS: ASPIRIN 81 MG TAB.CHEW PO SCH (17:50)
[2022-12-29] MEDS: amLODIPine 5 MG TAB PO SCH (17:50)
[2022-12-29] MEDS: ATORVASTATIN 20 MG TAB PO SCH (20:09)
[2022-12-29] MEDS: INSULIN LISPRO SLIDING SCALE 100 UNITS/ML VIAL SUBQ PRN (20:14)
[2022-12-30] MEDS: GAUZE TP SCH ×2 (01:59→13:40)
[2022-12-30 04:00] VITALS: BP 127/52; PULSE 60; RESP 18; TEMP 97.1; O2SAT 98
[2022-12-30 06:03] LABS: BASOPHILS % (AUTO) 0.3 % (0.0-2.0); HEMATOCRIT 25.9 % (36-48); HEMOGLOBIN 8.7 g/dL (12.0-16.0); LYMPHOCYTES # (AUTO) 1.6 K/uL (2.5-16.5); MEAN CORPUSCULAR HEMOGLOBIN 31 pg (27-31); MEAN CORPUSCULAR HGB CONC 34 g/dL (33-37); MEAN CORPUSCULAR VOLUME 93.5 fL (80-94); MONOCYTES # (AUTO) 0.9 K/uL (0.8-1.0); MONOCYTES % (AUTO) 10.2 % (1.7-9.3); NEUTROPHILS # (AUTO) 6.7 K/uL (1.8-7.7); NEUTROPHILS % (AUTO) 72.5 % (42.2-75.2); PLATELET COUNT (AUTO) 233 K/uL (140-450); RED BLOOD CELL COUNT(AUTO) 2.77 MIL/uL (4.20-5.40); RED CELL DISTRIBUTION WIDTH 15.8 % (11.6-13.7); WHITE BLOOD COUNT (AUTO) 9.2 K/uL (4.8-10.8)
[2022-12-30 06:24] LABS: ALBUMIN 2.9 g/dL (3.4-5.0); ANION GAP 11.8 (8-16); CALCIUM 8.1 mg/dL (8.5-10.1); CARBON DIOXIDE 29.5 mmol/L (21-32); POTASSIUM 4.3 mmol/L (3.5-5.1); TOTAL BILIRUBIN 0.5 mg/dL (0.0-1.0)
[2022-12-30 06:27] LABS: CREATININE 7.2 mg/dL (0.6-1.3)
[2022-12-30 06:28] LABS: MAGNESIUM 2.2 mg/dL (1.8-2.4); PHOSPHORUS 4.6 mg/dL (2.5-4.9)
[2022-12-30] MEDS: BLOOD GLUCOSE MONITORING 1 DEV DEV FS SCH ×4 (06:58→20:43)
[2022-12-30 08:00] VITALS: BP 130/54; PULSE 60; RESP 18; TEMP 96.1; O2SAT 96
[2022-12-30 08:04] VITALS: O2SAT 98
[2022-12-30] MEDS: methylPREDNISolone SS 40 MG/ML VIAL IVP SCH ×2 (09:00→20:25)
[2022-12-30] MEDS: GABAPENTIN 300 MG CAP PO SCH (09:42)
[2022-12-30] MEDS: amLODIPine 5 MG TAB PO SCH (09:42)
[2022-12-30] MEDS: PANTOPRAZOLE 40 MG TABEC PO SCH (09:42)
[2022-12-30] MEDS: ASCORBIC ACID 500 MG TAB PO SCH (09:43)
[2022-12-30] MEDS: FERROUS SULFATE 325 MG TABEC PO SCH ×2 (09:43→20:26)
[2022-12-30] MEDS: FUROSEMIDE 40 MG TAB PO SCH ×2 (09:43→20:27)
[2022-12-30] MEDS: VIT-B COMP/VIT-C/FOLIC ACID 1 TAB PO SCH (09:43)
[2022-12-30] MEDS: ASPIRIN 81 MG TAB.CHEW PO SCH (09:43)
[2022-12-30] MEDS: glipiZIDE ER 5 MG TABER PO SCH (09:44)
[2022-12-30] MEDS: CLONIDINE HYDROCHLORIDE 0.1 MG TAB PO SCH ×2 (09:44→20:27)
[2022-12-30] MEDS: APIXABAN 2.5 MG TAB PO SCH ×2 (09:46→20:28)
[2022-12-30] MEDS: INSULIN LISPRO SLIDING SCALE 100 UNITS/ML VIAL SUBQ PRN ×3 (11:47→20:45)
[2022-12-30] MEDS: FOAM DRESSING TP SCH (13:39)
[2022-12-30 16:00] VITALS: BP 132/60; PULSE 62; RESP 19; TEMP 97.1; O2SAT 97
[2022-12-30 19:30] VITALS: O2SAT 99
[2022-12-30 20:00] VITALS: BP 120/57; PULSE 58; PULSE 64; RESP 20; TEMP 97.2; TEMP 97.4; O2SAT 96
[2022-12-30] MEDS: LEVOFLOXACIN 500 MG/D5W PREMIX 100 ML IV SCH (20:25)
[2022-12-30] MEDS: ATORVASTATIN 20 MG TAB PO SCH (20:26)
[2022-12-31] MEDS: GAUZE TP SCH ×2 (01:03→13:00)
[2022-12-31 06:34] LABS: BASOPHILS % (AUTO) 0.1 % (0.0-2.0); HEMATOCRIT 27.2 % (36-48); HEMOGLOBIN 9.2 g/dL (12.0-16.0); LYMPHOCYTES # (AUTO) 0.5 K/uL (2.5-16.5); LYMPHOCYTES % (AUTO) 6.5 % (20.5-51.1); MEAN CORPUSCULAR HEMOGLOBIN 32 pg (27-31); MEAN CORPUSCULAR HGB CONC 34 g/dL (33-37); MEAN CORPUSCULAR VOLUME 94.5 fL (80-94); MONOCYTES # (AUTO) 0.1 K/uL (0.8-1.0); MONOCYTES % (AUTO) 1.3 % (1.7-9.3); NEUTROPHILS # (AUTO) 6.6 K/uL (1.8-7.7); NEUTROPHILS % (AUTO) 92.1 % (42.2-75.2); PLATELET COUNT (AUTO) 252 K/uL (140-450); RED BLOOD CELL COUNT(AUTO) 2.88 MIL/uL (4.20-5.40); RED CELL DISTRIBUTION WIDTH 15.4 % (11.6-13.7); WHITE BLOOD COUNT (AUTO) 7.2 K/uL (4.8-10.8)
[2022-12-31 06:43] LABS: MAGNESIUM 2.2 mg/dL (1.8-2.4)
[2022-12-31 06:50] LABS: ALBUMIN 3.2 g/dL (3.4-5.0); ANION GAP 19.5 (8-16); CALCIUM 8.1 mg/dL (8.5-10.1); CARBON DIOXIDE 22.9 mmol/L (21-32); POTASSIUM 5.4 mmol/L (3.5-5.1); TOTAL BILIRUBIN 0.7 mg/dL (0.0-1.0); TOTAL PROTEIN, SERUM 7.5 g/dL (6.4-8.2)
[2022-12-31] MEDS: INSULIN LISPRO SLIDING SCALE 100 UNITS/ML VIAL SUBQ PRN ×4 (06:50→21:08)
[2022-12-31] MEDS: BLOOD GLUCOSE MONITORING 1 DEV DEV FS SCH ×4 (06:51→21:05)
[2022-12-31 06:54] LABS: CREATININE 8.9 mg/dL (0.6-1.3)
[2022-12-31 07:11] VITALS: O2SAT 97
[2022-12-31 08:00] VITALS: BP 110/42; PULSE 63; PULSE 68; RESP 18; RESP 20; TEMP 98.6; O2SAT 97; O2SAT 99
[2022-12-31] MEDS: CLONIDINE HYDROCHLORIDE 0.1 MG TAB PO SCH ×2 (09:00→21:11)
[2022-12-31] MEDS: amLODIPine 5 MG TAB PO SCH (09:00)
[2022-12-31] MEDS: APIXABAN 2.5 MG TAB PO SCH ×2 (09:10→21:07)
[2022-12-31] MEDS: PANTOPRAZOLE 40 MG TABEC PO SCH (09:11)
[2022-12-31] MEDS: VIT-B COMP/VIT-C/FOLIC ACID 1 TAB PO SCH (09:11)
[2022-12-31] MEDS: FERROUS SULFATE 325 MG TABEC PO SCH ×2 (09:11→21:11)
[2022-12-31] MEDS: ASCORBIC ACID 500 MG TAB PO SCH (09:12)
[2022-12-31] MEDS: GABAPENTIN 300 MG CAP PO SCH (09:12)
[2022-12-31] MEDS: ASPIRIN 81 MG TAB.CHEW PO SCH (09:13)
[2022-12-31] MEDS: glipiZIDE ER 5 MG TABER PO SCH (09:16)
[2022-12-31] MEDS: FUROSEMIDE 40 MG TAB PO SCH ×2 (09:16→21:06)
[2022-12-31] MEDS ORDERED: EPOETIN ALFA 10,000 UNITS/ML VIAL HD SCH (10:00)
[2022-12-31] MEDS: methylPREDNISolone SS 40 MG/ML VIAL IVP SCH ×2 (10:22→21:47)
[2022-12-31] MEDS ORDERED: LEVO-481 PO (12:57)
[2022-12-31] MEDS ORDERED: METH4TAB1 PO (12:57)
[2022-12-31] MEDS: FOAM DRESSING TP SCH (13:00)
[2022-12-31 14:43] VITALS: BP 110/42; PULSE 63; RESP 18; TEMP 98.6
[2022-12-31 16:00] VITALS: BP 135/54; PULSE 63; RESP 18; TEMP 96.8; O2SAT 95
[2022-12-31 19:47] VITALS: O2SAT 97
[2022-12-31 20:00] VITALS: BP 164/58; PULSE 69; RESP 18; TEMP 97.4; O2SAT 97
[2022-12-31] MEDS: ATORVASTATIN 20 MG TAB PO SCH (21:05)
[2023-01-01] MEDS: GAUZE TP SCH ×2 (01:00→13:00)
[2023-01-01 04:00] VITALS: BP 149/60; PULSE 68; RESP 18; TEMP 98; O2SAT 98
[2023-01-01] MEDS: BLOOD GLUCOSE MONITORING 1 DEV DEV FS SCH ×3 (06:33→17:14)
[2023-01-01] MEDS: INSULIN LISPRO SLIDING SCALE 100 UNITS/ML VIAL SUBQ PRN ×2 (06:41→17:11)
[2023-01-01 06:42] LABS: BASOPHILS % (AUTO) 0.1 % (0.0-2.0); HEMATOCRIT 27.1 % (36-48); HEMOGLOBIN 8.9 g/dL (12.0-16.0); LYMPHOCYTES # (AUTO) 0.7 K/uL (2.5-16.5); LYMPHOCYTES % (AUTO) 6.1 % (20.5-51.1); MEAN CORPUSCULAR HEMOGLOBIN 31 pg (27-31); MEAN CORPUSCULAR HGB CONC 33 g/dL (33-37); MEAN CORPUSCULAR VOLUME 94.1 fL (80-94); MONOCYTES # (AUTO) 0.2 K/uL (0.8-1.0); MONOCYTES % (AUTO) 2.2 % (1.7-9.3); NEUTROPHILS # (AUTO) 10.2 K/uL (1.8-7.7); NEUTROPHILS % (AUTO) 91.6 % (42.2-75.2); PLATELET COUNT (AUTO) 239 K/uL (140-450); RED BLOOD CELL COUNT(AUTO) 2.88 MIL/uL (4.20-5.40); RED CELL DISTRIBUTION WIDTH 15.6 % (11.6-13.7); WHITE BLOOD COUNT (AUTO) 11.1 K/uL (4.8-10.8)
[2023-01-01 07:13] LABS: ALBUMIN 3.2 g/dL (3.4-5.0); ANION GAP 17.7 (8-16); CALCIUM 8.4 mg/dL (8.5-10.1); CARBON DIOXIDE 23.2 mmol/L (21-32); POTASSIUM 4.9 mmol/L (3.5-5.1); TOTAL BILIRUBIN 0.5 mg/dL (0.0-1.0); TOTAL PROTEIN, SERUM 7.3 g/dL (6.4-8.2)
[2023-01-01 07:17] LABS: MAGNESIUM 2.3 mg/dL (1.8-2.4)
[2023-01-01 07:18] LABS: CREATININE 7.5 mg/dL (0.6-1.3)
[2023-01-01 08:00] VITALS: BP 134/55; PULSE 67; RESP 17; TEMP 97.8; O2SAT 98
[2023-01-01 08:01] VITALS: O2SAT 97
[2023-01-01] MEDS: methylPREDNISolone SS 40 MG/ML VIAL IVP SCH (09:00)
[2023-01-01] MEDS: ASPIRIN 81 MG TAB.CHEW PO SCH (09:40)
[2023-01-01] MEDS: amLODIPine 5 MG TAB PO SCH (09:40)
[2023-01-01] MEDS: ASCORBIC ACID 500 MG TAB PO SCH (09:40)
[2023-01-01] MEDS: glipiZIDE ER 5 MG TABER PO SCH (09:40)
[2023-01-01] MEDS: FERROUS SULFATE 325 MG TABEC PO SCH (09:41)
[2023-01-01] MEDS: FUROSEMIDE 40 MG TAB PO SCH (09:41)
[2023-01-01] MEDS: PANTOPRAZOLE 40 MG TABEC PO SCH (09:41)
[2023-01-01] MEDS: GABAPENTIN 300 MG CAP PO SCH (09:41)
[2023-01-01] MEDS: VIT-B COMP/VIT-C/FOLIC ACID 1 TAB PO SCH (09:41)
[2023-01-01] MEDS: CLONIDINE HYDROCHLORIDE 0.1 MG TAB PO SCH (09:42)
[2023-01-01] MEDS: APIXABAN 2.5 MG TAB PO SCH (09:54)
[2023-01-01 11:12] VITALS: BP 125/46; PULSE 66
[2023-01-01] MEDS ORDERED: INSULIN LANTUS 100 UNITS/ML 10 ML VIAL SUBQ SCH (12:36)
[2023-01-01] MEDS ORDERED: INSULIN LISPRO 100 UNITS/ML VIAL SUBQ SCH (12:36)
[2023-01-01] MEDS: FOAM DRESSING TP SCH (13:00)
== END 2023-01-01 17:50 | DRG 871 ==
LOC: MED 18:48 → EEVIPCON 21:10 → MTU 21:10
PROVIDERS: ADMIT Student in an Organized Health Care Education/Training Program; ATTEND Student in an Organized Health Care Education/Training Program
PROC: 5A0935A Assistance with Respiratory Ventilation, Less than 24 Consecutive Hours, High Flow/Velocity Cannula (ICD-10-PCS; principal; 2022-12-27)
PROC: 5A09357 Assistance with Respiratory Ventilation, Less than 24 Consecutive Hours, Continuous Positive Airway Pressure (ICD-10-PCS; 2022-12-27)
PROC: 5A1D70Z Performance of Urinary Filtration, Intermittent, Less than 6 Hours Per Day (ICD-10-PCS; 2022-12-27)
PROC: 5A1D70Z Performance of Urinary Filtration, Intermittent, Less than 6 Hours Per Day (ICD-10-PCS; 2022-12-28)
PROC: 5A1D70Z Performance of Urinary Filtration, Intermittent, Less than 6 Hours Per Day (ICD-10-PCS; 2022-12-30)
PROC: 5A09357 Assistance with Respiratory Ventilation, Less than 24 Consecutive Hours, Continuous Positive Airway Pressure (ICD-10-PCS; 2022-12-31)
DX: A41.9 Sepsis, unspecified organism (principal); J12.82 Pneumonia due to coronavirus disease 2019; U07.1 COVID-19; N18.6 End stage renal disease; J96.01 Acute respiratory failure with hypoxia; J15.6 Pneumonia due to other Gram-negative bacteria; N17.0 Acute kidney failure with tubular necrosis; I13.2 Hypertensive heart and chronic kidney disease with heart failure and with stage 5 chronic kidney disease, or end stage renal disease; E44.0 Moderate protein-calorie malnutrition; D68.9 Coagulation defect, unspecified; E11.22 Type 2 diabetes mellitus with diabetic chronic kidney disease; I50.9 Heart failure, unspecified; I25.10 Atherosclerotic heart disease of native coronary artery without angina pectoris; Z99.2 Dependence on renal dialysis; Z68.34 Body mass index [BMI] 34.0-34.9, adult; D63.8 Anemia in other chronic diseases classified elsewhere; I48.91 Unspecified atrial fibrillation; R79.89 Other specified abnormal findings of blood chemistry; E11.40 Type 2 diabetes mellitus with diabetic neuropathy, unspecified; Z90.49 Acquired absence of other specified parts of digestive tract; Z88.0 Allergy status to penicillin
CPT/HCPCS: 36415; 36600; 71045; 80053; 82803; 82948; 83605; 83735; 83880; 84100; 84484; 85025; 87040; 93005; 94660; 96365; 99291; 99292; J0885; J1815; J1956; J2405; J2920

== ENCOUNTER 2023-03-10 16:05 | Inpatient (IN) | payer OTHER ==
[~2023-03-10] VITALS: Ht 162.6 cm; Wt 93.4 kg
[~2023-03-10 16:05] MED LIST changes: -CEFEPIME IV; -DEC4 PO; +LEVO-481 PO; +METH4TAB1 PO
[2023-03-10 16:19] VITALS: BP 155/79; PULSE 88; RESP 18; TEMP 99; O2SAT 99
[2023-03-10] MEDS ORDERED: EPINEPHrine 1 MG/ML AMP IM ONE (16:50)
[2023-03-10] MEDS ORDERED: methylPREDNISolone SS 125 MG/2 ML VIAL IVP ONE (16:50)
[2023-03-10 17:20] VITALS: O2SAT 96
[2023-03-10 18:00] LABS: BASOPHILS # (AUTO) 0.1 K/uL (0.00-0.22); BASOPHILS % (AUTO) 0.3 % (0.0-2.0); EOSINOPHILS % (AUTO) 0.3 % (0.0-4.0); HEMATOCRIT 27.9 % (36-48); HEMOGLOBIN 9.1 g/dL (12.0-16.0); LYMPHOCYTES # (AUTO) 2.9 K/uL (2.5-16.5); LYMPHOCYTES % (AUTO) 16.1 % (20.5-51.1); MEAN CORPUSCULAR HEMOGLOBIN 30 pg (27-31); MEAN CORPUSCULAR HGB CONC 33 g/dL (33-37); MEAN CORPUSCULAR VOLUME 92.8 fL (80-94); MONOCYTES # (AUTO) 1.1 K/uL (0.8-1.0); MONOCYTES % (AUTO) 6.4 % (1.7-9.3); NEUTROPHILS # (AUTO) 13.8 K/uL (1.8-7.7); NEUTROPHILS % (AUTO) 76.9 % (42.2-75.2); PLATELET COUNT (AUTO) 260 K/uL (140-450); RED BLOOD CELL COUNT(AUTO) 3.01 MIL/uL (4.20-5.40); RED CELL DISTRIBUTION WIDTH 15.2 % (11.6-13.7); WHITE BLOOD COUNT (AUTO) 17.9 K/uL (4.8-10.8)
[2023-03-10 18:08] LABS: LACTIC ACID 1.1 mmol/L (0.4-2.0)
[2023-03-10 18:08] LABS: CREATINE KINASE, TOTAL 90 U/L (26-192); LIPASE 37 U/L (16-77)
[2023-03-10] MEDS ORDERED: CLON0.1T16 PO (18:08)
[2023-03-10] MEDS ORDERED: INSU300I2 SQ ×2 (18:08)
[2023-03-10] MEDS ORDERED: SEVE800T6 PO (18:08)
[2023-03-10] MEDS ORDERED: FURO-570 PO ×2 (18:08)
[2023-03-10] MEDS ORDERED: AMLO10TA PO ×2 (18:08)
[2023-03-10] MEDS ORDERED: NEP PO (18:08)
[2023-03-10] MEDS ORDERED: PATI8.4P PO ×2 (18:08)
[2023-03-10] MEDS ORDERED: CLON0.1T15 PO (18:08)
[2023-03-10] MEDS ORDERED: MELA5SGL PO (18:08)
[2023-03-10] MEDS ORDERED: PANT40EC PO (18:08)
[2023-03-10] MEDS ORDERED: LEVOFLOXACIN 500 MG/D5W PREMIX 100 ML IV ONE (18:15)
[2023-03-10 18:30] LABS: ALBUMIN 3.6 g/dL (3.4-5.0); ANION GAP 21.6 (8-16); CALCIUM 8.6 mg/dL (8.5-10.1); CARBON DIOXIDE 18.6 mmol/L (21-32); TOTAL BILIRUBIN 0.5 mg/dL (0.0-1.0); TOTAL PROTEIN, SERUM 7.3 g/dL (6.4-8.2)
[2023-03-10 18:35] LABS: CREATININE 11.7 mg/dL (0.6-1.3); POTASSIUM 6.2 mmol/L (3.5-5.1)
[2023-03-10] MEDS ORDERED: INSULIN REGULAR, HUMAN 100 UNIT/ML VIAL SUBQ ONE (18:40)
[2023-03-10] MEDS ORDERED: CALCIUM GLUC 1 GM/50 mL NS BAG 50 ML IV ONE (18:40)
[2023-03-10] MEDS ORDERED: DEXTROSE 50% 50 ML SYR IVP ONE (18:40)
[2023-03-10 19:02] LABS: APPEARANCE,URINE CLEAR (CLEAR); BILIRUBIN,URINE NEGATIVE (NEGATIVE); BLOOD, URINE 2+ (NEGATIVE); COLOR,URINE YELLOW (YELLOW); LEUKOCYTE ESTERASE ,URINE NEGATIVE (NEGATIVE); NITRITE, URINE NEGATIVE (NEGATIVE); PROTEIN,URINE 3+ (NEGATIVE); UGLUCOSE 1+ (NEGATIVE); UROBILINOGEN,URINE 0.2 EU/dL (0.2 - 1)
[2023-03-10] MEDS ORDERED: ACETAMINOPHEN 325 MG TAB PO PRN (19:10)
[2023-03-10] MEDS ORDERED: MORPHINE SULFATE 2 MG/ML SYR IVP PRN (19:10)
[2023-03-10] MEDS ORDERED: HYDROcodone/APAP 5/325 MG 1 TAB TAB PO PRN (19:10)
[2023-03-10 19:14] LABS: BACTERIA,URINE FEW /HPF (None Seen); SQUAMOUS EPITHELIAL CELL,UR 0-3 (FEW) /LPF (0-3 (FEW)); WBC,URINE 0-5 /HPF (0-5)
[2023-03-10 19:15] LABS: FINE GRANULAR CASTS,URINE 0-10 /LPF (None Seen); MUCUS,URINE 1+ /LPF (None Seen); YEAST,URINE Few /HPF (None Seen)
[2023-03-10 19:42] VITALS: O2SAT 97
[2023-03-10 20:20] VITALS: BP 137/119; PULSE 85; RESP 13; TEMP 99; O2SAT 98
[2023-03-11] VITALS: BP 155/78; PULSE 80; RESP 14; TEMP 97.6; O2SAT 99
[2023-03-11 04:00] VITALS: BP 155/69; PULSE 75; RESP 11; TEMP 98.1; O2SAT 97
[2023-03-11 05:50] LABS: BASOPHILS % (AUTO) 0.1 % (0.0-2.0); HEMATOCRIT 27.2 % (36-48); HEMOGLOBIN 9.3 g/dL (12.0-16.0); LYMPHOCYTES # (AUTO) 0.5 K/uL (2.5-16.5); LYMPHOCYTES % (AUTO) 7.3 % (20.5-51.1); MEAN CORPUSCULAR HEMOGLOBIN 31 pg (27-31); MEAN CORPUSCULAR HGB CONC 34 g/dL (33-37); MEAN CORPUSCULAR VOLUME 91.7 fL (80-94); MONOCYTES # (AUTO) 0.1 K/uL (0.8-1.0); MONOCYTES % (AUTO) 1.1 % (1.7-9.3); NEUTROPHILS # (AUTO) 6.4 K/uL (1.8-7.7); NEUTROPHILS % (AUTO) 91.5 % (42.2-75.2); PLATELET COUNT (AUTO) 245 K/uL (140-450); RED BLOOD CELL COUNT(AUTO) 2.96 MIL/uL (4.20-5.40); RED CELL DISTRIBUTION WIDTH 14.9 % (11.6-13.7)
[2023-03-11 06:34] LABS: ALBUMIN 3.2 g/dL (3.4-5.0); ANION GAP 14.7 (8-16); CALCIUM 8.8 mg/dL (8.5-10.1); CARBON DIOXIDE 30.5 mmol/L (21-32); MAGNESIUM 2.1 mg/dL (1.8-2.4); PHOSPHORUS 4.2 mg/dL (2.5-4.9); POTASSIUM 4.2 mmol/L (3.5-5.1); TOTAL BILIRUBIN 0.7 mg/dL (0.0-1.0); TOTAL PROTEIN, SERUM 7.3 g/dL (6.4-8.2)
[2023-03-11 06:45] LABS: CREATININE 6.7 mg/dL (0.6-1.3)
[2023-03-11 08:00] VITALS: BP 169/68; PULSE 69; RESP 12; RESP 16; TEMP 97.5; O2SAT 100
[2023-03-11] MEDS ORDERED: PATIROMER CALCIUM SORBITEX 8.4 GM PKT PO SCH (09:00)
[2023-03-11] MEDS ORDERED: ASPIRIN 81 MG TAB.CHEW PO SCH (09:00)
[2023-03-11] MEDS ORDERED: LORazepam 2 MG/ML VIAL IVP PRN (09:15)
[2023-03-11] MEDS ORDERED: FUROSEMIDE 40 MG TAB PO SCH (09:15)
[2023-03-11] MEDS ORDERED: CLONIDINE HYDROCHLORIDE 0.1 MG TAB PO SCH (09:15)
[2023-03-11] MEDS ORDERED: amLODIPine 5 MG TAB PO SCH (09:15)
[2023-03-11] MEDS ORDERED: ONDANSETRON 4 MG/2 ML VIAL IVP PRN (09:15)
[2023-03-11] MEDS ORDERED: THERAHONEY GEL 42.5 GM TP PRN (11:40)
[2023-03-11] MEDS: BLOOD GLUCOSE MONITORING 1 DEV DEV FS SCH ×3 (11:40→20:39)
[2023-03-11 12:00] VITALS: BP 140/63; PULSE 68; PULSE 85; RESP 13; TEMP 98.5; O2SAT 97
[2023-03-11] MEDS: GABAPENTIN 100 MG CAP PO SCH ×2 (12:10→16:35)
[2023-03-11] MEDS: SEVELAMER CARBONATE 800 MG TAB PO SCH ×2 (12:10→16:34)
[2023-03-11] MEDS: THERAHONEY GEL 42.5 GM TP SCH (13:16)
[2023-03-11 16:00] VITALS: BP 133/74; PULSE 73; PULSE 80; RESP 15; TEMP 98.4; O2SAT 97
[2023-03-11] MEDS: INSULIN LISPRO SLIDING SCALE 100 UNITS/ML VIAL SUBQ PRN ×2 (16:44→20:44)
[2023-03-11 20:00] VITALS: BP 158/88; PULSE 73; PULSE 75; RESP 18; TEMP 97.4; O2SAT 94; O2SAT 95
[2023-03-11] MEDS: ATORVASTATIN 20 MG TAB PO SCH (20:34)
[2023-03-11] MEDS: MELATONIN 3 MG TAB PO SCH (20:34)
[2023-03-11] MEDS: INSULIN LANTUS 100 UNITS/ML 10 ML VIAL SUBQ SCH (20:44)
[2023-03-12] VITALS: BP 137/50; PULSE 70; PULSE 73; RESP 18; TEMP 97; O2SAT 99
[2023-03-12 04:00] VITALS: BP 157/57; PULSE 68; PULSE 73; RESP 18; TEMP 97.3; O2SAT 94
[2023-03-12] MEDS: BLOOD GLUCOSE MONITORING 1 DEV DEV FS SCH ×4 (06:33→20:15)
[2023-03-12 06:52] LABS: BASOPHILS % (AUTO) 0.3 % (0.0-2.0); EOSINOPHILS % (AUTO) 0.1 % (0.0-4.0); HEMATOCRIT 28.7 % (36-48); HEMOGLOBIN 9.4 g/dL (12.0-16.0); LYMPHOCYTES # (AUTO) 1.8 K/uL (2.5-16.5); LYMPHOCYTES % (AUTO) 14.4 % (20.5-51.1); MEAN CORPUSCULAR HEMOGLOBIN 30 pg (27-31); MEAN CORPUSCULAR HGB CONC 33 g/dL (33-37); MEAN CORPUSCULAR VOLUME 92.5 fL (80-94); MONOCYTES # (AUTO) 1.1 K/uL (0.8-1.0); MONOCYTES % (AUTO) 9.1 % (1.7-9.3); NEUTROPHILS # (AUTO) 9.6 K/uL (1.8-7.7); NEUTROPHILS % (AUTO) 76.1 % (42.2-75.2); PLATELET COUNT (AUTO) 282 K/uL (140-450); RED CELL DISTRIBUTION WIDTH 14.9 % (11.6-13.7); WHITE BLOOD COUNT (AUTO) 12.6 K/uL (4.8-10.8)
[2023-03-12 07:06] LABS: ANION GAP 16.6 (8-16); CALCIUM 8.4 mg/dL (8.5-10.1); CARBON DIOXIDE 27.1 mmol/L (21-32); POTASSIUM 4.7 mmol/L (3.5-5.1)
[2023-03-12 07:24] LABS: MAGNESIUM 2.3 mg/dL (1.8-2.4); PHOSPHORUS 5.4 mg/dL (2.5-4.9)
[2023-03-12 08:00] VITALS: BP 169/56; PULSE 67; PULSE 70; PULSE 89; RESP 18; TEMP 96; O2SAT 98
[2023-03-12 08:17] LABS: CREATININE 8.5 mg/dL (0.6-1.3)
[2023-03-12] MEDS: SEVELAMER CARBONATE 800 MG TAB PO SCH ×3 (08:43→17:23)
[2023-03-12] MEDS: GABAPENTIN 100 MG CAP PO SCH ×3 (08:43→17:23)
[2023-03-12] MEDS: VIT-B COMP/VIT-C/FOLIC ACID 1 TAB PO SCH (08:45)
[2023-03-12] MEDS: CLONIDINE HYDROCHLORIDE 0.1 MG TAB PO SCH (08:45)
[2023-03-12] MEDS: FUROSEMIDE 40 MG TAB PO SCH (08:45)
[2023-03-12] MEDS: amLODIPine 5 MG TAB PO SCH (08:45)
[2023-03-12] MEDS: ASPIRIN 81 MG TAB.CHEW PO SCH (08:46)
[2023-03-12] MEDS: PANTOPRAZOLE 40 MG TABEC PO SCH (08:46)
[2023-03-12] MEDS ORDERED: PATIROMER CALCIUM SORBITEX 8.4 GM PKT PO SCH ×2 (09:00→10:05)
[2023-03-12] MEDS: INSULIN LANTUS 100 UNITS/ML 10 ML VIAL SUBQ SCH ×2 (09:12→20:21)
[2023-03-12 15:07] LABS: HEPATITIS A ANTIBODY IGM Negative (Negative); HEPATITIS B CORE AB TOTAL Negative (Negative); HEPATITIS B CORE, IGM Negative (Negative); HEPATITIS B SURFACE ANTIBODY Reactive (.); HEPATITIS B SURFACE ANTIGEN Negative (Negative); HEPATITIS C VIRUS ANTIBODY Non Reactive (Non Reactive)
[2023-03-12] MEDS: THERAHONEY GEL 42.5 GM TP SCH (15:30)
[2023-03-12] MEDS ORDERED: LEVOFLOXACIN 250 MG/D5 PREMIX 50 ML IV SCH (18:00)
[2023-03-12 19:28] LABS: HEPATITIS A ANTIBODY TOTAL Positive (Negative)
[2023-03-12 20:00] VITALS: BP 140/55; PULSE 67; RESP 18; TEMP 97.5; O2SAT 94
[2023-03-12] MEDS: LOSARTAN 25 MG TAB PO SCH (20:09)
[2023-03-12] MEDS: ATORVASTATIN 20 MG TAB PO SCH (20:09)
[2023-03-12] MEDS: MELATONIN 3 MG TAB PO SCH (20:10)
[2023-03-12] MEDS: INSULIN LISPRO SLIDING SCALE 100 UNITS/ML VIAL SUBQ PRN (20:22)
[2023-03-13] VITALS (7 sets, daily range): BP systolic 143–166; BP diastolic 50–58; PULSE 60–71; RESP 18–20; TEMP 97.8–98; O2SAT 98–100
[2023-03-13] MEDS: BLOOD GLUCOSE MONITORING 1 DEV DEV FS SCH ×4 (06:32→21:25)
[2023-03-13] MEDS: DEXTROSE 50% 50 ML SYR IVP PRN (06:35)
[2023-03-13 06:39] LABS: BASOPHILS % (AUTO) 0.5 % (0.0-2.0); EOSINOPHILS % (AUTO) 0.4 % (0.0-4.0); HEMATOCRIT 31.3 % (36-48); HEMOGLOBIN 10.5 g/dL (12.0-16.0); LYMPHOCYTES # (AUTO) 1.9 K/uL (2.5-16.5); LYMPHOCYTES % (AUTO) 18.3 % (20.5-51.1); MEAN CORPUSCULAR HEMOGLOBIN 31 pg (27-31); MEAN CORPUSCULAR HGB CONC 34 g/dL (33-37); MONOCYTES # (AUTO) 0.9 K/uL (0.8-1.0); MONOCYTES % (AUTO) 8.6 % (1.7-9.3); NEUTROPHILS # (AUTO) 7.6 K/uL (1.8-7.7); NEUTROPHILS % (AUTO) 72.2 % (42.2-75.2); PLATELET COUNT (AUTO) 308 K/uL (140-450); RED CELL DISTRIBUTION WIDTH 14.9 % (11.6-13.7); WHITE BLOOD COUNT (AUTO) 10.6 K/uL (4.8-10.8)
[2023-03-13 07:17] LABS: ALBUMIN 3.2 g/dL (3.4-5.0); ANION GAP 16.5 (8-16); CALCIUM 8.8 mg/dL (8.5-10.1); CARBON DIOXIDE 29.7 mmol/L (21-32); MAGNESIUM 2.3 mg/dL (1.8-2.4); PHOSPHORUS 4.9 mg/dL (2.5-4.9); POTASSIUM 5.2 mmol/L (3.5-5.1); TOTAL BILIRUBIN 0.6 mg/dL (0.0-1.0)
[2023-03-13] MEDS: LOSARTAN 25 MG TAB PO SCH (09:54)
[2023-03-13] MEDS: PANTOPRAZOLE 40 MG TABEC PO SCH (09:55)
[2023-03-13] MEDS: SEVELAMER CARBONATE 800 MG TAB PO SCH ×3 (09:55→16:44)
[2023-03-13] MEDS: GABAPENTIN 100 MG CAP PO SCH ×3 (09:55→16:44)
[2023-03-13] MEDS: VIT-B COMP/VIT-C/FOLIC ACID 1 TAB PO SCH (09:56)
[2023-03-13] MEDS: ASPIRIN 81 MG TAB.CHEW PO SCH (09:56)
[2023-03-13] MEDS: INSULIN LANTUS 100 UNITS/ML 10 ML VIAL SUBQ SCH ×2 (09:58→21:00)
[2023-03-13] MEDS: THERAHONEY GEL 42.5 GM TP SCH (13:06)
[2023-03-13] MEDS: MELATONIN 3 MG TAB PO SCH (21:00)
[2023-03-13] MEDS: LOSARTAN 50 MG TAB PO SCH (21:01)
[2023-03-13] MEDS: ATORVASTATIN 20 MG TAB PO SCH (21:02)
[2023-03-13] MEDS: hydrALAZINE 25 MG TAB PO SCH (21:02)
[2023-03-14] MEDS: DEXTROSE 50% 50 ML SYR IVP PRN (02:36)
[2023-03-14 04:09] VITALS: BP 148/62; PULSE 68; RESP 18; TEMP 97.6; O2SAT 98
[2023-03-14] MEDS: hydrALAZINE 25 MG TAB PO SCH ×2 (04:33→13:00)
[2023-03-14] MEDS: BLOOD GLUCOSE MONITORING 1 DEV DEV FS SCH ×2 (06:12→11:57)
[2023-03-14 06:50] LABS: BASOPHILS # (AUTO) 0.1 K/uL (0.00-0.22); BASOPHILS % (AUTO) 0.7 % (0.0-2.0); EOSINOPHILS % (AUTO) 0.5 % (0.0-4.0); HEMATOCRIT 31.6 % (36-48); HEMOGLOBIN 10.6 g/dL (12.0-16.0); LYMPHOCYTES # (AUTO) 1.6 K/uL (2.5-16.5); LYMPHOCYTES % (AUTO) 16.2 % (20.5-51.1); MEAN CORPUSCULAR HEMOGLOBIN 31 pg (27-31); MEAN CORPUSCULAR HGB CONC 33 g/dL (33-37); MEAN CORPUSCULAR VOLUME 91.6 fL (80-94); MONOCYTES % (AUTO) 9.4 % (1.7-9.3); NEUTROPHILS # (AUTO) 7.5 K/uL (1.8-7.7); NEUTROPHILS % (AUTO) 73.2 % (42.2-75.2); PLATELET COUNT (AUTO) 298 K/uL (140-450); RED BLOOD CELL COUNT(AUTO) 3.45 MIL/uL (4.20-5.40); RED CELL DISTRIBUTION WIDTH 14.8 % (11.6-13.7); WHITE BLOOD COUNT (AUTO) 10.2 K/uL (4.8-10.8)
[2023-03-14 07:32] LABS: CALCIUM 8.5 mg/dL (8.5-10.1)
[2023-03-14 08:00] VITALS: PULSE 76; RESP 18; TEMP 98.2; O2SAT 100
[2023-03-14] MEDS: VIT-B COMP/VIT-C/FOLIC ACID 1 TAB PO SCH (08:12)
[2023-03-14] MEDS: SEVELAMER CARBONATE 800 MG TAB PO SCH ×2 (08:13→12:38)
[2023-03-14] MEDS: ASPIRIN 81 MG TAB.CHEW PO SCH (08:13)
[2023-03-14] MEDS: FUROSEMIDE 40 MG TAB PO SCH (08:13)
[2023-03-14] MEDS: LOSARTAN 50 MG TAB PO SCH (08:14)
[2023-03-14] MEDS: CLONIDINE HYDROCHLORIDE 0.1 MG TAB PO SCH (08:15)
[2023-03-14] MEDS: amLODIPine 5 MG TAB PO SCH (08:16)
[2023-03-14] MEDS: PANTOPRAZOLE 40 MG TABEC PO SCH (08:16)
[2023-03-14] MEDS: GABAPENTIN 100 MG CAP PO SCH ×2 (08:17→12:38)
[2023-03-14 08:31] LABS: CREATININE 5.6 mg/dL (0.6-1.3)
[2023-03-14 08:42] LABS: MAGNESIUM 2.2 mg/dL (1.8-2.4); PHOSPHORUS 4.6 mg/dL (2.5-4.9)
[2023-03-14] MEDS ORDERED: PATIROMER CALCIUM SORBITEX 8.4 GM PKT PO SCH (09:00)
[2023-03-14] MEDS ORDERED: PATI8.4P PO ×2 (09:43)
[2023-03-14] MEDS ORDERED: LOSA-270 PO (09:43)
[2023-03-14] MEDS ORDERED: HYDR-4420 PO (09:43)
[2023-03-14] MEDS: INSULIN LANTUS 100 UNITS/ML 10 ML VIAL SUBQ SCH ×2 (09:55→10:13)
[2023-03-14] MEDS: INSULIN LISPRO SLIDING SCALE 100 UNITS/ML VIAL SUBQ PRN (11:57)
[2023-03-14 12:00] VITALS: BP 107/48; PULSE 76; RESP 18; TEMP 208.8; O2SAT 100
[2023-03-14] MEDS: THERAHONEY GEL 42.5 GM TP SCH (12:46)
[2023-03-15] MEDS ORDERED: INSULIN LANTUS 100 UNITS/ML 10 ML VIAL SUBQ SCH (09:00)
== END 2023-03-14 16:44 | DRG 193 ==
LOC: MED 16:05 → MIC 19:12 → MTU 03-11 18:35
PROVIDERS: ADMIT Student in an Organized Health Care Education/Training Program; ATTEND Student in an Organized Health Care Education/Training Program
PROC: 5A1D70Z Performance of Urinary Filtration, Intermittent, Less than 6 Hours Per Day (ICD-10-PCS; principal; 2023-03-10)
PROC: 5A1D70Z Performance of Urinary Filtration, Intermittent, Less than 6 Hours Per Day (ICD-10-PCS; 2023-03-12)
PROC: 5A1D70Z Performance of Urinary Filtration, Intermittent, Less than 6 Hours Per Day (ICD-10-PCS; 2023-03-13)
DX: J18.9 Pneumonia, unspecified organism (principal); I50.33 Acute on chronic diastolic (congestive) heart failure; N18.6 End stage renal disease; N17.9 Acute kidney failure, unspecified; I13.2 Hypertensive heart and chronic kidney disease with heart failure and with stage 5 chronic kidney disease, or end stage renal disease; E87.5 Hyperkalemia; E78.5 Hyperlipidemia, unspecified; D63.8 Anemia in other chronic diseases classified elsewhere; I35.0 Nonrheumatic aortic (valve) stenosis; D63.1 Anemia in chronic kidney disease; E11.22 Type 2 diabetes mellitus with diabetic chronic kidney disease; R79.89 Other specified abnormal findings of blood chemistry; D72.829 Elevated white blood cell count, unspecified; E88.09 Other disorders of plasma-protein metabolism, not elsewhere classified; Z99.2 Dependence on renal dialysis; Z88.0 Allergy status to penicillin; Z79.899 Other long term (current) drug therapy; I25.2 Old myocardial infarction
CPT/HCPCS: 36415; 70450; 71045; 80048; 80053; 81001; 82550; 82948; 83605; 83690; 83735; 83880; 84100; 84484; 85025; 85651; 86140; 86704; 86706; 86708; 86709; 86803; 87040; 87081; 87086; 87340; 93005; 96365; 96372; 96375; 97110; 97116; 97530; 99285; J0171; J0610; J1815; J1956; J2930; Q0092

== ENCOUNTER 2023-04-06 21:04 | Inpatient (IN) | payer OTHER ==
[~2023-04-06] VITALS: Ht 162.6 cm; Wt 90.7 kg
[~2023-04-06 21:04] MED LIST changes: +AMLO10TA PO; -AMLO5TAB PO; -APIX2.5 PO; -ASCO500T95 PO; +CLON0.1T16 PO; -FER325 PO; -GLIP5TER PO; +HYDR-4420 PO; -HYDR-5122 PO; +INSU300I2 SQ; -LEVO-481 PO; +LOSA-270 PO; +MELA5SGL PO; -METH4TAB1 PO; +NEP PO; -NUTR887L9 PO; +PANT40EC PO; +PATI8.4P PO; +SEVE800T6 PO; -VITA1TAB44 PO; -[UNRECOGNIZED DRUG - CODE] SUBQ
[2023-04-06 21:05] VITALS: BP 109/70; PULSE 105; RESP 20; TEMP 102.7; O2SAT 88
[2023-04-06] MEDS ORDERED: ACETAMINOPHEN 650 MG SUPP RC ONE (21:24)
[2023-04-06] MEDS ORDERED: NACL 0.9% 500 ML IV SCH (21:25)
[2023-04-06] MEDS ORDERED: LEVOFLOXACIN 500 MG/D5W PREMIX 100 ML IV ONE (21:25)
[2023-04-06] MEDS ORDERED: ACETAMINOPHEN EXTRA STRENGTH 500 MG TAB ONE (21:25)
[2023-04-06 21:56] LABS: BASOPHILS % (AUTO) 0.3 % (0.0-2.0); EOSINOPHILS % (AUTO) 0.1 % (0.0-4.0); HEMATOCRIT 22.2 % (36-48); HEMOGLOBIN 7.2 g/dL (12.0-16.0); LYMPHOCYTES # (AUTO) 1.1 K/uL (2.5-16.5); LYMPHOCYTES % (AUTO) 7.6 % (20.5-51.1); MEAN CORPUSCULAR HEMOGLOBIN 31 pg (27-31); MEAN CORPUSCULAR HGB CONC 33 g/dL (33-37); MEAN CORPUSCULAR VOLUME 94.3 fL (80-94); MONOCYTES # (AUTO) 1.1 K/uL (0.8-1.0); MONOCYTES % (AUTO) 7.9 % (1.7-9.3); NEUTROPHILS % (AUTO) 84.1 % (42.2-75.2); PLATELET COUNT (AUTO) 289 K/uL (140-450); RED BLOOD CELL COUNT(AUTO) 2.36 MIL/uL (4.20-5.40); RED CELL DISTRIBUTION WIDTH 16.3 % (11.6-13.7); WHITE BLOOD COUNT (AUTO) 14.3 K/uL (4.8-10.8)
[2023-04-06 22:14] LABS: ANION GAP 14.2 (8-16); CALCIUM 9.3 mg/dL (8.5-10.1); CARBON DIOXIDE 28.3 mmol/L (21-32); POTASSIUM 5.5 mmol/L (3.5-5.1)
[2023-04-06 22:18] LABS: CREATININE 5.7 mg/dL (0.6-1.3)
[2023-04-06 22:22] LABS: LACTIC ACID 1.2 mmol/L (0.4-2.0)
[2023-04-06] MEDS ORDERED: ACETAMINOPHEN 325 MG TAB PO ONE ×2 (22:35→22:50)
[2023-04-06 22:47] LABS: FLU A ANTIGEN negative (NEGATIVE); FLU B ANTIGEN NEGATIVE (NEGATIVE)
[2023-04-07] MEDS ORDERED: VANCOMYCIN PER PHARMACY MC PRN (02:05)
[2023-04-07] MEDS ORDERED: HEPARIN PER PHARMACY MC PRN (03:20)
[2023-04-07] MEDS ORDERED: hePARIN / DEXT 5% PREMIX 250 ML IV SCH ×2 (03:20→08:35)
[2023-04-07] MEDS ORDERED: ASPIRIN 325 MG TAB PO ONE (03:25)
[2023-04-07 04:01] LABS: INR 0.92 (0.8-1.2); PARTIAL THROMBOPLASTIN TIME 27.2 secs (22-35.6); PROTHROMBIN TIME 9.7 secs (10.8-13.4)
[2023-04-07 08:00] VITALS: RESP 12; O2SAT 95
[2023-04-07 08:08] VITALS: PULSE 86
[2023-04-07] MEDS: ATORVASTATIN 20 MG TAB PO SCH (08:42)
[2023-04-07] MEDS: ACETAMINOPHEN 325 MG TAB PO PRN (08:43)
[2023-04-07] MEDS: METOPROLOL SUCCINATE 50 MG TABER PO SCH (08:44)
[2023-04-07] MEDS: lisinopriL 5 MG TAB PO SCH (08:44)
[2023-04-07] MEDS ORDERED: LEVOFLOXACIN 500 MG/D5W PREMIX 100 ML IV SCH (09:00)
[2023-04-07] MEDS: FUROSEMIDE 40 MG/4 ML VIAL IVP SCH (09:00)
[2023-04-07] MEDS ORDERED: VANCOMYCIN 1.25GM PREMIX 250 ML IV SCH (09:00)
[2023-04-07 09:45] LABS: BASOPHILS % (AUTO) 0.4 % (0.0-2.0); EOSINOPHILS % (AUTO) 0.3 % (0.0-4.0); LYMPHOCYTES # (AUTO) 1.3 K/uL (2.5-16.5); LYMPHOCYTES % (AUTO) 13.4 % (20.5-51.1); MEAN CORPUSCULAR HEMOGLOBIN 31 pg (27-31); MEAN CORPUSCULAR HGB CONC 33 g/dL (33-37); MEAN CORPUSCULAR VOLUME 94.8 fL (80-94); MONOCYTES # (AUTO) 0.9 K/uL (0.8-1.0); MONOCYTES % (AUTO) 9.6 % (1.7-9.3); NEUTROPHILS # (AUTO) 7.3 K/uL (1.8-7.7); NEUTROPHILS % (AUTO) 76.3 % (42.2-75.2); PLATELET COUNT (AUTO) 243 K/uL (140-450); RED BLOOD CELL COUNT(AUTO) 2.04 MIL/uL (4.20-5.40); RED CELL DISTRIBUTION WIDTH 16.2 % (11.6-13.7); WHITE BLOOD COUNT (AUTO) 9.5 K/uL (4.8-10.8)
[2023-04-07 09:54] LABS: ALBUMIN 2.7 g/dL (3.4-5.0); ANION GAP 13.1 (8-16); CALCIUM 8.6 mg/dL (8.5-10.1); POTASSIUM 5.1 mmol/L (3.5-5.1); TOTAL BILIRUBIN 0.7 mg/dL (0.0-1.0); TOTAL PROTEIN, SERUM 6.5 g/dL (6.4-8.2)
[2023-04-07 09:59] LABS: HEMATOCRIT 19.3 % (36-48); HEMOGLOBIN 6.4 g/dL (12.0-16.0)
[2023-04-07 10:00] LABS: CREATININE 6.5 mg/dL (0.6-1.3)
[2023-04-07 12:00] VITALS: BP 126/41; PULSE 73; PULSE 74; RESP 18; TEMP 98.5; O2SAT 93
[2023-04-07] MEDS ORDERED: DEXTROSE 50% 50 ML SYR IVP PRN (12:45)
[2023-04-07 16:00] VITALS: BP 116/42; PULSE 87; RESP 18; TEMP 102.6; O2SAT 90
[2023-04-07] MEDS: BLOOD GLUCOSE MONITORING 1 DEV DEV FS SCH ×2 (17:01→20:28)
[2023-04-07] MEDS ORDERED: ACETAMINOPHEN 100 ML IV PRN (18:35)
[2023-04-07 20:00] VITALS: BP 109/78; PULSE 121; PULSE 87; RESP 18; RESP 20; TEMP 97.8; O2SAT 99
[2023-04-07] MEDS: SODIUM ZIRCONIUM CYCLOSILICATE 10 GM POWD.PACK PO SCH (20:42)
[2023-04-08] VITALS (8 sets, daily range): BP systolic 100–128; BP diastolic 31–78; PULSE 72–87; RESP 17–19; TEMP 96.7–98.6; O2SAT 90–96
[2023-04-08] MEDS: BLOOD GLUCOSE MONITORING 1 DEV DEV FS SCH ×4 (06:56→23:10)
[2023-04-08 07:01] LABS: BASOPHILS # (AUTO) 0.1 K/uL (0.00-0.22); BASOPHILS % (AUTO) 0.4 % (0.0-2.0)
[2023-04-08 07:12] LABS: ANION GAP 18.8 (8-16); CARBON DIOXIDE 25.4 mmol/L (21-32); POTASSIUM 5.2 mmol/L (3.5-5.1)
[2023-04-08 07:21] LABS: CREATININE 8.3 mg/dL (0.6-1.3)
[2023-04-08 07:49] LABS: HEMOGLOBIN 7.2 g/dL (12.0-16.0); LYMPHOCYTES % (AUTO) 7.5 % (20.5-51.1); MEAN CORPUSCULAR HEMOGLOBIN 31 pg (27-31); MEAN CORPUSCULAR HGB CONC 33 g/dL (33-37); MONOCYTES % (AUTO) 7.6 % (1.7-9.3); NEUTROPHILS % (AUTO) 84.5 % (42.2-75.2); PLATELET COUNT (AUTO) 237 K/uL (140-450); RED BLOOD CELL COUNT(AUTO) 2.34 MIL/uL (4.20-5.40); RED CELL DISTRIBUTION WIDTH 17.2 % (11.6-13.7); WHITE BLOOD COUNT (AUTO) 13.3 K/uL (4.8-10.8)
[2023-04-08 07:50] LABS: NEUTROPHILS # (AUTO) 11.2 K/uL (1.8-7.7)
[2023-04-08] MEDS: METOPROLOL SUCCINATE 50 MG TABER PO SCH (08:47)
[2023-04-08] MEDS: FUROSEMIDE 40 MG/4 ML VIAL IVP SCH (08:47)
[2023-04-08] MEDS: ATORVASTATIN 20 MG TAB PO SCH (08:47)
[2023-04-08] MEDS: lisinopriL 5 MG TAB PO SCH (08:48)
[2023-04-08] MEDS: SODIUM ZIRCONIUM CYCLOSILICATE 10 GM POWD.PACK PO SCH (08:48)
[2023-04-08] MEDS: INSULIN LANTUS 100 UNITS/ML 10 ML VIAL SUBQ SCH (08:56)
[2023-04-08] MEDS: ACETAMINOPHEN 325 MG TAB PO PRN ×2 (08:59→16:09)
[2023-04-08] MEDS: EPOETIN ALFA 10,000 UNITS/ML VIAL IV SCH (13:11)
[2023-04-08] MEDS ORDERED: LEVOFLOXACIN 250 MG/D5 PREMIX 50 ML IV SCH (21:00)
[2023-04-08] MEDS: INSULIN LISPRO SLIDING SCALE 100 UNITS/ML VIAL SUBQ PRN (23:18)
[2023-04-09] VITALS: BP 110/62; PULSE 78; RESP 18; TEMP 98.6; O2SAT 94
[2023-04-09 01:18] VITALS: TEMP 98
[2023-04-09] MEDS: ACETAMINOPHEN 325 MG TAB PO PRN ×2 (03:27→23:48)
[2023-04-09 04:00] VITALS: BP 90/55; PULSE 79; RESP 18; TEMP 98; O2SAT 95
[2023-04-09 05:19] LABS: BASOPHILS % (AUTO) 0.2 % (0.0-2.0); HEMATOCRIT 20.9 % (36-48); LYMPHOCYTES # (AUTO) 0.7 K/uL (2.5-16.5); LYMPHOCYTES % (AUTO) 5.3 % (20.5-51.1); MEAN CORPUSCULAR HEMOGLOBIN 30 pg (27-31); MEAN CORPUSCULAR HGB CONC 33 g/dL (33-37); MEAN CORPUSCULAR VOLUME 93.6 fL (80-94); NEUTROPHILS # (AUTO) 12.2 K/uL (1.8-7.7); NEUTROPHILS % (AUTO) 87.5 % (42.2-75.2); PLATELET COUNT (AUTO) 246 K/uL (140-450); RED BLOOD CELL COUNT(AUTO) 2.24 MIL/uL (4.20-5.40); RED CELL DISTRIBUTION WIDTH 16.8 % (11.6-13.7); WHITE BLOOD COUNT (AUTO) 13.9 K/uL (4.8-10.8)
[2023-04-09 05:21] LABS: HEMOGLOBIN 6.8 g/dL (12.0-16.0)
[2023-04-09] MEDS: BLOOD GLUCOSE MONITORING 1 DEV DEV FS SCH ×4 (06:55→22:11)
[2023-04-09] MEDS ORDERED: ALBUMIN HUMAN 25% 50 ML IV SCH (07:10)
[2023-04-09 08:00] VITALS: BP 102/44; PULSE 72; RESP 18; TEMP 96.7; O2SAT 94
[2023-04-09 08:52] LABS: ANION GAP 16.6 (8-16); CALCIUM 8.4 mg/dL (8.5-10.1); CARBON DIOXIDE 27.2 mmol/L (21-32); POTASSIUM 3.8 mmol/L (3.5-5.1)
[2023-04-09 08:56] LABS: CREATININE 5.8 mg/dL (0.6-1.3)
[2023-04-09] MEDS: FUROSEMIDE 40 MG/4 ML VIAL IVP SCH (09:00)
[2023-04-09] MEDS: ATORVASTATIN 20 MG TAB PO SCH ×2 (09:00→23:48)
[2023-04-09] MEDS: lisinopriL 5 MG TAB PO SCH (09:00)
[2023-04-09] MEDS: METOPROLOL SUCCINATE 50 MG TABER PO SCH (09:00)
[2023-04-09] MEDS: INSULIN LANTUS 100 UNITS/ML 10 ML VIAL SUBQ SCH (09:03)
[2023-04-09] MEDS: INSULIN LISPRO SLIDING SCALE 100 UNITS/ML VIAL SUBQ PRN (12:16)
[2023-04-09 16:00] VITALS: BP 135/65; PULSE 86; RESP 18; TEMP 97.6; O2SAT 94
[2023-04-09 20:00] VITALS: PULSE 79; RESP 18; TEMP 98
[2023-04-09 20:33] LABS: HEMATOCRIT 29.1 % (36-48); HEMOGLOBIN 9.5 g/dL (12.0-16.0)
[2023-04-09] MEDS ORDERED: MORPHINE SULFATE 2 MG/ML SYR IVP PRN (21:10)
[2023-04-09] MEDS ORDERED: HYDROcodone/APAP 5/325 MG 1 TAB TAB PO PRN (21:10)
[2023-04-10] VITALS: BP 122/62; PULSE 79; RESP 18; TEMP 98.5; O2SAT 96
[2023-04-10] MEDS: INSULIN LISPRO SLIDING SCALE 100 UNITS/ML VIAL SUBQ PRN ×4 (00:20→20:45)
[2023-04-10 05:45] LABS: BASOPHILS % (AUTO) 0.4 % (0.0-2.0); EOSINOPHILS # (AUTO) 0.1 K/uL (0-0.4); EOSINOPHILS % (AUTO) 0.6 % (0.0-4.0); HEMATOCRIT 27.6 % (36-48); HEMOGLOBIN 9.1 g/dL (12.0-16.0); LYMPHOCYTES # (AUTO) 1.4 K/uL (2.5-16.5); LYMPHOCYTES % (AUTO) 11.9 % (20.5-51.1); MEAN CORPUSCULAR HEMOGLOBIN 30 pg (27-31); MEAN CORPUSCULAR HGB CONC 33 g/dL (33-37); MONOCYTES # (AUTO) 1.2 K/uL (0.8-1.0); MONOCYTES % (AUTO) 9.8 % (1.7-9.3); NEUTROPHILS # (AUTO) 9.3 K/uL (1.8-7.7); NEUTROPHILS % (AUTO) 77.3 % (42.2-75.2); PLATELET COUNT (AUTO) 251 K/uL (140-450); RED BLOOD CELL COUNT(AUTO) 3.07 MIL/uL (4.20-5.40); RED CELL DISTRIBUTION WIDTH 17.7 % (11.6-13.7)
[2023-04-10 06:51] LABS: ANION GAP 13.6 (8-16); POTASSIUM 3.6 mmol/L (3.5-5.1)
[2023-04-10] MEDS: BLOOD GLUCOSE MONITORING 1 DEV DEV FS SCH ×4 (07:05→20:45)
[2023-04-10 07:20] LABS: CREATININE 4.6 mg/dL (0.6-1.3)
[2023-04-10 08:00] VITALS: BP 133/56; PULSE 79; PULSE 86; RESP 20; TEMP 97.7; O2SAT 100; O2SAT 96
[2023-04-10] MEDS: LINEZOLID 600MG PREMIX 300 ML IV SCH ×2 (09:51→20:42)
[2023-04-10] MEDS: FUROSEMIDE 40 MG/4 ML VIAL IVP SCH (09:52)
[2023-04-10] MEDS: SEVELAMER CARBONATE 800 MG TAB PO SCH ×3 (09:53→17:03)
[2023-04-10] MEDS: GABAPENTIN 300 MG CAP PO SCH ×3 (09:53→17:02)
[2023-04-10] MEDS: ATORVASTATIN 20 MG TAB PO SCH ×2 (09:53→20:43)
[2023-04-10] MEDS: EPOETIN ALFA 10,000 UNITS/ML VIAL IV SCH (09:58)
[2023-04-10] MEDS: INSULIN LANTUS 100 UNITS/ML 10 ML VIAL SUBQ SCH (10:05)
[2023-04-10] MEDS: METOPROLOL SUCCINATE 50 MG TABER PO SCH (11:19)
[2023-04-10] MEDS: lisinopriL 5 MG TAB PO SCH (11:19)
[2023-04-10 16:00] VITALS: BP 142/68; PULSE 72; RESP 20; TEMP 97.5; O2SAT 100
[2023-04-10 20:00] VITALS: BP 139/76; PULSE 86; RESP 19; TEMP 98; O2SAT 98
[2023-04-11 04:00] VITALS: BP 158/79; PULSE 89; RESP 19; TEMP 97.4; O2SAT 97
[2023-04-11 06:18] LABS: BASOPHILS % (AUTO) 0.2 % (0.0-2.0); EOSINOPHILS # (AUTO) 0.3 K/uL (0-0.4); EOSINOPHILS % (AUTO) 2.9 % (0.0-4.0); HEMATOCRIT 27.9 % (36-48); HEMOGLOBIN 9.2 g/dL (12.0-16.0); LYMPHOCYTES % (AUTO) 9.2 % (20.5-51.1); MEAN CORPUSCULAR HEMOGLOBIN 29 pg (27-31); MEAN CORPUSCULAR HGB CONC 33 g/dL (33-37); MEAN CORPUSCULAR VOLUME 89.2 fL (80-94); MONOCYTES % (AUTO) 9.4 % (1.7-9.3); NEUTROPHILS # (AUTO) 8.4 K/uL (1.8-7.7); NEUTROPHILS % (AUTO) 78.3 % (42.2-75.2); PLATELET COUNT (AUTO) 265 K/uL (140-450); RED BLOOD CELL COUNT(AUTO) 3.13 MIL/uL (4.20-5.40); RED CELL DISTRIBUTION WIDTH 17.3 % (11.6-13.7); WHITE BLOOD COUNT (AUTO) 10.7 K/uL (4.8-10.8)
[2023-04-11] MEDS: BLOOD GLUCOSE MONITORING 1 DEV DEV FS SCH ×3 (07:30→16:38)
[2023-04-11 08:00] VITALS: PULSE 86; RESP 19; TEMP 96.6; O2SAT 98
[2023-04-11 08:41] LABS: ANION GAP 12.6 (8-16); CALCIUM 8.8 mg/dL (8.5-10.1); CARBON DIOXIDE 30.4 mmol/L (21-32)
[2023-04-11 08:46] LABS: CREATININE 5.6 mg/dL (0.6-1.3)
[2023-04-11] MEDS: INSULIN LANTUS 100 UNITS/ML 10 ML VIAL SUBQ SCH (09:23)
[2023-04-11] MEDS: METOPROLOL SUCCINATE 50 MG TABER PO SCH (09:34)
[2023-04-11] MEDS: GABAPENTIN 300 MG CAP PO SCH ×3 (09:34→17:01)
[2023-04-11] MEDS: ATORVASTATIN 20 MG TAB PO SCH (09:34)
[2023-04-11] MEDS: SEVELAMER CARBONATE 800 MG TAB PO SCH ×3 (09:34→17:01)
[2023-04-11] MEDS: lisinopriL 5 MG TAB PO SCH (09:34)
[2023-04-11] MEDS: LINEZOLID 600MG PREMIX 300 ML IV SCH (10:42)
[2023-04-11] MEDS: FUROSEMIDE 40 MG/4 ML VIAL IVP SCH (10:43)
[2023-04-11 16:04] VITALS: BP 127/52; PULSE 46; RESP 12; TEMP 96.6
[2023-04-11] MEDS: INSULIN LISPRO SLIDING SCALE 100 UNITS/ML VIAL SUBQ PRN (16:43)
[2023-04-12] MEDS ORDERED: RETACRIT 10,000 UNITS IV SCH (09:00)
== END 2023-04-11 17:15 | DRG 871 ==
LOC: MED 21:04 → MTU 04-07 02:11
PROVIDERS: ADMIT Family Medicine; ATTEND Family Medicine
PROC: 30233N1 Transfusion of Nonautologous Red Blood Cells into Peripheral Vein, Percutaneous Approach (ICD-10-PCS; principal; 2023-04-07)
PROC: 5A1D70Z Performance of Urinary Filtration, Intermittent, Less than 6 Hours Per Day (ICD-10-PCS; 2023-04-08)
PROC: 5A1D70Z Performance of Urinary Filtration, Intermittent, Less than 6 Hours Per Day (ICD-10-PCS; 2023-04-09)
PROC: 5A1D70Z Performance of Urinary Filtration, Intermittent, Less than 6 Hours Per Day (ICD-10-PCS; 2023-04-11)
DX: A41.9 Sepsis, unspecified organism (principal); I21.4 Non-ST elevation (NSTEMI) myocardial infarction; N18.6 End stage renal disease; I50.43 Acute on chronic combined systolic (congestive) and diastolic (congestive) heart failure; J18.9 Pneumonia, unspecified organism; E87.1 Hypo-osmolality and hyponatremia; E46 Unspecified protein-calorie malnutrition; I13.2 Hypertensive heart and chronic kidney disease with heart failure and with stage 5 chronic kidney disease, or end stage renal disease; E11.621 Type 2 diabetes mellitus with foot ulcer; I25.10 Atherosclerotic heart disease of native coronary artery without angina pectoris; B34.9 Viral infection, unspecified; E66.9 Obesity, unspecified; E87.5 Hyperkalemia; I35.0 Nonrheumatic aortic (valve) stenosis; E78.00 Pure hypercholesterolemia, unspecified; Z20.822 Contact with and (suspected) exposure to COVID-19; E11.22 Type 2 diabetes mellitus with diabetic chronic kidney disease; Z99.2 Dependence on renal dialysis; Z88.0 Allergy status to penicillin; Z79.899 Other long term (current) drug therapy; Z90.49 Acquired absence of other specified parts of digestive tract; Z68.34 Body mass index [BMI] 34.0-34.9, adult
CPT/HCPCS: 36415; 36430; 71045; 80048; 80053; 80202; 82272; 82948; 83036; 83605; 83735; 83880; 84484; 85018; 85025; 85610; 85730; 86886; 86900; 86901; 86920; 87040; 87070; 87075; 87186; 87205; 93005; 96361; 96374; 99285; J0885; J1644; J1815; J1940; J1956; J2020; J3372; P9016; P9046; Q0092

== ENCOUNTER 2023-06-05 06:30 | Inpatient (IN) | payer OTHER ==
[~2023-06-05] VITALS: Ht 157.5 cm; Wt 91.6 kg
[2023-06-05 06:41] VITALS: BP 196/114; PULSE 102; RESP 20; TEMP 102.5; O2SAT 93
[2023-06-05] MEDS ORDERED: ACETAMINOPHEN 650 MG SUPP RC ONE (07:09)
[2023-06-05] MEDS: ACETAMINOPHEN 650 MG SUPP RC ONE (07:29)
[2023-06-05 07:41] LABS: BASOPHILS # (AUTO) 0.1 K/uL (0.00-0.22); BASOPHILS % (AUTO) 0.4 % (0.0-2.0); EOSINOPHILS # (AUTO) 0.3 K/uL (0-0.4); EOSINOPHILS % (AUTO) 2.2 % (0.0-4.0); HEMATOCRIT 31.6 % (36-48); HEMOGLOBIN 10.3 g/dL (12.0-16.0); LYMPHOCYTES # (AUTO) 0.7 K/uL (2.5-16.5); LYMPHOCYTES % (AUTO) 4.9 % (20.5-51.1); MEAN CORPUSCULAR HEMOGLOBIN 29 pg (27-31); MEAN CORPUSCULAR HGB CONC 33 g/dL (33-37); MEAN CORPUSCULAR VOLUME 88.6 fL (80-94); MONOCYTES # (AUTO) 0.6 K/uL (0.8-1.0); MONOCYTES % (AUTO) 4.1 % (1.7-9.3); NEUTROPHILS # (AUTO) 13.4 K/uL (1.8-7.7); NEUTROPHILS % (AUTO) 88.4 % (42.2-75.2); PLATELET COUNT (AUTO) 239 K/uL (140-450); RED BLOOD CELL COUNT(AUTO) 3.56 MIL/uL (4.20-5.40); RED CELL DISTRIBUTION WIDTH 16.9 % (11.6-13.7); WHITE BLOOD COUNT (AUTO) 15.1 K/uL (4.8-10.8)
[2023-06-05 07:59] LABS: ANION GAP 16.4 (8-16); CALCIUM 9.1 mg/dL (8.5-10.1); CARBON DIOXIDE 28.9 mmol/L (21-32); POTASSIUM 4.3 mmol/L (3.5-5.1)
[2023-06-05 08:06] LABS: CREATININE 7.3 mg/dL (0.6-1.3)
[2023-06-05 08:08] LABS: ALANINE AMINOTRANSFERASE 15 U/L (12-78); ALKALINE PHOSPHATASE 91 U/L (50-136); ASPARTATE AMINOTRANSFERASE 18 U/L (15-37); BILIRUBIN,DIRECT 0.3 mg/dL (0.0-0.3); PHOSPHORUS 3.4 mg/dL (2.5-4.9); TOTAL BILIRUBIN 1.1 mg/dL (0.0-1.0)
[2023-06-05] MEDS: LEVOFLOXACIN 500 MG/D5W PREMIX 100 ML IV ONE (08:10)
[2023-06-05 08:20] LABS: INR 1.02 (0.8-1.2); PARTIAL THROMBOPLASTIN TIME 29.9 secs (22-35.6); PROTHROMBIN TIME 10.7 secs (10.8-13.4)
[2023-06-05] MEDS ORDERED: ACETAMINOPHEN 325 MG TAB PO PRN (08:35)
[2023-06-05] MEDS ORDERED: CLONIDINE HYDROCHLORIDE 0.1 MG TAB PO SCH (08:35)
[2023-06-05] MEDS ORDERED: VANCOMYCIN PER PHARMACY MC PRN (08:35)
[2023-06-05] MEDS ORDERED: amLODIPine 5 MG TAB PO SCH (08:35)
[2023-06-05] MEDS ORDERED: MORPHINE SULFATE 4 MG/ML SYR IVP PRN (08:35)
[2023-06-05] MEDS: LOSARTAN 50 MG TAB PO SCH (09:00)
[2023-06-05] MEDS: SEVELAMER CARBONATE 800 MG TAB PO SCH (09:00)
[2023-06-05] MEDS ORDERED: FUROSEMIDE 40 MG TAB PO SCH (09:00)
[2023-06-05] MEDS: LACTATED RINGERS 1,000 ML IV SCH (09:14)
[2023-06-05] MEDS ORDERED: CEFEPIME 1,000 MG VIAL ONE (10:03)
[2023-06-05] MEDS: CLONIDINE HYDROCHLORIDE 0.1 MG TAB PO SCH (10:13)
[2023-06-05] MEDS: CEFEPIME 1,000 MG in DEXTROSE 5% 50 ML IV SCH (10:18)
[2023-06-05] MEDS: VANCOMYCIN 1.25GM PREMIX 250 ML IV SCH (11:27)
[2023-06-05] MEDS: hydrALAZINE 25 MG TAB PO SCH (12:34)
[2023-06-05] MEDS ORDERED: ACET5SOL4 PO (12:38)
[2023-06-05 12:43] LABS: APPEARANCE,URINE SLIGHTLY HAZY (CLEAR); BILIRUBIN,URINE NEGATIVE (NEGATIVE); BLOOD, URINE 1+ (NEGATIVE); COLOR,URINE YELLOW (YELLOW); NITRITE, URINE NEGATIVE (NEGATIVE); PH,URINE 7.5 (5.0-9.0); PROTEIN,URINE 3+ (NEGATIVE); UGLUCOSE 1+ (NEGATIVE); UROBILINOGEN,URINE 0.2 EU/dL (0.2 - 1)
[2023-06-05 12:54] LABS: SQUAMOUS EPITHELIAL CELL,UR 0-3 (FEW) /LPF (0-3 (FEW))
[2023-06-05 12:59] LABS: BACTERIA,URINE OCCASSIONAL /HPF (None Seen)
[2023-06-05 13:00] LABS: WBC,URINE 16-25 (MOD) /HPF (0-5)
[2023-06-05] MEDS ORDERED: PIPERACILLIN/TAZOBACTAM 2.25 GM in DEXTROSE 5% 50 ML IV SCH (13:00)
[2023-06-05 13:01] LABS: LEUKOCYTE ESTERASE ,URINE 1+ (NEGATIVE)
[2023-06-05] MEDS ORDERED: MORPHINE SULFATE 2 MG/ML SYR IVP PRN (15:20)
[2023-06-05 17:03] VITALS: RESP 20; O2SAT 99
[2023-06-05 17:20] VITALS: BP 168/60; PULSE 66; RESP 18; TEMP 97.5; O2SAT 100
[2023-06-05 18:45] LABS: FLU A ANTIGEN negative (NEGATIVE); FLU B ANTIGEN NEGATIVE (NEGATIVE); RSV NEGATIVE (NEGATIVE)
[2023-06-05 20:00] VITALS: BP 153/53; PULSE 75; PULSE 76; RESP 17; TEMP 97.7; O2SAT 100; O2SAT 96
[2023-06-05] MEDS: BLOOD GLUCOSE MONITORING 1 DEV DEV FS SCH (21:22)
[2023-06-06] VITALS (9 sets, daily range): BP systolic 121–157; BP diastolic 50–78; PULSE 60–98; RESP 17–20; TEMP 96.8–98.4; O2SAT 98–100
[2023-06-06] MEDS: ATORVASTATIN 20 MG TAB PO SCH (00:16)
[2023-06-06 07:02] LABS: BASOPHILS % (AUTO) 0.4 % (0.0-2.0); EOSINOPHILS # (AUTO) 0.3 K/uL (0-0.4); EOSINOPHILS % (AUTO) 2.4 % (0.0-4.0); HEMATOCRIT 27.6 % (36-48); HEMOGLOBIN 8.9 g/dL (12.0-16.0); LYMPHOCYTES # (AUTO) 1.2 K/uL (2.5-16.5); LYMPHOCYTES % (AUTO) 10.9 % (20.5-51.1); MEAN CORPUSCULAR HEMOGLOBIN 29 pg (27-31); MEAN CORPUSCULAR HGB CONC 32 g/dL (33-37); MEAN CORPUSCULAR VOLUME 89.4 fL (80-94); MONOCYTES # (AUTO) 0.7 K/uL (0.8-1.0); MONOCYTES % (AUTO) 6.1 % (1.7-9.3); NEUTROPHILS # (AUTO) 8.9 K/uL (1.8-7.7); NEUTROPHILS % (AUTO) 80.2 % (42.2-75.2); PLATELET COUNT (AUTO) 215 K/uL (140-450); RED BLOOD CELL COUNT(AUTO) 3.08 MIL/uL (4.20-5.40); RED CELL DISTRIBUTION WIDTH 16.7 % (11.6-13.7); WHITE BLOOD COUNT (AUTO) 11.1 K/uL (4.8-10.8)
[2023-06-06 07:12] LABS: ALBUMIN 2.5 g/dL (3.4-5.0); ANION GAP 11.7 (8-16); CALCIUM 8.5 mg/dL (8.5-10.1); POTASSIUM 3.7 mmol/L (3.5-5.1); TOTAL PROTEIN, SERUM 7.1 g/dL (6.4-8.2)
[2023-06-06 07:16] LABS: CREATININE 4.7 mg/dL (0.6-1.3)
[2023-06-06] MEDS: amLODIPine 5 MG TAB PO SCH (08:28)
[2023-06-06] MEDS: FUROSEMIDE 40 MG TAB PO SCH (08:31)
[2023-06-06] MEDS: CLONIDINE HYDROCHLORIDE 0.1 MG TAB PO SCH (08:31)
[2023-06-06] MEDS: INSULIN LISPRO SLIDING SCALE 100 UNITS/ML VIAL SUBQ PRN (11:39)
[2023-06-06] MEDS: VANCOMYCIN 500 MG in DEXTROSE 5% 100 ML IV SCH (11:40)
[2023-06-07] VITALS (9 sets, daily range): BP systolic 127–161; BP diastolic 46–59; PULSE 65–82; RESP 17–18; TEMP 97.5–98.5; O2SAT 97–100
[2023-06-07 07:08] LABS: BASOPHILS % (AUTO) 0.4 % (0.0-2.0); EOSINOPHILS # (AUTO) 0.8 K/uL (0-0.4); EOSINOPHILS % (AUTO) 8.3 % (0.0-4.0); HEMATOCRIT 28.3 % (36-48); HEMOGLOBIN 9.5 g/dL (12.0-16.0); LYMPHOCYTES % (AUTO) 10.3 % (20.5-51.1); MEAN CORPUSCULAR HEMOGLOBIN 30 pg (27-31); MEAN CORPUSCULAR HGB CONC 34 g/dL (33-37); MONOCYTES # (AUTO) 0.6 K/uL (0.8-1.0); NEUTROPHILS # (AUTO) 6.8 K/uL (1.8-7.7); PLATELET COUNT (AUTO) 238 K/uL (140-450); RED BLOOD CELL COUNT(AUTO) 3.18 MIL/uL (4.20-5.40); RED CELL DISTRIBUTION WIDTH 16.7 % (11.6-13.7); WHITE BLOOD COUNT (AUTO) 9.3 K/uL (4.8-10.8)
[2023-06-07 07:37] LABS: ALBUMIN 2.6 g/dL (3.4-5.0); ANION GAP 14.8 (8-16); CALCIUM 8.6 mg/dL (8.5-10.1); CARBON DIOXIDE 28.2 mmol/L (21-32); TOTAL BILIRUBIN 0.8 mg/dL (0.0-1.0); TOTAL PROTEIN, SERUM 7.3 g/dL (6.4-8.2)
[2023-06-07 07:39] LABS: CREATININE 6.3 mg/dL (0.6-1.3)
[2023-06-07] MEDS: EPOETIN ALFA-EPBX 10,000 UNITS/ML VIAL IV SCH (08:56)
[2023-06-07] MEDS: VANCOMYCIN 1,000 MG in DEXTROSE 5% 250 ML IV SCH (20:41)
[2023-06-07] MEDS: HYDROcodone/APAP 5/325 MG 1 TAB TAB PO PRN (20:57)
[2023-06-08] VITALS (9 sets, daily range): BP systolic 145–177; BP diastolic 48–59; PULSE 59–97; RESP 18; TEMP 98–98.6; O2SAT 94–99
[2023-06-08 07:33] LABS: ALBUMIN 2.4 g/dL (3.4-5.0); ANION GAP 13.1 (8-16); CALCIUM 8.4 mg/dL (8.5-10.1); CARBON DIOXIDE 28.6 mmol/L (21-32); POTASSIUM 3.7 mmol/L (3.5-5.1); TOTAL BILIRUBIN 0.6 mg/dL (0.0-1.0); TOTAL PROTEIN, SERUM 6.9 g/dL (6.4-8.2)
[2023-06-08 07:35] LABS: BASOPHILS % (AUTO) 0.6 % (0.0-2.0); EOSINOPHILS # (AUTO) 0.5 K/uL (0-0.4); EOSINOPHILS % (AUTO) 6.7 % (0.0-4.0); HEMATOCRIT 27.2 % (36-48); HEMOGLOBIN 8.9 g/dL (12.0-16.0); LYMPHOCYTES # (AUTO) 1.1 K/uL (2.5-16.5); LYMPHOCYTES % (AUTO) 15.9 % (20.5-51.1); MEAN CORPUSCULAR HEMOGLOBIN 29 pg (27-31); MEAN CORPUSCULAR HGB CONC 33 g/dL (33-37); MEAN CORPUSCULAR VOLUME 89.5 fL (80-94); MONOCYTES # (AUTO) 0.7 K/uL (0.8-1.0); MONOCYTES % (AUTO) 10.1 % (1.7-9.3); NEUTROPHILS # (AUTO) 4.6 K/uL (1.8-7.7); NEUTROPHILS % (AUTO) 66.7 % (42.2-75.2); PLATELET COUNT (AUTO) 239 K/uL (140-450); RED BLOOD CELL COUNT(AUTO) 3.04 MIL/uL (4.20-5.40); RED CELL DISTRIBUTION WIDTH 16.6 % (11.6-13.7)
[2023-06-08 07:40] LABS: CREATININE 4.6 mg/dL (0.6-1.3)
[2023-06-08] MEDS: AMPICILLIN/SULBACTAM 3 GM in NACL 0.9% 100 ML IV SCH (11:59)
[2023-06-08] MEDS ORDERED: AMPI1PDS18 IV (13:53)
[2023-06-08] MEDS ORDERED: AMPICILLIN/SULBACTAM 1.5 GM in NACL 0.9% 50 ML IV SCH (21:00)
[2023-06-09] MEDS ORDERED: FUROSEMIDE 40 MG TAB PO SCH (09:00)
[2023-06-09] MEDS ORDERED: amLODIPine 5 MG TAB PO SCH (09:00)
[2023-06-09] MEDS ORDERED: CLONIDINE HYDROCHLORIDE 0.1 MG TAB PO SCH (09:00)
== END 2023-06-08 16:07 | DRG 871 ==
LOC: MED 06:30 → MTU 08:40
PROVIDERS: ADMIT Family Medicine; ATTEND Family Medicine
PROC: 5A1D70Z Performance of Urinary Filtration, Intermittent, Less than 6 Hours Per Day (ICD-10-PCS; principal; 2023-06-05)
PROC: 5A1D70Z Performance of Urinary Filtration, Intermittent, Less than 6 Hours Per Day (ICD-10-PCS; 2023-06-05)
DX: A41.9 Sepsis, unspecified organism (principal); E43 Unspecified severe protein-calorie malnutrition; I21.A1 Myocardial infarction type 2; N18.6 End stage renal disease; J18.9 Pneumonia, unspecified organism; I50.32 Chronic diastolic (congestive) heart failure; N39.0 Urinary tract infection, site not specified; I13.2 Hypertensive heart and chronic kidney disease with heart failure and with stage 5 chronic kidney disease, or end stage renal disease; E78.5 Hyperlipidemia, unspecified; I35.0 Nonrheumatic aortic (valve) stenosis; E11.22 Type 2 diabetes mellitus with diabetic chronic kidney disease; E11.65 Type 2 diabetes mellitus with hyperglycemia; Z99.2 Dependence on renal dialysis; Z79.899 Other long term (current) drug therapy; Z68.36 Body mass index [BMI] 36.0-36.9, adult; R41.82 Altered mental status, unspecified
CPT/HCPCS: 36415; 71045; 80048; 80053; 80076; 80202; 81001; 82948; 83605; 83735; 84100; 84484; 85025; 85610; 85730; 87040; 87081; 87086; 87186; 87420; 93005; 96374; 99285; J0295; J0692; J1644; J1815; J1956; J3370; J3372; J7060; Q5106

== ENCOUNTER 2023-06-20 09:54 | Inpatient (IN) | payer OTHER ==
[~2023-06-20] VITALS: Ht 162.6 cm; Wt 85.7 kg
[~2023-06-20 09:54] MED LIST changes: +ACET5SOL4 PO; +AMPI1PDS18 IV; -CLON0.1T16 PO; -PATI8.4P PO
[2023-06-20 09:55] VITALS: BP 163/115; PULSE 113; RESP 20; TEMP 99.3; O2SAT 98
[2023-06-20] MEDS: LEVOFLOXACIN 500 MG/D5W PREMIX 100 ML IV ONE (10:24)
[2023-06-20 10:27] LABS: BASOPHILS # (AUTO) 0.1 K/uL (0.00-0.22); BASOPHILS % (AUTO) 0.4 % (0.0-2.0); EOSINOPHILS % (AUTO) 0.1 % (0.0-4.0); HEMATOCRIT 30.4 % (36-48); HEMOGLOBIN 9.9 g/dL (12.0-16.0); LYMPHOCYTES # (AUTO) 1.3 K/uL (2.5-16.5); LYMPHOCYTES % (AUTO) 7.4 % (20.5-51.1); MEAN CORPUSCULAR HEMOGLOBIN 30 pg (27-31); MEAN CORPUSCULAR HGB CONC 33 g/dL (33-37); MEAN CORPUSCULAR VOLUME 90.7 fL (80-94); MONOCYTES % (AUTO) 5.5 % (1.7-9.3); NEUTROPHILS # (AUTO) 15.4 K/uL (1.8-7.7); NEUTROPHILS % (AUTO) 86.6 % (42.2-75.2); PLATELET COUNT (AUTO) 329 K/uL (140-450); RED BLOOD CELL COUNT(AUTO) 3.35 MIL/uL (4.20-5.40); RED CELL DISTRIBUTION WIDTH 17.7 % (11.6-13.7); WHITE BLOOD COUNT (AUTO) 17.8 K/uL (4.8-10.8)
[2023-06-20] MEDS: ACETAMINOPHEN 650 MG SUPP RC ONE (10:40)
[2023-06-20 10:41] LABS: LACTIC ACID 1.3 mmol/L (0.4-2.0)
[2023-06-20 10:45] LABS: ANION GAP 12.1 (8-16); CALCIUM 9.4 mg/dL (8.5-10.1); CARBON DIOXIDE 30.6 mmol/L (21-32); POTASSIUM 5.7 mmol/L (3.5-5.1)
[2023-06-20 10:50] LABS: CREATININE 6.1 mg/dL (0.6-1.3)
[2023-06-20] MEDS ORDERED: CLON0.1T16 PO (13:02)
[2023-06-20] MEDS ORDERED: INSU300I2 SQ (13:02)
[2023-06-20] MEDS ORDERED: FURO-570 PO (13:02)
[2023-06-20] MEDS ORDERED: DEXTROSE 50% 50 ML SYR IVP PRN (13:25)
[2023-06-20] MEDS ORDERED: MELATONIN 3 MG TAB PO PRN (13:30)
[2023-06-20] MEDS ORDERED: AZITHROMYCIN 500 MG INJ VIAL IV ONE (13:32)
[2023-06-20] MEDS: AZITHROMYCIN 500 MG in DEXTROSE 5% 250 ML IV SCH (13:48)
[2023-06-20 14:42] VITALS: BP 140/59; RESP 20; TEMP 97; O2SAT 96
[2023-06-20 14:44] VITALS: PULSE 88; RESP 20; O2SAT 96
[2023-06-20] MEDS: BLOOD GLUCOSE MONITORING 1 DEV DEV FS SCH (15:47)
[2023-06-20 16:07] VITALS: PULSE 78
[2023-06-20] MEDS: SEVELAMER CARBONATE 800 MG TAB PO SCH (16:16)
[2023-06-20] MEDS: GABAPENTIN 300 MG CAP PO SCH (16:16)
[2023-06-20 20:00] VITALS: BP 155/80; PULSE 83; PULSE 89; PULSE 96; RESP 19; RESP 20; TEMP 98.8; O2SAT 93; O2SAT 96
[2023-06-20] MEDS ORDERED: NON-FORMULARY ITEM (Melatonin 1 CAP) PO SCH (21:00)
[2023-06-20] MEDS: ATORVASTATIN 20 MG TAB PO SCH (21:13)
[2023-06-20] MEDS: LOSARTAN 50 MG TAB PO SCH (21:14)
[2023-06-20] MEDS: MEDS-TO-BEDS MC SCH (21:17)
[2023-06-20] MEDS ORDERED: ACETAMINOPHEN 325 MG TAB PO PRN (21:20)
[2023-06-20] MEDS: HYDROcodone/APAP 5/325 MG 1 TAB TAB PO PRN (22:19)
[2023-06-20 23:33] LABS: FLU B ANTIGEN NEGATIVE (NEGATIVE)
[2023-06-20 23:34] LABS: FLU A ANTIGEN POSITIVE (NEGATIVE)
[2023-06-21] VITALS (8 sets, daily range): BP systolic 100–170; BP diastolic 47–70; PULSE 59–78; RESP 19–21; TEMP 97.4–98.3; O2SAT 94–96
[2023-06-21] MEDS ORDERED: OSELTAMIVIR PHOSPHATE 30 MG CAP PO SCH (07:35)
[2023-06-21] MEDS: OSELTAMIVIR PHOSPHATE 30 MG CAP PO SCH (08:21)
[2023-06-21] MEDS: VIT-B COMP/VIT-C/FOLIC ACID 1 TAB PO SCH (08:22)
[2023-06-21] MEDS: PANTOPRAZOLE 40 MG TABEC PO SCH (08:22)
[2023-06-21] MEDS: ASPIRIN 81 MG TAB.CHEW PO SCH (08:23)
[2023-06-21 13:33] LABS: BASOPHILS # (AUTO) 0.1 K/uL (0.00-0.22); BASOPHILS % (AUTO) 0.5 % (0.0-2.0); EOSINOPHILS # (AUTO) 0.1 K/uL (0-0.4); EOSINOPHILS % (AUTO) 0.5 % (0.0-4.0); HEMATOCRIT 28.5 % (36-48); HEMOGLOBIN 9.5 g/dL (12.0-16.0); LYMPHOCYTES # (AUTO) 1.6 K/uL (2.5-16.5); LYMPHOCYTES % (AUTO) 13.1 % (20.5-51.1); MEAN CORPUSCULAR HEMOGLOBIN 30 pg (27-31); MEAN CORPUSCULAR HGB CONC 33 g/dL (33-37); MEAN CORPUSCULAR VOLUME 90.3 fL (80-94); MONOCYTES # (AUTO) 1.1 K/uL (0.8-1.0); MONOCYTES % (AUTO) 9.3 % (1.7-9.3); NEUTROPHILS # (AUTO) 9.2 K/uL (1.8-7.7); NEUTROPHILS % (AUTO) 76.6 % (42.2-75.2); PLATELET COUNT (AUTO) 305 K/uL (140-450); RED BLOOD CELL COUNT(AUTO) 3.16 MIL/uL (4.20-5.40); RED CELL DISTRIBUTION WIDTH 17.5 % (11.6-13.7)
[2023-06-21 13:47] LABS: ANION GAP 8.2 (8-16); CALCIUM 8.8 mg/dL (8.5-10.1); CARBON DIOXIDE 33.1 mmol/L (21-32); POTASSIUM 4.3 mmol/L (3.5-5.1)
[2023-06-21 13:50] LABS: CREATININE 5.3 mg/dL (0.6-1.3)
[2023-06-21] MEDS: INSULIN LISPRO SLIDING SCALE 100 UNITS/ML VIAL SUBQ PRN (16:15)
[2023-06-22] VITALS (7 sets, daily range): BP systolic 103–183; BP diastolic 50–65; PULSE 62–76; RESP 18–20; TEMP 97.2–98.5; O2SAT 96–100
[2023-06-22 06:34] LABS: BASOPHILS # (AUTO) 0.1 K/uL (0.00-0.22); BASOPHILS % (AUTO) 0.6 % (0.0-2.0); EOSINOPHILS # (AUTO) 0.1 K/uL (0-0.4); EOSINOPHILS % (AUTO) 1.6 % (0.0-4.0); HEMATOCRIT 25.6 % (36-48); HEMOGLOBIN 8.5 g/dL (12.0-16.0); LYMPHOCYTES # (AUTO) 1.8 K/uL (2.5-16.5); LYMPHOCYTES % (AUTO) 21.6 % (20.5-51.1); MEAN CORPUSCULAR HEMOGLOBIN 30 pg (27-31); MEAN CORPUSCULAR HGB CONC 33 g/dL (33-37); MEAN CORPUSCULAR VOLUME 89.7 fL (80-94); NEUTROPHILS # (AUTO) 5.4 K/uL (1.8-7.7); NEUTROPHILS % (AUTO) 64.2 % (42.2-75.2); PLATELET COUNT (AUTO) 276 K/uL (140-450); RED BLOOD CELL COUNT(AUTO) 2.85 MIL/uL (4.20-5.40); RED CELL DISTRIBUTION WIDTH 17.4 % (11.6-13.7); WHITE BLOOD COUNT (AUTO) 8.5 K/uL (4.8-10.8)
[2023-06-22 07:48] LABS: ALBUMIN 2.3 g/dL (3.4-5.0); ANION GAP 15.3 (8-16); CALCIUM 8.9 mg/dL (8.5-10.1); CARBON DIOXIDE 28.9 mmol/L (21-32); POTASSIUM 4.2 mmol/L (3.5-5.1); TOTAL BILIRUBIN 0.5 mg/dL (0.0-1.0); TOTAL PROTEIN, SERUM 6.2 g/dL (6.4-8.2)
[2023-06-22 07:53] LABS: CREATININE 6.4 mg/dL (0.6-1.3)
[2023-06-22] MEDS: amLODIPine 5 MG TAB PO SCH (08:23)
[2023-06-22] MEDS: CLONIDINE HYDROCHLORIDE 0.1 MG TAB PO SCH (08:24)
[2023-06-22] MEDS: FUROSEMIDE 40 MG TAB PO SCH (08:25)
[2023-06-23 04:00] VITALS: BP 155/76; PULSE 60; RESP 18; TEMP 97.5; O2SAT 98
[2023-06-23] MEDS: CLONIDINE HYDROCHLORIDE 0.1 MG TAB PO ONE (05:59)
[2023-06-23 06:46] LABS: BASOPHILS # (AUTO) 0.1 K/uL (0.00-0.22); BASOPHILS % (AUTO) 0.7 % (0.0-2.0); EOSINOPHILS # (AUTO) 0.3 K/uL (0-0.4); EOSINOPHILS % (AUTO) 4.5 % (0.0-4.0); HEMATOCRIT 27.5 % (36-48); HEMOGLOBIN 9.1 g/dL (12.0-16.0); LYMPHOCYTES # (AUTO) 1.8 K/uL (2.5-16.5); LYMPHOCYTES % (AUTO) 23.8 % (20.5-51.1); MEAN CORPUSCULAR HEMOGLOBIN 30 pg (27-31); MEAN CORPUSCULAR HGB CONC 33 g/dL (33-37); MEAN CORPUSCULAR VOLUME 89.7 fL (80-94); MONOCYTES # (AUTO) 0.9 K/uL (0.8-1.0); MONOCYTES % (AUTO) 11.9 % (1.7-9.3); NEUTROPHILS # (AUTO) 4.5 K/uL (1.8-7.7); NEUTROPHILS % (AUTO) 59.1 % (42.2-75.2); PLATELET COUNT (AUTO) 303 K/uL (140-450); RED BLOOD CELL COUNT(AUTO) 3.06 MIL/uL (4.20-5.40); RED CELL DISTRIBUTION WIDTH 17.2 % (11.6-13.7); WHITE BLOOD COUNT (AUTO) 7.7 K/uL (4.8-10.8)
[2023-06-23 07:12] LABS: ANION GAP 12.7 (8-16); CARBON DIOXIDE 29.6 mmol/L (21-32); POTASSIUM 4.3 mmol/L (3.5-5.1)
[2023-06-23 07:52] LABS: CREATININE 5.2 mg/dL (0.6-1.3)
[2023-06-23 08:00] VITALS: PULSE 59; RESP 17; TEMP 98; O2SAT 95
[2023-06-23 12:00] VITALS: BP 117/57; PULSE 59; RESP 17; TEMP 98; O2SAT 95
[2023-06-23] MEDS: ONDANSETRON 4 MG/2 ML VIAL IVP PRN (14:01)
[2023-06-23 20:00] VITALS: BP 152/55; PULSE 63; RESP 18; TEMP 98.6; O2SAT 98
[2023-06-24 04:00] VITALS: BP 139/54; PULSE 62; RESP 18; TEMP 97.8; O2SAT 96
[2023-06-24 08:08] VITALS: BP 157/57; PULSE 69; RESP 20; TEMP 96.8; O2SAT 99
[2023-06-24 08:09] VITALS: PULSE 69; RESP 20; O2SAT 99
[2023-06-24] MEDS: EPOETIN ALFA-EPBX 10,000 UNITS/ML VIAL SUBQ SCH (08:23)
[2023-06-24] MEDS ORDERED: OSEL30CA1 PO (10:04)
[2023-06-24 10:08] VITALS: BP 150/50; PULSE 69; RESP 20; TEMP 96.8
[2023-06-24 16:25] VITALS: BP 160/50; PULSE 69; RESP 20; TEMP 98.3; O2SAT 98
== END 2023-06-24 19:35 | disposition short-term general hospital (02) | DRG 193 ==
LOC: MED 09:54 → MMU 13:17 → MTU 14:01
PROVIDERS: ADMIT Student in an Organized Health Care Education/Training Program; ATTEND Student in an Organized Health Care Education/Training Program
PROC: 5A1D70Z Performance of Urinary Filtration, Intermittent, Less than 6 Hours Per Day (ICD-10-PCS; principal; 2023-06-20)
PROC: 5A1D70Z Performance of Urinary Filtration, Intermittent, Less than 6 Hours Per Day (ICD-10-PCS; 2023-06-24)
DX: J10.1 Influenza due to other identified influenza virus with other respiratory manifestations (principal); E43 Unspecified severe protein-calorie malnutrition; I50.33 Acute on chronic diastolic (congestive) heart failure; N18.6 End stage renal disease; I13.0 Hypertensive heart and chronic kidney disease with heart failure and stage 1 through stage 4 chronic kidney disease, or unspecified chronic kidney disease; R65.10 Systemic inflammatory response syndrome (SIRS) of non-infectious origin without acute organ dysfunction; Z20.822 Contact with and (suspected) exposure to COVID-19; E11.65 Type 2 diabetes mellitus with hyperglycemia; E78.5 Hyperlipidemia, unspecified; I35.0 Nonrheumatic aortic (valve) stenosis; Z88.0 Allergy status to penicillin; Z68.32 Body mass index [BMI] 32.0-32.9, adult; Z90.49 Acquired absence of other specified parts of digestive tract; Z79.899 Other long term (current) drug therapy
CPT/HCPCS: 36415; 70450; 71045; 80048; 80053; 82948; 83605; 83880; 84484; 85025; 87040; 87081; 93005; 96365; 97110; 97112; 97116; 97530; 99285; J0456; J1815; J1956; J2405; J7060; Q5106

== ENCOUNTER 2024-01-29 19:58 | Inpatient (IN) | payer OTHER ==
[~2024-01-29] VITALS: Ht 165.1 cm; Wt 89.8 kg
[2024-01-29 19:58] VITALS: BP 85/35; PULSE 67; RESP 14; TEMP 97; O2SAT 93
[~2024-01-29 19:58] MED LIST changes: -ACET5SOL4 PO; -AMPI1PDS18 IV; -CLON0.1T15 PO; +CLON0.1T16 PO; -HYDR-4420 PO; +OSEL30CA1 PO
[2024-01-29] MEDS: NACL 0.9% 500 ML IV ONE (20:23)
[2024-01-29 20:58] LABS: BASOPHILS % (AUTO) 0.3 % (0.0-2.0); HEMATOCRIT 32.2 % (36-48); HEMOGLOBIN 10.4 g/dL (12.0-16.0); LYMPHOCYTES # (AUTO) 1.5 K/uL (2.5-16.5); LYMPHOCYTES % (AUTO) 15.5 % (20.5-51.1); MEAN CORPUSCULAR HEMOGLOBIN 30 pg (27-31); MEAN CORPUSCULAR HGB CONC 32 g/dL (33-37); MEAN CORPUSCULAR VOLUME 91.6 fL (80-94); MONOCYTES # (AUTO) 0.6 K/uL (0.8-1.0); MONOCYTES % (AUTO) 6.2 % (1.7-9.3); NEUTROPHILS # (AUTO) 7.5 K/uL (1.8-7.7); PLATELET COUNT (AUTO) 224 K/uL (140-450); RED BLOOD CELL COUNT(AUTO) 3.52 MIL/uL (4.20-5.40); RED CELL DISTRIBUTION WIDTH 14.3 % (11.6-13.7); WHITE BLOOD COUNT (AUTO) 9.7 K/uL (4.8-10.8)
[2024-01-29 21:09] VITALS: O2SAT 99
[2024-01-29 21:16] LABS: LACTIC ACID 1.2 mmol/L (0.4-2.0)
[2024-01-29 21:20] LABS: ANION GAP 9.6 (8-16); CALCIUM 9.6 mg/dL (8.5-10.1); CARBON DIOXIDE 37.8 mmol/L (21-32); CHLORIDE 96 mmol/L (98-107); GLUCOSE 110 mg/dL (74-106); POTASSIUM 5.4 mmol/L (3.5-5.1); SODIUM SERUM 138 mmol/L (136-145); UREA NITROGEN, BLOOD 38 mg/dL (7-18)
[2024-01-29 21:22] LABS: ALANINE AMINOTRANSFERASE 20 U/L (12-78); ALBUMIN 3.2 g/dL (3.4-5.0); ALKALINE PHOSPHATASE 112 U/L (50-136); ASPARTATE AMINOTRANSFERASE 12 U/L (15-37); BILIRUBIN,DIRECT 0.1 mg/dL (0.0-0.3); TOTAL BILIRUBIN 0.4 mg/dL (0.0-1.0); TOTAL PROTEIN, SERUM 7.5 g/dL (6.4-8.2)
[2024-01-29 21:30] LABS: CREATININE 6.1 mg/dL (0.6-1.3)
[2024-01-29 21:42] LABS: INR 1.02 (0.8-1.2); PARTIAL THROMBOPLASTIN TIME 26.7 secs (22-35.6); PROTHROMBIN TIME 10.7 secs (10.8-13.4)
[2024-01-29] MEDS ORDERED: HYDROcodone/APAP 5/325 MG 1 TAB TAB PO PRN (22:45)
[2024-01-29] MEDS ORDERED: ACETAMINOPHEN 325 MG TAB PO PRN (22:45)
[2024-01-29] MEDS ORDERED: DEXTROSE 50% 50 ML SYR IVP PRN (22:45)
[2024-01-29] MEDS ORDERED: ONDANSETRON 4 MG/2 ML VIAL IVP PRN (22:45)
[2024-01-29] MEDS: DEXT 5% /NACL 0.9% 1,000 ML IV SCH (23:37)
[2024-01-30] VITALS (7 sets, daily range): BP systolic 96–141; BP diastolic 46–57; PULSE 55–63; RESP 18–19; TEMP 96.8–98.4; O2SAT 93–100
[2024-01-30] MEDS ORDERED: MELATONIN 3 MG TAB PO PRN (07:05)
[2024-01-30] MEDS: BLOOD GLUCOSE MONITORING 1 DEV DEV FS SCH (08:05)
[2024-01-30] MEDS ORDERED: GABAPENTIN 300 MG CAP PO SCH (09:00)
[2024-01-30] MEDS: VIT-B COMP/VIT-C/FOLIC ACID 1 TAB PO SCH (09:37)
[2024-01-30] MEDS: amLODIPine 5 MG TAB PO SCH (09:37)
[2024-01-30] MEDS: ASPIRIN 81 MG TAB.CHEW PO SCH (09:38)
[2024-01-30] MEDS: GABAPENTIN 300 MG CAP PO SCH (09:38)
[2024-01-30] MEDS: LOSARTAN 50 MG TAB PO SCH (09:38)
[2024-01-30] MEDS: PANTOPRAZOLE 40 MG TABEC PO SCH (09:38)
[2024-01-30] MEDS: SEVELAMER CARBONATE 800 MG TAB PO SCH (09:38)
[2024-01-30] MEDS: CLONIDINE HYDROCHLORIDE 0.1 MG TAB PO SCH (09:39)
[2024-01-30] MEDS: SODIUM ZIRCONIUM CYCLOSILICATE 10 GM POWD.PACK PO SCH (13:48)
[2024-01-30] MEDS: INSULIN LISPRO SLIDING SCALE 100 UNITS/ML VIAL SUBQ PRN (16:41)
[2024-01-30] MEDS: ATORVASTATIN 20 MG TAB PO SCH (20:40)
[2024-01-30] MEDS ORDERED: NON-FORMULARY ITEM (Melatonin 1 CAP) PO SCH (21:00)
[2024-01-31] VITALS: BP 142/47; PULSE 58; PULSE 61; RESP 18; TEMP 98.6; O2SAT 96
[2024-01-31 04:00] VITALS: BP 131/46; PULSE 57; PULSE 58; RESP 18; TEMP 98.4; O2SAT 93
[2024-01-31 07:32] LABS: ANION GAP 15.5 (8-16); CALCIUM 8.8 mg/dL (8.5-10.1); CARBON DIOXIDE 29.4 mmol/L (21-32); CHLORIDE 95 mmol/L (98-107); GLUCOSE 110 mg/dL (74-106); POTASSIUM 5.9 mmol/L (3.5-5.1); SODIUM SERUM 134 mmol/L (136-145); UREA NITROGEN, BLOOD 58 mg/dL (7-18)
[2024-01-31 07:58] LABS: CREATININE 8.6 mg/dL (0.6-1.3)
[2024-01-31 08:00] VITALS: BP 139/41; PULSE 62; PULSE 65; RESP 18; TEMP 98.3; O2SAT 98
[2024-01-31 08:19] LABS: BASOPHILS # (AUTO) 0.1 K/uL (0.00-0.22); BASOPHILS % (AUTO) 0.6 % (0.0-2.0); EOSINOPHILS # (AUTO) 0.2 K/uL (0-0.4); EOSINOPHILS % (AUTO) 1.7 % (0.0-4.0); HEMATOCRIT 28.9 % (36-48); HEMOGLOBIN 9.4 g/dL (12.0-16.0); LYMPHOCYTES # (AUTO) 2.3 K/uL (2.5-16.5); LYMPHOCYTES % (AUTO) 23.3 % (20.5-51.1); MEAN CORPUSCULAR HEMOGLOBIN 30 pg (27-31); MEAN CORPUSCULAR HGB CONC 33 g/dL (33-37); MEAN CORPUSCULAR VOLUME 92.6 fL (80-94); MONOCYTES % (AUTO) 10.5 % (1.7-9.3); NEUTROPHILS # (AUTO) 6.2 K/uL (1.8-7.7); NEUTROPHILS % (AUTO) 63.9 % (42.2-75.2); PLATELET COUNT (AUTO) 201 K/uL (140-450); RED BLOOD CELL COUNT(AUTO) 3.12 MIL/uL (4.20-5.40); RED CELL DISTRIBUTION WIDTH 14.4 % (11.6-13.7); WHITE BLOOD COUNT (AUTO) 9.7 K/uL (4.8-10.8)
[2024-01-31] MEDS: EPOETIN ALFA-EPBX 10,000 UNITS/ML VIAL IV SCH (10:37)
[2024-01-31 10:46] VITALS: BP_SYST 149; BP_SYST 150; BP_DIAS 51; BP_DIAS 73; PULSE 60; PULSE 77; RESP 18; TEMP 96.8; TEMP 97.3
[2024-01-31 12:00] VITALS: BP 143/45; PULSE 66; PULSE 70; RESP 18; TEMP 97.8; O2SAT 97
[2024-01-31 16:00] VITALS: BP 130/51; PULSE 58; PULSE 60; RESP 18; TEMP 97.3; O2SAT 98
== END 2024-01-31 21:30 | disposition short-term general hospital (02) | DRG 637 ==
LOC: MED 19:58 → MTU 22:45
PROVIDERS: ADMIT Student in an Organized Health Care Education/Training Program; ATTEND Student in an Organized Health Care Education/Training Program
PROC: 5A1D70Z Performance of Urinary Filtration, Intermittent, Less than 6 Hours Per Day (ICD-10-PCS; principal; 2024-01-29)
DX: E11.649 Type 2 diabetes mellitus with hypoglycemia without coma (principal); I50.33 Acute on chronic diastolic (congestive) heart failure; I13.2 Hypertensive heart and chronic kidney disease with heart failure and with stage 5 chronic kidney disease, or end stage renal disease; E87.5 Hyperkalemia; N18.6 End stage renal disease; E78.5 Hyperlipidemia, unspecified; I35.0 Nonrheumatic aortic (valve) stenosis; E11.22 Type 2 diabetes mellitus with diabetic chronic kidney disease; Z66 Do not resuscitate; I95.9 Hypotension, unspecified; Z99.2 Dependence on renal dialysis; Z88.0 Allergy status to penicillin; Z79.82 Long term (current) use of aspirin; Z79.899 Other long term (current) drug therapy
CPT/HCPCS: 36415; 71045; 80048; 80076; 82948; 83605; 83880; 84484; 85025; 85610; 85730; 87040; 87081; 90935; 93005; 96360; 97163-GP; 97530; 99291; J1815; Q5106